=== PATIENT | female | born 1950 | race Caucasian/White ===

== ENCOUNTER → 2016-09-17 | Outpatient (CLI) | payer MEDICARE, MEDICAID | LOC: WI 10:01 | PROVIDERS: ATTEND Internal Medicine | DX: N60.82 Other benign mammary dysplasias of left breast (principal); N60.81 Other benign mammary dysplasias of right breast | CPT/HCPCS: 76642; G0204; 77066 ==

== ENCOUNTER 2017-09-08 17:20 | Emergency (ER) | payer MEDICARE, MEDICAID ==
[2017-09-08] MEDS ORDERED: PANTOPRAZOLE SODIUM 40 MG VIAL IV ONE (17:53)
--- NOTE | 2017-09-08 17:54 | ER Document Report ---
ED Medical Screen (RME) - General Chief Complaint: Vomiting Stated Complaint: VOMITING, DIZZY Time Seen by Provider: 09/08/17 17:51 Notes: RME DISCLOSURE I have seen this patient as part of a Rapid Medical Evaluation and, if applicable, placed any initially appropriate orders. The patient will be seen and fully evaluated, including a full history and physical exam, by a provider ( in Main ED or Fast Track) when a room becomes available. 66-year-old female here with complaints of fall the occurred several days ago. She fell and struck her left lower chest and has been having some rib pain since then. Since then, she has also been having episodes of vomiting and describes the vomitus as black. This has been accompanied with black stools for the same timeframe. She denies any abdominal pain but complains of pain under her left rib (left upper quadrant). She denies taking blood thinners. Has a previous history of peptic ulcers but denies any previous GI bleeds. EXAM Mild left upper quadrant tenderness No peritoneal signs TRAVEL OUTSIDE OF THE [place] IN LAST 30 DAYS: No - Related Data Allergies/Adverse Reactions: No Known Allergies Allergy (Verified 09/08/17 17:24) Past Medical History - Past Medical History Cardiac Medical History: Reports: Hx Congestive Heart Failure, Hx Coronary Artery Disease, Hx Heart Attack - x 2, Hx Hypercholesterolemia, Hx Hypertension Pulmonary Medical History: Reports: Hx Asthma Denies: Hx Tuberculosis Neurological Medical History: Reports: Hx Migraine. Denies: Hx Cerebrovascular Accident, Hx Seizures Endocrine Medical History: Reports: Hx Diabetes Mellitus Type 1, Hx Diabetes Mellitus Type 2 - insulin dependent, Hx Hypothyroidism GI Medical History: Reports: Hx Gastroesophageal Reflux Disease, Hx Ulcer. Denies: Hx Hiatal Hernia Musculoskeltal Medical History: Reports Hx Arthritis Psychiatric Medical History: Reports: Hx Bipolar Disorder, Hx Depression, Hx Post Traumatic Stress Disorder, Hx Schizophrenia Past Surgical History: Reports: Hx Appendectomy, Hx Cardiac Catheterization, Hx Cardiac Surgery - 4 stents, Hx Cholecystectomy, Hx Hysterectomy, Hx Open Heart Surgery, Hx Orthopedic Surgery - left leg hardware. Denies: Hx Pacemaker - Immunizations Hx Diphtheria, Pertussis, Tetanus Vaccination: Yes Physical Exam - Vital signs Vitals: Temp Pulse Resp BP Pulse Ox 98.2 F 74 24 H 172/110 H 94 09/08/17 17:25 09/08/17 17:25 09/08/17 17:25 09/08/17 17:25 09/08/17 17:25 Course - Vital Signs Vital signs: Temp Pulse Resp BP Pulse Ox 98.2 F 74 24 H 172/110 H 94 09/08/17 17:25 09/08/17 17:25 09/08/17 17:25 09/08/17 17:25 09/08/17 17:25
[2017-09-08 18:52] LABS: ABSOLUTE BASOPHILS # (AUTO) 0.1 10^3/uL (0.0-0.2); ABSOLUTE EOSINOPHILS # (AUTO) 0.1 10^3/uL (0.0-0.6); ABSOLUTE LYMPHOCYTES (AUTO) 1.6 10^3/uL (0.5-4.7); ABSOLUTE MONOCYTES (AUTO) 0.8 10^3/uL (0.1-1.4); ABSOLUTE NEUT (AUTO) 7.8 10^3/uL (1.7-8.2); BASOPHILS % (AUTO) 0.5 % (0-2); EOSINOPHILS % (AUTO) 0.8 % (0-6); HEMATOCRIT 46.4 % (36.0-47.0); HEMOGLOBIN 15.7 g/dL (12.0-15.5); LYMPHOCYTES % (AUTO) 15.1 % (13-45); MEAN CORPUSCULAR HEMOGLOBIN 28.8 pg (27.0-33.4); MEAN CORPUSCULAR HGB CONC 33.9 g/dL (32.0-36.0); MEAN CORPUSCULAR VOLUME 85 fl (80-97); MONOCYTES % (AUTO) 7.4 % (3-13); PLATELET COUNT 242 10^3/uL (150-450); RED BLOOD COUNT 5.45 10^6/uL (3.72-5.28); RED CELL DISTRIBUTION WIDTH 13.7 % (11.5-14.0); SEGMENTED NEUTROPHILS % (AUTO) 76.2 % (42-78); TOTAL CELLS COUNTED % (AUTO) 100 %; WHITE BLOOD COUNT 10.3 10^3/uL (4.0-10.5)
[2017-09-08 19:04] LABS: INTERNATIONAL RATION (INR) 0.92; PARTIAL THROMBOPLASTIN TIME 28.2 SEC (23.5-35.8)
[2017-09-08 19:09] LABS: ALANINE AMINOTRANSFERASE 30 U/L (9-52); ALBUMIN 4.6 g/dL (3.5-5.0); ALKALINE PHOSPHATASE 129 U/L (38-126); ANION GAP 10 (5-19); ASPARTATE AMINO TRANSFERASE 26 U/L (14-36); BILIRUBIN,DIRECT 0.6 mg/dL (0.0-0.4); BILIRUBIN,TOTAL 0.9 mg/dL (0.2-1.3); BLOOD UREA NITROGEN 17 mg/dL (7-20); CALCIUM 10.3 mg/dL (8.4-10.2); CARBON DIOXIDE 27 mmol/L (22-30); CHLORIDE 98 mmol/L (98-107); GLUCOSE 267 mg/dL (75-110); LIPASE 41.2 U/L (23-300); TOTAL PROTEIN 7.8 g/dL (6.3-8.2)
--- NOTE | 2017-09-08 20:42 | ER Document Report ---
ED GI/ - General Chief Complaint: Vomiting Stated Complaint: VOMITING, DIZZY Time Seen by Provider: 09/08/17 17:51 Notes: Patient is a 66-year-old female who comes emergency department for chief complaint of vomiting, diarrhea, and a fall. She states she fell over 2 days ago, she lost her balance and landed over the side of a chair over her left rib area, she denies falling to the ground or hitting her head. She states that yesterday she had vomiting and diarrhea, she had multiple episodes of diarrhea last night although diarrhea has stopped. She states that her diarrhea looked "black" in her vomit also looked "black". She states she vomited twice today but not since. Her only complaint now is feeling sore in her left upper abdominal and lower rib area. She denies dizziness or passing out. Past medical history of peptic ulcer disease although she denies history of GI bleed , CHF, CABG, type 2 diabetes, bipolar/anxiety. She comes from home. TRAVEL OUTSIDE OF THE [place] IN LAST 30 DAYS: No - Related Data Allergies/Adverse Reactions: No Known Allergies Allergy (Verified 09/08/17 17:24) Past Medical History - General Information source: Patient - Social History Smoking Status: Never Smoker Chew tobacco use (# tins/day): No Frequency of alcohol use: None Drug Abuse: None Lives with: Family Family History: CAD Patient has suicidal ideation: No Patient has homicidal ideation: No - Past Medical History Cardiac Medical History: Reports: Hx Congestive Heart Failure, Hx Coronary Artery Disease, Hx Heart Attack - x 2, Hx Hypercholesterolemia, Hx Hypertension Pulmonary Medical History: Reports: Hx Asthma Denies: Hx Tuberculosis Neurological Medical History: Reports: Hx Migraine. Denies: Hx Cerebrovascular Accident, Hx Seizures Endocrine Medical History: Reports: Hx Diabetes Mellitus Type 1, Hx Diabetes Mellitus Type 2 - insulin dependent, Hx Hypothyroidism Renal/ Medical History: Denies: Hx Peritoneal Dialysis GI Medical History: Reports: Hx Gastroesophageal Reflux Disease, Hx Ulcer. Denies: Hx Hiatal Hernia Musculoskeltal Medical History: Reports Hx Arthritis Psychiatric Medical History: Reports: Hx Bipolar Disorder, Hx Depression, Hx Post Traumatic Stress Disorder, Hx Schizophrenia Past Surgical History: Reports: Hx Appendectomy, Hx Cardiac Catheterization, Hx Cardiac Surgery - 4 stents, Hx Cholecystectomy, Hx Hysterectomy, Hx Open Heart Surgery, Hx Orthopedic Surgery - left leg hardware. Denies: Hx Pacemaker - Immunizations Hx Diphtheria, Pertussis, Tetanus Vaccination: Yes Hx Pneumococcal Vaccination: 03/18/11 Review of Systems - Review of Systems Constitutional: No symptoms reported EENT: No symptoms reported Cardiovascular: See HPI Respiratory: No symptoms reported Gastrointestinal: See HPI Genitourinary: No symptoms reported Female Genitourinary: No symptoms reported Musculoskeletal: No symptoms reported Skin: No symptoms reported Hematologic/Lymphatic: No symptoms reported Neurological/Psychological: No symptoms reported Physical Exam - Vital signs Vitals: Temp Pulse Resp BP Pulse Ox 98.2 F 74 24 H 172/110 H 94 09/08/17 17:25 09/08/17 17:25 09/08/17 17:25 09/08/17 17:25 09/08/17 17:25 - General General appearance: Appears well In distress: None - HEENT Head: Normocephalic, Atraumatic Eyes: Normal Conjunctiva: Normal Extraocular movements intact: Yes Eyelashes: Normal Pupils: PERRL Nasal: Normal Mouth/Lips: Normal Mucous membranes: Normal Pharynx: Normal Neck: Normal - Respiratory Respiratory status: No respiratory distress Chest status: Tender - Very mild tenderness in the left lower anterior ribs, no ecchymosis, crepitus, or other abnormality noted Breath sounds: Normal. No: Decreased air movement, Wheezing - Cardiovascular Rhythm: Regular. No: Tachycardia Heart sounds: Normal auscultation, S1 appreciated, S2 appreciated - Abdominal Inspection: Normal Distension: No distension Tenderness: Nontender. No: Tender, McBurney's point, Vega's sign, Guarding - Rectal Stool: Heme negative. 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 - Back Back: Normal, Nontender - Neurological Neuro grossly intact: Yes Cognition: Normal Orientation: AAOx4 [place] Coma Scale Eye Opening: Spontaneous [place] Coma Scale Verbal: Oriented [place] Coma Scale Motor: Obeys Commands Isaias Coma Scale Total: 15 Speech: Normal Motor strength normal: LUE, RUE, LLE, RLE Sensory: Normal - Psychological Associated symptoms: Other - Patient surprisingly cheerful, laughing, well- appearing - Skin Skin Temperature: Warm Skin Moisture: Dry Skin Color: Normal Course - Re-evaluation Re-evalutation: Patient smiling, laughing, well-appearing. Soft abdomen, clear lungs. Blood pressure is somewhat high, however she denies headache or chest pain. She has mild left sided rib tenderness, no obvious abdominal tenderness. Stool is brown and normal-appearing on exam, Hemoccult is negative. CBC and chemistry unremarkable. CAT scan reviewed from triage and does not show fracture, internal hemorrhage, or any other abnormality. Patient is tolerating p.o. without any difficulty. Patient is asking to leave. Because of peptic ulcer disease history, reported symptoms, patient was placed on Nexium , patient states she will follow-up with primary care. Adjusted blood pressure medication, she states that she will be taking her home medications and have this closely rechecked with primary care. is at bedside and states they will perform this. Discussed return precautions in detail, patient states satisfaction and agreement. - Vital Signs Vital signs: Temp Pulse Resp BP Pulse Ox 97.7 F 74 18 176/74 H 96 09/08/17 22:43 09/08/17 17:25 09/08/17 22:43 09/08/17 22:43 09/08/17 22:43 - Laboratory Result Diagrams: 09/08/17 18:20 09/08/17 18:20 Laboratory results interpreted by me: 09/08/17 09/08/17 18:20 18:20 RBC 5.45 H Hgb 15.7 H Sodium 135.0 L Glucose 267 H Calcium 10.3 H Direct Bilirubin 0.6 H Alkaline Phosphatase 129 H Discharge - Discharge Clinical Impression: Left upper quadrant pain Vomiting Qualifiers: Vomiting type: unspecified Vomiting Intractability: non-intractable Nausea presence: with nausea Qualified Code(s): R11.2 - Nausea with vomiting, unspecified Diarrhea Qualifiers: Diarrhea type: unspecified type Qualified Code(s): R19.7 - Diarrhea, unspecified Condition: Stable Disposition: HOME, SELF-CARE Additional Instructions: The imaging shows no fracture or concerning finding. No evidence of bleeding going on at this time. Rehydrate, take the Nexium medication as prescribed for your stomach, follow-up with primary care for additional evaluation and management. Return if you worsen including returned vomiting, worsening pain, fever, passing out, or any other concerning or worsening symptoms. Prescriptions: Esomeprazole Mag Trihydrate [Nexium] 40 mg PO DAILY #30 capsule.dr Forms: Elevated Blood Pressure Referrals: DAMIAN ARREOLA MD [Primary Care Provider] - Follow up in 3-5 days
--- NOTE | 2017-09-08 20:43 | RADIOLOGY REPORT (SQ) ---
EXAM DESCRIPTION: CT ABD/PELVIS WITH IV ONLY COMPLETED DATE/TIME: 09/08/2017 8:20 pm REASON FOR STUDY: fall, L lower rib pain, coffee grnd emesis; bleed? COMPARISON: None. TECHNIQUE: CT scan of the abdomen and pelvis performed using helical scanning technique with dynamic intravenous contrast injection. No oral contrast. Images reviewed with lung, soft tissue, and bone windows. Reconstructed coronal and sagittal MPR images reviewed. Delayed images for evaluation of the urinary system also acquired. All images stored on PACS. All CT scanners at this facility use dose modulation, iterative reconstruction, and/or weight based d osing when appropriate to reduce radiation dose to as low as reasonably achievable (ALARA). [facility]: Dose Right [facility]: CareDose [facility]: Dose Right [facility]: Teradose 4D [facility]: Info Assembly CONTRAST TYPE AND DOSE: contrast/concentration: Isovue 370.00 mg/ml; Total Contrast Delivered: 98.0 ml; Total Saline Delivered: 30.0 ml RENAL FUNCTION: BUN 17 creatinine 0.75. RADIATION DOSE: CT Rad equipment meets quality standard of care and radiation dose reduction techniq ues were employed. CTDIvol: 15.0 - 18.4 mGy. DLP: 1847 mGy-cm.. LIMITATIONS: None. FINDINGS: LOWER CHEST: No significant findings. No nodules or infiltrates. LIVER: Normal size. No masses. No dilated ducts. SPLEEN: Normal size. No focal lesions. PANCREAS: No masses. No significant calcifications. No adjacent inflammation or peripancreatic fluid collections. Pancreatic duct not dilated. GALLBLADDER: Surgically absent. ADRENAL GLANDS: No significant masses or asymmetry. RIGHT KIDNEY AND URETER: No solid masses. No significant calcifications. No hydronephrosis or hyd roureter. LEFT KIDNEY AND URETER: No solid masses. No significant calcifications. No hydronephrosis or hydr oureter. AORTA AND VESSELS: No aneurysm. No dissection. Renal arteries, SMA, celiac without stenosis. RETROPERITONEUM: No retroperitoneal adenopathy, hemorrhage or masses. BOWEL AND PERITONEAL CAVITY: No masses or inflammatory changes. No free fluid or peritoneal masses. APPENDIX: Surgically absent. PELVIS: No mass. No free fluid. Normal bladder. ABDOMINAL WALL: No masses. No hernias. BONES: No significant or acute findings. OTHER: No other significant finding. IMPRESSION: NO SIGNIFICANT OR ACUTE FINDING IN THE ABDOMEN OR PELVIS ON CT SCAN WITH IV CONTRAST. TECHNICAL DOCUMENTATION: JOB ID: [id number] Quality ID # [id number]: Final reports with documentation of one or more dose reduction techniques (e.g., Au tomated exposure control, adjustment of the mA and/or kV according to patient size, use of iterative reconstruction technique) 2010 [employer]- All Rights Reserved Reading location - IP/workstation name: [email or web address]
[2017-09-08 22:51] VITALS: BP 176/74
== END 2017-09-08 22:50 | disposition home or self-care (01) ==
LOC: ER 17:20
DX: R11.2 Nausea with vomiting, unspecified (principal); R19.7 Diarrhea, unspecified; R10.12 Left upper quadrant pain; R09.89 Other specified symptoms and signs involving the circulatory and respiratory systems; W18.39XA Other fall on same level, initial encounter; I10 Essential (primary) hypertension; Z79.899 Other long term (current) drug therapy; I25.10 Atherosclerotic heart disease of native coronary artery without angina pectoris; I25.2 Old myocardial infarction; E11.9 Type 2 diabetes mellitus without complications; Z95.1 Presence of aortocoronary bypass graft; Z87.11 Personal history of peptic ulcer disease
CPT/HCPCS: 99284; 96374; 86900; 86901; 36415; 86850; 83690; 85025; 85610; 85730; 82272; 80053; 74177; C9113; S0164

== ENCOUNTER 2017-10-01 20:44 | Inpatient (IN) | payer MEDICAID, MEDICARE ==
--- NOTE | 2017-10-01 21:42 | ER Document Report ---
ED Fall <CAROL ANGEL - Last Filed: 10/02/17 00:18> - General Mode of Arrival: Medic Information source: Patient TRAVEL OUTSIDE OF THE [place] IN LAST 30 DAYS: No <GINETTE HOLCOMB - Last Filed: 10/04/17 14:24> - General Stated Complaint: FALL/WEAKNESS/NAUSEA Time Seen by Provider: 10/01/17 21:25 Notes: This 67-year-old female patient without a history of falls reports this morning she fell on her face, and noticed that she lost her vision at that time. The vision did come back and she was better. Later in the day she fell again striking the back of her head and again this was associated with loss of vision. She is unclear and unsure about if the vision loss occurred before or after the falls. At this time her vision is back to normal according to the patient. (STANLEYCAROL MUNIZ) Patient is a 67-year-old female with a history of schizophrenia, PTSD, CHF, NH, cardiac stents 4, presents to the emergency department complaining of multiple falls onset today. Patient is a poor historian. Patient states that she fell this morning (unsure why) and hit the right side of her forehead then proceeded to fall again, hitting the back of her head, this afternoon due to a syncopal episode. Patient states she is unaware of how long she was unconscious but when she regained consciousness she was able to crawl to the phone and call the EMS. Patient states that before she had a syncopal episode she felt lightheaded and dizzy and that her vision went completely out. At bedside she said that her vision is normal. (GINETTE HOLCOMB) - Related data Allergies/Adverse Reactions: No Known Allergies Allergy (Verified 09/08/17 17:24) Past Medical History - General Information source: Patient, Parent - Social History Smoking Status: Unknown if Ever Smoked Family History: CAD - Past Medical History Cardiac Medical History: Reports: Hx Congestive Heart Failure, Hx Coronary Artery Disease, Hx Heart Attack - x 2, Hx Hypercholesterolemia, Hx Hypertension Pulmonary Medical History: Reports: Hx Asthma Neurological Medical History: Reports: Hx Migraine Endocrine Medical History: Reports: Hx Diabetes Mellitus Type 1, Hx Diabetes Mellitus Type 2 - insulin dependent, Hx Hypothyroidism GI Medical History: Reports: Hx Gastroesophageal Reflux Disease, Hx Ulcer Musculoskeltal Medical History: Reports Hx Arthritis Psychiatric Medical History: Reports: Hx Bipolar Disorder, Hx Depression, Hx Post Traumatic Stress Disorder, Hx Schizophrenia Past Surgical History: Reports: Hx Appendectomy, Hx Cardiac Catheterization, Hx Cardiac Surgery - 4 stents, Hx Cholecystectomy, Hx Hysterectomy, Hx Open Heart Surgery, Hx Orthopedic Surgery - left leg hardware - Immunizations Hx Diphtheria, Pertussis, Tetanus Vaccination: Yes Hx Pneumococcal Vaccination: 03/18/11 <GINETTE HOLCOMB - Last Filed: 10/04/17 14:24> Review of Systems - Review of Systems Constitutional: No symptoms reported EENT: No symptoms reported Cardiovascular: See HPI, Syncope, Dizziness, Lightheaded Respiratory: No symptoms reported Gastrointestinal: No symptoms reported Genitourinary: No symptoms reported Female Genitourinary: No symptoms reported Musculoskeletal: See HPI Skin: No symptoms reported Hematologic/Lymphatic: No symptoms reported Neurological/Psychological: See HPI, Lost consciousness -: Yes All other systems reviewed and negative <GINETTE HOLCOMB - Last Filed: 10/04/17 14:24> Physical Exam - General General appearance: Alert In distress: None - HEENT Head: Normocephalic, Other - tender to palpation to the occiput, no evidence of swelling. Eyes: Other Neck: Other - placed in a C-collar. - Respiratory Respiratory status: No respiratory distress Chest status: Nontender Breath sounds: Normal Chest palpation: Normal - Cardiovascular Rhythm: Regular Heart sounds: Normal auscultation Murmur: No Friction rub: No Gallop: None auscultated - Abdominal Inspection: Morbidly Obese Distension: No distension Bowel sounds: Normal Tenderness: Nontender Organomegaly: No organomegaly - Back Back: Normal - Extremities General upper extremity: Normal ROM. No: Edema General lower extremity: Normal ROM. No: Edema - Neurological Neuro grossly intact: Yes Cognition: Normal Orientation: AAOx4 [place] Coma Scale Eye Opening: Spontaneous [place] Coma Scale Verbal: Oriented Isaias Coma Scale Motor: Obeys Commands Isaias Coma Scale Total: 15 Speech: Normal - Psychological Associated symptoms: Normal affect, Normal mood - Skin Skin Temperature: Warm Skin Moisture: Dry Skin Color: Normal <GINETTE HOLCOMB - Last Filed: 10/04/17 14:24> - Vital signs Vitals: Resp 17 10/01/17 21:01 Course - Laboratory Result Diagrams: 10/01/17 22:30 10/01/17 22:30 - Diagnostic Test Radiology reviewed: Image reviewed, Reports reviewed - CT scans of the head and neck do not show acute injuries or acute changes. - EKG Interpretation by Me EKG shows normal: Sinus rhythm, [place], Intervals. abnormal: QRS Complexes - Borderline inferior Q waves, ST-T Waves - Diffuse nonspecific T abnormalities Rate: Normal - 64 Rhythm: NSR - Consults Dr. Duval Time consulted: 21:35 Consulted provider: will see as inpatient - Agrees that the patient should be admitted and further evaluated for these peculiar falls associated with vision loss. We will check lab work prior to requesting room. <CAROL ANGEL - Last Filed: 10/02/17 00:18> - Laboratory Result Diagrams: 10/01/17 22:30 10/01/17 22:30 <GINETTE HOLCOMB - Last Filed: 10/04/17 14:24> - Re-evaluation Re-evalutation: 10/02/17 00:12 Patient's case was discussed with Dr. Duval. Patient has not had a problem with falls in the past. She will be admitted for further evaluation of her falling spells which seem to be associated with vision loss. (CAROL ANGEL) - Vital Signs Vital signs: Temp Pulse Resp BP Pulse Ox 98.3 F 64 20 150/56 H 98 10/04/17 11:56 10/04/17 11:56 10/04/17 11:56 10/04/17 11:56 10/04/17 11:56 - Laboratory Laboratory results interpreted by me: 10/01/17 10/01/17 10/01/17 22:30 22:30 23:42 RDW 14.4 H Seg Neutrophils % 88.1 H Lymphocytes % 8.2 L Chloride 97 L Glucose 189 H Urine Protein 30 H Urine Glucose (UA) >=500 H Urine Ketones 20 H Discharge - Discharge Admitting Provider: Mukund Unit Admitted: Medical Floor <CAROL ANGEL - Last Filed: 10/02/17 00:18> <GINETTE HOLCOMB - Last Filed: 10/04/17 14:24> - Discharge Clinical Impression: Vision loss Falls Qualifiers: Encounter type: subsequent encounter Qualified Code(s): W19.XXXD - Unspecified fall, subsequent encounter Scalp contusion Qualifiers: Encounter type: initial encounter Qualified Code(s): S00.03XA - Contusion of scalp, initial encounter Condition: Stable Disposition: ADMITTED INPATIENT Scribe Attestation: 10/01/17 23:07 I personally performed the services described in the documentation, reviewed and edited the documentation which was dictated to the scribe in my presence, and it accurately records my words and actions. (CAROL ANGEL) Scribe Documentation - Scribe Written by Jose:: Jose Esposito, 10/01/2017 21:45 acting as scribe for :: Stanley <GINETTE HOLCOMB - Last Filed: 10/04/17 14:24>
--- NOTE | 2017-10-01 22:32 | RADIOLOGY REPORT (SQ) ---
EXAM DESCRIPTION: CT HEAD WITHOUT COMPLETED DATE/TIME: 10/01/2017 10:13 pm REASON FOR STUDY: fall COMPARISON: 12/28/2010 TECHNIQUE: Axial images acquired through the brain without intravenous contrast. Images reviewed wi th bone, brain and subdural windows. Additional sagittal and coronal reconstructions were generated. Images stored on PACS. All CT scanners at this facility use dose modulation, iterative reconstruction, and/or weight based d osing when appropriate to reduce radiation dose to as low as reasonably achievable (ALARA). [facility]: Dose Right [facility]: CareDose [facility]: Dose Right [facility]: Teradose 4D [facility]: Smart [employer].pw RADIATION DOSE: CT Rad equipment meets quality standard of care and radiation dose reduction techniq ues were employed. CTDIvol: 53.2 mGy. DLP: 964 mGy-cm. mGy. LIMITATIONS: None. FINDINGS: VENTRICLES: Normal size and contour. CEREBRUM: Mild cortical atrophy. No masses. No hemorrhage. No midline shift. No evidence for acut e infarction. Normal kelley/white matter differentiation. No areas of low density in the white matter. CEREBELLUM: No masses. No hemorrhage. No alteration of density. No evidence for acute infarction. EXTRAAXIAL SPACES: No fluid collections. No masses. ORBITS AND GLOBE: No intra- or extraconal masses. Normal contour of globe without masses. CALVARIUM: No fracture. PARANASAL SINUSES: No fluid or mucosal thickening. SOFT TISSUES: No mass or hematoma. OTHER: No other significant finding. IMPRESSION: Mild involutional changes of aging with no acute intracranial imaging findings. EVIDENCE OF ACUTE STROKE: NO. COMMENT: Quality ID # [id number]: Final reports with documentation of one or more dose reduction techniques (e.g., Automated exposure control, adjustment of the mA and/or kV according to patient size, use of iterative reconstruction technique) TECHNICAL DOCUMENTATION: JOB ID: [id number] [employer]- All Rights Reserved Reading location - IP/workstation name: [email or web address]
--- NOTE | 2017-10-01 22:36 | RADIOLOGY REPORT (SQ) ---
EXAM DESCRIPTION: CT CERVICAL SPINE WITHOUT COMPLETED DATE/TIME: 10/01/2017 10:13 pm REASON FOR STUDY: fall COMPARISON: None. TECHNIQUE: Axial images acquired through the cervical spine without intravenous contrast. Images re viewed with lung, soft tissue and bone windows. Reconstructed coronal and sagittal MPR images review ed. Images stored on PACS. All CT scanners at this facility use dose modulation, iterative reconstruction, and/or weight based d osing when appropriate to reduce radiation dose to as low as reasonably achievable (ALARA). [facility]: Dose Right [facility]: CareDose [facility]: Dose Right [facility]: Teradose 4D [facility]: Smart ASSIA RADIATION DOSE: CT Rad equipment meets quality standard of care and radiation dose reduction techniq ues were employed. CTDIvol: 22.4 mGy. DLP: 440 mGy-cm. mGy. LIMITATIONS: None. FINDINGS: ALIGNMENT: Anatomic. MINERALIZATION: Normal. VERTEBRAL BODIES: No fractures or dislocation. DISCS: Discs are narrowed at C2-3, C4-5, C5-6, and C6-7. Anterior and posterior osteophytes are pres ent from C4-C7. FACETS, LATERAL MASSES, POSTERIOR ELEMENTS: No fractures. No dislocation. No acute findings. HARDWARE: None in the spine. VISUALIZED RIBS: No fractures. LUNG APICES AND SOFT TISSUES: No significant or acute findings. OTHER: Foraminal stenoses are present at C4-5, C5-6, and C6-7 on the right more than the left. IMPRESSION: Degenerative disc disease and spondylosis. No acute abnormality. TECHNICAL DOCUMENTATION: JOB ID: [id number] Quality ID # [id number]: Final reports with documentation of one or more dose reduction techniques (e.g., Au tomated exposure control, adjustment of the mA and/or kV according to patient size, use of iterative reconstruction technique) 2010 [employer]- All Rights Reserved Reading location - IP/workstation name: [email or web address]
[2017-10-01 22:51] LABS: ABSOLUTE LYMPHOCYTES (AUTO) 0.7 10^3/uL (0.5-4.7); ABSOLUTE MONOCYTES (AUTO) 0.3 10^3/uL (0.1-1.4); ABSOLUTE NEUT (AUTO) 7.2 10^3/uL (1.7-8.2); BASOPHILS % (AUTO) 0.2 % (0-2); EOSINOPHILS % (AUTO) 0.1 % (0-6); HEMATOCRIT 42.6 % (36.0-47.0); HEMOGLOBIN 14.4 g/dL (12.0-15.5); LYMPHOCYTES % (AUTO) 8.2 % (13-45); MEAN CORPUSCULAR HEMOGLOBIN 29.1 pg (27.0-33.4); MEAN CORPUSCULAR HGB CONC 33.7 g/dL (32.0-36.0); MEAN CORPUSCULAR VOLUME 86 fl (80-97); MONOCYTES % (AUTO) 3.4 % (3-13); PLATELET COUNT 211 10^3/uL (150-450); RED BLOOD COUNT 4.94 10^6/uL (3.72-5.28); RED CELL DISTRIBUTION WIDTH 14.4 % (11.5-14.0); SEGMENTED NEUTROPHILS % (AUTO) 88.1 % (42-78); TOTAL CELLS COUNTED % (AUTO) 100 %; WHITE BLOOD COUNT 8.1 10^3/uL (4.0-10.5)
--- NOTE | 2017-10-01 23:03 | EKG REPORT ---
SEVERITY:- ABNORMAL ECG - SINUS RHYTHM BORDERLINE INFERIOR Q WAVES NONSPECIFIC T ABNORMALITIES, DIFFUSE LEADS : Confirmed by: Mohinder Solomon 01-Oct-2017 23:02:52
[2017-10-01 23:08] LABS: ALANINE AMINOTRANSFERASE 28 U/L (9-52); ALBUMIN 4.5 g/dL (3.5-5.0); ALKALINE PHOSPHATASE 95 U/L (38-126); ANION GAP 13 (5-19); ASPARTATE AMINO TRANSFERASE 25 U/L (14-36); BILIRUBIN,DIRECT 0.4 mg/dL (0.0-0.4); BILIRUBIN,TOTAL 0.7 mg/dL (0.2-1.3); BLOOD UREA NITROGEN 10 mg/dL (7-20); CALCIUM 10.1 mg/dL (8.4-10.2); CARBON DIOXIDE 28 mmol/L (22-30); CHLORIDE 97 mmol/L (98-107); CREATINE KINASE 52 U/L (30-135); GLUCOSE 189 mg/dL (75-110); POTASSIUM 3.9 mmol/L (3.6-5.0); SODIUM 137.5 mmol/L (137-145); TOTAL PROTEIN 7.2 g/dL (6.3-8.2)
[2017-10-01 23:18] LABS: CREATINE KINASE MB 1.12 ng/mL (<4.55); TROPONIN I < 0.012 ng/mL
[2017-10-01 23:59] LABS: APPEARANCE,URINE CLEAR; BILIRUBIN,URINE NEGATIVE (NEGATIVE); COLOR,URINE YELLOW; GLUCOSE, URINE >=500 mg/dL (NEGATIVE); KETONES,URINE 20 mg/dL (NEGATIVE); LEUKOCYTE ESTERASE,URINE NEGATIVE (NEGATIVE); NITRITE,URINE NEGATIVE (NEGATIVE); PROTEIN,URINE 30 mg/dL (NEGATIVE); URINE SPECIFIC GRAVITY 1.014; UROBILINOGEN,URINE NEGATIVE mg/dL (<2.0)
[2017-10-02 08:32] LABS: CREATINE KINASE MB 1.45 ng/mL (<4.55)
[2017-10-02 08:36] LABS: TROPONIN I < 0.012 ng/mL
[2017-10-02] MEDS ORDERED: CLONAZEPAM 1 MG TABLET PO ONE (11:00)
[2017-10-02] MEDS ORDERED: CLONAZEPAM 1 MG TABLET PO PRN (12:45)
[2017-10-02] MEDS ORDERED: INSULIN LISPRO 100 UNIT/ML 3 ML VIAL SUBCUT SCH (12:45)
[2017-10-02] MEDS ORDERED: BENZTROPINE MESYLATE 1 MG TABLET PO ONE (14:00)
[2017-10-02] MEDS ORDERED: DULOXETINE HCL 30 MG CAPSULE.DR PO ONE (14:00)
[2017-10-02] MEDS ORDERED: LAMOTRIGINE 100 MG TABLET PO ONE (14:00)
[2017-10-02] MEDS ORDERED: LEVOTHYROXINE SODIUM 0.15 MG TABLET PO ONE (14:00)
[2017-10-02] MEDS ORDERED: ASPIRIN 81 MG TABLET, ENT COATED PO ONE (14:00)
[2017-10-02] MEDS ORDERED: METOPROLOL SUCCINATE 50 MG TAB.SR.24H PO ONE (14:00)
[2017-10-02 15:10] LABS: CREATINE KINASE MB 2.69 ng/mL (<4.55)
[2017-10-02 15:14] LABS: TROPONIN I < 0.012 ng/mL
[2017-10-02] MEDS ORDERED: BUTALB/ACETAMINOPHEN/CAFFEINE 1 TAB EACH PO PRN (18:15)
[2017-10-02] MEDS ORDERED: ENALAPRILAT DIHYDRATE INJ/PF 2.5 MG/2 ML SDV IV ONE (18:45)
[2017-10-02] MEDS: ENALAPRILAT DIHYDRATE INJ/PF 2.5 MG/2 ML SDV IV SCH ×2 (18:55→18:56)
[2017-10-02 20:01] LABS: CREATINE KINASE MB 3.01 ng/mL (<4.55); TROPONIN I < 0.012 ng/mL
[2017-10-02] MEDS: BENZTROPINE MESYLATE 1 MG TABLET PO SCH (21:44)
[2017-10-02] MEDS: LAMOTRIGINE 100 MG TABLET PO SCH (21:45)
[2017-10-02] MEDS: DULOXETINE HCL 30 MG CAPSULE.DR PO SCH (21:45)
[2017-10-02] MEDS: CLONAZEPAM 1 MG TABLET PO SCH (21:45)
[2017-10-02] MEDS: OXYCODONE HCL IR 5 MG TABLET PO SCH (21:46)
[2017-10-02] MEDS ORDERED: CLONAZEPAM 1 MG PO SCH (22:00)
--- NOTE | 2017-10-02 23:32 | PDOC H&P ---
History of Present Illness Admission Date/PCP: 10/02/17 00:25 DAMIAN ARREOLA MD History of Present Illness: RADHA SCOTT is a 67 year old female, She has history of coronary artery disease status post CABG, diabetes mellitus type 2 ,depression she came to the emergency room for evaluation of unprovoked fall she said she fell 3 times unprovoked there was no antecedent chest pain, no loss of consciousness no shortness of breath. In the Emergency room she was evaluated x-rays was done there was no acute fracture CT head was negative. She was also found to have uncontrolled hypertension with the headache because the etiology of the fall is not clear the ER physician is recommending hospital admission for observation Past Medical History Cardiac Medical History: Reports: Congestive Heart Failure, Coronary Artery Disease, Myocardial Infarction - x 2, Hyperlipidema, Hypertension Pulmonary Medical History: Reports: Asthma Neurological Medical History: Reports: Migraine Endocrine Medical History: Reports: Diabetes Mellitus Type 2 GI Medical History: Reports: Gastroesophageal Reflux Disease Musculoskeltal Medical History: Reports: Arthritis Psychiatric Medical History: Reports: Bipolar Disorder, Depression, Post Traumatic Stress Disorder Hematology: Reports: Anemia Past Surgical History Past Surgical History: Reports: Appendectomy, Cardiac Catheterization, Cholecystectomy, Hysterectomy, Orthopedic Surgery - left leg hardware Denies: Pacemaker Social History Smoking Status: Unknown if Ever Smoked Frequency of Alcohol Use: None Hx Recreational Drug Use: No Drugs: None Hx Prescription Drug Abuse: No - Advance Directive Resuscitation Status: Full Code Family History Family History: CAD Parental Family History Reviewed: Yes Children Family History Reviewed: Yes Sibling(s) Family History Reviewed.: Yes Medication/Allergy Home Medications: Levothyroxine Sodium [Synthroid] 150 mcg PO Q6AM 05/26/12 Metoprolol Succinate [Toprol XL 100 mg Tablet] 200 mg PO DAILY 05/26/12 Insulin Aspart [Novolog Flexpen] 0 unit SUBCUT .SLD SCALE 10/21/13 Clonazepam [Klonopin] 0.5 mg PO DAILYP PRN 09/08/17 Aspirin [Aspirin EC] 81 mg PO DAILY 10/02/17 Benztropine Mesylate [Cogentin 1 mg Tablet] 1 mg PO Q12 10/02/17 Clonazepam [Klonopin] 1 mg PO QHS 10/02/17 Dextroamphetamine/Amphetamine [Adderall 10 mg Tablet] 10 mg PO Q8 10/02/17 Duloxetine HCl [Cymbalta] 60 mg PO Q12 10/02/17 Insulin Detemir [Levemir Flextouch] 50 unit SQ QAM 10/02/17 Lamotrigine [Lamictal] 200 mg PO Q12 10/02/17 Oxycodone HCl [Oxy-Ir 5 mg Tablet] 5 mg PO Q12 10/02/17 Prazosin HCl [Minipress] 1 mg PO QHS 10/02/17 Allergies/Adverse Reactions: No Known Allergies Allergy (Verified 09/08/17 17:24) Review of Systems Constitutional: PRESENT: headache(s). ABSENT: chills, fever(s), weight gain, weight loss Eyes: ABSENT: visual disturbances Ears: ABSENT: hearing changes Cardiovascular: ABSENT: chest pain, dyspnea on exertion, edema, orthropnea, palpitations Respiratory: ABSENT: cough, hemoptysis Gastrointestinal: ABSENT: abdominal pain, constipation, diarrhea, hematemesis, hematochezia, nausea, vomiting Genitourinary: ABSENT: dysuria, hematuria Musculoskeletal: ABSENT: joint swelling Integumentary: ABSENT: rash, wounds Neurological: ABSENT: abnormal gait, abnormal speech, confusion, dizziness, focal weakness, syncope Psychiatric: ABSENT: anxiety, depression, homidical ideation, suicidal ideation Endocrine: ABSENT: cold intolerance, heat intolerance, menstrual abnormalities, polydipsia, polyuria Hematologic/Lymphatic: ABSENT: easy bleeding, easy bruising, lymphadenopathy Physical Exam Vital Signs: Temp Pulse Resp BP Pulse Ox 98.2 F 57 L 20 181/67 H 94 10/02/17 19:19 10/02/17 19:19 10/02/17 19:19 10/02/17 19:19 10/02/17 19:19 Intake & Output 10/01/17 10/02/17 10/03/17 06:59 06:59 06:59 Intake Total 0 160 Output Total 30 800 Balance -30 -640 Weight 92 kg General appearance: PRESENT: no acute distress, well-developed, well-nourished Head exam: PRESENT: atraumatic, normocephalic Eye exam: PRESENT: conjunctiva pink, EOMI, PERRLA Ear exam: PRESENT: normal external ear exam Mouth exam: PRESENT: moist, tongue midline Neck exam: PRESENT: full ROM Respiratory exam: PRESENT: clear to auscultation ellen Cardiovascular exam: PRESENT: RRR, +S1, +S2 Pulses: PRESENT: normal dorsalis pedis pul, +2 pedal pulses bilateral Vascular exam: PRESENT: normal capillary refill GI/Abdominal exam: PRESENT: normal bowel sounds, soft Rectal exam: PRESENT: deferred Neurological exam: PRESENT: alert. ABSENT: motor sensory deficit Psychiatric exam: PRESENT: appropriate affect, normal mood Skin exam: PRESENT: dry, intact, warm Results Laboratory Results: 10/02/17 10/02/17 10/02/17 07:39 07:39 13:48 Creatine Kinase 65 97 CK-MB (CK-2) 1.45 Troponin I < 0.012 10/02/17 10/02/17 10/02/17 13:48 18:30 18:30 Creatine Kinase 114 CK-MB (CK-2) 2.69 3.01 Troponin I < 0.012 < 0.012 Impressions: Cervical Spine CT 10/01/17 00:00 IMPRESSION: Degenerative disc disease and spondylosis. No acute abnormality. Head CT 10/01/17 00:00 IMPRESSION: Mild involutional changes of aging with no acute intracranial imaging findings. EVIDENCE OF ACUTE STROKE: NO. Assessment & Plan - Diagnosis (1) Hypertensive urgency Is this a current diagnosis for this admission?: Yes Plan: Start IV Vasotec, p.o. metoprolol (2) Fall Is this a current diagnosis for this admission?: Yes Plan: The cause of the fall is not clear she is admitted for observation, check cardiac enzymes to rule out acute coronary syndrome though unlikely
[2017-10-02] MEDS ORDERED: DEXTROSE 50%-WATER SYRINGE 12.5 GM/25 ML DOSE IV PRN (23:48)
[2017-10-02] MEDS ORDERED: DEXTROSE 40% GEL 15 GM TUBE PO PRN (23:48)
[2017-10-02] MEDS ORDERED: DEXTROSE 50%-WATER SYRINGE 25 GM/50 ML DOSE IV PRN (23:48)
[2017-10-02] MEDS ORDERED: GLUCAGON,HUMAN RECOMB 1 MG INJ IM PRN (23:48)
[2017-10-02] MEDS ORDERED: INSULIN LISPRO 100 UNIT/ML 3 ML VIAL SUBCUT PRN (23:48)
[2017-10-02] MEDS ORDERED: DEXTROSE 40% GEL 15 GM TUBE X 2 PO PRN (23:48)
[2017-10-03] MEDS: ENALAPRILAT DIHYDRATE INJ/PF 2.5 MG/2 ML SDV IV SCH ×4 (00:04→17:47)
[2017-10-03] MEDS ORDERED: ONDANSETRON HCL INJ/PF 4 MG/2 ML SDV ONE (03:28)
[2017-10-03] MEDS ORDERED: ONDANSETRON HCL INJ/PF 4 MG/2 ML SDV IV PRN (03:29)
[2017-10-03] MEDS: LEVOTHYROXINE SODIUM 0.15 MG TABLET PO SCH (05:42)
[2017-10-03] MEDS ORDERED: DEXTROSE 40% GEL 15 GM TUBE X 2 PO PRN (07:12)
[2017-10-03] MEDS ORDERED: GLUCAGON,HUMAN RECOMB 1 MG INJ IM PRN (07:12)
[2017-10-03] MEDS ORDERED: DEXTROSE 50%-WATER SYRINGE 12.5 GM/25 ML DOSE IV PRN (07:12)
[2017-10-03] MEDS ORDERED: DEXTROSE 50%-WATER SYRINGE 25 GM/50 ML DOSE IV PRN (07:12)
[2017-10-03] MEDS ORDERED: DEXTROSE 40% GEL 15 GM TUBE PO PRN (07:12)
[2017-10-03] MEDS: INSULIN LISPRO 100 UNIT/ML 3 ML VIAL SUBCUT PRN ×2 (08:26→12:31)
[2017-10-03] MEDS: INSULIN DETEMIR 100 UNIT/ML 3 ML PEN SUBCUT SCH (08:26)
[2017-10-03] MEDS: ASPIRIN 81 MG TABLET, ENT COATED PO SCH (09:37)
[2017-10-03] MEDS: OXYCODONE HCL IR 5 MG TABLET PO SCH ×2 (09:37→21:11)
[2017-10-03] MEDS: LAMOTRIGINE 100 MG TABLET PO SCH ×2 (09:37→21:09)
[2017-10-03] MEDS: DULOXETINE HCL 30 MG CAPSULE.DR PO SCH ×2 (09:37→21:08)
[2017-10-03] MEDS: BENZTROPINE MESYLATE 1 MG TABLET PO SCH ×2 (09:38→21:09)
[2017-10-03] MEDS: CLONAZEPAM 1 MG TABLET PO SCH ×2 (09:38→21:09)
[2017-10-03] MEDS ORDERED: METOPROLOL SUCCINATE 50 MG TAB.SR.24H PO SCH (10:00)
[2017-10-03] MEDS ORDERED: AMLODIPINE BESYLATE 2.5 MG TABLET PO ONE (10:30)
--- NOTE | 2017-10-03 11:05 | PDOC PROGRESS REPORT ---
Subjective Progress Note for:: 10/03/17 Subjective:: Patient was admitted because of the frequent fall and uncontrolled blood pressures An initial workup including CT head and CT of the C-spine is all stable Patient's denied any chest pain denied any shortness of the breath denied any headache denied any weakness Is complaining of her right upper extremities some tremor Patient have initially visual difficulty when she came currently get better Reason For Visit: CONTUSSION OF SCALP VISION LOSS Physical Exam Vital Signs: Temp Pulse Resp BP Pulse Ox 97.8 F 51 L 18 152/70 H 99 10/03/17 07:34 10/03/17 07:34 10/03/17 07:34 10/03/17 07:34 10/03/17 07:34 Intake & Output 10/02/17 10/03/17 10/04/17 06:59 06:59 06:59 Intake Total 0 1170 Output Total 30 800 Balance -30 370 Weight 92 kg 91.3 kg General appearance: PRESENT: no acute distress, well-developed, well-nourished Head exam: PRESENT: atraumatic, normocephalic Eye exam: PRESENT: conjunctiva pink, EOMI, PERRLA. ABSENT: scleral icterus Ear exam: PRESENT: normal external ear exam Mouth exam: PRESENT: moist, tongue midline Neck exam: PRESENT: full ROM. ABSENT: carotid bruit, JVD, lymphadenopathy, thyromegaly Respiratory exam: PRESENT: clear to auscultation ellen Cardiovascular exam: PRESENT: RRR. ABSENT: diastolic murmur, rubs, systolic murmur Pulses: PRESENT: normal dorsalis pedis pul, +2 pedal pulses bilateral Vascular exam: PRESENT: normal capillary refill GI/Abdominal exam: PRESENT: normal bowel sounds, soft. ABSENT: distended, guarding, mass, organolmegaly, rebound, tenderness Rectal exam: PRESENT: deferred Extremities exam: ABSENT: pedal edema Musculoskeletal exam: PRESENT: ambulatory Neurological exam: PRESENT: alert, awake, oriented to person, oriented to place , oriented to time, oriented to situation, CN II-XII grossly intact. ABSENT: motor sensory deficit Psychiatric exam: PRESENT: appropriate affect, normal mood. ABSENT: homicidal ideation, suicidal ideation Skin exam: PRESENT: dry, intact, warm. ABSENT: cyanosis, rash Results Laboratory Results: 10/02/17 10/02/17 10/02/17 07:39 07:39 13:48 Creatine Kinase 65 97 CK-MB (CK-2) 1.45 Troponin I < 0.012 10/02/17 10/02/17 10/02/17 13:48 18:30 18:30 Creatine Kinase 114 CK-MB (CK-2) 2.69 3.01 Troponin I < 0.012 < 0.012 Impressions: Cervical Spine CT 10/01/17 00:00 IMPRESSION: Degenerative disc disease and spondylosis. No acute abnormality. Head CT 10/01/17 00:00 IMPRESSION: Mild involutional changes of aging with no acute intracranial imaging findings. EVIDENCE OF ACUTE STROKE: NO. Assessment & Plan - Diagnosis (1) Fall Qualifiers: Encounter type: subsequent encounter Qualified Code(s): W19.XXXD - Unspecified fall, subsequent encounter Is this a current diagnosis for this admission?: Yes Plan: Elevated blood pressures and frequent fall will get the MRI and MRA to rule out any neurological events (2) Hypertensive urgency Is this a current diagnosis for this admission?: Yes Plan: At the Norvasc 2.5 mg twice a day and slowly bring it down the blood pressures if MRI is negative for any acute stroke (3) Scalp contusion Qualifiers: Encounter type: initial encounter Qualified Code(s): S00.03XA - Contusion of scalp, initial encounter Is this a current diagnosis for this admission?: Yes (4) Vision loss Is this a current diagnosis for this admission?: Yes - Time Time Spent with patient: 15-24 minutes Medications reviewed and adjusted accordingly: Yes Anticipated discharge: Home Within: Other - Inpatient Certification Medical Necessity: Need Close Monitoring Due to Risk of Patient Decompensation Post Hospital Care: 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
[2017-10-03] MEDS ORDERED: ENALAPRILAT DIHYDRATE INJ/PF 2.5 MG/2 ML SDV IV SCH (18:00)
--- NOTE | 2017-10-03 18:52 | PDOC CONSULTATION ---
Consultation Consult Date: 10/03/17 Attending physician:: MARK HUSSEIN Consult reason:: Bradycardia History of Present Illness Admission Date/PCP: 10/02/17 00:25 DAMIAN ARREOLA MD Patient complains of: Recurrent falls and generalized weakness History of Present Illness: RADHA SCOTT is a 67 year old female has history of coronary artery disease status post CABG, diabetes mellitus type 2 ,depression she came to the emergency room for evaluation of unprovoked fall she said she fell 3 times unprovoked there was no antecedent chest pain, no loss of consciousness no shortness of breath. In the Emergency room she was evaluated x-rays was done there was no acute fracture CT head was negative. She was also found to have uncontrolled hypertension with the headache because the etiology of the fall is not clear the ER physician is recommending hospital admission for observation. This history obtained by the primary care physician was reviewed and confirmed. Patient does not know for sure whether she loses consciousness but claims that if she does she comes around very quickly. Her belief is that she just falls and does not have loss of consciousness. Patient has noted occasional intermittent nausea just preceding the falls. Patient claims that her muscles just give away. Patient has also been noted to have difficult to control blood pressure. Patient does have symptoms of difficulty in falling asleep and staying asleep. She is on multiple medications for the stress, pain and anxiety. Past Medical History Cardiac Medical History: Reports: Congestive Heart Failure, Coronary Artery Disease, Myocardial Infarction - x 2, Hyperlipidema, Hypertension Pulmonary Medical History: Reports: Asthma Denies: Tuberculosis Neurological Medical History: Reports: Migraine Denies: Seizures Endocrine Medical History: Reports: Diabetes Mellitus Type 1, Diabetes Mellitus Type 2, Hypothyroidism GI Medical History: Reports: Gastroesophageal Reflux Disease Denies: Hiatal Hernia Musculoskeltal Medical History: Reports: Arthritis Psychiatric Medical History: Reports: Bipolar Disorder, Depression, Post Traumatic Stress Disorder Hematology: Reports: Anemia Past Surgical History Past Surgical History: Reports: Appendectomy, Cardiac Catheterization, Cholecystectomy, Hysterectomy, Orthopedic Surgery - left leg hardware Denies: Pacemaker Social History Information Source: Patient Smoking Status: Unknown if Ever Smoked Frequency of Alcohol Use: None Hx Recreational Drug Use: No Drugs: None Hx Prescription Drug Abuse: No - Advance Directive Resuscitation Status: Full Code Family History Family History: CAD Parental Family History Reviewed: Yes Children Family History Reviewed: Yes Sibling(s) Family History Reviewed.: Yes Medication/Allergy Home Medications: Levothyroxine Sodium [Synthroid] 150 mcg PO Q6AM 05/26/12 Metoprolol Succinate [Toprol XL 100 mg Tablet] 200 mg PO DAILY 05/26/12 Insulin Aspart [Novolog Flexpen] 0 unit SUBCUT .SLD SCALE 10/21/13 Clonazepam [Klonopin] 0.5 mg PO DAILYP PRN 09/08/17 Aspirin [Aspirin EC] 81 mg PO DAILY 10/02/17 Benztropine Mesylate [Cogentin 1 mg Tablet] 1 mg PO Q12 10/02/17 Clonazepam [Klonopin] 1 mg PO QHS 10/02/17 Dextroamphetamine/Amphetamine [Adderall 10 mg Tablet] 10 mg PO Q8 10/02/17 Duloxetine HCl [Cymbalta] 60 mg PO Q12 10/02/17 Insulin Detemir [Levemir Flextouch] 50 unit SQ QAM 10/02/17 Lamotrigine [Lamictal] 200 mg PO Q12 10/02/17 Oxycodone HCl [Oxy-Ir 5 mg Tablet] 5 mg PO Q12 10/02/17 Prazosin HCl [Minipress] 1 mg PO QHS 10/02/17 Allergies/Adverse Reactions: No Known Allergies Allergy (Verified 09/08/17 17:24) Review of Systems Review of Systems: Please see history of present illness and past medical history as wall. Constitutional: No fever or chills reported. General fatigue and tiredness reported. Head : No recent chronic headaches, recent head injury. Eyes: No recent eye pain, diplopia, redness, discharge, acute visual changes. Ears: No recent chronic ear pain, acute hearing loss, ear discharge. Oral cavity: No recent ulcerations, bleeding, oral cavity discomfort. Neck: No recent acute neck pain reported. Hematologic: No recent easy bruising or bleeding. Lymphatic: No recent lymph node enlargement reported. Cardiovascular system review: See history of present illness. Respiratory system review: No hemoptysis or blood clots in the lungs reported.Shortness of breath on exertion Gastrointestinal system review: Negative for any recent acute hematemesis, melena. Genitourinary system review: No recent acute or chronic hematuria, flank pain, UTI etc. reported. Skin system review: Negative for any recent abnormal bruising, no rash, no pruritus reported. Neurologic: No prior history of strokes, mini strokes, seizure disorder. Psychologic: No history of major psychosis or major depression reported. Minor depression and anxiety reported. Musculoskeletal: Minor aches and pains reported. No acute joint swelling reported. Patient describes some left lower extremity weakness and also generalized weakness. Endocrine: No recent polyuria, polydipsia, recent heat or cold intolerance. Physical Exam Vital Signs: Temp Pulse Resp BP Pulse Ox 97.7 F 53 L 18 168/68 H 98 10/03/17 16:12 10/03/17 16:12 10/03/17 16:12 10/03/17 16:12 10/03/17 16:12 Intake & Output 10/02/17 10/03/17 10/04/17 06:59 06:59 06:59 Intake Total 0 1170 572 Output Total 30 800 Balance -30 370 572 Weight 92 kg 91.3 kg Exam: GENERAL: well-nourished and in no acute distress. Alert and oriented x3 HEAD: Atraumatic, normocephalic. EYES: Pupils equal round and reactive to light, extraocular movements intact, sclera anicteric, conjunctiva are normal. ENT: TMs normal, nares patent, oropharynx clear without exudates. Moist mucous membranes. No oral ulcerations or bleeding gums noted NECK: supple without lymphadenopathy. Trachea is central. No cervical or axillary lymphadenopathy noted. Carotids are 2+, JVD WNL LUNGS: Respiration seems nonlabored, no significant accessory muscle action noted. Breath sounds clear to auscultation bilaterally and equal noted. No wheezes rales or rhonchi noted. No significant dullness noted on percussion. CHEST: Palpation of the chest wall shows no significant chest wall tenderness. HEART: [place], No PSH, 1/6 AMPARO aortic area, 1/6 nair systolic murmur mitral area, no rubs, no gallops. ABDOMEN: Soft, no significant tenderness appreciated, normoactive bowel sounds. No guarding, no rebound. No rigidity noted . No masses appreciated. EXTREMITIES: Pedal pulses are 1-2+, no calf tenderness noted. No clubbing or cyanosis. Trace pedal edema noted NEUROLOGICAL: Focused neurological exam showed no significant neurologic deficit. Normal speech, no focal weakness appreciated. PSYCH: Normal mood, normal affect. Judgment and insight within normal limits. SKIN: No significant ecchymosis, skin is noted to be warm. MUSCULOSKELETAL EXAM: No significant acute joint swelling noted. Patient describes mild left lower extremity weakness but this is chronic. Results Laboratory Results: 10/02/17 10/02/17 10/02/17 07:39 07:39 13:48 Creatine Kinase 65 97 CK-MB (CK-2) 1.45 Troponin I < 0.012 10/02/17 10/02/17 10/02/17 13:48 18:30 18:30 Creatine Kinase 114 CK-MB (CK-2) 2.69 3.01 Troponin I < 0.012 < 0.012 EKG Comments: Shows sinus bradycardia with minor nonspecific ST segment changes Impressions: Cervical Spine CT 10/01/17 00:00 IMPRESSION: Degenerative disc disease and spondylosis. No acute abnormality. Head CT 10/01/17 00:00 IMPRESSION: Mild involutional changes of aging with no acute intracranial imaging findings. EVIDENCE OF ACUTE STROKE: NO. Assessment & Plan - Diagnosis (1) Bradycardia Is this a current diagnosis for this admission?: Yes (2) Near syncope Is this a current diagnosis for this admission?: Yes (3) Falls Qualifiers: Encounter type: initial encounter Qualified Code(s): W19.XXXA - Unspecified fall, initial encounter Is this a current diagnosis for this admission?: Yes (4) Hypertensive urgency Is this a current diagnosis for this admission?: Yes - Notes Notes: Observe patient off beta-jj. Patient currently is stable. Bradycardia: Patient noted to be bradycardic. Patient was on metoprolol succinate 100 mg p.o. daily. Currently on hold. This could be because of recurrent falls but there could be other causes. Near-syncope: The cause is undetermined at this time. There could be multiple differential diagnosis. This includes cardiac arrhythmia in this patient's age group, hypotension secondary to orthostasis, seizure disorder, hypoglycemia et cetera. Both sanya and tachyarrhythmias are possible. Patient will benefit from cardiac monitoring during this admission. May need to consider outpatient cardiac monitoring using mobile cardiac laboratory monitor if clinically indicated. Falls: Recurrent multifactorial. Recommend physical therapy assessment. May consider neurologic evaluation and neurology testing. Hypertensive urgency: Blood pressure has been severely elevated. Currently these are being adjusted. General debility: Patient complains of generalized weakness. Recommend physical therapy assessment. Have ordered a TSH level. - Time Time Spent: 50 to 70 Minutes - More than 50% of the time spent coordinating care , discussing management plans with involved caregivers. Management plans discussed with involved personnels. Medical decision making was of moderate to high complexity, patient's has multiple comorbidities. Medications reviewed and adjusted accordingly: Yes
[2017-10-03] MEDS: AMLODIPINE BESYLATE 2.5 MG TABLET PO SCH (21:10)
[2017-10-03] MEDS ORDERED: AMLODIPINE BESYLATE 2.5 MG TABLET PO SCH (22:00)
[2017-10-04] MEDS: ENALAPRILAT DIHYDRATE INJ/PF 2.5 MG/2 ML SDV IV SCH ×2 (01:13→05:15)
[2017-10-04] MEDS ORDERED: LIDOCAINE 1% INJ-PF (10 MG/ML) 30 ML SDV ONE (03:45)
[2017-10-04] MEDS ORDERED: LIDOCAINE 1% INJ (10 MG/ML) 10 ML MDV SUBCUT ONE (04:00)
--- NOTE | 2017-10-04 04:53 | RADIOLOGY REPORT (SQ) ---
EXAM DESCRIPTION: CT HEAD WITHOUT CLINICAL HISTORY: wound to head COMPARISON: None available TECHNIQUE: Axial CT of the head obtained from the skull apex to the skull base without contrast. FINDINGS: No acute intracranial hemorrhage identified. No mass, mass effect, shift of the midline, abnormal extra-axial fluid collection or CT evidence of acute ischemic change identified. The ventricular system and sulcal spaces are mildly enlarged compatible with mild cerebral atrophy. Scattered areas of hypodensity throughout the supratentorial white matter are nonspecific and may be related to chronic small vessel ischemic change. The visualized paranasal sinuses and the mastoids are clear. No skull fracture identified. Visualized orbits and globes are unremarkable. Atherosclerotic calcification of the intracranial internal carotid arteries. DLP:1043.77 mGy-cm IMPRESSION: 1. No acute intracranial abnormality by CT criteria. This exam was performed according to our departmental dose-optimization program, which includes automated exposure control, adjustment of the mA and/or kV according to patient size and/or use of iterative reconstruction technique.
[2017-10-04] MEDS: LEVOTHYROXINE SODIUM 0.15 MG TABLET PO SCH (05:14)
--- NOTE | 2017-10-04 05:20 | OPERATIVE REPORT E ---
Operative Report NAME: RADHA SCOTT : 1950 AGE: 67Y DATE OF SURGERY:10/04/1017 ROOM: 320 PREOPERATIVE DIAGNOSIS: Laceration of the left parietal scalp. POSTOPERATIVE DIAGNOSIS: Laceration of the left parietal scalp. PROCEDURE: Repair of 1.5 cm laceration of the left parietal scalp. SURGEON: WALKER ALVARADO M.D. ANESTHESIA: Local. INDICATIONS: This is a 67-year-old admitted for frequent falls and schizophrenia. She fell in her room and hit her head on the floor and noted to have a laceration on the left parietal scalp area. The patient neurologically intact, but due to have a CT scan after sutures are placed. DESCRIPTION OF PROCEDURE: The patient was placed in the supine position while in bed with the left parietal scalp prepped and draped in the usual sterile fashion. The hair around the laceration was cut. The laceration was almost full-thickness of the skin.5 ccs of 1% Lidocaine was injected around the laceration. Two sutures of 3-0 Myelin were placed about 5 mm apart and 5 mm from the tip of the laceration, which roughly measured about 1.5 cm in diameter. Following this, the lacerated site was again re-prepped with Chloraprep. Bleeding has stopped. Band-aid was placed. The patient tolerated the procedure well. DICTATING PHYSICIAN: WALKER ALVARADO M.D. [id number] PHY#: [id number] ID: [id number] JOB#: [id number] ACCT: [id number] cc:WALKER ALVARADO M.D. > MTDD
[2017-10-04] MEDS: AMLODIPINE BESYLATE 2.5 MG TABLET PO SCH (09:20)
[2017-10-04] MEDS: DULOXETINE HCL 30 MG CAPSULE.DR PO SCH ×2 (09:20→21:30)
[2017-10-04] MEDS: ASPIRIN 81 MG TABLET, ENT COATED PO SCH (09:21)
[2017-10-04] MEDS: LAMOTRIGINE 100 MG TABLET PO SCH ×2 (09:21→21:24)
[2017-10-04] MEDS: BENZTROPINE MESYLATE 1 MG TABLET PO SCH ×2 (09:21→21:30)
[2017-10-04] MEDS: CLONAZEPAM 1 MG TABLET PO SCH ×2 (09:21→21:24)
[2017-10-04] MEDS: OXYCODONE HCL IR 5 MG TABLET PO SCH ×2 (09:22→21:42)
[2017-10-04] MEDS: INSULIN DETEMIR 100 UNIT/ML 3 ML PEN SUBCUT SCH (09:26)
[2017-10-04] MEDS ORDERED: AMLODIPINE BESYLATE 2.5 MG TABLET PO SCH (09:30)
--- NOTE | 2017-10-04 09:36 | EKG REPORT ---
SEVERITY:- ABNORMAL ECG - SINUS RHYTHM CONSIDER LEFT VENTRICULAR HYPERTROPHY BORDERLINE INFERIOR Q WAVES : Confirmed by: Mohinder Solomon 04-Oct-2017 09:35:22
[2017-10-04] MEDS ORDERED: AMLODIPINE BESYLATE 5 MG TABLET PO SCH (10:00)
--- NOTE | 2017-10-04 10:22 | PDOC PROGRESS REPORT ---
Subjective Progress Note for:: 10/04/17 Subjective:: Patient fell last night and hit her head and patient have a CT of the head was done was negative for any retinal hemorrhage and surgery was consulted for the suture placement patient's currently doing well She has denied any chest pain denied any shortness of the breath Heart rate was low and beta-jj was stopped and cardiology was consulted Since the patient on Norvasc and adjust the dose She is unable to go for MRI because patient had a stent placement in [place] for years back and do not know the status of the stent try to get the information's today Reason For Visit: CONTUSSION OF SCALP VISION LOSS Physical Exam Vital Signs: Temp Pulse Resp BP Pulse Ox 98.6 F 57 L 18 184/71 H 94 10/04/17 07:25 10/04/17 07:25 10/04/17 07:25 10/04/17 07:25 10/04/17 07:25 Intake & Output 10/03/17 10/04/17 10/05/17 06:59 06:59 06:59 Intake Total 1170 2139 Output Total 800 Balance 370 2139 Weight 91.3 kg 93.8 kg General appearance: PRESENT: no acute distress, well-developed, well-nourished Head exam: PRESENT: normocephalic, other Eye exam: PRESENT: conjunctiva pink, EOMI, PERRLA. ABSENT: scleral icterus Ear exam: PRESENT: normal external ear exam Mouth exam: PRESENT: moist, tongue midline Neck exam: PRESENT: full ROM. ABSENT: carotid bruit, JVD, lymphadenopathy, thyromegaly Cardiovascular exam: PRESENT: RRR. ABSENT: diastolic murmur, rubs, systolic murmur Pulses: PRESENT: normal dorsalis pedis pul, +2 pedal pulses bilateral Vascular exam: PRESENT: normal capillary refill GI/Abdominal exam: PRESENT: normal bowel sounds, soft. ABSENT: distended, guarding, mass, organolmegaly, rebound, tenderness Rectal exam: PRESENT: deferred Musculoskeletal exam: PRESENT: ambulatory Neurological exam: PRESENT: alert, awake, oriented to person, oriented to place , oriented to time, oriented to situation, CN II-XII grossly intact. ABSENT: motor sensory deficit Psychiatric exam: PRESENT: appropriate affect, normal mood. ABSENT: homicidal ideation, suicidal ideation Skin exam: PRESENT: dry, intact, warm. ABSENT: cyanosis, rash Results Laboratory Results: 10/02/17 10/02/17 10/02/17 07:39 07:39 13:48 Creatine Kinase 65 97 CK-MB (CK-2) 1.45 Troponin I < 0.012 10/02/17 10/02/17 10/02/17 13:48 18:30 18:30 Creatine Kinase 114 CK-MB (CK-2) 2.69 3.01 Troponin I < 0.012 < 0.012 Impressions: Cervical Spine CT 10/01/17 00:00 IMPRESSION: Degenerative disc disease and spondylosis. No acute abnormality. Head CT 10/04/17 00:00 IMPRESSION: 1. No acute intracranial abnormality by CT criteria. This exam was performed according to our departmental dose-optimization program, which includes automated exposure control, adjustment of the mA and/or kV according to patient size and/or use of iterative reconstruction technique. Assessment & Plan - Diagnosis (1) Fall Qualifiers: Encounter type: subsequent encounter Qualified Code(s): W19.XXXD - Unspecified fall, subsequent encounter Is this a current diagnosis for this admission?: Yes Plan: Elevated blood pressures and frequent fall will get the MRI and MRA to rule out any neurological events (2) Hypertensive urgency Is this a current diagnosis for this admission?: Yes Plan: slowly and the other blood pressure medications (3) Scalp contusion Qualifiers: Encounter type: initial encounter Qualified Code(s): S00.03XA - Contusion of scalp, initial encounter Is this a current diagnosis for this admission?: Yes (4) Vision loss Is this a current diagnosis for this admission?: Yes - Time Time Spent with patient: 15-24 minutes Anticipated discharge: Home Within: Other - Inpatient Certification Medical Necessity: Need Close Monitoring Due to Risk of Patient Decompensation Post Hospital Care: 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
[2017-10-04] MEDS ORDERED: ENALAPRILAT DIHYDRATE INJ/PF 2.5 MG/2 ML SDV IV PRN (10:25)
[2017-10-04] MEDS ORDERED: VALSARTAN 80 MG TABLET PO ONE (11:00)
[2017-10-04] MEDS ORDERED: AMLODIPINE BESYLATE 2.5 MG TABLET PO ONE (11:00)
--- NOTE | 2017-10-04 11:39 | PDOC PROGRESS REPORT ---
Subjective Progress Note for:: 10/04/17 Subjective:: Patient had a fall yesterday. Patient claims that her legs just gave out. She denied any loss of consciousness. Subsequently was noted to have scalp hematoma and laceration. This is to be sutured. Patient seems to be doing better with gradual improvement. Pt is denying any chest arm or neck discomfort. Patient denying any PND, orthopnea. Patient denied any sustained palpitations, dizziness, syncope, near syncope. Patient denying any fever chills. Patient denying any other significant discomfort. Patient is maintaining sinus rhythm. Review of systems: Rest review of systems negative. Medications: Medications have been reviewed. Reason For Visit: CONTUSSION OF SCALP VISION LOSS Physical Exam Vital Signs: Temp Pulse Resp BP Pulse Ox 98.6 F 57 L 18 184/71 H 94 10/04/17 07:25 10/04/17 07:25 10/04/17 07:25 10/04/17 07:25 10/04/17 07:25 Intake & Output 10/03/17 10/04/17 10/05/17 06:59 06:59 06:59 Intake Total 1170 2139 Output Total 800 Balance 370 2139 Weight 91.3 kg 93.8 kg Exam: GENERAL: well-nourished and in no acute distress. Alert and oriented x3 HEAD: Atraumatic, normocephalic. EYES: Pupils equal round and reactive to light, extraocular movements intact, sclera anicteric, conjunctiva are normal. ENT: TMs normal, nares patent, oropharynx clear without exudates. Moist mucous membranes. No oral ulcerations or bleeding gums noted NECK: supple without lymphadenopathy. Trachea is central. No cervical or axillary lymphadenopathy noted. Carotids are 2+, JVD WNL LUNGS: Respiration seems nonlabored, no significant accessory muscle action noted. Breath sounds clear to auscultation bilaterally and equal noted. No wheezes rales or rhonchi noted. No significant dullness noted on percussion. CHEST: Palpation of the chest wall shows no significant chest wall tenderness. HEART: [place] [employer], No PSH, 1/6 AMPARO aortic area, 1/6 nair systolic murmur mitral area, no rubs, no gallops. ABDOMEN: Soft, no significant tenderness appreciated, normoactive bowel sounds. No guarding, no rebound. No rigidity noted . No masses appreciated. EXTREMITIES: Pedal pulses are 1-2+, no calf tenderness noted. No clubbing or cyanosis. negative pedal edema noted NEUROLOGICAL: Focused neurological exam showed no significant neurologic deficit. Normal speech, no focal weakness appreciated. PSYCH: Normal mood, normal affect. Judgment and insight within normal limits. SKIN: No significant ecchymosis, skin is noted to be warm. MUSCULOSKELETAL EXAM: No significant acute joint swelling noted. Results Laboratory Results: 10/02/17 10/02/17 10/02/17 07:39 07:39 13:48 Creatine Kinase 65 97 CK-MB (CK-2) 1.45 Troponin I < 0.012 10/02/17 10/02/17 10/02/17 13:48 18:30 18:30 Creatine Kinase 114 CK-MB (CK-2) 2.69 3.01 Troponin I < 0.012 < 0.012 EKG Comments: Telemetry strips reviewed showed bradycardia. Impressions: Cervical Spine CT 10/01/17 00:00 IMPRESSION: Degenerative disc disease and spondylosis. No acute abnormality. Head CT 10/04/17 00:00 IMPRESSION: 1. No acute intracranial abnormality by CT criteria. This exam was performed according to our departmental dose-optimization program, which includes automated exposure control, adjustment of the mA and/or kV according to patient size and/or use of iterative reconstruction technique. Assessment & Plan - Diagnosis (1) Bradycardia Is this a current diagnosis for this admission?: Yes (2) Near syncope Is this a current diagnosis for this admission?: Yes (3) Falls Qualifiers: Encounter type: initial encounter Qualified Code(s): W19.XXXA - Unspecified fall, initial encounter Is this a current diagnosis for this admission?: Yes (4) Hypertensive urgency Is this a current diagnosis for this admission?: Yes - Notes Notes: Observe patient off beta-jj. Patient currently is stable. Patient will benefit from evaluation by physical therapy and possibly a neurologist. Bradycardia: Patient noted to be bradycardic. Patient was on metoprolol succinate 100 mg p.o. daily. Currently on hold. This could be because of recurrent falls but there could be other causes. Heart rate seems to be gradually improving. Near-syncope: The cause is undetermined at this time. There could be multiple differential diagnosis. This includes cardiac arrhythmia in this patient's age group, hypotension secondary to orthostasis, seizure disorder, hypoglycemia et cetera. Possibility of narcolepsy with cataplexy is also there but uncommon at patient's age. Both sanya and tachyarrhythmias are possible. Patient will benefit from cardiac monitoring during this admission. May need to consider outpatient cardiac monitoring using mobile cardiac monitor tech if clinically indicated. Falls: Recurrent multifactorial. Recommend physical therapy assessment. May consider neurologic evaluation and neurology testing. Hypertensive urgency: Blood pressure has been severely elevated. Currently medications are being adjusted. RANDY inhibitor/angiotensin receptor blockers are preferred. If patient not orthostatics, may consider adding diuretics. General debility: Patient complains of generalized weakness. Recommend physical therapy assessment. Pending TSH level. - Time Time with patient: Greater than 35 minutes - CODE STATUS was discussed, patient remains full code. Surrogate decision-maker unchanged. Multiple medical problems were addressed. More than 50% of the time spent coordinating care, discussing management plans with involved caregivers. Management plans discussed with involved personnels. Medical decision making was of moderate to high complexity, patient's has multiple comorbidities. Medications reviewed and adjusted accordingly: Yes
[2017-10-04] MEDS: INSULIN LISPRO 100 UNIT/ML 3 ML VIAL SUBCUT PRN ×2 (12:25→18:19)
--- NOTE | 2017-10-04 17:16 | EKG REPORT ---
SEVERITY:- BORDERLINE ECG - SINUS RHYTHM BORDERLINE INFERIOR Q WAVES BORDERLINE T ABNORMALITIES, ANT-LAT LEADS : Confirmed by: Mohinder Solomon 04-Oct-2017 17:16:07
--- NOTE | 2017-10-04 21:24 | RADIOLOGY REPORT (SQ) ---
EXAM DESCRIPTION: MRI HEAD WITHOUT COMPLETED DATE/TIME: 10/04/2017 6:10 pm REASON FOR STUDY: frequent fall COMPARISON: Earlier CT scan TECHNIQUE: Multiplanar imaging includes non-contrasted T1, T2, FLAIR, and diffusion with ADC map seq uences. Images stored on PACS. LIMITATIONS: None. FINDINGS: ANATOMY: No anomalies. Normal vascular flow voids. Pituitary fossa normal. CSF SPACES: Normal in size and contour. No hemorrhage. CEREBRUM: Sulci and gyri normal in size and contour. Age-appropriate white matter signal on FLAIR im aging. No evidence of hemorrhage, mass, or extraaxial fluid collection. POSTERIOR FOSSA: No signal alteration. No hemorrhage. No edema, masses or mass effect. Internal alejandro tory canals, cerebello-pontine angles, mastoids normal. DIFFUSION IMAGING: Positive for 4 mm lacunar acute or sub-acute infarction in the right periventricul ar temporal -parietal confluence. ORBITS: No masses. Globes normal. PARANASAL SINUSES: No fluid levels. Mucosa normal. OTHER: No other significant finding. IMPRESSION: Positive for 4 mm lacunar acute or sub-acute infarction in the right periventricular tem poral -parietal confluence. EVIDENCE OF ACUTE STROKE: Yes RIGHT MCA TECHNICAL DOCUMENTATION: JOB ID: [id number] 2010 [employer]™- All Rights Reserved Reading location - IP/workstation name: [email or web address]
--- NOTE | 2017-10-04 21:26 | RADIOLOGY REPORT (SQ) ---
EXAM DESCRIPTION: MRA HEAD WITHOUT COMPLETED DATE/TIME: 10/04/2017 6:10 pm REASON FOR STUDY: frequnt fall COMPARISON: None. TECHNIQUE: Axial 3-D [id number] acquisition imaging performed through the brain in the area of t he [place]. Images reformatted using 3-D MIPS. LIMITATIONS: None. FINDINGS: SOURCE IMAGES: No unexpected findings on source images. No large masses. 3-D MIP: No aneurysm. No occlusions. No significant stenosis. OTHER: No other significant finding. IMPRESSION: No aneurysm. No occlusions. TECHNICAL DOCUMENTATION: JOB ID: [id number] 2010 [email or web address]- All Rights Reserved Reading location - IP/workstation name: [email or web address]
[2017-10-04] MEDS: VALSARTAN 80 MG TABLET PO SCH (21:29)
[2017-10-04] MEDS: AMLODIPINE BESYLATE 5 MG TABLET PO SCH (21:30)
[2017-10-05 05:48] LABS: ABSOLUTE BASOPHILS # (AUTO) 0.1 10^3/uL (0.0-0.2); ABSOLUTE EOSINOPHILS # (AUTO) 0.1 10^3/uL (0.0-0.6); ABSOLUTE LYMPHOCYTES (AUTO) 1.9 10^3/uL (0.5-4.7); ABSOLUTE MONOCYTES (AUTO) 0.6 10^3/uL (0.1-1.4); ABSOLUTE NEUT (AUTO) 4.1 10^3/uL (1.7-8.2); BASOPHILS % (AUTO) 0.8 % (0-2); EOSINOPHILS % (AUTO) 1.9 % (0-6); HEMOGLOBIN 13.5 g/dL (12.0-15.5); MEAN CORPUSCULAR HEMOGLOBIN 28.9 pg (27.0-33.4); MEAN CORPUSCULAR HGB CONC 33.7 g/dL (32.0-36.0); MEAN CORPUSCULAR VOLUME 86 fl (80-97); MONOCYTES % (AUTO) 9.1 % (3-13); PLATELET COUNT 195 10^3/uL (150-450); RED BLOOD COUNT 4.66 10^6/uL (3.72-5.28); RED CELL DISTRIBUTION WIDTH 13.9 % (11.5-14.0); SEGMENTED NEUTROPHILS % (AUTO) 60.2 % (42-78); TOTAL CELLS COUNTED % (AUTO) 100 %; WHITE BLOOD COUNT 6.9 10^3/uL (4.0-10.5)
[2017-10-05 06:11] LABS: ANION GAP 10 (5-19); BLOOD UREA NITROGEN 13 mg/dL (7-20); CALCIUM 9.6 mg/dL (8.4-10.2); CARBON DIOXIDE 29 mmol/L (22-30); CHLORIDE 103 mmol/L (98-107); GLUCOSE 79 mg/dL (75-110); POTASSIUM 3.6 mmol/L (3.6-5.0); SODIUM 142.3 mmol/L (137-145)
[2017-10-05] MEDS: LEVOTHYROXINE SODIUM 0.15 MG TABLET PO SCH (06:14)
[2017-10-05] MEDS: ASPIRIN 81 MG TABLET, ENT COATED PO SCH (09:04)
[2017-10-05] MEDS: BENZTROPINE MESYLATE 1 MG TABLET PO SCH ×2 (09:04→21:27)
[2017-10-05] MEDS: INSULIN DETEMIR 100 UNIT/ML 3 ML PEN SUBCUT SCH (09:04)
[2017-10-05] MEDS: LAMOTRIGINE 100 MG TABLET PO SCH ×2 (09:04→21:26)
[2017-10-05] MEDS: DULOXETINE HCL 30 MG CAPSULE.DR PO SCH ×2 (09:04→21:26)
[2017-10-05] MEDS: CLONAZEPAM 1 MG TABLET PO SCH ×2 (09:04→21:27)
[2017-10-05] MEDS: AMLODIPINE BESYLATE 5 MG TABLET PO SCH ×2 (09:05→21:25)
[2017-10-05] MEDS: VALSARTAN 80 MG TABLET PO SCH (09:05)
[2017-10-05] MEDS: OXYCODONE HCL IR 5 MG TABLET PO SCH ×2 (09:13→21:29)
--- NOTE | 2017-10-05 10:56 | PDOC PROGRESS REPORT ---
Subjective Progress Note for:: 10/05/17 Subjective:: Patient seems to be doing better today. Heart rate has improved but still intermittently bradycardic. Pt is denying any chest arm or neck discomfort. Patient denying any PND, orthopnea. Patient denying any fever chills. Patient denying any other significant discomfort. Patient is maintaining sinus rhythm with sinus bradycardia. Review of systems: Rest review of systems negative. Medications: Medications have been reviewed. Reason For Visit: CONTUSSION OF SCALP VISION LOSS Physical Exam Vital Signs: Temp Pulse Resp BP Pulse Ox 98.3 F 64 16 164/68 H 94 10/05/17 07:25 10/05/17 07:25 10/05/17 07:25 10/05/17 07:25 10/05/17 07:25 Intake & Output 10/04/17 10/05/17 10/06/17 06:59 06:59 06:59 Intake Total 9 1972 Output Total 0 Balance 2138 1972 Weight 93.8 kg 93.9 kg Exam: GENERAL: well-nourished and in no acute distress. Alert and oriented x3 HEAD: Atraumatic, normocephalic. EYES: Pupils equal round and reactive to light, extraocular movements intact, sclera anicteric, conjunctiva are normal. ENT: TMs normal, nares patent, oropharynx clear without exudates. Moist mucous membranes. No oral ulcerations or bleeding gums noted NECK: supple without lymphadenopathy. Trachea is central. No cervical or axillary lymphadenopathy noted. Carotids are 2+, JVD WNL LUNGS: Respiration seems nonlabored, no significant accessory muscle action noted. Breath sounds clear to auscultation bilaterally and equal noted. No wheezes rales or rhonchi noted. No significant dullness noted on percussion. CHEST: Palpation of the chest wall shows no significant chest wall tenderness. HEART: [place] [employer], No PSH, 1/6 AMPARO aortic area, 1/6 nair systolic murmur mitral area, no rubs, no gallops. ABDOMEN: Soft, no significant tenderness appreciated, normoactive bowel sounds. No guarding, no rebound. No rigidity noted . No masses appreciated. EXTREMITIES: Pedal pulses are 1-2+, no calf tenderness noted. No clubbing or cyanosis. negative pedal edema noted NEUROLOGICAL: Focused neurological exam showed no significant neurologic deficit. Normal speech, no focal weakness appreciated. PSYCH: Normal mood, normal affect. Judgment and insight within normal limits. SKIN: No significant ecchymosis, skin is noted to be warm. MUSCULOSKELETAL EXAM: No significant acute joint swelling noted. Results Laboratory Results: 10/05/17 05:25 10/05/17 05:25 10/04/17 10/05/17 10/05/17 11:23 05:25 05:25 WBC 6.9 RBC 4.66 Hgb 13.5 Hct 40.0 MCV 86 MCH 28.9 MCHC 33.7 RDW 13.9 Plt Count 195 Seg Neutrophils % 60.2 Lymphocytes % 28.0 Monocytes % 9.1 Eosinophils % 1.9 Basophils % 0.8 Absolute Neutrophils 4.1 Absolute Lymphocytes 1.9 Absolute Monocytes 0.6 Absolute Eosinophils 0.1 Absolute Basophils 0.1 Sodium 142.3 Potassium 3.6 Chloride 103 Carbon Dioxide 29 Anion Gap 10 BUN 13 Creatinine 0.78 Est GFR ( Amer) > 60 Est GFR (Non-Af Amer) > 60 Glucose 79 Calcium 9.6 TSH 4.43 10/02/17 10/02/17 10/02/17 07:39 07:39 13:48 Creatine Kinase 65 97 CK-MB (CK-2) 1.45 Troponin I < 0.012 10/02/17 10/02/17 10/02/17 13:48 18:30 18:30 Creatine Kinase 114 CK-MB (CK-2) 2.69 3.01 Troponin I < 0.012 < 0.012 EKG Comments: Telemetry strips shows sinus bradycardia but improving Impressions: Cervical Spine CT 10/01/17 00:00 IMPRESSION: Degenerative disc disease and spondylosis. No acute abnormality. Brain MRI with MRA 10/04/17 00:00 IMPRESSION: No aneurysm. No occlusions. Head CT 10/04/17 00:00 IMPRESSION: 1. No acute intracranial abnormality by CT criteria. This exam was performed according to our departmental dose-optimization program, which includes automated exposure control, adjustment of the mA and/or kV according to patient size and/or use of iterative reconstruction technique. Head MRI 10/04/17 00:00 IMPRESSION: Positive for 4 mm lacunar acute or sub-acute infarction in the right periventricular temporal -parietal confluence. EVIDENCE OF ACUTE STROKE: Yes RIGHT MCA Assessment & Plan - Diagnosis (1) Bradycardia Is this a current diagnosis for this admission?: Yes (2) Near syncope Is this a current diagnosis for this admission?: Yes (3) Falls Qualifiers: Encounter type: initial encounter Qualified Code(s): W19.XXXA - Unspecified fall, initial encounter Is this a current diagnosis for this admission?: Yes (4) Hypertensive urgency Is this a current diagnosis for this admission?: Yes (5) Cerebrovascular accident (CVA) Qualifiers: CVA mechanism: unspecified Qualified Code(s): I63.9 - Cerebral infarction, unspecified Is this a current diagnosis for this admission?: Yes - Notes Notes: Observe patient off beta-jj. Patient currently is stable. Increased valsartan to 160 mg p.o. twice daily, added Plavix 75 mg p.o. daily in view of lacunar infarct. Patient will benefit from evaluation by physical therapy and possibly a neurologist evaluation. Cerebrovascular accident: MRI brain scan reviewed. It shows lacunar infarct in the middle cerebral artery territory. Possibly related to severe hypertension, possible platelet emboli etc. recommend dual antiplatelet therapy if no contraindications. Bradycardia: Patient noted to be bradycardic. Patient was on metoprolol succinate 100 mg p.o. daily. Currently on hold. This could be because of recurrent falls but there could be other causes. Heart rate seems to be gradually improving. Near-syncope: The cause is undetermined at this time. There could be multiple differential diagnosis. This includes cardiac arrhythmia in this patient's age group, hypotension secondary to orthostasis, seizure disorder, hypoglycemia et cetera. Possibility of narcolepsy with cataplexy is also there but uncommon at patient's age. Both sanya and tachyarrhythmias are possible. Patient will benefit from cardiac monitoring during this admission. May need to consider outpatient cardiac monitoring using mobile cardiac surveillance system monitor if clinically indicated. Falls: Recurrent multifactorial. Recommend physical therapy assessment. May consider neurologic evaluation and neurology testing. Hypertensive urgency: Blood pressure has been severely elevated. Currently medications are being adjusted. RANDY inhibitor/angiotensin receptor blockers are preferred. If patient not orthostatics, may consider adding diuretics. Today increased valsartan to 160 mg p.o. twice daily. General debility: Patient complains of generalized weakness. Recommend physical therapy assessment. - Time Time with patient: 15-25 minutes - CODE STATUS was discussed, patient remains full code. More than 50% of the time spent coordinating care, discussing management plans with involved caregivers. Management plans discussed with involved personnels. Medical decision making was of moderate to high complexity , patient's has multiple comorbidities. Medications reviewed and adjusted accordingly: Yes
[2017-10-05] MEDS: INSULIN LISPRO 100 UNIT/ML 3 ML VIAL SUBCUT PRN ×2 (18:49→23:40)
[2017-10-05] MEDS: VALSARTAN 160 MG TABLET PO SCH (21:26)
--- NOTE | 2017-10-05 21:38 | PDOC PROGRESS REPORT ---
Subjective Progress Note for:: 10/05/17 Subjective:: Patient was admitted for unprovoked fall with associated hypertensive urgency, over the weekend Dr. Becerril did MRI of the brain was found to have small stroke in the right temporoparietal confluence. Patient had gait is very unsteady she would need physical therapy Reason For Visit: CONTUSSION OF SCALP VISION LOSS Physical Exam Vital Signs: Temp Pulse Resp BP Pulse Ox 98.2 F 64 16 152/67 H 100 10/05/17 20:08 10/05/17 20:08 10/05/17 20:08 10/05/17 20:08 10/05/17 20:08 Intake & Output 10/04/17 10/05/17 10/06/17 06:59 06:59 06:59 Intake Total 2138 Output Total 0 Balance 2138 Weight 93.8 kg 93.9 kg General appearance: PRESENT: no acute distress Eye exam: PRESENT: PERRLA Respiratory exam: PRESENT: clear to auscultation ellen Cardiovascular exam: PRESENT: +S1, +S2 GI/Abdominal exam: PRESENT: soft Neurological exam: PRESENT: alert Results Laboratory Results: 10/05/17 05:25 10/05/17 05:25 10/05/17 10/05/17 05:25 05:25 WBC 6.9 RBC 4.66 Hgb 13.5 Hct 40.0 MCV 86 MCH 28.9 MCHC 33.7 RDW 13.9 Plt Count 195 Seg Neutrophils % 60.2 Lymphocytes % 28.0 Monocytes % 9.1 Eosinophils % 1.9 Basophils % 0.8 Absolute Neutrophils 4.1 Absolute Lymphocytes 1.9 Absolute Monocytes 0.6 Absolute Eosinophils 0.1 Absolute Basophils 0.1 Sodium 142.3 Potassium 3.6 Chloride 103 Carbon Dioxide 29 Anion Gap 10 BUN 13 Creatinine 0.78 Est GFR ( Amer) > 60 Est GFR (Non-Af Amer) > 60 Glucose 79 Calcium 9.6 10/02/17 10/02/17 10/02/17 07:39 07:39 13:48 Creatine Kinase 65 97 CK-MB (CK-2) 1.45 Troponin I < 0.012 10/02/17 10/02/17 10/02/17 13:48 18:30 18:30 Creatine Kinase 114 CK-MB (CK-2) 2.69 3.01 Troponin I < 0.012 < 0.012 10/05/17 10/05/17 11:50 18:05 Creatine Kinase CK-MB (CK-2) Troponin I < 0.012 < 0.012 Impressions: Cervical Spine CT 10/01/17 00:00 IMPRESSION: Degenerative disc disease and spondylosis. No acute abnormality. Brain MRI with MRA 10/04/17 00:00 IMPRESSION: No aneurysm. No occlusions. Head CT 10/04/17 00:00 IMPRESSION: 1. No acute intracranial abnormality by CT criteria. This exam was performed according to our departmental dose-optimization program, which includes automated exposure control, adjustment of the mA and/or kV according to patient size and/or use of iterative reconstruction technique. Head MRI 10/04/17 00:00 IMPRESSION: Positive for 4 mm lacunar acute or sub-acute infarction in the right periventricular temporal -parietal confluence. EVIDENCE OF ACUTE STROKE: Yes RIGHT MCA Assessment & Plan - Diagnosis (1) Hypertensive urgency Is this a current diagnosis for this admission?: Yes (2) Fall Qualifiers: Encounter type: subsequent encounter Qualified Code(s): W19.XXXD - Unspecified fall, subsequent encounter Is this a current diagnosis for this admission?: Yes (3) Right temporal lobe infarction Is this a current diagnosis for this admission?: Yes Plan: She is manage according to stroke protocol (4) Gait abnormality Is this a current diagnosis for this admission?: Yes (5) Coronary artery disease Qualifiers: Coronary Disease-Associated Artery/Lesion type: [place] artery [place] vs. transplanted heart: [place] heart Associated angina: without angina Qualified Code(s): I25.10 - Atherosclerotic heart disease of [place] coronary artery without angina pectoris Is this a current diagnosis for this admission?: Yes
[2017-10-06] MEDS: LEVOTHYROXINE SODIUM 0.15 MG TABLET PO SCH (05:27)
[2017-10-06 07:24] LABS: BLOOD UREA NITROGEN 14 mg/dL (7-20); CALCIUM 9.5 mg/dL (8.4-10.2); GLUCOSE 96 mg/dL (75-110)
[2017-10-06 07:25] LABS: ANION GAP 9 (5-19); CARBON DIOXIDE 28 mmol/L (22-30); CHLORIDE 103 mmol/L (98-107); POTASSIUM 3.5 mmol/L (3.6-5.0); SODIUM 140.4 mmol/L (137-145)
[2017-10-06] MEDS: INSULIN DETEMIR 100 UNIT/ML 3 ML PEN SUBCUT SCH (09:14)
[2017-10-06] MEDS: LAMOTRIGINE 100 MG TABLET PO SCH ×2 (09:15→22:21)
[2017-10-06] MEDS: ASPIRIN 81 MG TABLET, ENT COATED PO SCH (09:15)
[2017-10-06] MEDS: CLONAZEPAM 1 MG TABLET PO SCH ×2 (09:15→22:21)
[2017-10-06] MEDS: BENZTROPINE MESYLATE 1 MG TABLET PO SCH ×2 (09:15→22:20)
[2017-10-06] MEDS: POTASSIUM CHLORIDE 20 MEQ/15 ML UDCUP PO SCH (09:15)
[2017-10-06] MEDS: AMLODIPINE BESYLATE 5 MG TABLET PO SCH ×2 (09:15→22:21)
[2017-10-06] MEDS: DULOXETINE HCL 30 MG CAPSULE.DR PO SCH ×2 (09:15→22:20)
[2017-10-06] MEDS: OXYCODONE HCL IR 5 MG TABLET PO SCH ×2 (09:17→22:19)
[2017-10-06] MEDS: VALSARTAN 160 MG TABLET PO SCH ×2 (09:26→22:19)
[2017-10-06] MEDS ORDERED: CLOPIDOGREL BISULFATE 300 MG TABLET PO SCH (10:00)
--- NOTE | 2017-10-06 11:04 | PDOC PROGRESS REPORT ---
Subjective Progress Note for:: 10/06/17 Subjective:: Patient seems to be doing better today. Heart rate has improved. Pt is denying any chest arm or neck discomfort. Patient denying any PND, orthopnea. Patient denying any fever chills. Patient denying any other significant discomfort. Patient is maintaining sinus rhythm with sinus bradycardia. However sinus bradycardia is mild and asymptomatic. Review of systems: Rest review of systems negative. Medications: Medications have been reviewed. Reason For Visit: CONTUSSION OF SCALP VISION LOSS Physical Exam Vital Signs: Temp Pulse Resp BP Pulse Ox 97.7 F 59 L 18 138/57 H 94 10/06/17 07:21 10/06/17 07:21 10/06/17 07:21 10/06/17 07:21 10/06/17 07:21 Intake & Output 10/05/17 10/06/17 10/07/17 06:59 06:59 06:59 Intake Total 1972 872 Output Total 0 Balance 1972 872 Weight 93.9 kg 93.8 kg Exam: GENERAL: well-nourished and in no acute distress. Alert and oriented x3 HEAD: Atraumatic, normocephalic. EYES: Pupils equal round and reactive to light, extraocular movements intact, sclera anicteric, conjunctiva are normal. ENT: TMs normal, nares patent, oropharynx clear without exudates. Moist mucous membranes. No oral ulcerations or bleeding gums noted NECK: supple without lymphadenopathy. Trachea is central. No cervical or axillary lymphadenopathy noted. Carotids are 2+, JVD WNL LUNGS: Respiration seems nonlabored, no significant accessory muscle action noted. Breath sounds clear to auscultation bilaterally and equal noted. No wheezes rales or rhonchi noted. No significant dullness noted on percussion. CHEST: Palpation of the chest wall shows no significant chest wall tenderness. HEART: [place] [employer], No PSH, 1/6 AMPARO aortic area, 1/6 nair systolic murmur mitral area, no rubs, no gallops. ABDOMEN: Soft, no significant tenderness appreciated, normoactive bowel sounds. No guarding, no rebound. No rigidity noted . No masses appreciated. EXTREMITIES: Pedal pulses are 1-2+, no calf tenderness noted. No clubbing or cyanosis. negative pedal edema noted NEUROLOGICAL: Focused neurological exam showed no significant neurologic deficit. Normal speech, no focal weakness appreciated. Generalized weakness noted. Gait is noted to be unsteady. PSYCH: Normal mood, normal affect. Judgment and insight within normal limits. SKIN: No significant ecchymosis, skin is noted to be warm. MUSCULOSKELETAL EXAM: No significant acute joint swelling noted. Results Laboratory Results: 10/05/17 05:25 10/06/17 06:30 10/06/17 06:30 Sodium 140.4 Potassium 3.5 L Chloride 103 Carbon Dioxide 28 Anion Gap 9 BUN 14 Creatinine 0.68 Est GFR ( Amer) > 60 Est GFR (Non-Af Amer) > 60 Glucose 96 Calcium 9.5 10/02/17 10/02/17 10/02/17 07:39 07:39 13:48 Creatine Kinase 65 97 CK-MB (CK-2) 1.45 Troponin I < 0.012 10/02/17 10/02/17 10/02/17 13:48 18:30 18:30 Creatine Kinase 114 CK-MB (CK-2) 2.69 3.01 Troponin I < 0.012 < 0.012 10/05/17 10/05/17 10/06/17 11:50 18:05 00:15 Creatine Kinase CK-MB (CK-2) Troponin I < 0.012 < 0.012 < 0.012 Impressions: Cervical Spine CT 10/01/17 00:00 IMPRESSION: Degenerative disc disease and spondylosis. No acute abnormality. Brain MRI with MRA 10/04/17 00:00 IMPRESSION: No aneurysm. No occlusions. Head CT 10/04/17 00:00 IMPRESSION: 1. No acute intracranial abnormality by CT criteria. This exam was performed according to our departmental dose-optimization program, which includes automated exposure control, adjustment of the mA and/or kV according to patient size and/or use of iterative reconstruction technique. Head MRI 10/04/17 00:00 IMPRESSION: Positive for 4 mm lacunar acute or sub-acute infarction in the right periventricular temporal -parietal confluence. EVIDENCE OF ACUTE STROKE: Yes RIGHT MCA Assessment & Plan - Diagnosis (1) Bradycardia Is this a current diagnosis for this admission?: Yes (2) Near syncope Is this a current diagnosis for this admission?: Yes (3) Falls Qualifiers: Encounter type: initial encounter Qualified Code(s): W19.XXXA - Unspecified fall, initial encounter Is this a current diagnosis for this admission?: Yes (4) Hypertensive urgency Is this a current diagnosis for this admission?: Yes (5) Cerebrovascular accident (CVA) Qualifiers: CVA mechanism: unspecified Qualified Code(s): I63.9 - Cerebral infarction, unspecified Is this a current diagnosis for this admission?: Yes - Notes Notes: Bradycardia has improved. Blood pressure now more stable on current regimen. Patient has difficulty with gait and balance. Patient will benefit from evaluation by physical therapy and possibly a neurologist evaluation. Cerebrovascular accident: MRI brain scan reviewed. It shows lacunar infarct in the middle cerebral artery territory. Possibly related to severe hypertension, possible platelet emboli etc. recommend dual antiplatelet therapy if no contraindications. Bradycardia: Patient noted to be bradycardic. Patient was on metoprolol succinate 100 mg p.o. daily. Currently on hold. This could be because of recurrent falls but there could be other causes. Heart rate seems to be gradually improving. Heart rate now almost in the normal range. Near-syncope: [place] to be most likely related to severe hypertension and bradycardia but currently improved. Other differential diagnosis discussed but felt unlikely. Falls: Recurrent multifactorial. Recommend physical therapy assessment. May consider neurologic evaluation and neurology testing. Hypertensive urgency: Blood pressure has been severely elevated. Currently medications are being adjusted. RANDY inhibitor/angiotensin receptor blockers are preferred. If patient not orthostatics, may consider adding diuretics. Today blood pressure noted to be more stable. General debility: Patient complains of generalized weakness. Recommend physical therapy assessment. - Time Time with patient: 15-25 minutes - CODE STATUS was discussed, patient remains full code. Surrogate decision-maker unchanged. Multiple medical problems were addressed. More than 50% of the time spent coordinating care, discussing management plans with involved caregivers. Management plans discussed with involved personnels. Medical decision making was of moderate to high complexity , patient's has multiple comorbidities. Medications reviewed and adjusted accordingly: Yes
[2017-10-06] MEDS: INSULIN LISPRO 100 UNIT/ML 3 ML VIAL SUBCUT PRN (14:31)
--- NOTE | 2017-10-06 14:40 | RADIOLOGY REPORT (SQ) ---
EXAM DESCRIPTION: CAROTID DOPPLER COMPLETED DATE/TIME: 10/06/2017 2:19 pm REASON FOR STUDY: cva COMPARISON: CT brain, CT cervical spine 10/01/2017 CT brain 10/04/2017 MRI high brain, MRA exam [place] 10/04/2017 TECHNIQUE: Grayscale ultrasound, Doppler velocity and spectra, and color Doppler images acquired of the extra-cranial carotid and vertebral arteries. Images stored on PACS. LIMITATIONS: None. FINDINGS: RIGHT CAROTID CCA Velocities: Within normal limits. ICA Velocities Peak systolic 0.51 m/s. End diastolic 0.11 m/s. Proximal ICA/CCA peak systolic ratio 1.0. Spectra normal. No significant plaque. LEFT CAROTID CCA Velocities: Within normal limits. ICA Velocities Peak systolic 0.69 m/s. End diastolic 0.16 m/s. Proximal ICA/CCA peak systolic ratio 1.0. Spectra normal. No significant plaque. VERTEBRAL ARTERIES: Antegrade flow. Normal waveforms. SUBCLAVIAN ARTERIES: Not evaluated OTHER: No other significant finding. IMPRESSION: NO HEMODYNAMICALLY SIGNIFICANT STENOSIS. COMMENT: Quality ID #[id number]: Velocity criteria are extrapolated from the diameter data as defined by t he Society of Radiologists in Ultrasound Consensus Conference. Radiology 2003: 229; 340-346. TECHNICAL DOCUMENTATION: JOB ID: [id number] [employer]- All Rights Reserved Reading location - IP/workstation name: [email or web address]
--- NOTE | 2017-10-06 20:44 | PDOC PROGRESS REPORT ---
Subjective Progress Note for:: 10/06/17 Subjective:: She was seen by the bedside, she had a small stroke with very unsteady gait she will need physical therapy and rehabilitation discharge planning is working on that Reason For Visit: CONTUSSION OF SCALP VISION LOSS Physical Exam Vital Signs: Temp Pulse Resp BP Pulse Ox 98.3 F 73 18 154/57 H 99 10/06/17 15:23 10/06/17 15:23 10/06/17 15:23 10/06/17 15:23 10/06/17 15:23 Intake & Output 10/05/17 10/06/17 10/07/17 06:59 06:59 06:59 Intake Total 1972 872 730 Output Total 0 Balance 1972 872 730 Weight 93.9 kg 93.8 kg General appearance: PRESENT: no acute distress Eye exam: PRESENT: PERRLA Respiratory exam: PRESENT: clear to auscultation ellen Cardiovascular exam: PRESENT: +S1, +S2 GI/Abdominal exam: PRESENT: soft Neurological exam: PRESENT: alert Results Laboratory Results: 10/05/17 05:25 10/06/17 06:30 10/06/17 06:30 Sodium 140.4 Potassium 3.5 L Chloride 103 Carbon Dioxide 28 Anion Gap 9 BUN 14 Creatinine 0.68 Est GFR ( Amer) > 60 Est GFR (Non-Af Amer) > 60 Glucose 96 Calcium 9.5 10/02/17 10/02/17 10/02/17 07:39 07:39 13:48 Creatine Kinase 65 97 CK-MB (CK-2) 1.45 Troponin I < 0.012 10/02/17 10/02/17 10/02/17 13:48 18:30 18:30 Creatine Kinase 114 CK-MB (CK-2) 2.69 3.01 Troponin I < 0.012 < 0.012 10/05/17 10/05/17 10/06/17 11:50 18:05 00:15 Creatine Kinase CK-MB (CK-2) Troponin I < 0.012 < 0.012 < 0.012 Impressions: Cervical Spine CT 10/01/17 00:00 IMPRESSION: Degenerative disc disease and spondylosis. No acute abnormality. Brain MRI with MRA 10/04/17 00:00 IMPRESSION: No aneurysm. No occlusions. Head CT 10/04/17 00:00 IMPRESSION: 1. No acute intracranial abnormality by CT criteria. This exam was performed according to our departmental dose-optimization program, which includes automated exposure control, adjustment of the mA and/or kV according to patient size and/or use of iterative reconstruction technique. Head MRI 10/04/17 00:00 IMPRESSION: Positive for 4 mm lacunar acute or sub-acute infarction in the right periventricular temporal -parietal confluence. EVIDENCE OF ACUTE STROKE: Yes RIGHT MCA Carotid Doppler Study 10/06/17 00:00 IMPRESSION: NO HEMODYNAMICALLY SIGNIFICANT STENOSIS. Assessment & Plan - Diagnosis (1) Hypertensive urgency Is this a current diagnosis for this admission?: Yes (2) Fall Qualifiers: Encounter type: subsequent encounter Qualified Code(s): W19.XXXD - Unspecified fall, subsequent encounter Is this a current diagnosis for this admission?: Yes (3) Right temporal lobe infarction Is this a current diagnosis for this admission?: Yes (4) Gait abnormality Is this a current diagnosis for this admission?: Yes (5) Coronary artery disease Qualifiers: Coronary Disease-Associated Artery/Lesion type: [place] artery [place] vs. transplanted heart: [place] heart Associated angina: without angina Qualified Code(s): I25.10 - Atherosclerotic heart disease of [place] coronary artery without angina pectoris Is this a current diagnosis for this admission?: Yes - Plan Summary Plan Summary: Continue treatment
[2017-10-07 05:26] LABS: ANION GAP 12 (5-19); BLOOD UREA NITROGEN 15 mg/dL (7-20); CARBON DIOXIDE 27 mmol/L (22-30); CHLORIDE 103 mmol/L (98-107); GLUCOSE 123 mg/dL (75-110); POTASSIUM 3.9 mmol/L (3.6-5.0); SODIUM 141.7 mmol/L (137-145)
[2017-10-07] MEDS: LEVOTHYROXINE SODIUM 0.15 MG TABLET PO SCH (05:42)
[2017-10-07] MEDS: INSULIN DETEMIR 100 UNIT/ML 3 ML PEN SUBCUT SCH (09:21)
[2017-10-07] MEDS: DULOXETINE HCL 30 MG CAPSULE.DR PO SCH ×2 (09:21→22:34)
[2017-10-07] MEDS: VALSARTAN 160 MG TABLET PO SCH ×2 (09:21→22:33)
[2017-10-07] MEDS: LAMOTRIGINE 100 MG TABLET PO SCH ×2 (09:21→22:33)
[2017-10-07] MEDS: BENZTROPINE MESYLATE 1 MG TABLET PO SCH ×2 (09:21→23:00)
[2017-10-07] MEDS: POTASSIUM CHLORIDE 20 MEQ/15 ML UDCUP PO SCH (09:21)
[2017-10-07] MEDS: AMLODIPINE BESYLATE 5 MG TABLET PO SCH ×2 (09:21→22:35)
[2017-10-07] MEDS: ASPIRIN 81 MG TABLET, ENT COATED PO SCH (09:22)
[2017-10-07] MEDS: CLONAZEPAM 1 MG TABLET PO SCH ×2 (09:28→22:35)
[2017-10-07] MEDS: OXYCODONE HCL IR 5 MG TABLET PO SCH ×2 (09:48→22:31)
--- NOTE | 2017-10-07 20:38 | PDOC PROGRESS REPORT ---
Subjective Progress Note for:: 10/07/17 Subjective:: Patient was seen by the bedside [facility] Reason For Visit: CONTUSSION OF SCALP VISION LOSS Physical Exam Vital Signs: Temp Pulse Resp BP Pulse Ox 97.9 F 76 16 177/77 H 95 10/07/17 15:39 10/07/17 15:39 10/07/17 15:39 10/07/17 15:39 10/07/17 15:39 Intake & Output 10/06/17 10/07/17 10/08/17 06:59 06:59 06:59 Intake Total 734 038 2962 Balance 567 590 2451 Weight 93.8 kg 95.4 kg General appearance: PRESENT: no acute distress Head exam: PRESENT: atraumatic, normocephalic Eye exam: PRESENT: conjunctiva pink, EOMI, PERRLA Ear exam: PRESENT: normal external ear exam Mouth exam: PRESENT: moist, tongue midline Neck exam: PRESENT: full ROM Respiratory exam: PRESENT: clear to auscultation ellen Cardiovascular exam: PRESENT: RRR, +S1, +S2 Pulses: PRESENT: normal dorsalis pedis pul, +2 pedal pulses bilateral Vascular exam: PRESENT: normal capillary refill GI/Abdominal exam: PRESENT: normal bowel sounds, soft Rectal exam: PRESENT: deferred Neurological exam: PRESENT: alert, CN II-XII grossly intact. ABSENT: motor sensory deficit Psychiatric exam: PRESENT: appropriate affect, normal mood Skin exam: PRESENT: dry, intact, warm Results Laboratory Results: 10/05/17 05:25 10/07/17 04:38 10/07/17 04:38 Sodium 141.7 Potassium 3.9 Chloride 103 Carbon Dioxide 27 Anion Gap 12 BUN 15 Creatinine 0.78 Est GFR ( Amer) > 60 Est GFR (Non-Af Amer) > 60 Glucose 123 H Calcium 9.0 10/02/17 10/02/17 10/02/17 07:39 07:39 13:48 Creatine Kinase 65 97 CK-MB (CK-2) 1.45 Troponin I < 0.012 10/02/17 10/02/17 10/02/17 13:48 18:30 18:30 Creatine Kinase 114 CK-MB (CK-2) 2.69 3.01 Troponin I < 0.012 < 0.012 04/10/05/17 10/06/17 11:50 18:05 00:15 Creatine Kinase CK-MB (CK-2) Troponin I < 0.012 < 0.012 < 0.012 Impressions: Cervical Spine CT 10/01/17 00:00 IMPRESSION: Degenerative disc disease and spondylosis. No acute abnormality. Brain MRI with MRA 10/04/17 00:00 IMPRESSION: No aneurysm. No occlusions. Head CT 10/04/17 00:00 IMPRESSION: 1. No acute intracranial abnormality by CT criteria. This exam was performed according to our departmental dose-optimization program, which includes automated exposure control, adjustment of the mA and/or kV according to patient size and/or use of iterative reconstruction technique. Head MRI 10/04/17 00:00 IMPRESSION: Positive for 4 mm lacunar acute or sub-acute infarction in the right periventricular temporal -parietal confluence. EVIDENCE OF ACUTE STROKE: Yes RIGHT MCA Carotid Doppler Study 10/06/17 00:00 IMPRESSION: NO HEMODYNAMICALLY SIGNIFICANT STENOSIS. Assessment & Plan - Diagnosis (1) Hypertensive urgency Is this a current diagnosis for this admission?: Yes (2) Fall Qualifiers: Encounter type: subsequent encounter Qualified Code(s): W19.XXXD - Unspecified fall, subsequent encounter Is this a current diagnosis for this admission?: Yes (3) Right temporal lobe infarction Is this a current diagnosis for this admission?: Yes (4) Gait abnormality Is this a current diagnosis for this admission?: Yes (5) Coronary artery disease Qualifiers: Coronary Disease-Associated Artery/Lesion type: [place] artery [place] vs. transplanted heart: [place] heart Associated angina: without angina Qualified Code(s): I25.10 - Atherosclerotic heart disease of [place] coronary artery without angina pectoris Is this a current diagnosis for this admission?: Yes
[2017-10-07] MEDS: INSULIN LISPRO 100 UNIT/ML 3 ML VIAL SUBCUT PRN ×2 (22:30→23:20)
[2017-10-08] MEDS: LEVOTHYROXINE SODIUM 0.15 MG TABLET PO SCH (05:57)
[2017-10-08] MEDS: INSULIN LISPRO 100 UNIT/ML 3 ML VIAL SUBCUT PRN ×2 (08:31→22:02)
[2017-10-08] MEDS: INSULIN DETEMIR 100 UNIT/ML 3 ML PEN SUBCUT SCH (08:31)
[2017-10-08] MEDS: VALSARTAN 160 MG TABLET PO SCH ×2 (10:34→21:53)
[2017-10-08] MEDS: ASPIRIN 81 MG TABLET, ENT COATED PO SCH (10:34)
[2017-10-08] MEDS: BENZTROPINE MESYLATE 1 MG TABLET PO SCH ×2 (10:34→21:53)
[2017-10-08] MEDS: CLONAZEPAM 1 MG TABLET PO SCH ×2 (10:34→21:53)
[2017-10-08] MEDS: LAMOTRIGINE 100 MG TABLET PO SCH ×2 (10:35→21:53)
[2017-10-08] MEDS: OXYCODONE HCL IR 5 MG TABLET PO SCH ×2 (10:35→21:53)
[2017-10-08] MEDS: DULOXETINE HCL 30 MG CAPSULE.DR PO SCH ×2 (10:35→21:53)
[2017-10-08] MEDS: AMLODIPINE BESYLATE 5 MG TABLET PO SCH ×2 (10:35→21:53)
[2017-10-08] MEDS: POTASSIUM CHLORIDE 20 MEQ/15 ML UDCUP PO SCH (10:39)
--- NOTE | 2017-10-08 22:32 | PDOC TRANSFER SUMMARY ---
General - Admit/Disc Date/PCP Admission Date/Primary Care Provider: 10/02/17 00:25 DAMIAN ARREOLA MD Discharge Date: 10/09/17 - Discharge Diagnosis (1) Hypertensive urgency Is this a current diagnosis for this admission?: Yes (2) Fall Is this a current diagnosis for this admission?: Yes (3) Right temporal lobe infarction Is this a current diagnosis for this admission?: Yes (4) Gait abnormality Is this a current diagnosis for this admission?: Yes (5) Coronary artery disease Is this a current diagnosis for this admission?: Yes - Additional Information Resuscitation Status: Full Code Prescriptions: Empagliflozin [Jardiance] 25 mg PO DAILY #30 tablet Metformin HCl 1,000 mg PO BID #60 tablet Sitagliptin Phosphate [Januvia] 100 mg PO DAILY #30 tablet Home Medications: Levothyroxine Sodium [Synthroid] 150 mcg PO Q6AM 05/26/12 Metoprolol Succinate [Toprol XL 100 mg Tablet] 200 mg PO DAILY 05/26/12 Insulin Aspart [Novolog Flexpen] 0 unit SUBCUT .SLD SCALE 10/21/13 Clonazepam [Klonopin] 0.5 mg PO DAILYP PRN 09/08/17 Aspirin [Aspirin EC] 81 mg PO DAILY 10/02/17 Benztropine Mesylate [Cogentin 1 mg Tablet] 1 mg PO Q12 10/02/17 Clonazepam [Klonopin] 1 mg PO QHS 10/02/17 Dextroamphetamine/Amphetamine [Adderall 10 mg Tablet] 10 mg PO Q8 10/02/17 Duloxetine HCl [Cymbalta] 60 mg PO Q12 10/02/17 Lamotrigine [Lamictal] 200 mg PO Q12 10/02/17 Prazosin HCl [Minipress] 1 mg PO QHS 10/02/17 Amlodipine Besylate [Norvasc 5 mg Tablet] 5 mg PO Q12 tablet 10/08/17 Empagliflozin [Jardiance] 25 mg PO DAILY #30 tablet 10/08/17 Insulin Detemir [Levemir Insulin 100 units/mL] 50 unit SUBCUT QAM insuln.pen Metformin HCl 1,000 mg PO BID #60 tablet 10/08/17 Sitagliptin Phosphate [Januvia] 100 mg PO DAILY #30 tablet 10/08/17 Valsartan [Diovan 160 mg Tablet] 160 mg PO Q12 tablet 10/08/17 History of Present Illness Admission Date/PCP: 10/02/17 00:25 DAMIAN ARREOLA MD History of Present Illness: RADHA SCOTT is a 67 year old female, She has history of coronary artery disease status post CABG, diabetes mellitus type 2 ,depression she came to the emergency room for evaluation of unprovoked fall she said she fell 3 times unprovoked there was no antecedent chest pain, no loss of consciousness no shortness of breath. In the Emergency room she was evaluated x-rays was done there was no acute fracture CT head was negative. She was also found to have uncontrolled hypertension with the headache because the etiology of the fall is not clear the ER physician is recommending hospital admission for observation Hospital Course Hospital Course: She was admitted for the management of hypertensive urgency and unprovoked fall further evaluation in the hospital included MRI of the brain showed a small lacunar infarct in the right periventricular temporal parietal conference. She had episode of bradycardia because of that consultation was requested from cardiology 2D echo was done, it showed preserved ejection fraction of left ventricle. She has abnormal gait with tendency to fall.She was managed according to stroke protocol, MRA of the brain was done which was normal she was treated with antiplatelet, aspirin the plan is to transfer the half-way for rehabilitation, the blood pressure medication was adjusted. She has a history of schizoaffective disorder Physical Exam Vital Signs: Temp Pulse Resp BP Pulse Ox 97.8 F 77 16 146/70 H 96 10/08/17 15:46 10/08/17 15:46 10/08/17 15:46 10/08/17 15:46 10/08/17 15:46 Intake & Output 10/07/17 10/08/17 10/09/17 06:59 06:59 06:59 Intake Total 985 1689 100 Balance 985 1689 100 Weight 95.4 kg 96.4 kg General appearance: PRESENT: no acute distress Eye exam: PRESENT: PERRLA Ear exam: PRESENT: normal external ear exam Mouth exam: PRESENT: moist, tongue midline Respiratory exam: PRESENT: clear to auscultation ellen Cardiovascular exam: PRESENT: RRR, +S1, +S2 GI/Abdominal exam: PRESENT: normal bowel sounds, soft Rectal exam: PRESENT: deferred Extremities exam: PRESENT: full ROM Neurological exam: PRESENT: alert, CN II-XII grossly intact Results Laboratory Results: 10/05/17 05:25 10/07/17 04:38 10/02/17 10/02/17 10/02/17 07:39 07:39 13:48 Creatine Kinase 65 97 CK-MB (CK-2) 1.45 Troponin I < 0.012 10/02/17 10/02/17 10/02/17 13:48 18:30 18:30 Creatine Kinase 114 CK-MB (CK-2) 2.69 3.01 Troponin I < 0.012 < 0.012 10/05/17 10/05/17 10/06/17 11:50 18:05 00:15 Creatine Kinase CK-MB (CK-2) Troponin I < 0.012 < 0.012 < 0.012 Impressions: Cervical Spine CT 10/01/17 00:00 IMPRESSION: Degenerative disc disease and spondylosis. No acute abnormality. Brain MRI with MRA 10/04/17 00:00 IMPRESSION: No aneurysm. No occlusions. Head CT 10/04/17 00:00 IMPRESSION: 1. No acute intracranial abnormality by CT criteria. This exam was performed according to our departmental dose-optimization program, which includes automated exposure control, adjustment of the mA and/or kV according to patient size and/or use of iterative reconstruction technique. Head MRI 10/04/17 00:00 IMPRESSION: Positive for 4 mm lacunar acute or sub-acute infarction in the right periventricular temporal -parietal confluence. EVIDENCE OF ACUTE STROKE: Yes RIGHT MCA Carotid Doppler Study 10/06/17 00:00 IMPRESSION: NO HEMODYNAMICALLY SIGNIFICANT STENOSIS. Qualifiers - * PATIENT BEING DISCHARGED WITH ANY OF THE FOLLOWING DIAGNOSIS: No, Stroke VTE patient discharged on overlapping Therapy?: Yes Stroke Pt being discharged on Anti-thrombolytic therapy?: Yes Stroke Pt being discharged on Anti-coagulation therapy?: Yes Reason(s) for not prescribing Anti-coagulation therapy:: Not indicated Stroke Pt being discharged on Statins?: Yes
[2017-10-08] MEDS ORDERED: ATORVASTATIN CALCIUM 40 MG TABLET PO ONE (22:33)
--- NOTE | 2017-10-08 22:35 | PDOC PROGRESS REPORT ---
Subjective Progress Note for:: 10/08/17 Subjective:: She was seen by the bedside, she be transferred to intermediate in a.m. for rehabilitation Reason For Visit: CONTUSSION OF SCALP VISION LOSS Physical Exam Vital Signs: Temp Pulse Resp BP Pulse Ox 97.8 F 77 16 146/70 H 96 10/08/17 15:46 10/08/17 15:46 10/08/17 15:46 10/08/17 15:46 10/08/17 15:46 Intake & Output 10/07/17 10/08/17 10/09/17 06:59 06:59 06:59 Intake Total 985 1689 100 Balance 985 1689 100 Weight 95.4 kg 96.4 kg General appearance: PRESENT: no acute distress Eye exam: PRESENT: PERRLA Respiratory exam: PRESENT: clear to auscultation ellen Cardiovascular exam: PRESENT: +S1, +S2 GI/Abdominal exam: PRESENT: soft Neurological exam: PRESENT: alert Results Laboratory Results: 10/05/17 05:25 10/07/17 04:38 10/02/17 10/02/17 10/02/17 07:39 07:39 13:48 Creatine Kinase 65 97 CK-MB (CK-2) 1.45 Troponin I < 0.012 10/02/17 10/02/17 10/02/17 13:48 18:30 18:30 Creatine Kinase 114 CK-MB (CK-2) 2.69 3.01 Troponin I < 0.012 < 0.012 10/05/17 10/05/17 10/06/17 11:50 18:05 00:15 Creatine Kinase CK-MB (CK-2) Troponin I < 0.012 < 0.012 < 0.012 Impressions: Cervical Spine CT 10/01/17 00:00 IMPRESSION: Degenerative disc disease and spondylosis. No acute abnormality. Brain MRI with MRA 10/04/17 00:00 IMPRESSION: No aneurysm. No occlusions. Head CT 10/04/17 00:00 IMPRESSION: 1. No acute intracranial abnormality by CT criteria. This exam was performed according to our departmental dose-optimization program, which includes automated exposure control, adjustment of the mA and/or kV according to patient size and/or use of iterative reconstruction technique. Head MRI 10/04/17 00:00 IMPRESSION: Positive for 4 mm lacunar acute or sub-acute infarction in the right periventricular temporal -parietal confluence. EVIDENCE OF ACUTE STROKE: Yes RIGHT MCA Carotid Doppler Study 10/06/17 00:00 IMPRESSION: NO HEMODYNAMICALLY SIGNIFICANT STENOSIS. Assessment & Plan - Diagnosis (1) Hypertensive urgency Is this a current diagnosis for this admission?: Yes (2) Fall Qualifiers: Encounter type: subsequent encounter Qualified Code(s): W19.XXXD - Unspecified fall, subsequent encounter Is this a current diagnosis for this admission?: Yes (3) Right temporal lobe infarction Is this a current diagnosis for this admission?: Yes (4) Gait abnormality Is this a current diagnosis for this admission?: Yes (5) Coronary artery disease Qualifiers: Coronary Disease-Associated Artery/Lesion type: [place] artery [place] vs. transplanted heart: [place] heart Associated angina: without angina Qualified Code(s): I25.10 - Atherosclerotic heart disease of [place] coronary artery without angina pectoris Is this a current diagnosis for this admission?: Yes
[2017-10-09] MEDS: LEVOTHYROXINE SODIUM 0.15 MG TABLET PO SCH (05:41)
[2017-10-09] MEDS: AMLODIPINE BESYLATE 5 MG TABLET PO SCH (09:22)
[2017-10-09] MEDS: DULOXETINE HCL 30 MG CAPSULE.DR PO SCH (09:22)
[2017-10-09] MEDS: CLONAZEPAM 1 MG TABLET PO SCH (09:22)
[2017-10-09] MEDS: LAMOTRIGINE 100 MG TABLET PO SCH (09:23)
[2017-10-09] MEDS: BENZTROPINE MESYLATE 1 MG TABLET PO SCH (09:23)
[2017-10-09] MEDS: OXYCODONE HCL IR 5 MG TABLET PO SCH (09:23)
[2017-10-09] MEDS: ASPIRIN 81 MG TABLET, ENT COATED PO SCH (09:23)
[2017-10-09] MEDS: VALSARTAN 160 MG TABLET PO SCH (09:23)
[2017-10-09] MEDS: POTASSIUM CHLORIDE 20 MEQ/15 ML UDCUP PO SCH (09:26)
[2017-10-09] MEDS: INSULIN DETEMIR 100 UNIT/ML 3 ML PEN SUBCUT SCH (10:20)
[2017-10-09 12:20] VITALS: BP 147/61
--- NOTE | 2017-10-09 19:58 | PDOC PROGRESS REPORT ---
Subjective Progress Note for:: 10/07/17 Subjective:: Patient seems to be doing better today. Heart rate has improved. Pt is denying any chest arm or neck discomfort. Patient denying any PND, orthopnea. Patient denying any fever chills. Patient denying any other significant discomfort. Patient is maintaining sinus rhythm. Sinus bradycardia has significantly improved. Review of systems: Rest review of systems negative. Medications: Medications have been reviewed. Reason For Visit: CONTUSSION OF SCALP VISION LOSS Physical Exam Vital Signs: Temp Pulse Resp BP Pulse Ox 97.9 F 76 16 177/77 H 95 10/07/17 15:39 10/07/17 15:39 10/07/17 15:39 10/07/17 15:39 10/07/17 15:39 Intake & Output 10/06/17 10/07/17 10/08/17 06:59 06:59 06:59 Intake Total 277 251 2640 Balance 894 447 6323 Weight 93.8 kg 95.4 kg Exam: GENERAL: well-nourished and in no acute distress. Alert and oriented x3 HEAD: Atraumatic, normocephalic. EYES: Pupils equal round and reactive to light, extraocular movements intact, sclera anicteric, conjunctiva are normal. ENT: TMs normal, nares patent, oropharynx clear without exudates. Moist mucous membranes. No oral ulcerations or bleeding gums noted NECK: supple without lymphadenopathy. Trachea is central. No cervical or axillary lymphadenopathy noted. Carotids are 2+, JVD WNL LUNGS: Respiration seems nonlabored, no significant accessory muscle action noted. Breath sounds clear to auscultation bilaterally and equal noted. No wheezes rales or rhonchi noted. No significant dullness noted on percussion. CHEST: Palpation of the chest wall shows no significant chest wall tenderness. 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 ABDOMEN: Soft, no significant tenderness appreciated, normoactive bowel sounds. No guarding, no rebound. No rigidity noted . No masses appreciated. EXTREMITIES: Pedal pulses are 1-2+, no calf tenderness noted. No clubbing or cyanosis. negative pedal edema noted NEUROLOGICAL: Focused neurological exam showed no significant neurologic deficit. Normal speech, no focal weakness appreciated. PSYCH: Normal mood, normal affect. Judgment and insight within normal limits. SKIN: No significant ecchymosis, skin is noted to be warm. MUSCULOSKELETAL EXAM: No significant acute joint swelling noted. Results Laboratory Results: 10/05/17 05:25 10/07/17 04:38 10/07/17 04:38 Sodium 141.7 Potassium 3.9 Chloride 103 Carbon Dioxide 27 Anion Gap 12 BUN 15 Creatinine 0.78 Est GFR ( Amer) > 60 Est GFR (Non-Af Amer) > 60 Glucose 123 H Calcium 9.0 10/02/17 10/02/17 10/02/17 07:39 07:39 13:48 Creatine Kinase 65 97 CK-MB (CK-2) 1.45 Troponin I < 0.012 10/02/17 10/02/17 10/02/17 13:48 18:30 18:30 Creatine Kinase 114 CK-MB (CK-2) 2.69 3.01 Troponin I < 0.012 < 0.012 10/05/17 10/05/17 10/06/17 11:50 18:05 00:15 Creatine Kinase CK-MB (CK-2) Troponin I < 0.012 < 0.012 < 0.012 EKG Comments: Shows sinus rhythm with heart rate being very stable. Impressions: Cervical Spine CT 10/01/17 00:00 IMPRESSION: Degenerative disc disease and spondylosis. No acute abnormality. Brain MRI with MRA 10/04/17 00:00 IMPRESSION: No aneurysm. No occlusions. Head CT 10/04/17 00:00 IMPRESSION: 1. No acute intracranial abnormality by CT criteria. This exam was performed according to our departmental dose-optimization program, which includes automated exposure control, adjustment of the mA and/or kV according to patient size and/or use of iterative reconstruction technique. Head MRI 10/04/17 00:00 IMPRESSION: Positive for 4 mm lacunar acute or sub-acute infarction in the right periventricular temporal -parietal confluence. EVIDENCE OF ACUTE STROKE: Yes RIGHT MCA Carotid Doppler Study 10/06/17 00:00 IMPRESSION: NO HEMODYNAMICALLY SIGNIFICANT STENOSIS. Assessment & Plan - Diagnosis (1) Bradycardia Is this a current diagnosis for this admission?: Yes (2) Near syncope Is this a current diagnosis for this admission?: Yes (3) Falls Qualifiers: Encounter type: initial encounter Qualified Code(s): W19.XXXA - Unspecified fall, initial encounter Is this a current diagnosis for this admission?: Yes (4) Hypertensive urgency Is this a current diagnosis for this admission?: Yes (5) Cerebrovascular accident (CVA) Qualifiers: CVA mechanism: unspecified Qualified Code(s): I63.9 - Cerebral infarction, unspecified Is this a current diagnosis for this admission?: Yes - Notes Notes: Bradycardia has improved. Blood pressure now more stable on current regimen. Patient has difficulty with gait and balance. Patient now to be discharged to a long-term for physical therapy. Patient will benefit from evaluation by physical therapy. Cerebrovascular accident: MRI brain scan reviewed. It shows lacunar infarct in the middle cerebral artery territory. Possibly related to severe hypertension, possible platelet emboli etc. recommend dual antiplatelet therapy if no contraindications. Bradycardia: This has improved. Hopefully patient will not need to reinstitution of beta blockers. This could be because of recurrent falls but there could be other causes. Heart rate seems to be gradually improving. Heart rate now in the normal range. Near-syncope: [place] to be most likely related to severe hypertension and bradycardia but currently improved. Other differential diagnosis discussed but felt unlikely. Falls: Recurrent multifactorial. Recommend physical therapy assessment. May consider neurologic evaluation and neurology testing. Hypertensive urgency: Blood pressure has been severely elevated. Currently medications are being adjusted. RANDY inhibitor/angiotensin receptor blockers are preferred. If patient not orthostatics, may consider adding diuretics. Today blood pressure noted to be more stable. General debility: Patient complains of generalized weakness. Recommend physical therapy assessment. - Time Time with patient: Greater than 35 minutes - CODE STATUS was discussed, patient remains full code. Surrogate decision-maker unchanged. Multiple medical problems were addressed. More than 50% of the time spent coordinating care, discussing management plans with involved caregivers. Management plans discussed with involved personnels. Medical decision making was of moderate to high complexity, patient's has multiple comorbidities. Patient has been stable for last several days. We will therefore sign off. Please reconsult if needed. Medications reviewed and adjusted accordingly: Yes
== END 2017-10-09 16:26 | DRG 304 ==
LOC: ER 20:44 → EH 10-02 00:25 → 4W 10-02 03:21 → 3W 10-02 17:46
PROVIDERS: ADMIT Internal Medicine; ATTEND Internal Medicine
PROC: 0HQ0XZZ Repair Scalp Skin, External Approach (ICD-10-PCS; principal; 2017-10-04)
DX: I16.0 Hypertensive urgency (principal); I63.411 Cerebral infarction due to embolism of right middle cerebral artery; I25.10 Atherosclerotic heart disease of native coronary artery without angina pectoris; R26.9 Unspecified abnormalities of gait and mobility; E11.9 Type 2 diabetes mellitus without complications; F32.9 Major depressive disorder, single episode, unspecified; S01.01XA Laceration without foreign body of scalp, initial encounter; W19.XXXA Unspecified fall, initial encounter; R00.1 Bradycardia, unspecified; I11.0 Hypertensive heart disease with heart failure; I50.9 Heart failure, unspecified; E78.00 Pure hypercholesterolemia, unspecified; J45.909 Unspecified asthma, uncomplicated; E03.9 Hypothyroidism, unspecified; K21.9 Gastro-esophageal reflux disease without esophagitis; M19.90 Unspecified osteoarthritis, unspecified site; F31.9 Bipolar disorder, unspecified; D64.9 Anemia, unspecified; F43.10 Post-traumatic stress disorder, unspecified; H54.7 Unspecified visual loss; W18.30XA Fall on same level, unspecified, initial encounter; M47.9 Spondylosis, unspecified; F20.9 Schizophrenia, unspecified; G43.909 Migraine, unspecified, not intractable, without status migrainosus; I25.2 Old myocardial infarction; Z79.82 Long term (current) use of aspirin; Z79.4 Long term (current) use of insulin; Z79.899 Other long term (current) drug therapy; Z95.1 Presence of aortocoronary bypass graft; Z90.49 Acquired absence of other specified parts of digestive tract; Z90.710 Acquired absence of both cervix and uterus; Z82.49 Family history of ischemic heart disease and other diseases of the circulatory system
CPT/HCPCS: 36415; 70450; 70544; 70551; 72125; 80048; 80053; 81001; 82550; 82553; 82962; 84443; 84484; 85025; 93005; 93010; 93880; 99285; G8978-GP; G8979-GP; G8987-GO; G8988-GO; J1815; J2405; J3490

== ENCOUNTER 2017-10-13 17:20 | Emergency (ER) | payer MEDICARE ==
--- NOTE | 2017-10-13 18:23 | ER Document Report ---
ED General - General Chief Complaint: Altered Mental Status Stated Complaint: ALTERED MENTAL STATUS Time Seen by Provider: 10/13/17 17:29 Mode of Arrival: Medic Information source: Patient Notes: 67-year-old female history of schizophrenia presents from care facility where is noted that she has been altered. Patient has been stating that people are trying to kill her, states they are trying to get her for her money. TRAVEL OUTSIDE OF THE [place] IN LAST 30 DAYS: No - HPI Onset: Just prior to arrival Onset/Duration: Sudden Quality of pain: No pain Severity: Mild Pain Level: Denies Associated symptoms: Other Exacerbated by: Denies Relieved by: Denies Similar symptoms previously: No Recently seen / treated by doctor: No - Related Data Allergies/Adverse Reactions: No Known Allergies Allergy (Verified 09/08/17 17:24) Past Medical History - Social History Smoking Status: Never Smoker Cigarette use (# per day): No Chew tobacco use (# tins/day): No Smoking Education Provided: No Frequency of alcohol use: None Drug Abuse: None Family History: CAD Patient has suicidal ideation: No Patient has homicidal ideation: No - Past Medical History Cardiac Medical History: Reports: Hx Congestive Heart Failure, Hx Coronary Artery Disease, Hx Heart Attack - x 2, Hx Hypercholesterolemia, Hx Hypertension Pulmonary Medical History: Reports: Hx Asthma Denies: Hx Tuberculosis Neurological Medical History: Reports: Hx Migraine. Denies: Hx Cerebrovascular Accident, Hx Seizures Endocrine Medical History: Reports: Hx Diabetes Mellitus Type 1, Hx Diabetes Mellitus Type 2 - insulin dependent, Hx Hypothyroidism Renal/ Medical History: Denies: Hx Peritoneal Dialysis GI Medical History: Reports: Hx Gastroesophageal Reflux Disease, Hx Ulcer. Denies: Hx Hiatal Hernia Musculoskeltal Medical History: Reports Hx Arthritis Psychiatric Medical History: Reports: Hx Bipolar Disorder, Hx Depression, Hx Post Traumatic Stress Disorder, Hx Schizophrenia Past Surgical History: Reports: Hx Appendectomy, Hx Cardiac Catheterization, Hx Cardiac Surgery - 4 stents, Hx Cholecystectomy, Hx Hysterectomy, Hx Open Heart Surgery, Hx Orthopedic Surgery - left leg hardware. Denies: Hx Pacemaker - Immunizations Hx Diphtheria, Pertussis, Tetanus Vaccination: Yes Hx Pneumococcal Vaccination: 03/18/11 Review of Systems - Review of Systems Notes: REVIEW OF SYSTEMS: CONSTITUTIONAL : Denies fever, chills, or sweats. Denies recent illness. EENT: Denies eye, ear, throat, or mouth pain or symptoms. Denies nasal or sinus congestion or discharge. Denies throat, tongue, or mouth swelling or difficulty swallowing. CARDIOVASCULAR: Denies chest pain. Denies palpitations or racing or irregular heart beat. Denies ankle edema. RESPIRATORY: Denies cough, cold, or chest congestion. Denies shortness of breath, difficulty breathing, or wheezing. GASTROINTESTINAL: Denies abdominal pain or distention. Denies nausea, vomiting , or diarrhea. Denies blood in vomitus, stools, or per rectum. Denies black, tarry stools. Denies constipation. GENITOURINARY: Denies difficulty urinating, painful urination, burning, frequency, blood in urine, or discharge. FEMALE GENITOURINARY: Denies vaginal bleeding, heavy or abnormal periods, irregular periods. Denies vaginal discharge or odor. MUSCULOSKELETAL: Denies back or neck pain or stiffness. Denies joint pain or swelling. SKIN: Denies rash, lesions or sores. HEMATOLOGIC : Denies easy bruising or bleeding. LYMPHATIC: Denies swollen, enlarged glands. NEUROLOGICAL: Denies confusion or altered mental status. Denies passing out or loss of consciousness. Denies dizziness or lightheadedness. Denies headache. Denies weakness or paralysis or loss of use of either side. Denies problems with gait or speech. Denies sensory loss, numbness, or tingling. Denies seizures. PSYCHIATRIC: Admits to altered mental status per care facility ALL OTHER SYSTEMS REVIEWED AND NEGATIVE. PHYSICAL EXAMINATION: GENERAL: Well-appearing, well-nourished and in no acute distress. HEAD: Atraumatic, normocephalic. EYES: Pupils equal round and reactive to light, extraocular movements intact, conjunctiva are normal. ENT: Nares patent, oropharynx clear without exudates. Moist mucous membranes. NECK: Normal range of motion, supple without lymphadenopathy LUNGS: Breath sounds clear to auscultation bilaterally and equal. No wheezes rales or rhonchi. HEART: Regular rate and rhythm without murmurs ABDOMEN: Soft, nontender, nondistended abdomen. No guarding, no rebound. No masses appreciated. Female : deferred Musculoskeletal: Normal range of motion, no pitting or edema. No cyanosis. NEUROLOGICAL: Cranial nerves grossly intact. Normal speech, normal gait. Normal sensory, motor exams PSYCH: Patient appears quite paranoid and agitated SKIN: Warm, Dry, normal turgor, no rashes or lesions noted. Dictation was performed using [employer] voice recognition software Physical Exam - Vital signs Vitals: Temp Pulse Resp BP Pulse Ox 98.0 F 55 L 18 108/65 97 10/13/17 17:47 10/13/17 17:47 10/13/17 17:47 10/13/17 17:47 10/13/17 17:47 Course - Re-evaluation Re-evalutation: 10/13/17 18:23 pt notes that people are trying ot kill her for money, this is the same statement she has given to ems and ot hte nurses. dr saha paged 10/14/17 00:34 I spoke with patient's primary care physician at the time he noted that the patient does not fact have a history of schizophrenia, I will place the patient on her own meds overnight, medically she is cleared will require mental health evaluation - Vital Signs Vital signs: Temp Pulse Resp BP Pulse Ox 98.0 F 55 L 22 H 137/68 H 95 10/13/17 17:47 10/13/17 17:47 10/13/17 20:09 10/13/17 20:09 10/13/17 20:09 - Laboratory Result Diagrams: 10/13/17 19:40 10/13/17 19:40 Laboratory results interpreted by me: 10/13/17 10/13/17 19:40 19:40 RDW 14.2 H Seg Neutrophils % 79.4 H Lymphocytes % 12.9 L BUN 23 H Est GFR (Non-Af Amer) 52 L Glucose 119 H Salicylates < 1.0 L Acetaminophen < 10 L - Diagnostic Test Radiology reviewed: Reports reviewed - EKG Interpretation by Sd EKG shows normal: Sinus rhythm, [place], Intervals, QRS Complexes Discharge - Discharge Clinical Impression: Schizophrenia Qualifiers: Schizophrenia type: unspecified Qualified Code(s): F20.9 - Schizophrenia, unspecified Condition: Stable Disposition: PSYCH HOSP/UNIT Referrals: DAMIAN ARREOLA MD [Primary Care Provider] - Follow up as needed
--- NOTE | 2017-10-13 19:36 | RADIOLOGY REPORT (SQ) ---
EXAM DESCRIPTION: CT HEAD WITHOUT COMPLETED DATE/TIME: 10/13/2017 7:21 pm REASON FOR STUDY: ams COMPARISON: MR 10/04/2017 CT 10/04/2017 TECHNIQUE: Axial images acquired through the brain without intravenous contrast. Images reviewed wi th bone, brain and subdural windows. Additional sagittal and coronal reconstructions were generated. Images stored on PACS. All CT scanners at this facility use dose modulation, iterative reconstruction, and/or weight based d osing when appropriate to reduce radiation dose to as low as reasonably achievable (ALARA). [facility]: Dose Right [facility]: CareDose [facility]: Dose Right [facility]: Teradose 4D [facility]: [employer] RADIATION DOSE: CT Rad equipment meets quality standard of care and radiation dose reduction techniq ues were employed. CTDIvol: 53.2 mGy. DLP: 1017 mGy-cm. mGy. LIMITATIONS: None. FINDINGS: VENTRICLES: Normal size and contour. CEREBRUM: Mild cortical atrophy. No masses. No hemorrhage. No midline shift. No evidence for acut e infarction. Normal kelley/white matter differentiation. No areas of low density in the white matter. CEREBELLUM: No masses. No hemorrhage. No alteration of density. No evidence for acute infarction. EXTRAAXIAL SPACES: No fluid collections. No masses. ORBITS AND GLOBE: No intra- or extraconal masses. Normal contour of globe without masses. CALVARIUM: No fracture. PARANASAL SINUSES: No fluid or mucosal thickening. SOFT TISSUES: No mass or hematoma. OTHER: No other significant finding. IMPRESSION: Mild involutional changes of aging with no acute intracranial imaging finding. EVIDENCE OF ACUTE STROKE: NO. COMMENT: Quality ID # [id number]: Final reports with documentation of one or more dose reduction techniques (e.g., Automated exposure control, adjustment of the mA and/or kV according to patient size, use of iterative reconstruction technique) TECHNICAL DOCUMENTATION: JOB ID: [id number]- All Rights Reserved Reading location - IP/workstation name: [email or web address]
[2017-10-13 19:57] LABS: ABSOLUTE BASOPHILS # (AUTO) 0.1 10^3/uL (0.0-0.2); ABSOLUTE EOSINOPHILS # (AUTO) 0.1 10^3/uL (0.0-0.6); ABSOLUTE MONOCYTES (AUTO) 0.5 10^3/uL (0.1-1.4); ABSOLUTE NEUT (AUTO) 6.4 10^3/uL (1.7-8.2); BASOPHILS % (AUTO) 0.6 % (0-2); EOSINOPHILS % (AUTO) 1.3 % (0-6); HEMATOCRIT 39.2 % (36.0-47.0); HEMOGLOBIN 13.2 g/dL (12.0-15.5); LYMPHOCYTES % (AUTO) 12.9 % (13-45); MEAN CORPUSCULAR HGB CONC 33.7 g/dL (32.0-36.0); MEAN CORPUSCULAR VOLUME 86 fl (80-97); MONOCYTES % (AUTO) 5.8 % (3-13); PLATELET COUNT 251 10^3/uL (150-450); RED BLOOD COUNT 4.56 10^6/uL (3.72-5.28); RED CELL DISTRIBUTION WIDTH 14.2 % (11.5-14.0); SEGMENTED NEUTROPHILS % (AUTO) 79.4 % (42-78); TOTAL CELLS COUNTED % (AUTO) 100 %
[2017-10-13 20:14] LABS: ACETAMINOPHEN < 10 ug/mL (10-30); ALANINE AMINOTRANSFERASE 31 U/L (9-52); ALCOHOL < 10 mg/dL (NONE DETECTED); ALKALINE PHOSPHATASE 97 U/L (38-126); ANION GAP 15 (5-19); ASPARTATE AMINO TRANSFERASE 22 U/L (14-36); BILIRUBIN,DIRECT 0.3 mg/dL (0.0-0.4); BILIRUBIN,TOTAL 0.3 mg/dL (0.2-1.3); BLOOD UREA NITROGEN 23 mg/dL (7-20); CALCIUM 9.9 mg/dL (8.4-10.2); CARBON DIOXIDE 23 mmol/L (22-30); CHLORIDE 99 mmol/L (98-107); GLUCOSE 119 mg/dL (75-110); POTASSIUM 4.7 mmol/L (3.6-5.0); SALICYLATE < 1.0 mg/dL (2.0-20.0); TOTAL PROTEIN 6.7 g/dL (6.3-8.2)
--- NOTE | 2017-10-13 22:31 | EKG REPORT ---
SEVERITY:- BORDERLINE ECG - SINUS RHYTHM BORDERLINE T WAVE ABNORMALITIES : Confirmed by: Mohinder Solomon 13-Oct-2017 22:30:39
[2017-10-13] MEDS ORDERED: LAMOTRIGINE 100 MG TABLET PO ONE (23:00)
[2017-10-13] MEDS ORDERED: (PENDING PHARMACY ID) (Clonazepam [Clonazepam] 1 TAB) PO PRN (23:09)
[2017-10-13] MEDS ORDERED: VALSARTAN 160 MG TABLET PO ONE (23:30)
[2017-10-13] MEDS ORDERED: DULOXETINE HCL 30 MG CAPSULE.DR PO ONE (23:30)
[2017-10-13] MEDS ORDERED: BENZTROPINE MESYLATE 1 MG TABLET PO ONE (23:30)
[2017-10-14] MEDS ORDERED: CLONAZEPAM 1 MG TABLET PO PRN (00:03)
[2017-10-14] MEDS ORDERED: LEVOTHYROXINE SODIUM 0.05 MG TABLET PO SCH (06:00)
--- NOTE | 2017-10-14 08:13 | PSYCHOLOGICAL NOTE ---
Psych Note - Psych Note Psych Note: Reason for consult: Altered Mental Status 67-year-old female with a history of schizoaffective disorder, presents from care facility where is noted that she has been altered. Patient has been stating that people are trying to kill her, states they are trying to get her for her money. Patient is unable to identify the current year but states that her birthday just past on [birth year]. Patient was unable to remember the year she was born. Patient is unable to identify where she currently is i.e. [facility]. Patient is very pleasant however clearly still having difficulty after her stroke. Chart Review conducted: Patient presented to [facility] on 10/01/2017 for management of hypertensive urgency and unprovoked fall; further evaluation in the hospital included MRI of the brain showed a small lacunar infarct in the right periventricular temporal parietal conference. She was transferred to a [facility] for rehabilitation on . Head CT 10/04/17 00:00 Findings: Ventricular system and sulcal spaces are mildly enlarged compatible with mild cerebral atrophy. Scattered areas of hypodensity throughout the supratentorial white matter are nonspecific and may be related to chronic small vessel ischemia change Head MRI 10/04/17 00:00 IMPRESSION: Positive for 4 mm lacunar acute or sub-acute infarction in the right periventricular temporal -parietal confluence. EVIDENCE OF ACUTE STROKE: Yes RIGHT MCA Medication recommendations per [facility]'s contracted psychiatrist Dr. Donny thomas MD are as follows: 1. Please decrease Cymbalta to 30 MG daily 2. Please decrease Lamictal to 200 mg daily 3. Please discontinue Adderall 4. Please discontinue Klonopin and clonazepam 5. Please add BuSpar 5 mg twice daily 295.70 (F25.0) schizoaffective bipolar type per history provided by patient's physician Recent (less than one month) stroke Impression\plan: Patient is considered cleared from acute psychiatric services. While patient has a history of schizoaffective disorder patient just recently suffered a stroke. Medication recommendations have been provided. Patient is recommended to return to her assisted nursing facility. Dr. Callahan was consulted and the care management this patient; attending physician is agreement with recommendations and disposition.
[2017-10-14] MEDS ORDERED: ASPIRIN 81 MG TABLET, CHEWABLE PO SCH (10:00)
[2017-10-14] MEDS ORDERED: DULOXETINE HCL 30 MG CAPSULE.DR PO SCH (10:00)
[2017-10-14] MEDS ORDERED: AMLODIPINE BESYLATE 5 MG TABLET PO SCH (10:00)
[2017-10-14] MEDS ORDERED: METOPROLOL SUCCINATE 50 MG TAB.SR.24H PO SCH (10:00)
[2017-10-14] MEDS ORDERED: BENZTROPINE MESYLATE 1 MG TABLET PO SCH (10:00)
[2017-10-14] MEDS ORDERED: INSULIN DETEMIR 100 UNIT/ML 3 ML PEN SUBCUT SCH (10:00)
[2017-10-14] MEDS ORDERED: (PENDING PHARMACY ID) (Empagliflozin [Jardiance] 25 MG) PO SCH (10:00)
[2017-10-14] MEDS ORDERED: METFORMIN HCL 500 MG TABLET PO SCH (10:00)
[2017-10-14] MEDS ORDERED: LAMOTRIGINE 100 MG TABLET PO SCH (10:00)
[2017-10-14] MEDS ORDERED: SITAGLIPTIN PHOSPHATE 50 MG TABLET PO SCH (10:00)
[2017-10-14] MEDS ORDERED: VALSARTAN 160 MG TABLET PO SCH (10:00)
[2017-10-14 10:22] LABS: APPEARANCE,URINE CLEAR; BILIRUBIN,URINE NEGATIVE (NEGATIVE); COLOR,URINE STRAW; GLUCOSE, URINE >=500 mg/dL (NEGATIVE); KETONES,URINE NEGATIVE (NEGATIVE); LEUKOCYTE ESTERASE,URINE NEGATIVE (NEGATIVE); NITRITE,URINE NEGATIVE (NEGATIVE); PROTEIN,URINE NEGATIVE (NEGATIVE); URINE SPECIFIC GRAVITY 1.007; UROBILINOGEN,URINE NEGATIVE mg/dL (<2.0)
[2017-10-14 10:42] LABS: URINE AMPHETAMINES SCREEN NEGATIVE; URINE BARBITURATES SCREEN NEGATIVE; URINE BENZODIAZEPINES SCREEN NEGATIVE; URINE COCAINE SCREEN NEGATIVE; URINE MARIJUANA (THC) SCREEN NEGATIVE; URINE METHADONE SCREEN NEGATIVE; URINE PHENCYCLIDINE SCREEN NEGATIVE
--- NOTE | 2017-10-14 10:54 | ER Document Report ---
Doctor's Note Notes: 10/14/17 10:53 Patient has been seen and evaluated resting comfortably no acute distress. Laboratory values previous provider note and vital signs have been evaluated. Patient otherwise looks to be stable for disposition/transfer.
[2017-10-14] MEDS ORDERED: DULOXETINE HCL 30 MG CAPSULE.DR PO ONE (16:11)
[2017-10-14] MEDS ORDERED: BUSPIRONE HCL 10 MG TABLET PO ONE (16:11)
[2017-10-14] MEDS ORDERED: LAMOTRIGINE 100 MG TABLET PO ONE (16:11)
[2017-10-14 16:32] VITALS: BP 132/61
[2017-10-14] MEDS ORDERED: (PENDING PHARMACY ID) (Prazosin Hcl [Minipress] 1 MG) PO SCH (22:00)
== END 2017-10-14 16:50 ==
LOC: ER 17:20
DX: F25.0 Schizoaffective disorder, bipolar type (principal); I10 Essential (primary) hypertension; I25.10 Atherosclerotic heart disease of native coronary artery without angina pectoris; I25.2 Old myocardial infarction; J45.909 Unspecified asthma, uncomplicated; E11.9 Type 2 diabetes mellitus without complications; Z95.5 Presence of coronary angioplasty implant and graft
CPT/HCPCS: 93005; 99285; 36415; 82962; 80307 ×4; 85025; 80053; 81001; 70450; 93010; A9270 ×12; J1815; J3490

== ENCOUNTER 2017-10-16 00:45 | Emergency (ER) | payer MEDICARE ==
--- NOTE | 2017-10-16 01:05 | ER Document Report ---
ED General - General Chief Complaint: Fall Stated Complaint: FALL Time Seen by Provider: 10/16/17 00:52 Notes: Patient is a 67-year-old female with a history of schizophrenia, PTSD, CHF, [place], cardiac stents 4, IDDM presents to the emergency department via ems complaining of multiple falls today. Patient is a poor historian but responding to name and following instructions. Per EMS, she fell approx. 4 times at the facility and is altered. She has a recent history of multiple falls and she was admitted. From that admission she was noted to have suffered from a small lacunar infarct in the right periventricular temporal parietal lobe on 10/04. She had episode of bradycardia because of that consultation was requested from cardiology 2D echo was done, it showed preserved ejection fraction of left ventricle. She has abnormal gait with tendency to fall. She was managed according to stroke protocol, MRA of the brain was done which was normal she was treated with antiplatelet, aspirin and sent to SNF. No evidence of fever. Patient admits to right shoulder pain TRAVEL OUTSIDE OF THE [place] IN LAST 30 DAYS: No - Related Data Allergies/Adverse Reactions: No Known Allergies Allergy (Verified 09/08/17 17:24) Past Medical History - Social History Smoking Status: Smoker,Current Status Unk Family History: CAD - Past Medical History Cardiac Medical History: Reports: Hx Congestive Heart Failure, Hx Coronary Artery Disease, Hx Heart Attack - x 2, Hx Hypercholesterolemia, Hx Hypertension Pulmonary Medical History: Reports: Hx Asthma Denies: Hx Tuberculosis Neurological Medical History: Reports: Hx Migraine. Denies: Hx Cerebrovascular Accident, Hx Seizures Endocrine Medical History: Reports: Hx Diabetes Mellitus Type 1, Hx Diabetes Mellitus Type 2 - insulin dependent, Hx Hypothyroidism Renal/ Medical History: Denies: Hx Peritoneal Dialysis GI Medical History: Reports: Hx Gastroesophageal Reflux Disease, Hx Ulcer. Denies: Hx Hiatal Hernia Musculoskeltal Medical History: Reports Hx Arthritis Psychiatric Medical History: Reports: Hx Bipolar Disorder, Hx Depression, Hx Post Traumatic Stress Disorder, Hx Schizophrenia Past Surgical History: Reports: Hx Appendectomy, Hx Cardiac Catheterization, Hx Cardiac Surgery - 4 stents, Hx Cholecystectomy, Hx Hysterectomy, Hx Open Heart Surgery, Hx Orthopedic Surgery - left leg hardware. Denies: Hx Pacemaker - Immunizations Hx Diphtheria, Pertussis, Tetanus Vaccination: Yes Hx Pneumococcal Vaccination: 03/18/11 Physical Exam - Vital signs Vitals: Pulse Ox 92 10/16/17 00:59 - Notes Notes: PHYSICAL EXAM GENERAL: Alert, interacts well. HEAD: Normocephalic, atraumatic. EYES: Pupils equal, round, and reactive to light. Extraocular movements intact. ENT: Oral mucosa moist, tongue midline. NECK: Full range of motion. Supple. Trachea midline. LUNGS: Clear to auscultation bilaterally, no wheezes, rales, or rhonchi. No respiratory distress. HEART: Regular rate and rhythm. No murmurs, gallops, or rubs. ABDOMEN: Soft, nondistended, nontender. No guarding, rebound, or rigidity.. Bowel sounds present in all 4 quadrants. EXTREMITIES: Moves all 4 extremities spontaneously. No edema, radial and dorsalis pedis pulses 2/4 bilaterally. No cyanosis. NEUROLOGICAL: Alert and oriented x4. Face symmetric. Tongue protrudes midline. Extraocular motions intact. Pupils are 2 mm and equally reactive. Normal speech, normal gait. 5 out of 5 strength in both the distal and proximal upper and lower extremities bilaterally. Sensation is grossly intact throughout. Finger to nose testing normal. Pronator drift normal. PSYCH: Normal affect, normal mood. SKIN: Warm, dry, normal turgor. No rashes or lesions noted. Course - Re-evaluation Re-evalutation: 10/16/17 02:39 Patient is a 67 old female is hemodynamically stable, no acute distress and afebrile. Patient alert and oriented 4. Patient states that she has been falling but that is not a new problem today. CT the head, neck without any evidence of acute injury, evidence of CVA. Patient's NIH 0. No focal weakness , neurological deficits. Patient blood work without any evidence of leukocytosis, anemia, acute renal failure, elevated liver enzymes, urinary tract infection. Vital signs are stable. Will ambulate patient if ambulate without difficulty return to facility. 10/16/17 04:02 Patient able to ambulate with some assistance from nursing staff the patient states that she normally walks with a walker. No limb ataxia, gait abnormalities. Patient stable to return to facility. - Vital Signs Vital signs: Temp Pulse Resp BP Pulse Ox 97.9 F 24 H 135/63 H 99 10/16/17 04:36 10/16/17 04:55 10/16/17 04:58 10/16/17 04:00 - Laboratory Result Diagrams: 10/16/17 01:23 10/16/17 01:23 Laboratory results interpreted by me: 10/16/17 10/16/17 10/16/17 01:23 01:23 01:40 RDW 14.4 H Sodium 136.2 L Carbon Dioxide 21 L BUN 25 H Est GFR (Non-Af Amer) 51 L Direct Bilirubin 0.5 H Creatine Kinase 182 H Urine Glucose (UA) >=500 H - Diagnostic Test Radiology reviewed: Image reviewed, Reports reviewed - EKG Interpretation by Me EKG shows normal: Sinus rhythm Rate: Normal Rhythm: NSR When compared to previous EKG there are: No significant change Discharge - Discharge Clinical Impression: Fall Qualifiers: Encounter type: initial encounter Qualified Code(s): W19.XXXA - Unspecified fall, initial encounter Condition: Good Disposition: HOME-SNF (ED ONLY) Additional Instructions: There is no evidence of acute injury on your workup today. Please follow-up with your primary care provider regarding today's visit. PT developed pain from her fall for either headaches or contusions he can take Tylenol as needed. Referrals: DAMIAN ARREOLA MD [ACTIVE STAFF] - Follow up in 1 week
[2017-10-16 01:33] LABS: ABSOLUTE BASOPHILS # (AUTO) 0.1 10^3/uL (0.0-0.2); ABSOLUTE EOSINOPHILS # (AUTO) 0.1 10^3/uL (0.0-0.6); ABSOLUTE LYMPHOCYTES (AUTO) 1.8 10^3/uL (0.5-4.7); ABSOLUTE MONOCYTES (AUTO) 0.8 10^3/uL (0.1-1.4); ABSOLUTE NEUT (AUTO) 6.5 10^3/uL (1.7-8.2); BASOPHILS % (AUTO) 1.1 % (0-2); EOSINOPHILS % (AUTO) 1.4 % (0-6); HEMATOCRIT 40.9 % (36.0-47.0); LYMPHOCYTES % (AUTO) 19.1 % (13-45); MEAN CORPUSCULAR HEMOGLOBIN 29.4 pg (27.0-33.4); MEAN CORPUSCULAR HGB CONC 34.2 g/dL (32.0-36.0); MEAN CORPUSCULAR VOLUME 86 fl (80-97); MONOCYTES % (AUTO) 8.7 % (3-13); PLATELET COUNT 259 10^3/uL (150-450); RED BLOOD COUNT 4.76 10^6/uL (3.72-5.28); RED CELL DISTRIBUTION WIDTH 14.4 % (11.5-14.0); SEGMENTED NEUTROPHILS % (AUTO) 69.7 % (42-78); TOTAL CELLS COUNTED % (AUTO) 100 %; WHITE BLOOD COUNT 9.3 10^3/uL (4.0-10.5)
[2017-10-16 01:43] LABS: INTERNATIONAL RATION (INR) 0.95; PROTHROMBIN TIME 13.2 SEC (11.4-15.4)
[2017-10-16 01:47] LABS: ALANINE AMINOTRANSFERASE 34 U/L (9-52); ALBUMIN 4.3 g/dL (3.5-5.0); ALKALINE PHOSPHATASE 83 U/L (38-126); ANION GAP 17 (5-19); ASPARTATE AMINO TRANSFERASE 34 U/L (14-36); BILIRUBIN,DIRECT 0.5 mg/dL (0.0-0.4); BILIRUBIN,TOTAL 0.5 mg/dL (0.2-1.3); BLOOD UREA NITROGEN 25 mg/dL (7-20); CARBON DIOXIDE 21 mmol/L (22-30); CHLORIDE 98 mmol/L (98-107); CREATINE KINASE 182 U/L (30-135); GLUCOSE 88 mg/dL (75-110); POTASSIUM 4.7 mmol/L (3.6-5.0); SODIUM 136.2 mmol/L (137-145); TOTAL PROTEIN 7.3 g/dL (6.3-8.2)
[2017-10-16 01:52] LABS: APPEARANCE,URINE CLEAR; BILIRUBIN,URINE NEGATIVE (NEGATIVE); COLOR,URINE YELLOW; GLUCOSE, URINE >=500 mg/dL (NEGATIVE); KETONES,URINE NEGATIVE (NEGATIVE); LEUKOCYTE ESTERASE,URINE NEGATIVE (NEGATIVE); NITRITE,URINE NEGATIVE (NEGATIVE); PROTEIN,URINE NEGATIVE (NEGATIVE); URINE SPECIFIC GRAVITY 1.006; UROBILINOGEN,URINE NEGATIVE mg/dL (<2.0)
[2017-10-16 01:59] LABS: TROPONIN I < 0.012 ng/mL
[2017-10-16] MEDS ORDERED: NORMAL SALINE 1000 ML 1,000 ML IV ONE (02:00)
--- NOTE | 2017-10-16 02:15 | RADIOLOGY REPORT (SQ) ---
EXAM DESCRIPTION: CT HEAD WITHOUT CLINICAL HISTORY: Fall/pain. COMPARISON: 10/04/2017 TECHNIQUE: Axial CT of the head obtained from the skull apex to the skull base without contrast. FINDINGS: No acute intracranial hemorrhage identified. No mass, mass effect, shift of the midline, abnormal extra-axial fluid collection or CT evidence of acute ischemic change identified. The ventricular system and sulcal spaces are mildly enlarged compatible with mild cerebral atrophy. Scattered areas of hypodensity throughout the supratentorial white matter are nonspecific and may be related to chronic small vessel ischemic change. The visualized paranasal sinuses and the mastoids are clear. Contusion in the right posterior scalp subcutaneous soft tissues. No skull fracture identified. Visualized orbits and globes are unremarkable. Atherosclerotic calcification of the intracranial internal carotid arteries. DLP: 1043.77 mGy-cm IMPRESSION: 1. No acute intracranial abnormality by CT criteria. This exam was performed according to our departmental dose-optimization program, which includes automated exposure control, adjustment of the mA and/or kV according to patient size and/or use of iterative reconstruction technique.
--- NOTE | 2017-10-16 02:19 | RADIOLOGY REPORT (SQ) ---
EXAM DESCRIPTION: CT CERVICAL SPINE WITHOUT CLINICAL HISTORY: Fall/pain COMPARISON: 10/01/2017 TECHNIQUE: Axial CT of the cervical spine obtained without contrast. FINDINGS: Alignment of the cervical spine is maintained without evidence of subluxation. The atlantoaxial, atlantodental, and occipitoatlantal intervals are preserved. No fracture identified. Vertebral body height preserved. Prevertebral soft tissues are unremarkable. Mild to moderate multilevel loss of intervertebral disc height with endplate spondylosis, uncovertebral spurring, and facet arthropathy with mild to moderate osseous neural foraminal narrowing. No definite central canal narrowing. No change of the atlantodental articulation. Visualized skull base is intact. No fracture of the visualized facial bones. Visualized mastoid air cells and paranasal sinuses are well aerated. Visualized thyroid is unremarkable. No cervical lymphadenopathy. No pneumothorax in the visualized lung apices. DLP: 321.16 mGy-cm IMPRESSION: 1. No acute fracture or subluxation of the cervical spine. This exam was performed according to our departmental dose-optimization program, which includes automated exposure control, adjustment of the mA and/or kV according to patient size and/or use of iterative reconstruction technique.
--- NOTE | 2017-10-16 02:21 | RADIOLOGY REPORT (SQ) ---
EXAM DESCRIPTION: CHEST SINGLE VIEW CLINICAL HISTORY: fall COMPARISON: 10/21/2013 FINDINGS: Single frontal view of the chest. Cardiomegaly. Prior median sternotomy. Leads overlie the chest. No consolidation, pneumothorax, or pleural effusion. No displaced rib fractures identified. Upper abdominal soft tissues are unremarkable. IMPRESSION: 1. No acute pulmonary process identified. Cardiomegaly.
--- NOTE | 2017-10-16 02:22 | RADIOLOGY REPORT (SQ) ---
EXAM DESCRIPTION: SHOULDER RIGHT 2 OR MORE VIEWS CLINICAL HISTORY: fall COMPARISON: None. FINDINGS: 3 views of the right shoulder. No acute fracture or dislocation. Normal osseous mineralization. During of the acromiohumeral interval. Downward projecting osteophyte of the acromioclavicular joint. No acute abnormalities of the right hemithorax. IMPRESSION: 1. No acute fracture or dislocation. 2. Degenerative change of the shoulder.
[2017-10-16 05:02] VITALS: BP 135/63
--- NOTE | 2017-10-16 21:27 | EKG REPORT ---
SEVERITY:- BORDERLINE ECG - SINUS RHYTHM PROBABLE LEFT ATRIAL ABNORMALITY : Confirmed by: Mohinder Solomon 16-Oct-2017 21:27:05
== END 2017-10-16 05:02 ==
LOC: ER 00:45
DX: M25.511 Pain in right shoulder (principal); W19.XXXA Unspecified fall, initial encounter; Y92.129 Unspecified place in nursing home as the place of occurrence of the external cause; R29.6 Repeated falls; I25.10 Atherosclerotic heart disease of native coronary artery without angina pectoris; I10 Essential (primary) hypertension; I25.2 Old myocardial infarction; J45.909 Unspecified asthma, uncomplicated; E11.9 Type 2 diabetes mellitus without complications; Z95.5 Presence of coronary angioplasty implant and graft; Z86.73 Personal history of transient ischemic attack (TIA), and cerebral infarction without residual deficits
CPT/HCPCS: 93005; 99285; 96360; 51701; 36415; 82553; 82962; 82550; 85025; 85610; 80053; 81001; 84484; 71045; 73030; 70450; 72125; 93010; J7030

== ENCOUNTER 2017-10-16 14:18 | Emergency (ER) | payer MEDICARE ==
--- NOTE | 2017-10-16 16:22 | RADIOLOGY REPORT (SQ) ---
EXAM DESCRIPTION: SHOULDER RIGHT 2 OR MORE VIEWS COMPLETED DATE/TIME: 10/16/2017 4:09 pm REASON FOR STUDY: fall COMPARISON: 10/16/2017 NUMBER OF VIEWS: Three views. TECHNIQUE: Internal rotation, external rotation, and Y view images acquired of the right shoulder. LIMITATIONS: None. FINDINGS: MINERALIZATION: Normal. BONES: No acute fracture or dislocation. No worrisome bone lesions. JOINTS: Inferior osteophytes are present at the acromioclavicular joint. The subacromial space is na rrowed. VISUALIZED LUNGS AND RIBS: No pneumothorax. No rib fracture. SOFT TISSUES: No radiopaque foreign body. OTHER: No other significant finding. IMPRESSION: 1. No acute findings. 2. Degenerative joint changes at the acromioclavicular joint with a prominent inferior osteophyte. 3. There is narrowing of the subacromial space suggesting chronic rotator cuff disease. TECHNICAL DOCUMENTATION: JOB ID: [id number] [employer]- All Rights Reserved Reading location - IP/workstation name: [email or web address]
[2017-10-16] MEDS ORDERED: HALOPERIDOL LACTATE INJ 5 MG/1 ML VIAL IM ONE ×2 (16:49→18:15)
[2017-10-16] MEDS ORDERED: HALOPERIDOL LACTATE INJ 5 MG/1 ML VIAL ONE (16:52)
--- NOTE | 2017-10-16 17:09 | ER Document Report ---
ED General - General Chief Complaint: Fall Injury Stated Complaint: FALL/RIGHT SHOULDER PAIN Time Seen by Provider: 10/16/17 14:22 Mode of Arrival: Medic Information source: Patient Notes: 67-year-old female history of schizoaffective disorder lacunar infarct in the past presents with complaints of fall. Patient was noted to have fallen multiple times over the past few days today she complains of right shoulder pain TRAVEL OUTSIDE OF THE [place] IN LAST 30 DAYS: No - HPI Onset: Just prior to arrival Onset/Duration: Sudden Quality of pain: Achy Severity: Mild Pain Level: 1 Associated symptoms: Other Exacerbated by: Movement Relieved by: Denies Similar symptoms previously: Yes Recently seen / treated by doctor: Yes - Related Data Allergies/Adverse Reactions: No Known Allergies Allergy (Verified 09/08/17 17:24) Past Medical History - Social History Smoking Status: Never Smoker Cigarette use (# per day): No Chew tobacco use (# tins/day): No Smoking Education Provided: No Frequency of alcohol use: None Drug Abuse: None Family History: CAD Patient has suicidal ideation: No Patient has homicidal ideation: No - Past Medical History Cardiac Medical History: Reports: Hx Congestive Heart Failure, Hx Coronary Artery Disease, Hx Heart Attack - x 2, Hx Hypercholesterolemia, Hx Hypertension Pulmonary Medical History: Reports: Hx Asthma Denies: Hx Tuberculosis Neurological Medical History: Reports: Hx Migraine. Denies: Hx Cerebrovascular Accident, Hx Seizures Endocrine Medical History: Reports: Hx Diabetes Mellitus Type 1, Hx Diabetes Mellitus Type 2 - insulin dependent, Hx Hypothyroidism Renal/ Medical History: Denies: Hx Peritoneal Dialysis GI Medical History: Reports: Hx Gastroesophageal Reflux Disease, Hx Ulcer. Denies: Hx Hiatal Hernia Musculoskeltal Medical History: Reports Hx Arthritis Psychiatric Medical History: Reports: Hx Bipolar Disorder, Hx Depression, Hx Post Traumatic Stress Disorder, Hx Schizophrenia Past Surgical History: Reports: Hx Appendectomy, Hx Cardiac Catheterization, Hx Cardiac Surgery - 4 stents, Hx Cholecystectomy, Hx Hysterectomy, Hx Open Heart Surgery, Hx Orthopedic Surgery - left leg hardware. Denies: Hx Pacemaker - Immunizations Hx Diphtheria, Pertussis, Tetanus Vaccination: Yes Hx Pneumococcal Vaccination: 03/18/11 Review of Systems - Review of Systems Notes: REVIEW OF SYSTEMS: CONSTITUTIONAL : Denies fever, chills, or sweats. Denies recent illness. EENT: Denies eye, ear, throat, or mouth pain or symptoms. Denies nasal or sinus congestion or discharge. Denies throat, tongue, or mouth swelling or difficulty swallowing. CARDIOVASCULAR: Denies chest pain. Denies palpitations or racing or irregular heart beat. Denies ankle edema. RESPIRATORY: Denies cough, cold, or chest congestion. Denies shortness of breath, difficulty breathing, or wheezing. GASTROINTESTINAL: Denies abdominal pain or distention. Denies nausea, vomiting , or diarrhea. Denies blood in vomitus, stools, or per rectum. Denies black, tarry stools. Denies constipation. GENITOURINARY: Denies difficulty urinating, painful urination, burning, frequency, blood in urine, or discharge. FEMALE GENITOURINARY: Denies vaginal bleeding, heavy or abnormal periods, irregular periods. Denies vaginal discharge or odor. MUSCULOSKELETAL: Admits to right shoulder pain SKIN: Denies rash, lesions or sores. HEMATOLOGIC : Denies easy bruising or bleeding. LYMPHATIC: Denies swollen, enlarged glands. NEUROLOGICAL: Denies confusion or altered mental status. Denies passing out or loss of consciousness. Denies dizziness or lightheadedness. Denies headache. Denies weakness or paralysis or loss of use of either side. Denies problems with gait or speech. Denies sensory loss, numbness, or tingling. Denies seizures. PSYCHIATRIC: Denies anxiety or stress. Denies depression, suicidal ideation, or homicidal ideation. ALL OTHER SYSTEMS REVIEWED AND NEGATIVE. PHYSICAL EXAMINATION: GENERAL: Well-appearing, well-nourished and in no acute distress. HEAD: Atraumatic, normocephalic. EYES: Pupils equal round and reactive to light, extraocular movements intact, conjunctiva are normal. ENT: Nares patent, oropharynx clear without exudates. Moist mucous membranes. NECK: Normal range of motion, supple without lymphadenopathy LUNGS: Breath sounds clear to auscultation bilaterally and equal. No wheezes rales or rhonchi. HEART: Regular rate and rhythm without murmurs ABDOMEN: Soft, nontender, nondistended abdomen. No guarding, no rebound. No masses appreciated. Female : deferred Musculoskeletal: Normal range of motion, no pitting or edema. No cyanosis. NEUROLOGICAL: Cranial nerves grossly intact. Normal speech, normal gait. Normal sensory, motor exams PSYCH: Patient is extremely agitated SKIN: Warm, Dry, normal turgor, no rashes or lesions noted. Dictation was performed using [employer] voice recognition software Physical Exam - Vital signs Vitals: Temp Pulse Resp BP Pulse Ox 98.2 F 88 18 141/57 H 100 10/16/17 14:32 10/16/17 14:32 10/16/17 14:32 10/16/17 14:32 10/16/17 14:32 Course - Re-evaluation Re-evalutation: 10/16/17 17:07 Patient required Haldol, she is getting quite agitated crawled over the railings of the bed and fell to the ground, CT has been ordered of the head neck 10/16/17 19:40 Patient required medication including Haldol Benadryl Ativan clonidine - Vital Signs Vital signs: Temp Pulse Resp BP Pulse Ox 98.2 F 88 18 141/57 H 100 10/16/17 14:32 10/16/17 14:32 10/16/17 14:32 10/16/17 14:32 10/16/17 14:32 - Laboratory Result Diagrams: 10/16/17 19:13 10/16/17 19:13 Laboratory results interpreted by me: 10/16/17 10/16/17 19:13 19:13 RDW 14.2 H Seg Neutrophils % 78.3 H Lymphocytes % 12.7 L Urine Glucose (UA) >=500 H Discharge - Discharge Clinical Impression: Schizoaffective disorder, bipolar type Falls Qualifiers: Encounter type: initial encounter Qualified Code(s): W19.XXXA - Unspecified fall, initial encounter Condition: Stable Disposition: PSYCH HOSP/UNIT Referrals: DAMIAN ARREOLA MD [Primary Care Provider] - Follow up as needed
[2017-10-16] MEDS ORDERED: CLONIDINE 0.1 MG/24 HR PATCH.TDWK TD ONE (17:32)
[2017-10-16] MEDS: CLONIDINE HCL 0.1 MG TABLET PO SCH (18:00)
[2017-10-16] MEDS ORDERED: LORAZEPAM INJ 2 MG/1 ML VIAL IM ONE (18:15)
[2017-10-16] MEDS ORDERED: DIPHENHYDRAMINE HCL 50 MG/ML VIAL IM ONE (18:15)
--- NOTE | 2017-10-16 19:13 | RADIOLOGY REPORT (SQ) ---
EXAM DESCRIPTION: CT CERVICAL SPINE WITHOUT COMPLETED DATE/TIME: 10/16/2017 7:02 pm REASON FOR STUDY: fall COMPARISON: 10/16/2017 0143 hours TECHNIQUE: Axial images acquired through the cervical spine without intravenous contrast. Images re viewed with lung, soft tissue and bone windows. Reconstructed coronal and sagittal MPR images review ed. Images stored on PACS. All CT scanners at this facility use dose modulation, iterative reconstruction, and/or weight based d osing when appropriate to reduce radiation dose to as low as reasonably achievable (ALARA). [facility]: Dose Right [facility]: CareDose [facility]: Dose Right [facility]: Teradose 4D [facility]: Smart [employer] RADIATION DOSE: CT Rad equipment meets quality standard of care and radiation dose reduction techniq ues were employed. CTDIvol: 24.7 mGy. DLP: 463 mGy-cm. mGy. LIMITATIONS: None. FINDINGS: ALIGNMENT: Anatomic. MINERALIZATION: Normal. VERTEBRAL BODIES: No fractures or dislocation. DISCS: Multilevel disc space narrowing with osteophytes. FACETS, LATERAL MASSES, POSTERIOR ELEMENTS: Facet arthropathy. No fractures. No dislocation. No ac [place] findings. HARDWARE: None in the spine. VISUALIZED RIBS: No fractures. LUNG APICES AND SOFT TISSUES: No significant or acute findings. OTHER: No other significant finding. IMPRESSION: CHRONIC DEGENERATIVE CHANGES. NO ACUTE FINDINGS. TECHNICAL DOCUMENTATION: JOB ID: [id number] Quality ID # [id number]: Final reports with documentation of one or more dose reduction techniques (e.g., Au tomated exposure control, adjustment of the mA and/or kV according to patient size, use of iterative reconstruction technique) 2010 [employer]- All Rights Reserved Reading location - IP/workstation name: [email or web address]
--- NOTE | 2017-10-16 19:15 | RADIOLOGY REPORT (SQ) ---
EXAM DESCRIPTION: CT HEAD WITHOUT COMPLETED DATE/TIME: 10/16/2017 7:02 pm REASON FOR STUDY: fall COMPARISON: 10/16/2017 at 0100 hours TECHNIQUE: Axial images acquired through the brain without intravenous contrast. Images reviewed wi th bone, brain and subdural windows. Additional sagittal and coronal reconstructions were generated. Images stored on PACS. All CT scanners at this facility use dose modulation, iterative reconstruction, and/or weight based d osing when appropriate to reduce radiation dose to as low as reasonably achievable (ALARA). [facility]: Dose Right [facility]: CareDose [facility]: Dose Right [facility]: Teradose 4D [facility]: Smart [employer] RADIATION DOSE: CT Rad equipment meets quality standard of care and radiation dose reduction techniq ues were employed. CTDIvol: 53.2 - 55.2 mGy. DLP: 2019 mGy-cm. mGy. LIMITATIONS: None. FINDINGS: VENTRICLES: Normal size and contour. CEREBRUM: No masses. No hemorrhage. No midline shift. No evidence for acute infarction. Normal gra y/white matter differentiation. No areas of low density in the white matter. CEREBELLUM: No masses. No hemorrhage. No alteration of density. No evidence for acute infarction. EXTRAAXIAL SPACES: No fluid collections. No masses. ORBITS AND GLOBE: No intra- or extraconal masses. Normal contour of globe without masses. CALVARIUM: No fracture. PARANASAL SINUSES: No fluid or mucosal thickening. SOFT TISSUES: No mass or hematoma. OTHER: No other significant finding. IMPRESSION: NORMAL BRAIN CT WITHOUT CONTRAST. EVIDENCE OF ACUTE STROKE: NO. COMMENT: Quality ID # [id number]: Final reports with documentation of one or more dose reduction techniques (e.g., Automated exposure control, adjustment of the mA and/or kV according to patient size, use of iterative reconstruction technique) TECHNICAL DOCUMENTATION: JOB ID: [id number] [employer]- All Rights Reserved Reading location - IP/workstation name: [email or web address]
[2017-10-16 19:32] LABS: APPEARANCE,URINE CLEAR; BILIRUBIN,URINE NEGATIVE (NEGATIVE); COLOR,URINE YELLOW; GLUCOSE, URINE >=500 mg/dL (NEGATIVE); KETONES,URINE NEGATIVE (NEGATIVE); LEUKOCYTE ESTERASE,URINE NEGATIVE (NEGATIVE); NITRITE,URINE NEGATIVE (NEGATIVE); PROTEIN,URINE NEGATIVE (NEGATIVE); UROBILINOGEN,URINE NEGATIVE mg/dL (<2.0)
[2017-10-16 19:33] LABS: ABSOLUTE EOSINOPHILS # (AUTO) 0.1 10^3/uL (0.0-0.6); ABSOLUTE LYMPHOCYTES (AUTO) 1.3 10^3/uL (0.5-4.7); ABSOLUTE MONOCYTES (AUTO) 0.8 10^3/uL (0.1-1.4); ABSOLUTE NEUT (AUTO) 7.8 10^3/uL (1.7-8.2); BASOPHILS % (AUTO) 0.4 % (0-2); EOSINOPHILS % (AUTO) 0.9 % (0-6); HEMATOCRIT 38.8 % (36.0-47.0); HEMOGLOBIN 13.1 g/dL (12.0-15.5); LYMPHOCYTES % (AUTO) 12.7 % (13-45); MEAN CORPUSCULAR HGB CONC 33.8 g/dL (32.0-36.0); MEAN CORPUSCULAR VOLUME 86 fl (80-97); MONOCYTES % (AUTO) 7.7 % (3-13); PLATELET COUNT 271 10^3/uL (150-450); RED BLOOD COUNT 4.51 10^6/uL (3.72-5.28); RED CELL DISTRIBUTION WIDTH 14.2 % (11.5-14.0); SEGMENTED NEUTROPHILS % (AUTO) 78.3 % (42-78); TOTAL CELLS COUNTED % (AUTO) 100 %
[2017-10-16 19:50] LABS: URINE AMPHETAMINES SCREEN UNCONFIRMED POSITIVE; URINE BARBITURATES SCREEN NEGATIVE; URINE BENZODIAZEPINES SCREEN NEGATIVE; URINE COCAINE SCREEN NEGATIVE; URINE MARIJUANA (THC) SCREEN NEGATIVE; URINE METHADONE SCREEN NEGATIVE; URINE PHENCYCLIDINE SCREEN NEGATIVE
[2017-10-16 20:00] LABS: ALANINE AMINOTRANSFERASE 35 U/L (9-52); ALBUMIN 4.1 g/dL (3.5-5.0); ALKALINE PHOSPHATASE 93 U/L (38-126); ANION GAP 12 (5-19); ASPARTATE AMINO TRANSFERASE 40 U/L (14-36); BILIRUBIN,DIRECT 0.3 mg/dL (0.0-0.4); BILIRUBIN,TOTAL 0.3 mg/dL (0.2-1.3); BLOOD UREA NITROGEN 19 mg/dL (7-20); CALCIUM 9.8 mg/dL (8.4-10.2); CARBON DIOXIDE 22 mmol/L (22-30); CHLORIDE 102 mmol/L (98-107); POTASSIUM 4.4 mmol/L (3.6-5.0); SODIUM 136.1 mmol/L (137-145); TOTAL PROTEIN 6.9 g/dL (6.3-8.2)
[2017-10-16 20:01] LABS: ACETAMINOPHEN < 10 ug/mL (10-30); ALCOHOL < 10 mg/dL (NONE DETECTED); SALICYLATE < 1.0 mg/dL (2.0-20.0)
[2017-10-16 20:08] LABS: GLUCOSE 39 mg/dL (75-110)
[2017-10-16] MEDS ORDERED: DEXTROSE 50%-WATER 25 GM/50 ML DISP.SYRIN IV ONE ×2 (20:38→20:42)
--- NOTE | 2017-10-16 20:39 | PSYCHOLOGICAL NOTE ---
Psych Note - Psych Note Psych Note: 67-year-old female history of schizoaffective disorder lacunar infarct in the past presents with complaints of fall. Patient was noted to have fallen multiple times over the past few days today she complains of right shoulder pain. Patient was just seen by the Behavioral health team on 10/14/2017. Our recommendations have not changed. Patient is demonstrating improved cognitive functioning to include memory (knowing her date, doctor ect). Patient is still having difficulties in other area of cognitive functioning; however, she is still in the healing process of her stroke. Medication recommendations per [facility]'s contracted psychiatrist Dr. Donny thomas MD are as follows: 1. Please decrease Cymbalta to 30 MG daily 2. Please decrease Lamictal to 200 mg daily 3. Please discontinue Adderall 4. Please discontinue Klonopin and clonazepam 5. Please add BuSpar 5 mg twice daily 6. Please add Clonidine 0.1mg twice daily as needed for agitation Diagnosis 295.70 (F25.0) schizoaffective bipolar type per history provided by patient's physician Recent (less than one month) stroke Impression\plan: Patient is considered cleared from acute psychiatric services. While patient has a history of schizoaffective disorder patient just recently suffered a stroke. Medication recommendations have been provided. Patient is recommended to return to her assisted nursing facility. Dr. Callahan was consulted and the care management this patient; attending physician is agreement with recommendations and disposition.
--- NOTE | 2017-10-16 21:27 | EKG REPORT ---
SEVERITY:- ABNORMAL ECG - SINUS RHYTHM LEFT ATRIAL ABNORMALITY BORDERLINE T WAVE ABNORMALITIES : Confirmed by: Mohinder Solomon 16-Oct-2017 21:26:39
[2017-10-17] MEDS ORDERED: DULOXETINE HCL 20 MG CAPSULE.DR PO ONE (00:28)
[2017-10-17] MEDS ORDERED: BENZTROPINE MESYLATE INJ 2 MG/2 ML AMPULE IM ONE (00:28)
[2017-10-17] MEDS ORDERED: CLONAZEPAM 1 MG TABLET PO ONE (00:28)
[2017-10-17] MEDS ORDERED: DEXTROSE 50%-WATER 25 GM/50 ML DISP.SYRIN IV ONE ×3 (03:29→10:14)
[2017-10-17] MEDS ORDERED: GLUCAGON,HUMAN RECOMB 1 MG INJ SUBCUT ONE (04:53)
[2017-10-17] MEDS ORDERED: DEXTROSE 5%-NORMAL SALINE 1,000 ML IV ONE (10:35)
--- NOTE | 2017-10-17 10:49 | ER Document Report ---
Doctor's Note Notes: 10/17/17 10:36 Rounds: Chart reviewed and patient interviewed. Patient is sometimes confused, but knows her doctor is Dr. Duval and that she is at the hospital in [place]. Came in yesterday for having fallen and injured her right shoulder. X-rays negative. While here, patient has fallen and hit her head so a CT scan of her head was done in its normal. Patient has a history of schizophrenia and a recent lacunar infarct about a month or so prior to this visit. Her labs have been unremarkable except for her blood sugars have been down as low as 39 and just recently I was asked to evaluate the patient because her blood sugar was 40. Patient is sleeping but awakens easily. Answers questions, as mentioned, appropriately for the most part. She is a resident at [facility] undergoing rehab. Vital signs here are normal. Patient appears to be dehydrated with dry lips. We are going to give her a bag of D5 and normal saline. I will then discuss her disposition with Dr. Caballero, who is listed as seed cone picker for Dr. Duval. Claus Hughes MD
[2017-10-17] MEDS: CLONIDINE HCL 0.1 MG TABLET PO SCH (10:57)
[2017-10-17] MEDS ORDERED: HALOPERIDOL LACTATE INJ 5 MG/1 ML VIAL IM ONE (16:46)
[2017-10-17 17:15] VITALS: BP 139/69
== END 2017-10-17 17:16 ==
LOC: ER 14:18
DX: T14.8XXA Other injury of unspecified body region, initial encounter (principal); W06.XXXA Fall from bed, initial encounter; Y93.89 Activity, other specified; Y92.238 Other place in hospital as the place of occurrence of the external cause; M25.511 Pain in right shoulder; W01.0XXA Fall on same level from slipping, tripping and stumbling without subsequent striking against object, initial encounter; Y92.129 Unspecified place in nursing home as the place of occurrence of the external cause; F25.0 Schizoaffective disorder, bipolar type; Z86.73 Personal history of transient ischemic attack (TIA), and cerebral infarction without residual deficits; R29.6 Repeated falls; I25.10 Atherosclerotic heart disease of native coronary artery without angina pectoris; I25.2 Old myocardial infarction; I10 Essential (primary) hypertension; J45.909 Unspecified asthma, uncomplicated; E11.9 Type 2 diabetes mellitus without complications; R45.1 Restlessness and agitation; Z95.5 Presence of coronary angioplasty implant and graft
CPT/HCPCS: 93005; 96376; 99285; 96372; 96361; 96374; 36415; 82962; 80307 ×4; 85025; 80053; 81001; 73030; 70450; 72125; 93010; J0515; A9270 ×2; J3490 ×3; J1200; J1610; J1630 ×2; J2060

== ENCOUNTER 2017-10-19 07:48 | Emergency (ER) | payer MEDICAID, MEDICARE ==
--- NOTE | 2017-10-19 08:22 | ER Document Report ---
ED General - General Chief Complaint: Fall Stated Complaint: FALL Time Seen by Provider: 10/19/17 08:07 TRAVEL OUTSIDE OF THE [place] IN LAST 30 DAYS: No - HPI Notes: Note history is limited given patient's chronic underlying mental status changes and previous strokes. Patient resides in assisted living/nursing facility. She has had several falls over the last couple of days, most recently on the fourth had a fall underwent CT imaging was negative. She apparently was found today on the ground, it was uncertain if she had injured herself. When I question her length, she does not appear to describe any acute injury. She has some persistent localized head pain in her occipital vertex region from where she had injured it previously. No vomiting, no numbness or tingling. Remainder history is somewhat limited given chronic underlying confusion. - Related Data Allergies/Adverse Reactions: No Known Allergies Allergy (Verified 09/08/17 17:24) Past Medical History - Social History Smoking Status: Never Smoker Family History: CAD - Past Medical History Cardiac Medical History: Reports: Hx Congestive Heart Failure, Hx Coronary Artery Disease, Hx Heart Attack - x 2, Hx Hypercholesterolemia, Hx Hypertension Pulmonary Medical History: Reports: Hx Asthma Denies: Hx Tuberculosis Neurological Medical History: Reports: Hx Migraine. Denies: Hx Cerebrovascular Accident, Hx Seizures Endocrine Medical History: Reports: Hx Diabetes Mellitus Type 1, Hx Diabetes Mellitus Type 2 - insulin dependent, Hx Hypothyroidism Renal/ Medical History: Denies: Hx Peritoneal Dialysis GI Medical History: Reports: Hx Gastroesophageal Reflux Disease, Hx Ulcer. Denies: Hx Hiatal Hernia Musculoskeltal Medical History: Reports Hx Arthritis Psychiatric Medical History: Reports: Hx Bipolar Disorder, Hx Depression, Hx Post Traumatic Stress Disorder, Hx Schizophrenia Past Surgical History: Reports: Hx Appendectomy, Hx Cardiac Catheterization, Hx Cardiac Surgery - 4 stents, Hx Cholecystectomy, Hx Hysterectomy, Hx Open Heart Surgery, Hx Orthopedic Surgery - left leg hardware. Denies: Hx Pacemaker - Immunizations Hx Diphtheria, Pertussis, Tetanus Vaccination: Yes Hx Pneumococcal Vaccination: 03/18/11 Review of Systems - Review of Systems -: Yes ROS unobtainable due to patient's medical condition - Chronic confusion Physical Exam - Vital signs Vitals: Temp Pulse Resp BP Pulse Ox 98.4 F 62 18 149/60 H 97 10/19/17 07:53 10/19/17 07:53 10/19/17 07:53 10/19/17 07:53 10/19/17 07:53 - Notes Notes: General: Well-developed, well-nourished HEENT: Normocephalic. Pre-existing occipital hematoma and abrasions are noted. No new injury.. No barrett sign, no hemotympanum. Mucosa is moist. No intraoral trauma. Neck: Midline trachea, no JVD. No midline cervical spine tenderness. No step- off or deformity. Chest: Normal excursion, no accessory muscle use. No gross trauma. Abdomen: Soft, nondistended. Nontender. No bruising. Pelvis: Stable. Vascular: Strong and symmetric upper and lower extremity pulses. Well-perfused extremities. Motor: Normal tone and power. Neurologic: Alert, nonfocal. Sensation symmetric and intact. Skin: No significant lacerations or purpura. Extremities: No cyanosis. No significant injury noted. Course - Re-evaluation Re-evalutation: 10/19/17 08:19 Elderly female presents with possible fall. On objective examination I am unable to find any 3. Patient is at her baseline mental status, has no vomiting. I reviewed her previous visits and records, she had no previous evidence of intracranial injury. This point, she can be monitored closely, should she develop any change she will be reevaluated. She is not on any formal anticoagulation. - Vital Signs Vital signs: Temp Pulse Resp BP Pulse Ox 98.4 F 62 18 149/60 H 97 10/19/17 07:53 10/19/17 07:53 10/19/17 07:53 10/19/17 07:53 10/19/17 07:53 Discharge - Discharge Clinical Impression: Fall Qualifiers: Encounter type: initial encounter Qualified Code(s): W19.XXXA - Unspecified fall, initial encounter Condition: Good Disposition: HOME-ASSISTED LIVING Instructions: Head Injury Precautions ([facility]) Additional Instructions: Patient must have fall precautions instituted. Referrals: DAMIAN ARREOLA MD [Primary Care Provider] - Follow up as needed
[2017-10-19 09:34] VITALS: BP 126/49
== END 2017-10-19 09:34 | disposition home health service (06) ==
LOC: ER 07:48
DX: S00.03XA Contusion of scalp, initial encounter (principal); R51 Headache; W19.XXXA Unspecified fall, initial encounter; I25.10 Atherosclerotic heart disease of native coronary artery without angina pectoris; I10 Essential (primary) hypertension; I25.2 Old myocardial infarction; J45.909 Unspecified asthma, uncomplicated; R41.0 Disorientation, unspecified; E11.9 Type 2 diabetes mellitus without complications
CPT/HCPCS: 82962; 99285

== ENCOUNTER 2017-11-02 01:13 | Emergency (ER) | payer MEDICARE ==
[2017-11-02 01:35] LABS: ABSOLUTE EOSINOPHILS # (AUTO) 0.1 10^3/uL (0.0-0.6); ABSOLUTE LYMPHOCYTES (AUTO) 1.4 10^3/uL (0.5-4.7); ABSOLUTE MONOCYTES (AUTO) 0.6 10^3/uL (0.1-1.4); ABSOLUTE NEUT (AUTO) 4.6 10^3/uL (1.7-8.2); BASOPHILS % (AUTO) 0.7 % (0-2); EOSINOPHILS % (AUTO) 1.1 % (0-6); HEMATOCRIT 38.5 % (36.0-47.0); HEMOGLOBIN 12.9 g/dL (12.0-15.5); LYMPHOCYTES % (AUTO) 20.6 % (13-45); MEAN CORPUSCULAR HEMOGLOBIN 29.4 pg (27.0-33.4); MEAN CORPUSCULAR HGB CONC 33.5 g/dL (32.0-36.0); MEAN CORPUSCULAR VOLUME 88 fl (80-97); MONOCYTES % (AUTO) 8.5 % (3-13); PLATELET COUNT 205 10^3/uL (150-450); RED BLOOD COUNT 4.39 10^6/uL (3.72-5.28); RED CELL DISTRIBUTION WIDTH 14.8 % (11.5-14.0); SEGMENTED NEUTROPHILS % (AUTO) 69.1 % (42-78); TOTAL CELLS COUNTED % (AUTO) 100 %; WHITE BLOOD COUNT 6.6 10^3/uL (4.0-10.5)
--- NOTE | 2017-11-02 01:42 | ER Document Report ---
ED General - General Chief Complaint: Fall Injury Stated Complaint: FALL/LOW HEART RATE Time Seen by Provider: 11/02/17 01:35 Notes: Patient is a 67-year-old female with a past medical history of bipolar disorder , hypertension, hyperlipidemia, stroke, coronary artery disease status post CABG who presents by EMS after having a syncopal episode in which she fell and struck her head. Patient reportedly got up out of bed was walking with her walker and pass out. She fell striking the back of her head on the ground. When EMS arrived the patient was bradycardic in the 30s but not hypotensive. She was given atropine and 1 L fluids and subsequently transported to the hospital. EMS reports that in route to the hospital the patient clinically improved in terms of her mental status as well as her bradycardia. At time of arrival patient is complaining of a dull, constant throbbing pain to her head. Nothing improves or worsens that pain. She denies any complaints or pain to any other area of her body. She denies any focal weakness or numbness. She reports the only anticoagulant she takes is aspirin. She has a history of recurrent syncope with associated falls similar to today. TRAVEL OUTSIDE OF THE [place] IN LAST 30 DAYS: No - Related Data Allergies/Adverse Reactions: No Known Allergies Allergy (Verified 09/08/17 17:24) Past Medical History - General Information source: Patient, Emergency Med Personnel, [facility] Records Cannot obtain history due to: Altered mental status - Social History Smoking Status: Never Smoker Frequency of alcohol use: None Drug Abuse: None Lives with: Spouse/Significant other Family History: CAD - Past Medical History Cardiac Medical History: Reports: Hx Congestive Heart Failure, Hx Coronary Artery Disease, Hx Heart Attack - x 2, Hx Hypercholesterolemia, Hx Hypertension Pulmonary Medical History: Reports: Hx Asthma Denies: Hx Tuberculosis Neurological Medical History: Reports: Hx Migraine. Denies: Hx Cerebrovascular Accident, Hx Seizures Endocrine Medical History: Reports: Hx Diabetes Mellitus Type 1, Hx Diabetes Mellitus Type 2 - insulin dependent, Hx Hypothyroidism Renal/ Medical History: Denies: Hx Peritoneal Dialysis GI Medical History: Reports: Hx Gastroesophageal Reflux Disease, Hx Ulcer. Denies: Hx Hiatal Hernia Musculoskeltal Medical History: Reports Hx Arthritis Psychiatric Medical History: Reports: Hx Bipolar Disorder, Hx Depression, Hx Post Traumatic Stress Disorder, Hx Schizophrenia Past Surgical History: Reports: Hx Appendectomy, Hx Cardiac Catheterization, Hx Cardiac Surgery - 4 stents, Hx Cholecystectomy, Hx Hysterectomy, Hx Open Heart Surgery, Hx Orthopedic Surgery - left leg hardware. Denies: Hx Pacemaker - Immunizations Hx Diphtheria, Pertussis, Tetanus Vaccination: Yes Hx Pneumococcal Vaccination: 03/18/11 Review of Systems - Review of Systems Notes: Constitutional: Negative for fever. Eyes: Negative for visual changes. ENT: Negative for facial injury Cardiovascular: Negative for chest injury. Positive for syncope Respiratory: Negative for shortness of breath. Gastrointestinal: Negative for abdominal injury. Genitourinary: Negative for genital injury Musculoskeletal: Negative for back injury. Skin: Positive for scalp hematoma Neurological: Positive for head injury. Physical Exam - Vital signs Vitals: Resp Pulse Ox 16 99 11/02/17 01:16 11/02/17 01:16 Interpretation: Normal Notes: PHYSICAL EXAMINATION: GENERAL: Well-appearing, no acute distress. HEAD: There is a right posterior scalp hematoma that is tender to palpation. Otherwise no visible skull trauma. EYES: Pupils equal round and reactive to light, extraocular movements intact, sclera anicteric, conjunctiva are normal. ENT: nares patent, no oral pharyngeal trauma. No hemotympanum, no Xiao's sign , possible left-sided raccoon eye, right side is normal NECK: No midline cervical spine tenderness. Patient able to move their head to 45 bilaterally without any discomfort. LUNGS: Breath sounds clear to auscultation bilaterally and equal. No wheezes rales or rhonchi. HEART: Regular bradycardia without murmurs. CHEST WALL: No ecchymosis over the chest wall. ABDOMEN: Soft, nontender, normoactive bowel sounds. No guarding, no rebound. No abdominal bruising EXTREMITIES: Normal range of motion, no pitting or edema. No long bone deformities. BACK: No midline spinal tenderness, step-offs, or deformities. NEUROLOGICAL: Face symmetric. Tongue protrudes midline. Extraocular motions intact. Pupils are 2 mm and equally reactive. Normal speech, gait deferred. 5 out of 5 strength in both the distal and proximal upper and lower extremities bilaterally. Sensation is grossly intact throughout. Finger to nose testing normal. Pronator drift normal. PSYCH: Alert, oriented to person, place, year but not month or current president SKIN: Warm, Dry, normal turgor, no rashes or lesions noted. Course - Re-evaluation Re-evalutation: 11/02/17 01:30 Patient presents after she had a bradycardic episode with associated syncope causing right posterior head trauma. Patient arrives alert, oriented to person and place, year, but not month. She has no focal neurologic deficits on examination. Trauma exam is notable for a large hematoma to the right posterior scalp as well as bruising to the left eye. Remainder the trauma exam nation is otherwise unremarkable. Patient will be sent for a stat CT of her head, cervical spine and will obtain standard laboratories. She has received 1 mg of atropine and 1000 mL normal saline. 11/02/17 01:47 CT of the head does show a large right subdural hematoma with leftward shift. Repeat neurologic assessment does not show focal neural deficit although patient remains somewhat confused. She has not had a recurrence of bradycardia. Formal reads are pending on CT of the head and cervical spine. Labs are pending. I contacted [facility] for transfer. 11/02/17 02:34 Repeat neurologic assessment remains without any focal neurologic deficits. 5 out of 5 strength both distally and proximally bilateral upper and lower extremities. No cranial nerve deficits. Patient continues awake easily to voice, pleasant on contact. Continues to be somewhat disoriented. 11/02/17 02:58 I have again reassess the patient and she remains neuro intact without any focal neurologic deficits. Her is at the bedside states that she is acting at her baseline. I have updated them on the findings on the CT scan and the need for transfer to [facility]. I discussed with the physician retail administrative assistant , makenzie, working for who is accepted the patient to [facility] to the ICU. Ground transport should apparently be available in approximately 5 AM. Will continue to reassess the patient at regular intervals. 11/02/17 03:49 Repeat neurologic exam remains without any changes. She continues to be 5 out of 5 both distally and proximally in the bilateral upper and lower extremities. She wakes easily to voice, continues to be very pleasant on contact and her states that her mental status is at her baseline. We are awaiting transport. She continues to be very appropriate for ground transport. - Vital Signs Vital signs: Temp Pulse Resp BP Pulse Ox 97.6 F 15 113/64 97 11/02/17 03:04 11/02/17 03:01 11/02/17 03:01 11/02/17 03:01 - Laboratory Result Diagrams: 11/02/17 01:28 11/02/17 01:28 Laboratory results interpreted by me: 11/02/17 11/02/17 01:28 01:28 RDW 14.8 H Carbon Dioxide 21 L Glucose 142 H - Diagnostic Test Radiology reviewed: Image reviewed, Reports reviewed Radiology results interpreted by me: 11/02/17 03:00 CT head: Right subdural hematoma with leftward shift - EKG Interpretation by Me Additional EKG results interpreted by me: 11/02/17 03:02 Sinus rhythm. Rate 64. No ST elevations or depressions. QTC is 443. Critical Care Note - Critical Care Note Total time excluding time spent on procedures (mins): 37 Comments: Critical care time spent obtaining history from patient or surrogate, discussions with consultants, development of treatment plan with patient or surrogate, evaluation of patient's response to treatment, examination of patient , ordering and performing treatments and interventions, ordering and review of laboratory studies, re-evaluation of patient's condition, ordering and review of radiographic studies and review of old charts Discharge - Discharge Clinical Impression: Subdural hematoma, acute, Bradycardia Syncope Qualifiers: Syncope type: unspecified Qualified Code(s): R55 - Syncope and collapse Scalp hematoma Qualifiers: Encounter type: initial encounter Qualified Code(s): S00.03XA - Contusion of scalp, initial encounter Head trauma Qualifiers: Encounter type: initial encounter Qualified Code(s): S09.90XA - Unspecified injury of head, initial encounter Condition: Critical Disposition: [facility] Referrals: DAMIAN ARREOLA MD [Primary Care Provider] - Follow up as needed
[2017-11-02 01:48] LABS: ALANINE AMINOTRANSFERASE 25 U/L (9-52); ALBUMIN 3.6 g/dL (3.5-5.0); ALKALINE PHOSPHATASE 66 U/L (38-126); ANION GAP 13 (5-19); ASPARTATE AMINO TRANSFERASE 24 U/L (14-36); BILIRUBIN,DIRECT 0.4 mg/dL (0.0-0.4); BILIRUBIN,TOTAL 0.4 mg/dL (0.2-1.3); BLOOD UREA NITROGEN 20 mg/dL (7-20); CALCIUM 8.7 mg/dL (8.4-10.2); CARBON DIOXIDE 21 mmol/L (22-30); CHLORIDE 106 mmol/L (98-107); CREATINE KINASE 52 U/L (30-135); GLUCOSE 142 mg/dL (75-110); POTASSIUM 4.6 mmol/L (3.6-5.0); SODIUM 139.9 mmol/L (137-145); TOTAL PROTEIN 6.3 g/dL (6.3-8.2)
[2017-11-02 02:01] LABS: TROPONIN I < 0.012 ng/mL
--- NOTE | 2017-11-02 02:17 | RADIOLOGY REPORT (SQ) ---
EXAM DESCRIPTION: CT of the cervical spine without contrast. CLINICAL HISTORY: fall COMPARISON: None available TECHNIQUE: Axial CT of the cervical spine obtained without contrast. FINDINGS: Alignment of the cervical spine is maintained without evidence of subluxation. The atlantoaxial, atlantodental, and occipitoatlantal intervals are preserved. No fracture identified. Vertebral body height preserved. Prevertebral soft tissues are unremarkable. Moderate multilevel loss of intervertebral disc height with endplate spondylosis, uncovertebral spurring, and facet arthropathy with mild multilevel osseous neural foraminal narrowing. No definite central canal narrowing. Visualized skull base is intact. No fracture of the visualized facial bones. Visualized mastoid air cells and paranasal sinuses are well aerated. Visualized thyroid is unremarkable. No cervical lymphadenopathy. No pneumothorax in the visualized lung apices. DLP: 506.70 mGy-cm IMPRESSION: 1. No acute fracture or subluxation of the cervical spine. This exam was performed according to our departmental dose-optimization program, which includes automated exposure control, adjustment of the mA and/or kV according to patient size and/or use of iterative reconstruction technique.
--- NOTE | 2017-11-02 02:18 | RADIOLOGY REPORT (SQ) ---
EXAM DESCRIPTION: CT of the head without contrast CLINICAL HISTORY: fall COMPARISON: 10/16/2017 TECHNIQUE: Axial CT of the head obtained from the skull apex to the skull base without contrast. FINDINGS: Acute extra-axial hemorrhage layering along the right lateral convexity measuring up to 1.5 cm in greatest width producing effacement of the adjacent sulcal spaces and 0.7 cm right to left midline shift. Minimal effacement of the right suprasellar cistern suggesting early uncal herniation. The quadrigeminal plate cistern is patent. No definite CT evidence of acute ischemic change. The ventricular system and sulcal spaces are mildly enlarged compatible with mild cerebral atrophy. Scattered areas of hypodensity throughout the supratentorial white matter are nonspecific and may be related to chronic small vessel ischemic change. The visualized paranasal sinuses and the mastoids are clear. No skull fracture identified. Visualized orbits and globes are unremarkable. Atherosclerotic calcification of the intracranial internal carotid arteries. DLP: 990.56 mGy-cm IMPRESSION: 1. Acute subdural hematoma along the right lateral convexity measuring 1.5 cm in greatest width producing 0.7 cm right to left midline shift with effacement of the adjacent sulcal spaces and mild effacement of the right suprasellar cistern suggesting early uncal herniation. Urgent finding reported to Dr. Sears at 11/02/2017 1:13 AM CDT This exam was performed according to our departmental dose-optimization program, which includes automated exposure control, adjustment of the mA and/or kV according to patient size and/or use of iterative reconstruction technique.
[2017-11-02 02:19] LABS: INTERNATIONAL RATION (INR) 0.99; PROTHROMBIN TIME 13.6 SEC (11.4-15.4)
--- NOTE | 2017-11-02 02:19 | RADIOLOGY REPORT (SQ) ---
EXAM DESCRIPTION: Single view of the chest CLINICAL HISTORY: fall COMPARISON: None. FINDINGS: Single frontal view of the chest. Prior median sternotomy. Heart is not enlarged. Leads overlie the chest. No consolidation, pneumothorax, or pleural effusion. No displaced rib fractures identified. Postoperative change in the right upper abdomen. IMPRESSION: 1. No acute pulmonary process identified.
[2017-11-02] MEDS ORDERED: ACETAMINOPHEN 325 MG TABLET PO ONE (03:50)
[2017-11-02] MEDS ORDERED: LIDOCAINE 5% (700 MG) TRANSDERMAL ADH..PATCH TP ONE (03:50)
[2017-11-02 04:31] VITALS: BP 116/61
--- NOTE | 2017-11-02 06:52 | EKG REPORT ---
SEVERITY:- BORDERLINE ECG - SINUS RHYTHM PROBABLE LEFT ATRIAL ABNORMALITY NONSPECIFIC ST-T CHANGES ANTERIOR LEADS, NEW FROM 10/16/17 : Confirmed by: Geovani Rebolledo MD 02-Nov-2017 06:51:23
== END 2017-11-02 04:48 | disposition short-term general hospital (02) ==
LOC: ER 01:13
DX: S06.5X9A Traumatic subdural hemorrhage with loss of consciousness of unspecified duration, initial encounter (principal); S00.12XA Contusion of left eyelid and periocular area, initial encounter; W18.39XA Other fall on same level, initial encounter; Y92.003 Bedroom of unspecified non-institutional (private) residence as the place of occurrence of the external cause; R00.1 Bradycardia, unspecified; R55 Syncope and collapse; R41.0 Disorientation, unspecified; J45.909 Unspecified asthma, uncomplicated; E11.9 Type 2 diabetes mellitus without complications; I10 Essential (primary) hypertension; I25.10 Atherosclerotic heart disease of native coronary artery without angina pectoris; Z95.1 Presence of aortocoronary bypass graft; Z79.82 Long term (current) use of aspirin; Z91.81 History of falling; Z95.5 Presence of coronary angioplasty implant and graft
CPT/HCPCS: 93005; 99291; 36415; 82553; 82550; 85025; 85610; 80053; 84484; 71045; 70450; 72125; 93010; A9270

== ENCOUNTER 2017-12-18 07:45 | Emergency (ER) | payer MEDICARE, OTHER ==
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
[2017-12-18 10:12] LABS: ABSOLUTE LYMPHOCYTES (AUTO) 1.2 10^3/uL (0.5-4.7); ABSOLUTE MONOCYTES (AUTO) 0.5 10^3/uL (0.1-1.4); ABSOLUTE NEUT (AUTO) 4.8 10^3/uL (1.7-8.2); BASOPHILS % (AUTO) 0.7 % (0-2); EOSINOPHILS % (AUTO) 0.8 % (0-6); HEMATOCRIT 39.3 % (36.0-47.0); HEMOGLOBIN 13.4 g/dL (12.0-15.5); LYMPHOCYTES % (AUTO) 17.8 % (13-45); MEAN CORPUSCULAR HEMOGLOBIN 29.6 pg (27.0-33.4); MEAN CORPUSCULAR HGB CONC 34.2 g/dL (32.0-36.0); MEAN CORPUSCULAR VOLUME 87 fl (80-97); MONOCYTES % (AUTO) 7.4 % (3-13); PLATELET COUNT 210 10^3/uL (150-450); RED BLOOD COUNT 4.53 10^6/uL (3.72-5.28); SEGMENTED NEUTROPHILS % (AUTO) 73.3 % (42-78); TOTAL CELLS COUNTED % (AUTO) 100 %; WHITE BLOOD COUNT 6.5 10^3/uL (4.0-10.5)
[2017-12-18 10:36] LABS: ACETAMINOPHEN < 10 ug/mL (10-30); ALANINE AMINOTRANSFERASE 36 U/L (9-52); ALCOHOL < 10 mg/dL (NONE DETECTED); ALKALINE PHOSPHATASE 93 U/L (38-126); ANION GAP 12 (5-19); ASPARTATE AMINO TRANSFERASE 28 U/L (14-36); BILIRUBIN,DIRECT 0.5 mg/dL (0.0-0.4); BILIRUBIN,TOTAL 0.6 mg/dL (0.2-1.3); BLOOD UREA NITROGEN 18 mg/dL (7-20); CALCIUM 9.8 mg/dL (8.4-10.2); CARBON DIOXIDE 25 mmol/L (22-30); CHLORIDE 104 mmol/L (98-107); GLUCOSE 217 mg/dL (75-110); POTASSIUM 4.6 mmol/L (3.6-5.0); SALICYLATE < 1.0 mg/dL (2.0-20.0); TOTAL PROTEIN 6.7 g/dL (6.3-8.2)
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
[2017-12-18 17:29] VITALS: BP 120/76
== END 2017-12-18 17:29 ==
LOC: ER 07:45
DX: F25.0 Schizoaffective disorder, bipolar type (principal); R45.1 Restlessness and agitation; R45.6 Violent behavior; I25.10 Atherosclerotic heart disease of native coronary artery without angina pectoris; I10 Essential (primary) hypertension; E11.9 Type 2 diabetes mellitus without complications; J45.909 Unspecified asthma, uncomplicated
CPT/HCPCS: 36415; 80053; 80307; 85025; 99285

== ENCOUNTER 2017-12-19 02:53 | Emergency (ER) | payer MEDICARE, OTHER ==
--- NOTE | 2017-12-19 03:06 | ER Document Report ---
ED General - General Stated Complaint: FALL Time Seen by Provider: 12/19/17 02:58 Notes: Patient is a 67-year-old female presents with complaint of a fall. She states the assisted. She slipped in urine and fell onto her back. She did have surgery on her head approximately a month ago. She is nontoxic with surgery was. She denies any headache however she is not the best historian. She complains of neck and back pain as well as left shoulder pain. She denies any hip or knee pain. No chest or abdominal pain. No difficulty breathing. She denies recent infections. No other complaints at this time. She does have a cervical collar on at this time. TRAVEL OUTSIDE OF THE [place] IN LAST 30 DAYS: No - Related Data Allergies/Adverse Reactions: No Known Allergies Allergy (Verified 09/08/17 17:24) Past Medical History - Social History Smoking Status: Unknown if Ever Smoked Frequency of alcohol use: None Drug Abuse: None Family History: CAD - Past Medical History Cardiac Medical History: Reports: Hx Congestive Heart Failure, Hx Coronary Artery Disease, Hx Heart Attack - x 2, Hx Hypercholesterolemia, Hx Hypertension Pulmonary Medical History: Reports: Hx Asthma Denies: Hx Tuberculosis Neurological Medical History: Reports: Hx Migraine. Denies: Hx Cerebrovascular Accident, Hx Seizures Endocrine Medical History: Reports: Hx Diabetes Mellitus Type 1, Hx Diabetes Mellitus Type 2 - insulin dependent, Hx Hypothyroidism Renal/ Medical History: Denies: Hx Peritoneal Dialysis GI Medical History: Reports: Hx Gastroesophageal Reflux Disease, Hx Ulcer. Denies: Hx Hiatal Hernia Musculoskeltal Medical History: Reports Hx Arthritis Psychiatric Medical History: Reports: Hx Bipolar Disorder, Hx Depression, Hx Post Traumatic Stress Disorder, Hx Schizophrenia Past Surgical History: Reports: Hx Appendectomy, Hx Cardiac Catheterization, Hx Cardiac Surgery - 4 stents, Hx Cholecystectomy, Hx Hysterectomy, Hx Open Heart Surgery, Hx Orthopedic Surgery - left leg hardware. Denies: Hx Pacemaker - Immunizations Hx Diphtheria, Pertussis, Tetanus Vaccination: Yes Hx Pneumococcal Vaccination: 03/18/11 Review of Systems - Review of Systems Notes: My Normal Review Basic REVIEW OF SYSTEMS: CONSTITUTIONAL : Denies fever, chills, or sweats. Denies recent illness. EENT: Eyes any facial pain. CARDIOVASCULAR: Denies chest pain. RESPIRATORY: Denies cough, cold, or chest congestion. Denies shortness of breath, difficulty breathing, or wheezing. GASTROINTESTINAL: Denies abdominal pain. Denies nausea, vomiting, or diarrhea. GENITOURINARY: Denies difficulty urinating, painful urination, burning, frequency, or blood in urine. MUSCULOSKELETAL: Has back neck and left shoulder pain. SKIN: Denies rash or skin lesions. NEUROLOGICAL: Denies altered mental status or loss of consciousness. Denies headache. Denies weakness or paralysis or loss of use of either side. Denies sensory or motor loss. ALL OTHER SYSTEMS REVIEWED AND NEGATIVE. Physical Exam - Notes Notes: General Appearance: Well nourished, alert, cooperative, no acute distress, mild obvious discomfort. Vitals: reviewed, See vital signs table. Head: no swelling or tenderness to the head Eyes: PERRL, EOMI, Conjuctiva clear Mouth: No decreasd moisture Neck: Supple, midline cervical tenderness without step-offs or deformities. Back: Tenderness palpation over entire thoracic and lumbar spine without step- offs or deformities. Lungs: No wheezing, No rales, No rhonci, No accessory muscle use, good air exchange bilaterally. Heart: Normal rate, Regular rythm, No murmur, no rub Abdomen: Normal BS, soft, No rigidity, No abdominal tenderness, No guarding, no rebound, no abdominal masses, no organomegaly Extremities: strength 5/5 in all extremities, good pulses in all extremities, right arm, left leg, right leg are all nontender. Patient is full range of motion of hips and knees without pain. Pelvis is stable. Patient does have pain to palpation over anterior left shoulder and pain with any attempt of moving left shoulder. Left elbow left hand and left wrist are nontender. Skin: warm, dry, appropriate color, no rash Neuro: speech clear, oriented x 2, normal affect, responds appropriately to most questions. Cranial nerves II through XII are intact. Patient is able move all 4 extremities except for she will not move her left shoulder because of the pain. Distal sensation intact. Course - Re-evaluation Re-evalutation: 12/19/17 03:06 Patient's assisted records suggest that the recent surgery was probably related to nontraumatic subdural hemorrhage. 12/19/17 05:17 I did review the CT scan images of the patient's brain and also reviewed the radiologist's read. He did mention there is still some small areas of high attenuation. I did call him just to confirm that he does not feel that this was an acute bleeding and that this was related to the previous bleeding. He says he does not think it is acute at this time. Patient herself on complains of some nausea. I will repeat the head CT scan 6 hours after the initial just to make sure that the small area of high attenuation is not increasing in size; therefore, ruling out any acute bleeding. Discharge - Discharge Clinical Impression: Fall Qualifiers: Encounter type: initial encounter Qualified Code(s): W19.XXXA - Unspecified fall, initial encounter Shoulder pain Qualifiers: Chronicity: acute Laterality: left Qualified Code(s): M25.512 - Pain in left shoulder Back pain Qualifiers: Back pain location: back pain in unspecified location Chronicity: acute Back pain laterality: midline Qualified Code(s): M54.9 - Dorsalgia, unspecified Additional Instructions: Please return to the ER immediately if you develop headaches, vomiting, increasing confusion, or feel unwell. Please do nto attempt to walk without assistance. Referrals: DAMIAN ARREOLA MD [Primary Care Provider] - 12/21/17
--- NOTE | 2017-12-19 05:05 | RADIOLOGY REPORT (SQ) ---
EXAM DESCRIPTION: XR SHOULDER 2 OR MORE VIEWS COMPLETED DATE/TME: 12/19/2017 03:02 CLINICAL HISTORY: 67 years Female, trauma COMPARISON: None. Findings: Mild acromioclavicular osteoarthritis. Sternotomy with broken upper sternal wire.. Bones, joints, and soft tissues of the XR LEFT SHOULDER 2 OR MORE VIEWS appear otherwise intact. IMPRESSION: No acute findings.
--- NOTE | 2017-12-19 05:10 | RADIOLOGY REPORT (SQ) ---
EXAM DESCRIPTION: CT HEAD WITHOUT IV CONTRAST COMPLETED DATE/TME: 12/19/2017 03:01 CLINICAL HISTORY: 67 years Female, trauma COMPARISON: 5.21.18 TECHNIQUE: No contrast. Axial only. This exam was performed according to our departmental dose-optimization program, which includes automated exposure control, adjustment of the mA and/or kV according to patient size and/or use of iterative reconstruction technique. FINDINGS: Small-moderate right subdural hematoma measures 0.8 cm in thickness and contains minimal high attenuation components evolved compared with prior exam, November 02, 2017. There is mild mass effect on the right cerebral hemisphere. No significant midline shift. Right craniotomy. No infarct. Ventricles and remaining extra-axial structures appear unremarkable. IMPRESSION: No significant change. Small right subdural hematoma, mixed age with mild mass effect on the right cerebral hemisphere..
--- NOTE | 2017-12-19 05:14 | RADIOLOGY REPORT (SQ) ---
EXAM DESCRIPTION: CT LUMBAR SPINE WITHOUT IV CONTRAST COMPLETED DATE/TME: 12/19/2017 03:02 CLINICAL HISTORY: 67 years Female, trauma Comparison: None. Technique: No contrast. Coronal and sagittal reformat. 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 Normal curvature. No fracture. L4-L5: Mild thecal sac compression due to a small disc bulge and moderate spondylosis. Remaining visualized soft tissues appear unremarkable. IMPRESSION: No acute findings.
--- NOTE | 2017-12-19 05:19 | RADIOLOGY REPORT (SQ) ---
EXAM DESCRIPTION: CT THORACIC SPINE WITHOUT IV CONTRAST COMPLETED DATE/TME: 12/19/2017 03:02 CLINICAL HISTORY: 67 years Female, trauma Comparison: None. Technique: No contrast. Coronal and sagittal reformat. This exam was performed according to our departmental dose-optimization program, which includes automated exposure control, adjustment of the mA and/or kV according to patient size and/or use of iterative reconstruction technique.[facility]: Dose Right [facility]: CareDose [facility]: Dose Right [facility]: Teradose 4D [facility]: [employer] LIMITATIONS: None Findings: Mild exaggerated kyphotic curvature, 0.2 cm degenerative T2 anterolisthesis, no significant spinal or foraminal canal compromise at any level. Normal alignment. Normal curvature. No fracture. Normal vertebral heights. Partially imaged nuchal soft tissues, inferior cranium, and upper thorax appear otherwise grossly intact. IMPRESSION: No acute findings.
--- NOTE | 2017-12-19 05:22 | RADIOLOGY REPORT (SQ) ---
EXAM DESCRIPTION: CT CERVICAL SPINE WITHOUT IV CONTRAST COMPLETED DATE/TME: 12/19/2017 03:02 CLINICAL HISTORY: 67 years Female, trauma Comparison: None. Technique: No contrast. Coronal and sagittal reformat. This exam was performed according to our departmental dose-optimization program, which includes automated exposure control, adjustment of the mA and/or kV according to patient size and/or use of iterative reconstruction technique.[facility]: Dose Right [facility]: CareDose [facility]: Dose Right [facility]: Teradose 4D [facility]: [employer] LIMITATIONS: None Findings: Moderate disc desiccation between the C4 and C7, mild/moderate spondylosis, right more than left, moderate right C5, moderate-severe right C6, and mild-moderate bilateral C7 foraminal stenoses. Mild levo convexity. Normal alignment. No fracture. Normal vertebral heights. CT of the head and thoracic spine reported separately. Soft tissues of the neck appear grossly unremarkable. IMPRESSION: No acute findings. Moderate disc desiccation and spondylosis of the mid-lower cervical spine.
[2017-12-19] MEDS ORDERED: ONDANSETRON 4 MG TAB.RAPDIS PO ONE (05:25)
--- NOTE | 2017-12-19 07:00 | ER Document Report ---
ED General - General Chief Complaint: Fall Stated Complaint: FALL Time Seen by Provider: 12/19/17 02:58 TRAVEL OUTSIDE OF THE [place] IN LAST 30 DAYS: No - Related Data Allergies/Adverse Reactions: No Known Allergies Allergy (Verified 09/08/17 17:24) Past Medical History - Social History Smoking Status: Unknown if Ever Smoked Chew tobacco use (# tins/day): No Frequency of alcohol use: None Drug Abuse: None Family History: CAD Patient has suicidal ideation: No Patient has homicidal ideation: No - Past Medical History Cardiac Medical History: Reports: Hx Congestive Heart Failure, Hx Coronary Artery Disease, Hx Heart Attack - x 2, Hx Hypercholesterolemia, Hx Hypertension Pulmonary Medical History: Reports: Hx Asthma Denies: Hx Tuberculosis Neurological Medical History: Reports: Hx Migraine. Denies: Hx Cerebrovascular Accident, Hx Seizures Endocrine Medical History: Reports: Hx Diabetes Mellitus Type 1, Hx Diabetes Mellitus Type 2 - insulin dependent, Hx Hypothyroidism Renal/ Medical History: Denies: Hx Peritoneal Dialysis GI Medical History: Reports: Hx Gastroesophageal Reflux Disease, Hx Ulcer. Denies: Hx Hiatal Hernia Musculoskeltal Medical History: Reports Hx Arthritis Psychiatric Medical History: Reports: Hx Bipolar Disorder, Hx Depression, Hx Post Traumatic Stress Disorder, Hx Schizophrenia Past Surgical History: Reports: Hx Appendectomy, Hx Cardiac Catheterization, Hx Cardiac Surgery - 4 stents, Hx Cholecystectomy, Hx Hysterectomy, Hx Open Heart Surgery, Hx Orthopedic Surgery - left leg hardware. Denies: Hx Pacemaker - Immunizations Hx Diphtheria, Pertussis, Tetanus Vaccination: Yes Hx Pneumococcal Vaccination: 03/18/11 Physical Exam - Vital signs Vitals: Temp Pulse Resp BP Pulse Ox 97.9 F 66 18 179/68 H 96 12/19/17 10:48 12/19/17 10:48 12/19/17 10:48 12/19/17 10:48 12/19/17 10:48 Course - Re-evaluation Re-evalutation: 12/19/17 06:57 Patient signed out to me by Dr. Maddox. Repeat CT head pending. Patient has hx of head bleed recently. CT head done. Read is unclear. Dr. Maddox spoke with the radiologist about the read. CT head does not show an acute bleed per radiologist. Dr. Maddox ordered repeat head CT in 6 hours to evaluate for interval change. If this does not show worsening he recommends discharge home. 12/19/17 11:[address] done. No acute re-hemorrhage. Patient is stable. Neuro intact. I will discharge the patient home. Patient told to take medication as directed, to follow up with PCP this week, and to return for worsening symptoms. - Vital Signs Vital signs: Temp Pulse Resp BP Pulse Ox 97.9 F 66 18 179/68 H 96 12/19/17 10:48 12/19/17 10:48 12/19/17 10:48 12/19/17 10:48 12/19/17 10:48 Discharge - Discharge Clinical Impression: Fall Qualifiers: Encounter type: initial encounter Qualified Code(s): W19.XXXA - Unspecified fall, initial encounter Shoulder pain Qualifiers: Chronicity: acute Laterality: left Qualified Code(s): M25.512 - Pain in left shoulder Back pain Qualifiers: Back pain location: back pain in unspecified location Chronicity: acute Back pain laterality: midline Qualified Code(s): M54.9 - Dorsalgia, unspecified Condition: Stable Additional Instructions: Please return to the ER immediately if you develop headaches, vomiting, increasing confusion, or feel unwell. Please do nto attempt to walk without assistance. Referrals: DAMIAN ARREOLA MD [Primary Care Provider] - 12/21/17
--- NOTE | 2017-12-19 11:06 | RADIOLOGY REPORT (SQ) ---
EXAM DESCRIPTION: CT HEAD WITHOUT COMPLETED DATE/TIME: 12/19/2017 10:46 am REASON FOR STUDY: head trauma COMPARISON: [address] brain exams, most recently 12/19/2017 MRI brain 10/04/2017 TECHNIQUE: Axial images acquired through the brain without intravenous contrast. Images reviewed wi th bone, brain and subdural windows. Additional sagittal and coronal reconstructions were generated. Images stored on PACS. All CT scanners at this facility use dose modulation, iterative reconstruction, and/or weight based d osing when appropriate to reduce radiation dose to as low as reasonably achievable (ALARA). [facility]: Dose Right [facility]: CareDose [facility]: Dose Right [facility]: Teradose 4D [facility]: [employer] RADIATION DOSE: CT Rad equipment meets quality standard of care and radiation dose reduction techniq ues were employed. CTDIvol: 64.6 mGy. DLP: 1163 mGy-cm. mGy. LIMITATIONS: None. FINDINGS: VENTRICLES: Normal size and contour. CEREBRUM: No masses. No hemorrhage. No midline shift. No evidence for acute infarction. Normal gra y/white matter differentiation. No areas of low density in the white matter. CEREBELLUM: No masses. No hemorrhage. No alteration of density. No evidence for acute infarction. EXTRAAXIAL SPACES: Patient had an acute hemispheric subdural hemorrhage 11/02/2017 with right to left subfalcine shift. Since then, patient has undergone right-sided frontotemporal craniotomy and evacua tion of the hematoma. There is still a thin rim of extra-axial soft tissue over the right frontal co nvexity, about 5 to 6 mm in thickness, similar compared to postoperative CT brain 12/19/2017. No signi ficant right to left shift. No CT evidence of acute re- hemorrhage. ORBITS AND GLOBE: No intra- or extraconal masses. Normal contour of globe without masses. CALVARIUM: Right frontotemporal craniotomy. PARANASAL SINUSES: No fluid or mucosal thickening. SOFT TISSUES: No mass or hematoma. OTHER: No other significant finding. IMPRESSION: Stable postoperative changes over the right hemisphere. No acute re- hemorrhage. No si gnificant right to left subfalcine shift. EVIDENCE OF ACUTE STROKE: NO. COMMENT: Quality ID # [id number]: Final reports with documentation of one or more dose reduction techniques (e.g., Automated exposure control, adjustment of the mA and/or kV according to patient size, use of iterative reconstruction technique) TECHNICAL DOCUMENTATION: JOB ID: [id number] [employer]- All Rights Reserved Reading location - IP/workstation name: [email or web address]
[2017-12-19 12:51] VITALS: BP 176/65
== END 2017-12-19 12:51 ==
LOC: ER 02:53
DX: M25.512 Pain in left shoulder (principal); W19.XXXA Unspecified fall, initial encounter
CPT/HCPCS: 99284; 73030; 70450; 72125; 72128; 72131; A9270; S0119

== ENCOUNTER 2017-12-31 15:41 | Emergency (ER) | payer MEDICARE ==
[2017-12-31] MEDS ORDERED: LIDOCAINE 1% INJ-PF (10 MG/ML) 30 ML SDV INJ ONE (16:46)
--- NOTE | 2017-12-31 17:36 | ER Document Report ---
ED Skin Rash/Insect Bite/Abscs - General Chief Complaint: Skin Problem Stated Complaint: BUMP ON HEAD Time Seen by Provider: 12/31/17 15:58 Mode of Arrival: Medic Information source: Patient Notes: Patient is a 67-year-old female with a history of hemorrhagic stroke who presents to the ER today for 2 bumps on the back of her head that she [facility] 2 days ago in the [facility]. Patient states that they are painful. She denies any fall or injury. [facility] apparently thought they were hematoma so they sent her here today. is very concerned that this may have something to do with bleeding on her brain that "is still there." Patient denies any fevers or chills, drainage from the bumps, history of MRSA. Patient has had her head recently shaved due to her surgery for her brain hemorrhage. TRAVEL OUTSIDE OF THE [place] IN LAST 30 DAYS: No - Related Data Allergies/Adverse Reactions: No Known Allergies Allergy (Verified 09/08/17 17:24) Past Medical History - General Information source: Patient - Social History Smoking Status: Unknown if Ever Smoked Family History: CAD Patient has suicidal ideation: No Patient has homicidal ideation: No - Past Medical History Cardiac Medical History: Reports: Hx Congestive Heart Failure, Hx Coronary Artery Disease, Hx Heart Attack - x 2, Hx Hypercholesterolemia, Hx Hypertension Pulmonary Medical History: Reports: Hx Asthma Denies: Hx Tuberculosis Neurological Medical History: Reports: Hx Migraine. Denies: Hx Cerebrovascular Accident, Hx Seizures Endocrine Medical History: Reports: Hx Diabetes Mellitus Type 1, Hx Diabetes Mellitus Type 2 - insulin dependent, Hx Hypothyroidism Renal/ Medical History: Denies: Hx Peritoneal Dialysis GI Medical History: Reports: Hx Gastroesophageal Reflux Disease, Hx Ulcer. Denies: Hx Hiatal Hernia Musculoskeletal Medical History: Reports Hx Arthritis Psychiatric Medical History: Reports: Hx Bipolar Disorder, Hx Depression, Hx Post Traumatic Stress Disorder, Hx Schizophrenia Past Surgical History: Reports: Hx Appendectomy, Hx Cardiac Catheterization, Hx Cardiac Surgery - 4 stents, Hx Cholecystectomy, Hx Hysterectomy, Hx Open Heart Surgery, Hx Orthopedic Surgery - left leg hardware. Denies: Hx Pacemaker - Immunizations Hx Diphtheria, Pertussis, Tetanus Vaccination: Yes Hx Pneumococcal Vaccination: 03/18/11 Review of Systems - Review of Systems Constitutional: No symptoms reported EENT: No symptoms reported Cardiovascular: No symptoms reported Respiratory: No symptoms reported Gastrointestinal: No symptoms reported Genitourinary: No symptoms reported Female Genitourinary: No symptoms reported Musculoskeletal: No symptoms reported Skin: See HPI Hematologic/Lymphatic: No symptoms reported Neurological/Psychological: See HPI Physical Exam - Vital signs Vitals: Temp Pulse Resp BP Pulse Ox 97.6 F 59 L 18 187/64 H 100 12/31/17 15:51 12/31/17 15:51 12/31/17 15:51 12/31/17 15:51 12/31/17 15:51 - Notes Notes: PHYSICAL EXAMINATION: GENERAL: Well-appearing and in no acute distress. HEAD: Atraumatic, normocephalic. EYES: Pupils equal round and reactive to light, extraocular movements intact, sclera anicteric, conjunctiva are normal. NECK: Normal range of motion, supple without lymphadenopathy LUNGS: CTAB and equal. No wheezes rales or rhonchi. HEART: Regular rate and rhythm without murmurs EXTREMITIES: Normal range of motion, no pitting edema. No cyanosis. NEUROLOGICAL: Cranial nerves grossly intact. Normal sensory exam, left-sided weakness from stroke PSYCH: Normal mood, normal affect. SKIN: Warm, Dry, normal turgor, 2 abscesses to the occipital scalp, one approximately 2 cm in diameter with a castillo in the center, 1 approximately 1 /2 cm in diameter with a castillo in the center, erythematous, tender to palpation Course - Re-evaluation Re-evalutation: 01/01/18 08:38 CT negative for any acute pathology, patient is well-appearing and has 2 small superficial abscesses to the occipital scalp. They were drained successfully today. Patient be placed on Bactrim. - Vital Signs Vital signs: Temp Pulse Resp BP Pulse Ox 97.6 F 60 18 155/71 H 100 12/31/17 15:51 12/31/17 19:51 12/31/17 19:51 12/31/17 19:51 12/31/17 19:51 Procedures - Incision and Drainage Lower Head Time completed: 18:00 Type: Simple Anesthetic type: 1% Lidocaine mL's of anesthetic: 5 Blade size: 11 I&D procedure: Betadine prep applied Incision Method: Incision made by scalpel Amount/type of drainage: pus and blood Discharge - Discharge Clinical Impression: Abscess Condition: Stable Disposition: HOME-SNF (ED ONLY) Instructions: Post Incision and Drainage, Trimethoprim-Sulfa ([facility]) Additional Instructions: Return immediately for any new or worsening symptoms. Follow up with primary care provider, call tomorrow to make followup appointment. Prescriptions: Sulfamethoxazole/Trimethoprim [Bactrim Ds Tablet] 1 each PO BID #20 tablet Referrals: DAMIAN ARREOLA MD [Primary Care Provider] - Follow up as needed
--- NOTE | 2017-12-31 17:52 | RADIOLOGY REPORT (SQ) ---
EXAM DESCRIPTION: CT HEAD WITHOUT COMPLETED DATE/TIME: 12/31/2017 5:26 pm REASON FOR STUDY: consistent falls, unsteadiness, bumps on back of h COMPARISON: 12/19/2017 TECHNIQUE: Axial images acquired through the brain without intravenous contrast. Images reviewed wi th bone, brain and subdural windows. Additional sagittal and coronal reconstructions were generated. Images stored on PACS. All CT scanners at this facility use dose modulation, iterative reconstruction, and/or weight based d osing when appropriate to reduce radiation dose to as low as reasonably achievable (ALARA). [facility]: Dose Right [facility]: CareDose [facility]: Dose Right [facility]: Teradose 4D [facility]: [employer] RADIATION DOSE: CT Rad equipment meets quality standard of care and radiation dose reduction techniq ues were employed. CTDIvol: 53.2 mGy. DLP: 991 mGy-cm. mGy. LIMITATIONS: None. FINDINGS: VENTRICLES: Normal size and contour. CEREBRUM: No masses. No hemorrhage. No midline shift. No evidence for acute infarction. Normal gra y/white matter differentiation. No areas of low density in the white matter. CEREBELLUM: No masses. No hemorrhage. No alteration of density. No evidence for acute infarction. EXTRAAXIAL SPACES: The previously described thin rim of extra-axial soft tissue over the right fronta l convexity is again identified and appears less distinct as compared to the previous study. No sign ificant mass effect is seen. ORBITS AND GLOBE: No intra- or extraconal masses. Normal contour of globe without masses. CALVARIUM: Right frontotemporal craniotomy is again identified. PARANASAL SINUSES: No fluid or mucosal thickening. SOFT TISSUES: No mass or hematoma. OTHER: No other significant finding. IMPRESSION: Stable postsurgical changes as noted above. No acute changes are identified. Other fin dings as noted above. EVIDENCE OF ACUTE STROKE: NO. COMMENT: Quality ID # [id number]: Final reports with documentation of one or more dose reduction techniques (e.g., Automated exposure control, adjustment of the mA and/or kV according to patient size, use of iterative reconstruction technique) TECHNICAL DOCUMENTATION: JOB ID: [id number] [employer]- All Rights Reserved Reading location - IP/workstation name: [email or web address]
[2017-12-31 19:53] VITALS: BP 155/71
== END 2017-12-31 19:52 ==
LOC: ER 15:41
DX: L02.811 Cutaneous abscess of head [any part, except face] (principal); Z86.73 Personal history of transient ischemic attack (TIA), and cerebral infarction without residual deficits; Z98.890 Other specified postprocedural states; I25.10 Atherosclerotic heart disease of native coronary artery without angina pectoris; I10 Essential (primary) hypertension; J45.909 Unspecified asthma, uncomplicated; E11.9 Type 2 diabetes mellitus without complications; Z95.5 Presence of coronary angioplasty implant and graft
CPT/HCPCS: 70450; 99285

== ENCOUNTER 2018-09-03 11:34 | Emergency (ER) | payer MEDICARE, OTHER ==
[2018-09-03 11:40] VITALS: BP 156/67
--- NOTE | 2018-09-03 12:07 | ER Document Report ---
ED Skin Rash/Insect Bite/Abscs - General Chief Complaint: Abscess Stated Complaint: SWELLING TO BACK OF HEAD Time Seen by Provider: 09/03/18 12:02 Primary Care Provider: DAMIAN ARREOLA MD [Primary Care Provider] - Follow up as needed Mode of Arrival: Ambulatory Information source: Patient Notes: 67-year-old female presented to ED for complaint of painful swollen sore spot on the back of her scalp. She states she has had previous ones in the past and they had I&D them and put on Bactrim and Keflex. She states is been there for several days. She is alert oriented respirations regular and unlabored speaking in full sentences walks with a even steady gait. TRAVEL OUTSIDE OF THE [place] IN LAST 30 DAYS: No - HPI Patient complains to provider of: Tender/swollen area Onset: Other Onset/Duration: Gradual - 4 days Quality of pain: Sharp Severity: Severe Pain Level: 5 Skin Character: Abscess Quality of rash: Painful Identify cause: Yes Exacerbated by: Denies Relieved by: Denies Similar symptoms previously: Yes Recently seen / treated by doctor: No - Related Data Allergies/Adverse Reactions: No Known Allergies Allergy (Verified 09/03/18 11:37) Past Medical History - General Information source: Patient - Social History Smoking Status: Never Smoker Frequency of alcohol use: None Drug Abuse: None Lives with: Family Family History: CAD Patient has suicidal ideation: No Patient has homicidal ideation: No - Past Medical History Cardiac Medical History: Reports: Hx Congestive Heart Failure, Hx Coronary Artery Disease, Hx Heart Attack - x 2, Hx Hypercholesterolemia, Hx Hypertension Pulmonary Medical History: Reports: Hx Asthma EENT Medical History: Reports: None Neurological Medical History: Reports: Hx Migraine Endocrine Medical History: Reports: Hx Diabetes Mellitus Type 2 - insulin dependent, Hx Hypothyroidism Renal/ Medical History: Reports: None Malignancy Medical History: Reports: None GI Medical History: Reports: Hx Gastroesophageal Reflux Disease, Hx Ulcer Musculoskeletal Medical History: Reports Hx Arthritis Skin Medical History: Reports Hx Cellulitis Psychiatric Medical History: Reports: Hx Bipolar Disorder, Hx Depression, Hx Post Traumatic Stress Disorder, Hx Schizophrenia Traumatic Medical History: Reports: None Infectious Medical History: Reports: None Past Surgical History: Reports: Hx Appendectomy, Hx Cardiac Catheterization, Hx Cardiac Surgery - 4 stents, Hx Cholecystectomy, Hx Hysterectomy, Hx Open Heart Surgery, Hx Orthopedic Surgery - left leg hardware - Immunizations Hx Diphtheria, Pertussis, Tetanus Vaccination: Yes Hx Pneumococcal Vaccination: 03/18/11 Review of Systems - Review of Systems Constitutional: No symptoms reported EENT: No symptoms reported Cardiovascular: No symptoms reported Respiratory: No symptoms reported Gastrointestinal: No symptoms reported Genitourinary: No symptoms reported Female Genitourinary: No symptoms reported Musculoskeletal: No symptoms reported Skin: Lesions - Back of the scalp Hematologic/Lymphatic: No symptoms reported Neurological/Psychological: No symptoms reported Physical Exam - Vital signs Vitals: Temp Pulse Resp BP Pulse Ox 97.9 F 52 L 18 156/67 H 100 09/03/18 11:39 09/03/18 11:39 09/03/18 11:39 09/03/18 11:39 09/03/18 11:39 Interpretation: Normal - General General appearance: Appears well, Alert - HEENT Head: Normocephalic, Atraumatic Eyes: Normal Pupils: PERRL - Respiratory Respiratory status: No respiratory distress Chest status: Nontender Breath sounds: Normal Chest palpation: Normal - Cardiovascular Rhythm: Regular Heart sounds: Normal auscultation Murmur: No - Abdominal Inspection: Normal Distension: No distension Bowel sounds: Normal Tenderness: Nontender Organomegaly: No organomegaly - Back Back: Normal, Nontender - Extremities General upper extremity: Normal inspection, Nontender, Normal color, Normal ROM, Normal temperature General lower extremity: Normal inspection, Nontender, Normal color, Normal ROM, Normal temperature, Normal weight bearing. No: Yadira's sign - Neurological Neuro grossly intact: Yes Cognition: Normal Orientation: AAOx4 Isaias Coma Scale Eye Opening: Spontaneous Isaias Coma Scale Verbal: Oriented [place] Coma Scale Motor: Obeys Commands [place] Coma Scale Total: 15 Speech: Normal Motor strength normal: LUE, RUE, LLE, RLE Sensory: Normal - Psychological Associated symptoms: Normal affect, Normal mood - Skin Skin Temperature: Warm Skin Moisture: Dry Skin Color: Normal Skin irregularity: Abscess Location of irregularity: Scalp - Scalp Irregularity with: Swelling, Tenderness, Warmth Course - Re-evaluation Re-evalutation: 09/03/18 12:09 This was not since that could be I&D. She was treated with Bactrim and Keflex and instructed to follow-up with her primary doctor in the next 3-5 days. Patient was instructed to use soap and water to this area several times a day. - Vital Signs Vital signs: Temp Pulse Resp BP Pulse Ox 97.9 F 52 L 18 156/67 H 100 09/03/18 11:39 09/03/18 11:39 09/03/18 11:39 09/03/18 11:39 09/03/18 11:39 Discharge - Discharge Clinical Impression: Abscess Condition: Stable Disposition: HOME, SELF-CARE Additional Instructions: ABSCESS: You have an abscess (boil). This a pus-forming infection, usually due to staph. Some boils may be left to drain on their own, but most require lancing. From the time the tender lump first appears, it may be three or four days before the abscess is ready to pedro. Local heat and rest help at this stage of treatment. An antibiotic may prevent spread of the infection. Once the abscess is opened, packing may be placed into it. This is done so pus is not sealed inside by premature closure of the cavity. The packing will be removed at your follow-up visit or you may be advised to remove it yourself at home. Sometimes this packing must be replaced a few times during healing. The wound will heal with surprisingly little scar. Depending on the size and location of an abscess, healing can take one to four weeks. You may shower and wash the area around the incision site two or three times a day. Antibiotics may be prescribed, but are usually not necessary after an abscess has been drained. If you develop fever, chills, worsening pain, or increasing swelling in the area, call the doctor or return immediately. CEPHALEXIN: The antibiotic you've been prescribed is a member of the cephalosporin class. This type of antibiotic covers a wide variety of infections, including those of the skin, lungs, and urinary tract. It's useful for staph infections. This antibiotic is slightly similar to the penicillin family. In rare cases, a person who is allergic to penicillin will also be allergic to this medication. If you have had a severe allergic reaction to penicillin, and have not taken this antibiotic since that time, notify your doctor. Antibiotics which cover many germs ("broad spectrum" antibiotics) are more likely to cause diarrhea or "yeast" infections. Women prone to vaginal yeast problems may suffer an attack after taking this antibiotic. In infants, oral thrush (white spots "stuck" on the cheek) or yeast diaper rash may result. See your doctor if these problems occur. Call at once if you develop itching, hives, shortness of breath, or lightheadedness. TRIMETHOPRIM-SULFA: You have been given a prescription for trimethoprim-sulfa (TMS, Septra, Bactrim). This is a combination antibiotic of the sulfa class, often used for urinary tract infections, middle ear infections, bronchitis, shigella intestinal infection, and Pneumocystis pneumonia. TMS is usually well-tolerated. Occasional side effects include nausea and decreased appetite. Septra is not recommended for infants less than two months of age. Do not take this medication if you have experienced severe side effects or allergy to sulfa medicine. You should stop this medicine at once and contact your physician if you develop any rash, joint pain, shortness of breath, bruising, or jaundice (yellow color in the skin), or if you develop any other new or unusual symptoms. FOLLOW-UP CARE: Most simple abscesses will not require a follow up visit. If you had packing placed in the abscess, remove it as instructed by the physician. If you have been referred to a physician for follow-up care, call the physicians office for an appointment as you were instructed or within the next two days. If you experience worsening or a significant change in your symptoms, return to the Emergency Department at any time for re-evaluation. Prescriptions: Cephalexin Monohydrate [Keflex 500 mg Capsule] 500 mg PO QID #20 capsule Sulfamethoxazole/Trimethoprim [Septra-Ds 800-160 mg Tablet] 1 tab PO BID #20 tablet Forms: Elevated Blood Pressure Referrals: DAMIAN ARREOLA MD [Primary Care Provider] - Follow up as needed
== END 2018-09-03 12:08 | disposition home or self-care (01) ==
LOC: ER 11:34
DX: L02.811 Cutaneous abscess of head [any part, except face] (principal); J45.909 Unspecified asthma, uncomplicated; I25.10 Atherosclerotic heart disease of native coronary artery without angina pectoris; I10 Essential (primary) hypertension; E11.9 Type 2 diabetes mellitus without complications; Z95.5 Presence of coronary angioplasty implant and graft
CPT/HCPCS: 99282

== ENCOUNTER 2018-10-30 16:29 | Inpatient (IN) | payer MEDICARE ==
[2018-10-30 17:15] LABS: ABSOLUTE EOSINOPHILS # (AUTO) 0.1 10^3/uL (0.0-0.6); ABSOLUTE LYMPHOCYTES (AUTO) 1.6 10^3/uL (0.5-4.7); ABSOLUTE MONOCYTES (AUTO) 0.4 10^3/uL (0.1-1.4); ABSOLUTE NEUT (AUTO) 4.4 10^3/uL (1.7-8.2); BASOPHILS % (AUTO) 0.6 % (0-2); HEMATOCRIT 44.1 % (36.0-47.0); LYMPHOCYTES % (AUTO) 24.8 % (13-45); MEAN CORPUSCULAR HEMOGLOBIN 29.3 pg (27.0-33.4); MEAN CORPUSCULAR HGB CONC 34.1 g/dL (32.0-36.0); MEAN CORPUSCULAR VOLUME 86 fl (80-97); MONOCYTES % (AUTO) 6.2 % (3-13); PLATELET COUNT 211 10^3/uL (150-450); RED BLOOD COUNT 5.12 10^6/uL (3.72-5.28); RED CELL DISTRIBUTION WIDTH 14.1 % (11.5-14.0); SEGMENTED NEUTROPHILS % (AUTO) 67.4 % (42-78); TOTAL CELLS COUNTED % (AUTO) 100 %; WHITE BLOOD COUNT 6.6 10^3/uL (4.0-10.5)
[2018-10-30 17:28] LABS: ALANINE AMINOTRANSFERASE 34 U/L (9-52); ALBUMIN 4.1 g/dL (3.5-5.0); ALKALINE PHOSPHATASE 99 U/L (38-126); ANION GAP 13 (5-19); ASPARTATE AMINO TRANSFERASE 26 U/L (14-36); BILIRUBIN,DIRECT 0.3 mg/dL (0.0-0.4); BILIRUBIN,TOTAL 0.6 mg/dL (0.2-1.3); BLOOD UREA NITROGEN 15 mg/dL (7-20); CALCIUM 9.8 mg/dL (8.4-10.2); CARBON DIOXIDE 21 mmol/L (22-30); CHLORIDE 102 mmol/L (98-107); CREATINE KINASE 38 U/L (30-135); GLUCOSE 192 mg/dL (75-110); POTASSIUM 4.2 mmol/L (3.6-5.0); SODIUM 135.6 mmol/L (137-145); TOTAL PROTEIN 6.6 g/dL (6.3-8.2)
[2018-10-30 17:38] LABS: APPEARANCE,URINE CLEAR; BILIRUBIN,URINE NEGATIVE (NEGATIVE); COLOR,URINE STRAW; GLUCOSE, URINE >=500 mg/dL (NEGATIVE); KETONES,URINE NEGATIVE (NEGATIVE); LEUKOCYTE ESTERASE,URINE NEGATIVE (NEGATIVE); NITRITE,URINE NEGATIVE (NEGATIVE); PROTEIN,URINE NEGATIVE (NEGATIVE); URINE SPECIFIC GRAVITY 1.005; UROBILINOGEN,URINE NEGATIVE mg/dL (<2.0)
[2018-10-30 17:40] LABS: CREATINE KINASE MB 0.76 ng/mL (<4.55)
[2018-10-30 17:41] LABS: TROPONIN I < 0.012 ng/mL
--- NOTE | 2018-10-30 18:13 | RADIOLOGY REPORT (SQ) ---
EXAM DESCRIPTION: CHEST SINGLE VIEW COMPLETED DATE/TIME: 10/30/2018 5:38 pm REASON FOR STUDY: HTN COMPARISON: 10/21/2013 TECHNIQUE: Single frontal radiographic view of the chest acquired. NUMBER OF VIEWS: One view. LIMITATIONS: None. FINDINGS: LUNGS AND PLEURA: No pneumothorax. No consolidation or pleural effusion. MEDIASTINUM AND HILAR STRUCTURES: Stable. HEART AND VASCULAR STRUCTURES: Stable. BONES: No acute findings. HARDWARE: CABG. OTHER: No other significant finding. IMPRESSION: NO ACUTE FINDINGS. TECHNICAL DOCUMENTATION: JOB ID: [id number] [place]-72 2010 [employer]- All Rights Reserved Reading location - IP/workstation name: [email or web address]
--- NOTE | 2018-10-30 19:43 | ER Document Report ---
ED General - General Chief Complaint: High Blood Pressure Stated Complaint: FOOT ISSUE/BLOOD PRESSURE ISSUE Time Seen by Provider: 10/30/18 18:13 Notes: Patient is a 68-year-old female with a past medical history of prior CVA, presents with concerns of left lower extremity weakness as well as nausea. Patient states that her symptoms started approximately at noon. She states that she feels like "my left leg will not listen to me". States that her symptoms started abruptly, have been constant since that time. Regards them as being moderate to severe. Nothing seems to improve or worsen this left lower extremity weakness. Denies any baseline weakness in the left lower extremity and her family member at the bedside does corroborate this claim. Patient does arrive by EMS. Denies any chest pain or shortness of breath. No head or neck trauma. No fall today. Has not seen her contact her primary care physician regarding today's concerns. TRAVEL OUTSIDE OF THE [place] IN LAST 30 DAYS: No - Related Data Allergies/Adverse Reactions: No Known Allergies Allergy (Verified 09/03/18 11:37) Past Medical History - General Information source: Patient - Social History Smoking Status: Former Smoker Frequency of alcohol use: None Drug Abuse: None Lives with: Family Family History: CAD Patient has suicidal ideation: No Patient has homicidal ideation: No - Past Medical History Cardiac Medical History: Reports: Hx Congestive Heart Failure, Hx Coronary Artery Disease, Hx Heart Attack - x 2, Hx Hypercholesterolemia, Hx Hypertension Pulmonary Medical History: Reports: Hx Asthma Denies: Hx Tuberculosis Neurological Medical History: Reports: Hx Migraine. Denies: Hx Cerebrovascular Accident, Hx Seizures Endocrine Medical History: Reports: Hx Diabetes Mellitus Type 1, Hx Diabetes Mellitus Type 2 - insulin dependent, Hx Hypothyroidism Renal/ Medical History: Denies: Hx Peritoneal Dialysis GI Medical History: Reports: Hx Gastroesophageal Reflux Disease, Hx Ulcer. Denies: Hx Hiatal Hernia Musculoskeletal Medical History: Reports Hx Arthritis Skin Medical History: Reports Hx Cellulitis Psychiatric Medical History: Reports: Hx Bipolar Disorder, Hx Depression, Hx Pos t Traumatic Stress Disorder, Hx Schizophrenia Past Surgical History: Reports: Hx Appendectomy, Hx Cardiac Catheterization, Hx Cardiac Surgery - 4 stents, Hx Cholecystectomy, Hx Hysterectomy, Hx Open Heart Surgery, Hx Orthopedic Surgery - left leg hardware. Denies: Hx Pacemaker - Immunizations Hx Diphtheria, Pertussis, Tetanus Vaccination: Yes Hx Pneumococcal Vaccination: 03/18/11 Review of Systems - Review of Systems Notes: Constitutional: Negative for fever. HENT: Negative for sore throat. Eyes: Negative for visual changes. Cardiovascular: Negative for chest pain. Respiratory: Negative for shortness of breath. Gastrointestinal: Negative for abdominal pain, vomiting or diarrhea. Genitourinary: Negative for dysuria. Musculoskeletal: Negative for back pain. Skin: Negative for rash. Neurological: Negative for headaches, positive for left lower extremity weakness 10 point ROS negative except as marked above and in HPI. Physical Exam - Vital signs Vitals: Resp Pulse Ox 16 95 10/30/18 16:38 10/30/18 16:38 Interpretation: Normal Notes: PHYSICAL EXAMINATION: GENERAL: Well-appearing, well-nourished and in no acute distress. HEAD: Atraumatic, normocephalic. EYES: Pupils equal round and reactive to light, extraocular movements intact, sclera anicteric, conjunctiva are normal. ENT: nares patent, oropharynx clear without exudates. Moist mucous membranes. NECK: Normal range of motion, supple without lymphadenopathy LUNGS: Breath sounds clear to auscultation bilaterally and equal. No wheezes rales or rhonchi. HEART: Regular rate and rhythm without murmurs ABDOMEN: Soft, nontender, normoactive bowel sounds. No guarding, no rebound. No masses appreciated. EXTREMITIES: Normal range of motion, no pitting or edema. No cyanosis. NEUROLOGICAL: face symmetric. Tongue protrudes midline. Extraocular motions intact. Pupils are 2 mm and equally reactive. Normal speech, gait deferred. 5 out of 5 strength in both the distal and proximal upper extremities. 5 out of 5 distal and proximal in the right lower extremity, 4/5 distal and proximal in the left lower extremity, sensation is grossly intact throughout. Finger to nose testing normal. Pronator drift normal. PSYCH: Normal mood, normal affect. SKIN: Warm, Dry, normal turgor, no rashes or lesions noted. Course - Re-evaluation Re-evalutation: 10/30/18 19:42 Patient presents with left lower extremity weakness 4 out of 5 distal and proximal left lower extremity, no other focal neurologic deficit on exam. Patient and her family at the bedside are adamant that this is not normal for her and has been present for roughly the past 7 to 8 hours. The patient is well outside of the TPA window given that her symptoms started before noon today and she is still not totally certain as the exact onset of the symptoms. She is alert, oriented, denies any chest pain or shortness of breath although notably her EKG shows new T wave depression in the lateral leads that was not present in October 2017. Labs otherwise unremarkable. CT scan of head is pending. Patient is unable to get an MRI secondary to having metal hardware in her left lower extremity. She will require hospitalization and I will discuss with Dr. Duval 10/30/18 20:51 CT the head unremarkable. I discussed this case with Dr. Duval who has accepted the patient for admission - Vital Signs Vital signs: Temp Pulse Resp BP Pulse Ox 98.1 F 52 L 16 164/64 H 98 10/31/18 02:17 10/31/18 02:34 10/31/18 02:22 10/31/18 02:34 10/31/18 02:22 - Laboratory Result Diagrams: 10/31/18 03:00 10/31/18 03:00 Laboratory results interpreted by me: 10/30/18 10/30/18 10/30/18 16:46 16:46 17:08 RDW 14.1 H Sodium 135.6 L Carbon Dioxide 21 L Glucose 192 H Urine Glucose (UA) >=500 H - Diagnostic Test Radiology reviewed: Image reviewed, Reports reviewed Radiology results interpreted by me: 10/30/18 20:52 CT of the head: No acute intracranial bleed or mass Chest x-ray: No acute infiltrate Discharge - Discharge Clinical Impression: Left leg weakness, Hypertensive urgency Condition: Fair Disposition: ADMITTED INPATIENT Admitting Provider: Mukund Unit Admitted: [facility]
--- NOTE | 2018-10-30 20:28 | RADIOLOGY REPORT (SQ) ---
EXAM DESCRIPTION: CT HEAD WITHOUT IV CONTRAST COMPLETED DATE/TME: 10/30/2018 19:41 CLINICAL HISTORY: 68 years Female lle weakness COMPARISON: 12/31/2017 TECHNIQUE: Contiguous axial CT images obtained through the brain without IV contrast. This exam was performed according to our department optimization program which includes automated exposure control, adjustment of the mA and/or kv according to patient size and/or use of iterative reconstruction technique. FINDINGS: The ventricles and sulci are within normal limits for the patient's age. No midline shift or mass effect. No masses identified. No acute intracranial hemorrhage. Previous right convexity craniotomy with some underlying dural thickening. Dental disease. Paranasal sinuses appear clear. No acute calvarial fracture. IMPRESSION: No acute intracranial abnormality is identified.
[2018-10-30] MEDS ORDERED: ACETAMINOPHEN 650 MG SUPP.RECT PR PRN (22:03)
[2018-10-30] MEDS ORDERED: ACETAMINOPHEN 325 MG TABLET PO PRN (22:07)
--- NOTE | 2018-10-30 22:07 | EKG REPORT ---
SEVERITY:- ABNORMAL ECG - SINUS RHYTHM SHORT LA INTERVAL, ACCELERATED AV CONDUCTION REPOL ABNRM SUGGESTS ISCHEMIA, ANT-LAT LEADS : Confirmed by: Geovani Rebolledo MD 30-Oct-2018 22:06:21
[2018-10-30 23:46] LABS: LIPASE 32.9 U/L (23-300); PHOSPHORUS 3.8 mg/dL (2.5-4.5)
[2018-10-31 00:03] LABS: FREE T4 (FREE THYROXINE) 1.13 ng/dL (0.78-2.19)
[2018-10-31 00:17] LABS: THYROID STIMULATING HORMONE 2.25 uIU/mL (0.47-4.68)
[2018-10-31 03:18] LABS: ABSOLUTE BASOPHILS # (AUTO) 0.1 10^3/uL (0.0-0.2); ABSOLUTE EOSINOPHILS # (AUTO) 0.1 10^3/uL (0.0-0.6); ABSOLUTE LYMPHOCYTES (AUTO) 2.1 10^3/uL (0.5-4.7); ABSOLUTE MONOCYTES (AUTO) 0.5 10^3/uL (0.1-1.4); ABSOLUTE NEUT (AUTO) 3.8 10^3/uL (1.7-8.2); BASOPHILS % (AUTO) 0.9 % (0-2); EOSINOPHILS % (AUTO) 1.6 % (0-6); HEMATOCRIT 45.7 % (36.0-47.0); HEMOGLOBIN 15.4 g/dL (12.0-15.5); LYMPHOCYTES % (AUTO) 31.6 % (13-45); MEAN CORPUSCULAR HGB CONC 33.6 g/dL (32.0-36.0); MEAN CORPUSCULAR VOLUME 86 fl (80-97); MONOCYTES % (AUTO) 7.6 % (3-13); PLATELET COUNT 187 10^3/uL (150-450); RED BLOOD COUNT 5.29 10^6/uL (3.72-5.28); RED CELL DISTRIBUTION WIDTH 14.1 % (11.5-14.0); SEGMENTED NEUTROPHILS % (AUTO) 58.3 % (42-78); TOTAL CELLS COUNTED % (AUTO) 100 %; WHITE BLOOD COUNT 6.5 10^3/uL (4.0-10.5)
[2018-10-31 03:33] LABS: INTERNATIONAL RATION (INR) 0.82; PARTIAL THROMBOPLASTIN TIME 25.6 SEC (23.5-35.8); PROTHROMBIN TIME 11.8 SEC (11.4-15.4)
[2018-10-31 03:47] LABS: ALANINE AMINOTRANSFERASE 34 U/L (9-52); ALBUMIN 4.2 g/dL (3.5-5.0); ALKALINE PHOSPHATASE 105 U/L (38-126); ANION GAP 12 (5-19); ASPARTATE AMINO TRANSFERASE 28 U/L (14-36); BILIRUBIN,DIRECT 0.3 mg/dL (0.0-0.4); BILIRUBIN,TOTAL 0.7 mg/dL (0.2-1.3); BLOOD UREA NITROGEN 16 mg/dL (7-20); CALCIUM 9.8 mg/dL (8.4-10.2); CARBON DIOXIDE 23 mmol/L (22-30); CHLORIDE 103 mmol/L (98-107); CHOLESTEROL 320.96 mg/dL (0-200); CREATINE KINASE 48 U/L (30-135); GLUCOSE 242 mg/dL (75-110); POTASSIUM 3.9 mmol/L (3.6-5.0); SODIUM 137.7 mmol/L (137-145); TOTAL PROTEIN 7.1 g/dL (6.3-8.2); TRIGLYCERIDES 270 mg/dL (<150)
[2018-10-31 03:58] LABS: DIRECT LDL 218 mg/dL (<100)
[2018-10-31 03:59] LABS: CREATINE KINASE MB 1.13 ng/mL (<4.55)
[2018-10-31 04:02] LABS: TROPONIN I < 0.012 ng/mL
[2018-10-31] MEDS ORDERED: DEXTROSE 50%-WATER 25 GM/50 ML DISP.SYRIN IV PRN ×2 (04:41)
[2018-10-31] MEDS ORDERED: GLUCAGON,HUMAN RECOMB 1 MG INJ SUBCUT PRN (04:41)
[2018-10-31] MEDS ORDERED: DEXTROSE 40% GEL 15 GM TUBE PO PRN ×2 (04:41)
[2018-10-31 09:38] LABS: CREATINE KINASE MB 0.72 ng/mL (<4.55)
[2018-10-31 09:39] LABS: TROPONIN I < 0.012 ng/mL
[2018-10-31] MEDS: ENOXAPARIN SODIUM INJ 40 MG/0.4 ML DISP.SYRIN SUBCUT SCH (10:11)
[2018-10-31] MEDS ORDERED: LORAZEPAM 1 MG TABLET ONE (12:02)
[2018-10-31] MEDS ORDERED: LORAZEPAM 0.5 MG TABLET PO ONE (12:15)
--- NOTE | 2018-10-31 13:04 | RADIOLOGY REPORT (SQ) ---
EXAM DESCRIPTION: MRI LUMBAR SPINE WITHOUT COMPLETED DATE/TIME: 10/31/2018 12:51 pm REASON FOR STUDY: lumbar radiculopathy COMPARISON: 2018 CT L-spine. TECHNIQUE: Sagittal and Axial imaging includes T1, T2, STIR and gradient echo sequences. Coronal T2/ HASTE imaging. LIMITATIONS: None. FINDINGS: VISUALIZED UPPER ABDOMEN: Limited evaluation. No acute or suspicious findings suggested. SEGMENTATION: No transitional anatomy. The lowest well-developed disc space is labeled L5-S1. ALIGNMENT: Mild grade 1 listhesis at L4-5. VERTEBRAE: Intact. BONE MARROW: Normal. No marrow replacement or reactive changes. DISC SIGNAL: Multilevel mild diminished disc signal and height. POSTERIOR ELEMENTS: No pars defect. Multilevel facet arthropathy with associated overgrowth. HARDWARE: None in the spine. CORD AND CONUS: Normal in size and signal intensity. Conus at the appropriate level. SOFT TISSUES: No aortic aneurysm seen. No bulky retroperitoneal adenopathy or mass. No paraspinal mas s or fluid. L1-L2: No significant spinal stenosis or exit foraminal stenosis. L2-L3: No significant spinal stenosis or exit foraminal stenosis. L3-L4: Posterior ligament thickening with mild facet overgrowth but no significant central canal comp romise. Mild left and moderate right foraminal narrowing. L4-L5: Mild degenerative listhesis. Mild central stenosis with slight right lateral recess narrowing . Up to moderate right and mild -moderate left foraminal stenosis. L5-S1: Mild facet arthropathy without stenosis. LOWER THORACIC: Incompletely imaged. No stenosis seen. SACRUM: Visualized upper sacrum intact. OTHER: No other significant findings. IMPRESSION: 1. Spondylosis. Includes facet arthropathy and mild disc disease as above. Mild degenerative listhe sis at L4-5. 2. No significant spinal stenosis, however. Noncritical multilevel foraminal encroachment as above. 3. No fracture or worrisome bone lesion. TECHNICAL DOCUMENTATION: JOB ID: [id number] [employer]- All Rights Reserved Reading location - IP/workstation name: [email or web address]
[2018-10-31 14:49] LABS: APPEARANCE,URINE SLIGHTLY-CLOUDY; BILIRUBIN,URINE NEGATIVE (NEGATIVE); COLOR,URINE YELLOW; GLUCOSE, URINE >=500 mg/dL (NEGATIVE); KETONES,URINE TRACE mg/dL (NEGATIVE); LEUKOCYTE ESTERASE,URINE LARGE (NEGATIVE); NITRITE,URINE NEGATIVE (NEGATIVE); PROTEIN,URINE NEGATIVE (NEGATIVE); URINE SPECIFIC GRAVITY 1.013; UROBILINOGEN,URINE NEGATIVE mg/dL (<2.0)
[2018-10-31 15:07] LABS: URINE AMPHETAMINES SCREEN NEGATIVE; URINE BARBITURATES SCREEN NEGATIVE; URINE BENZODIAZEPINES SCREEN NEGATIVE; URINE MARIJUANA (THC) SCREEN NEGATIVE; URINE METHADONE SCREEN NEGATIVE; URINE PHENCYCLIDINE SCREEN NEGATIVE
[2018-10-31 15:13] LABS: URINE COCAINE SCREEN NEGATIVE
[2018-10-31] MEDS ORDERED: INSULIN DETEMIR 30 UNIT SQ SCH (15:30)
[2018-10-31] MEDS ORDERED: (PENDING PHARMACY ID) (Metoprolol Succinate [Toprol Xl] 200 MG) PO SCH (15:30)
[2018-10-31] MEDS ORDERED: INSULIN GLARGINE,HUM.REC.ANLOG 1,000 UNIT/10 ML VIAL (PYX) SUBCUT ONE (16:49)
[2018-10-31] MEDS ORDERED: ZIPRASIDONE HCL 40 MG CAPSULE PO ONE (16:53)
[2018-10-31] MEDS: ZIPRASIDONE HCL 40 MG CAPSULE PO SCH (17:05)
[2018-10-31] MEDS: METOPROLOL SUCCINATE 50 MG TAB.SR.24H PO SCH (17:05)
[2018-10-31] MEDS: INSULIN GLARGINE,HUM.REC.ANLOG 1,000 UNIT/10 ML VIAL SUBCUT SCH (17:06)
[2018-10-31] MEDS: ASPIRIN 325 MG TABLET PO SCH (17:06)
[2018-10-31] MEDS: LEVOTHYROXINE SODIUM 0.15 MG TABLET PO SCH (17:08)
[2018-10-31] MEDS: BENZTROPINE MESYLATE 1 MG TABLET PO SCH (17:17)
--- NOTE | 2018-10-31 17:18 | RADIOLOGY REPORT (SQ) ---
EXAM DESCRIPTION: MRI HEAD WITHOUT COMPLETED DATE/TIME: 10/31/2018 4:11 pm REASON FOR STUDY: WEAKNESS OF LEFT LEG ? CVA COMPARISON: 10/04/2017 TECHNIQUE: Multiplanar imaging includes non-contrasted T1, T2, FLAIR, and Diffusion with ADC map seq uences. Images stored on PACS. LIMITATIONS: None. FINDINGS: ANATOMY: No anomalies. Normal vascular flow voids. Pituitary fossa normal. CSF SPACES: Normal in size and contour. No hemorrhage. CEREBRUM: Scattered high-signal intensity lesions scattered throughout the white matter on FLAIR nkechi ging with distribution suggesting chronic micro-vascular ischemic change. Sulci and gyri normal in s ize and contour. No evidence of hemorrhage, mass or extraaxial fluid collection. POSTERIOR FOSSA: No signal alteration. No hemorrhage. No edema, masses or mass effect. Internal alejandro tory canals, cerebello-pontine angles, mastoids normal. DIFFUSION: Positive for acute or sub-acute lacunar infarction in the left frontal periventricular whi te matter and an additional small focus in the right subcortical frontal lobe near the midline. ORBITS: No masses. Globes normal. PARANASAL SINUSES: No fluid levels. Mucosa normal. OTHER: No other significant finding. IMPRESSION: Positive for acute or sub-acute lacunar infarction in the left frontal periventricular w dale matter and an additional small focus in the right subcortical frontal lobe near the midline. EVIDENCE OF ACUTE STROKE: YES. LEFT XUAN. TECHNICAL DOCUMENTATION: JOB ID: [id number] [place]-72 2010 [employer]- All Rights Reserved Reading location - IP/workstation name: [email or web address]
--- NOTE | 2018-10-31 18:19 | PDOC H&P ---
History of Present Illness Admission Date/PCP: 10/30/18 23:20 DAMIAN ARREOLA MD History of Present Illness: RADHA SCOTT is a 68 year old female, She has multiple comorbid conditions in cluding type 2 diabetes mellitus with complication, she is extremely noncompliant with her diabetic care, she came to emergency room yesterday for evaluation of weakness of the left leg with associated tremulousness of the left leg, the symptom is very nonspecific, is suggests more of lumbar radiculopathy, when I saw on the floor the muscle power of the extremities was maintained including the upper extremities and lower extremities, the power on the left leg was 3 out of 5 as suspected lumbar disc disease because of her presentation. MRI of the lumbar spine was ordered, it did not demonstrate any significant spinal stenosis or compressive neuropathy that would explain the diminished power in the left leg I then requested for MRI of the brain, she had a CAT scan of the brain yesterday emergency room which was negative, MRI of the brain demonstrated Acute lacunar infarct in the left frontal lobe. Past Medical History Cardiac Medical History: Reports: Coronary Artery Disease, Myocardial Infarction - x 2, Hyperlipidema, Hypertension Pulmonary Medical History: Reports: Asthma Neurological Medical History: Reports: Migraine Denies: Seizures Endocrine Medical History: Reports: Diabetes Mellitus Type 2 - insulin dependent, Hypothyroidism GI Medical History: Reports: Gastroesophageal Reflux Disease Musculoskeltal Medical History: Reports: Arthritis Psychiatric Medical History: Reports: Bipolar Disorder, Depression, Post Traumatic Stress Disorder Hematology: Reports: Anemia Past Surgical History Past Surgical History: Reports: Appendectomy, Cardiac Catheterization, Cholecystectomy, Hysterectomy, Orthopedic Surgery - left leg hardware Social History Lives with: Family Smoking Status: Former Smoker Frequency of Alcohol Use: None Hx Recreational Drug Use: No Drugs: None Hx Prescription Drug Abuse: No Family History Family History: CAD Parental Family History Reviewed: Yes Children Family History Reviewed: Yes Sibling(s) Family History Reviewed.: Yes Medication/Allergy Home Medications: Benztropine Mesylate [Cogentin 1 mg Tablet] 1 mg PO BID 10/31/18 Duloxetine HCl [Cymbalta] 30 mg PO BID 10/31/18 Insulin Aspart [Novolog Insulin 100 Unit/1 ml 10 ml] 0 unit SUBCUT .SLD SCALE 10/31/18 Insulin Detemir [Levemir] 30 unit SQ DAILY 10/31/18 Levothyroxine Sodium 150 mcg PO Q6AM 10/31/18 Metoprolol Succinate [Toprol Xl] 200 mg PO DAILY 10/31/18 Ziprasidone HCl [Geodon 40 Mg Capsule] 40 mg PO DAILY 10/31/18 Allergies/Adverse Reactions: codeine Allergy (Verified 10/31/18 13:49) Review of Systems Constitutional: ABSENT: chills, fever(s), headache(s), weight gain, weight loss Eyes: ABSENT: visual disturbances Ears: ABSENT: hearing changes Cardiovascular: ABSENT: chest pain, dyspnea on exertion, edema, orthropnea, palpitations Respiratory: ABSENT: cough, hemoptysis Gastrointestinal: ABSENT: abdominal pain, constipation, diarrhea, hematemesis, hematochezia, nausea, vomiting Genitourinary: ABSENT: dysuria, hematuria Musculoskeletal: ABSENT: joint swelling Integumentary: ABSENT: rash, wounds Neurological: PRESENT: weakness. ABSENT: abnormal gait, abnormal speech, confusion, dizziness, focal weakness, syncope Psychiatric: ABSENT: anxiety, depression, homidical ideation, suicidal ideation Endocrine: ABSENT: cold intolerance, heat intolerance, menstrual abnormalities, polydipsia, polyuria Hematologic/Lymphatic: ABSENT: easy bleeding, easy bruising, lymphadenopathy Physical Exam Vital Signs: Temp Pulse Resp BP Pulse Ox 98.1 F 79 19 178/94 H 98 10/31/18 17:10 10/31/18 17:31 10/31/18 17:31 10/31/18 17:31 10/31/18 17:31 Intake & Output 10/30/18 10/31/18 11/01/18 06:59 06:59 06:59 Intake Total 0 720 Output Total 0 600 Balance 0 120 Weight 93.6 kg General appearance: PRESENT: no acute distress Head exam: PRESENT: atraumatic, normocephalic Eye exam: PRESENT: conjunctiva pink, EOMI, PERRLA Ear exam: PRESENT: normal external ear exam Mouth exam: PRESENT: moist, tongue midline Neck exam: PRESENT: full ROM Respiratory exam: PRESENT: clear to auscultation ellen Cardiovascular exam: PRESENT: RRR, +S1, +S2 Pulses: PRESENT: normal dorsalis pedis pul, +2 pedal pulses bilateral Vascular exam: PRESENT: normal capillary refill GI/Abdominal exam: PRESENT: normal bowel sounds, soft Rectal exam: PRESENT: deferred Neurological exam: PRESENT: alert, CN II-XII grossly intact, motor sensory deficit - power of the left leg 3/5 Psychiatric exam: PRESENT: appropriate affect, normal mood Skin exam: PRESENT: dry, intact, warm. ABSENT: cyanosis, rash Results Laboratory Results: 10/31/18 03:00 10/31/18 03:00 10/30/18 10/30/18 10/30/18 12:25 16:46 16:46 WBC RBC Hgb Hct MCV MCH MCHC RDW Plt Count Seg Neutrophils % Lymphocytes % Monocytes % Eosinophils % Basophils % Absolute Neutrophils Absolute Lymphocytes Absolute Monocytes Absolute Eosinophils Absolute Basophils Sodium Potassium Chloride Carbon Dioxide Anion Gap BUN Creatinine Est GFR ( Amer) Est GFR (Non-Af Amer) Glucose Calcium Phosphorus 3.8 Magnesium 1.7 Total Bilirubin AST ALT Alkaline Phosphatase Total Protein Albumin Triglycerides Cholesterol LDL Cholesterol Direct VLDL Cholesterol HDL Cholesterol Amylase 46 Lipase 32.9 TSH 2.25 Free T4 1.13 Urine Color YELLOW Urine Appearance SLIGHTLY-CLOUDY Urine pH 5.0 Ur Specific [place] 1.013 Urine Protein NEGATIVE Urine Glucose (UA) >=500 H Urine Ketones TRACE H Urine Blood NEGATIVE Urine Nitrite NEGATIVE Ur Leukocyte Esterase LARGE H Urine WBC (Auto) 30 Urine RBC (Auto) 1 10/31/18 10/31/18 03:00 03:00 WBC 6.5 RBC 5.29 H Hgb 15.4 Hct 45.7 MCV 86 MCH 29.0 MCHC 33.6 RDW 14.1 H Plt Count 187 Seg Neutrophils % 58.3 Lymphocytes % 31.6 Monocytes % 7.6 Eosinophils % 1.6 Basophils % 0.9 Absolute Neutrophils 3.8 Absolute Lymphocytes 2.1 Absolute Monocytes 0.5 Absolute Eosinophils 0.1 Absolute Basophils 0.1 Sodium 137.7 Potassium 3.9 Chloride 103 Carbon Dioxide 23 Anion Gap 12 BUN 16 Creatinine 0.75 Est GFR ( Amer) > 60 Est GFR (Non-Af Amer) > 60 Glucose 242 H Calcium 9.8 Phosphorus Magnesium Total Bilirubin 0.7 AST 28 ALT 34 Alkaline Phosphatase 105 Total Protein 7.1 Albumin 4.2 Triglycerides 270 H Cholesterol 320.96 H LDL Cholesterol Direct 218 H VLDL Cholesterol 54.0 H HDL Cholesterol 60 Amylase Lipase TSH Free T4 Urine Color Urine Appearance Urine pH Ur Specific [place] Urine Protein Urine Glucose (UA) Urine Ketones Urine Blood Urine Nitrite Ur Leukocyte Esterase Urine WBC (Auto) Urine RBC (Auto) 10/30/18 10/30/1810/30/19 16:46 16:46 21:07 Creatine Kinase 38 CK-MB (CK-2) 0.76 Troponin I < 0.012 < 0.012 10/30/18 10/30/18 10/31/18 21:07 21:07 03:00 Creatine Kinase 39 48 CK-MB (CK-2) 0.66 Troponin I Cancelled 10/31/18 10/31/18 10/31/18 03:00 08:46 08:46 Creatine Kinase 44 CK-MB (CK-2) 1.13 0.72 Troponin I < 0.012 < 0.012 Impressions: Chest X-Ray 10/30/18 16:57 IMPRESSION: NO ACUTE FINDINGS. Head CT 10/30/18 19:41 IMPRESSION: No acute intracranial abnormality is identified. Head MRI 10/31/18 00:00 IMPRESSION: Positive for acute or sub-acute lacunar infarction in the left frontal periventricular white matter and an additional small focus in the right subcortical frontal lobe near the midline. EVIDENCE OF ACUTE STROKE: YES. LEFT XUAN. Lumbar Spine MRI 10/31/18 00:00 IMPRESSION: 1. Spondylosis. Includes facet arthropathy and mild disc disease as above. Mild degenerative listhesis at L4-5. 2. No significant spinal stenosis, however. Noncritical multilevel foraminal en croachment as above. 3. No fracture or worrisome bone lesion. Assessment & Plan - Diagnosis (1) Cerebral infarction Qualifiers: Cerebral infarction mechanism: unspecified mechanism Qualified Code(s): I63.9 - Cerebral infarction, unspecified Is this a current diagnosis for this admission?: Yes Plan: She has a small lacunar infarct involving the left frontal lobe the weakness of the left leg does not seem to represent the area of the infarct, she will be managed according to stroke protocol
[2018-10-31] MEDS: INSULIN LISPRO 100 UNIT/ML 3 ML VIAL SUBCUT SCH (21:53)
[2018-10-31] MEDS: DULOXETINE HCL 30 MG CAPSULE.DR PO SCH (21:54)
[2018-11-01] MEDS: LEVOTHYROXINE SODIUM 0.15 MG TABLET PO SCH (05:07)
[2018-11-01 05:23] LABS: ABSOLUTE EOSINOPHILS # (AUTO) 0.1 10^3/uL (0.0-0.6); ABSOLUTE LYMPHOCYTES (AUTO) 1.9 10^3/uL (0.5-4.7); ABSOLUTE MONOCYTES (AUTO) 0.5 10^3/uL (0.1-1.4); ABSOLUTE NEUT (AUTO) 3.5 10^3/uL (1.7-8.2); BASOPHILS % (AUTO) 0.6 % (0-2); EOSINOPHILS % (AUTO) 1.9 % (0-6); HEMATOCRIT 43.4 % (36.0-47.0); HEMOGLOBIN 14.8 g/dL (12.0-15.5); LYMPHOCYTES % (AUTO) 31.3 % (13-45); MEAN CORPUSCULAR HEMOGLOBIN 29.6 pg (27.0-33.4); MEAN CORPUSCULAR HGB CONC 34.1 g/dL (32.0-36.0); MEAN CORPUSCULAR VOLUME 87 fl (80-97); MONOCYTES % (AUTO) 8.9 % (3-13); PLATELET COUNT 180 10^3/uL (150-450); RED CELL DISTRIBUTION WIDTH 14.1 % (11.5-14.0); SEGMENTED NEUTROPHILS % (AUTO) 57.3 % (42-78); TOTAL CELLS COUNTED % (AUTO) 100 %; WHITE BLOOD COUNT 6.1 10^3/uL (4.0-10.5)
[2018-11-01 05:50] LABS: ALANINE AMINOTRANSFERASE 34 U/L (9-52); ALBUMIN 3.7 g/dL (3.5-5.0); ALKALINE PHOSPHATASE 100 U/L (38-126); ANION GAP 10 (5-19); ASPARTATE AMINO TRANSFERASE 21 U/L (14-36); BILIRUBIN,DIRECT 0.2 mg/dL (0.0-0.4); BILIRUBIN,TOTAL 0.5 mg/dL (0.2-1.3); BLOOD UREA NITROGEN 18 mg/dL (7-20); CALCIUM 9.7 mg/dL (8.4-10.2); CARBON DIOXIDE 22 mmol/L (22-30); CHLORIDE 106 mmol/L (98-107); GLUCOSE 202 mg/dL (75-110); SODIUM 138.3 mmol/L (137-145); TOTAL PROTEIN 6.3 g/dL (6.3-8.2)
[2018-11-01] MEDS: INSULIN LISPRO 100 UNIT/ML 3 ML VIAL SUBCUT SCH ×4 (08:27→21:20)
[2018-11-01] MEDS: METOPROLOL SUCCINATE 50 MG TAB.SR.24H PO SCH (10:08)
[2018-11-01] MEDS: ASPIRIN 325 MG TABLET PO SCH (10:09)
[2018-11-01] MEDS: DULOXETINE HCL 30 MG CAPSULE.DR PO SCH ×2 (10:09→21:15)
[2018-11-01] MEDS: ZIPRASIDONE HCL 40 MG CAPSULE PO SCH (10:09)
[2018-11-01] MEDS: BENZTROPINE MESYLATE 1 MG TABLET PO SCH ×2 (10:09→17:39)
[2018-11-01] MEDS: ENOXAPARIN SODIUM INJ 40 MG/0.4 ML DISP.SYRIN SUBCUT SCH (10:09)
[2018-11-01] MEDS: INSULIN GLARGINE,HUM.REC.ANLOG 1,000 UNIT/10 ML VIAL SUBCUT SCH (10:09)
--- NOTE | 2018-11-01 16:02 | RADIOLOGY REPORT (SQ) ---
EXAM DESCRIPTION: CAROTID DOPPLER COMPLETED DATE/TIME: 11/01/2018 2:24 pm REASON FOR STUDY: CVA COMPARISON: 10/06/2017 TECHNIQUE: Grayscale ultrasound, Doppler velocity and spectra, and color Doppler images acquired of the extra-cranial carotid and vertebral arteries. Images stored on PACS. LIMITATIONS: None. FINDINGS: RIGHT CAROTID CCA Velocities: Within normal limits. ICA Velocities Peak systolic 55 cm/s. End diastolic 14 cm/s. Proximal ICA/CCA peak systolic ratio 1.24. Flow velocity in the external carotid is elevated. LEFT CAROTID CCA Velocities: Within normal limits. ICA Velocities Peak systolic 57 cm/s. End diastolic 16 cm/s. Proximal ICA/CCA peak systolic ratio 0.99. Spectra normal. No significant plaque. VERTEBRAL ARTERIES: Antegrade flow. Normal waveforms. SUBCLAVIAN ARTERIES: No finding. OTHER: No other significant finding. IMPRESSION: No hemodynamically significant stenosis of either internal carotid. There is relatively high-grade narrowing of the right external carotid. COMMENT: Quality ID #[id number]: Velocity criteria are extrapolated from the diameter data as defined by t he Society of Radiologists in Ultrasound Consensus Conference. Radiology 2003: 229; 340-346. TECHNICAL DOCUMENTATION: JOB ID: [id number] [employer]- All Rights Reserved Reading location - IP/workstation name: [email or web address]
[2018-11-01] MEDS: ACETAMINOPHEN 325 MG TABLET PO PRN ×2 (17:39→23:54)
[2018-11-01] MEDS ORDERED: HYDRALAZINE HCL INJ/PF 20 MG/1 ML SDV IV PRN (18:18)
--- NOTE | 2018-11-01 20:19 | PDOC PROGRESS REPORT ---
Subjective Progress Note for:: 11/01/18 Subjective:: Patient seen by the bedside she was admitted for CVA Reason For Visit: CVA Physical Exam Vital Signs: Temp Pulse Resp BP Pulse Ox 97.5 F 78 18 138/77 H 100 11/01/18 19:16 11/01/18 19:16 11/01/18 19:16 11/01/18 19:16 11/01/18 19:16 Intake & Output 10/31/18 11/01/18 11/02/18 06:59 06:59 06:59 Intake Total 0 720 1080 Output Total 0 600 Balance 0 120 1080 Weight 93.6 kg 92.2 kg General appearance: PRESENT: no acute distress Eye exam: PRESENT: PERRLA Respiratory exam: PRESENT: clear to auscultation ellen Cardiovascular exam: PRESENT: +S1, +S2 GI/Abdominal exam: PRESENT: soft Neurological exam: PRESENT: alert Results Laboratory Results: 11/01/18 04:49 11/01/18 04:49 11/01/18 11/01/18 04:49 04:49 WBC 6.1 RBC 5.00 Hgb 14.8 Hct 43.4 MCV 87 MCH 29.6 MCHC 34.1 RDW 14.1 H Plt Count 180 Seg Neutrophils % 57.3 Lymphocytes % 31.3 Monocytes % 8.9 Eosinophils % 1.9 Basophils % 0.6 Absolute Neutrophils 3.5 Absolute Lymphocytes 1.9 Absolute Monocytes 0.5 Absolute Eosinophils 0.1 Absolute Basophils 0.0 Sodium 138.3 Potassium 4.0 Chloride 106 Carbon Dioxide 22 Anion Gap 10 BUN 18 Creatinine 0.78 Est GFR ( Amer) > 60 Est GFR (Non-Af Amer) > 60 Glucose 202 H Calcium 9.7 Total Bilirubin 0.5 AST 21 ALT 34 Alkaline Phosphatase 100 Total Protein 6.3 Albumin 3.7 10/30/18 12:25 Clean Catch Midstream Urine Culture - Final Mixed Urogenital Cindi 10/30/18 10/30/18 10/30/18 16:46 16:46 21:07 Creatine Kinase 38 CK-MB (CK-2) 0.76 Troponin I < 0.012 < 0.012 10/30/18 10/30/18 10/31/18 21:07 21:07 03:00 Creatine Kinase 39 48 CK-MB (CK-2) 0.66 Troponin I Cancelled 10/31/18 10/31/18 10/31/18 03:00 08:46 08:46 Creatine Kinase 44 CK-MB (CK-2) 1.13 0.72 Troponin I < 0.012 < 0.012 Impressions: Chest X-Ray 10/30/18 16:57 IMPRESSION: NO ACUTE FINDINGS. Head CT 10/30/18 19:41 IMPRESSION: No acute intracranial abnormality is identified. Head MRI 10/31/18 00:00 IMPRESSION: Positive for acute or sub-acute lacunar infarction in the left frontal periventricular white matter and an additional small focus in the right subcortical frontal lobe near the midline. EVIDENCE OF ACUTE STROKE: YES. LEFT XUAN. Lumbar Spine MRI 10/31/18 00:00 IMPRESSION: 1. Spondylosis. Includes facet arthropathy and mild disc disease as above. Mild degenerative listhesis at L4-5. 2. No significant spinal stenosis, however. Noncritical multilevel foraminal encroachment as above. 3. No fracture or worrisome bone lesion. Carotid Doppler Study 11/01/18 00:00 IMPRESSION: No hemodynamically significant stenosis of either internal carotid. There is relatively high-grade narrowing of the right external carotid. Assessment & Plan - Diagnosis (1) Cerebral infarction Qualifiers: Cerebral infarction mechanism: unspecified mechanism Qualified Code(s): I63.9 - Cerebral infarction, unspecified Is this a current diagnosis for this admission?: Yes Plan: continue treatment , Patient with acute cerebral infarction permissive hypertension is the recommended strategy to prevent expansion of infarction will treat blood pressure only if systolic is more than 220 (2) Coronary artery disease Qualifiers: Coronary Disease-Associated Artery/Lesion type: [place] artery [place] vs. transplanted heart: [place] heart Associated angina: without angina Qualified Code(s): I25.10 - Atherosclerotic heart disease of [place] coronary artery without angina pectoris Is this a current diagnosis for this admission?: Yes (3) T2DM (type 2 diabetes mellitus) Qualifiers: Diabetes mellitus retirement insulin use: without termite helper use Diabetes mellitus complication status: with neurologic complications Diabetes mellitus complication detail: with polyneuropathy Qualified Code(s): E11.42 - Type 2 diabetes mellitus with diabetic polyneuropathy Is this a current diagnosis for this admission?: Yes
[2018-11-01] MEDS: ATORVASTATIN CALCIUM 40 MG TABLET PO SCH (21:15)
[2018-11-02] MEDS: LEVOTHYROXINE SODIUM 0.15 MG TABLET PO SCH (05:07)
[2018-11-02 06:02] LABS: ABSOLUTE EOSINOPHILS # (AUTO) 0.1 10^3/uL (0.0-0.6); ABSOLUTE MONOCYTES (AUTO) 0.5 10^3/uL (0.1-1.4); ABSOLUTE NEUT (AUTO) 4.8 10^3/uL (1.7-8.2); BASOPHILS % (AUTO) 0.6 % (0-2); EOSINOPHILS % (AUTO) 1.1 % (0-6); HEMATOCRIT 42.6 % (36.0-47.0); HEMOGLOBIN 14.6 g/dL (12.0-15.5); LYMPHOCYTES % (AUTO) 15.2 % (13-45); MEAN CORPUSCULAR HEMOGLOBIN 29.3 pg (27.0-33.4); MEAN CORPUSCULAR HGB CONC 34.2 g/dL (32.0-36.0); MEAN CORPUSCULAR VOLUME 86 fl (80-97); MONOCYTES % (AUTO) 7.3 % (3-13); PLATELET COUNT 169 10^3/uL (150-450); RED BLOOD COUNT 4.98 10^6/uL (3.72-5.28); RED CELL DISTRIBUTION WIDTH 14.6 % (11.5-14.0); SEGMENTED NEUTROPHILS % (AUTO) 75.8 % (42-78); TOTAL CELLS COUNTED % (AUTO) 100 %; WHITE BLOOD COUNT 6.3 10^3/uL (4.0-10.5)
[2018-11-02 06:35] LABS: ALANINE AMINOTRANSFERASE 33 U/L (9-52); ALKALINE PHOSPHATASE 108 U/L (38-126); ANION GAP 12 (5-19); ASPARTATE AMINO TRANSFERASE 24 U/L (14-36); BILIRUBIN,DIRECT 0.4 mg/dL (0.0-0.4); BILIRUBIN,TOTAL 0.8 mg/dL (0.2-1.3); BLOOD UREA NITROGEN 14 mg/dL (7-20); CALCIUM 9.6 mg/dL (8.4-10.2); CARBON DIOXIDE 23 mmol/L (22-30); CHLORIDE 103 mmol/L (98-107); GLUCOSE 203 mg/dL (75-110); POTASSIUM 4.6 mmol/L (3.6-5.0); SODIUM 137.7 mmol/L (137-145); TOTAL PROTEIN 6.6 g/dL (6.3-8.2)
[2018-11-02] MEDS: INSULIN LISPRO 100 UNIT/ML 3 ML VIAL SUBCUT SCH ×4 (08:13→21:21)
[2018-11-02] MEDS: ONDANSETRON HCL INJ/PF 4 MG/2 ML SDV IV PRN ×2 (10:14→17:40)
[2018-11-02] MEDS: ASPIRIN 325 MG TABLET PO SCH (10:40)
[2018-11-02] MEDS: ZIPRASIDONE HCL 40 MG CAPSULE PO SCH (10:41)
[2018-11-02] MEDS: DULOXETINE HCL 30 MG CAPSULE.DR PO SCH ×2 (10:41→21:21)
[2018-11-02] MEDS: ENOXAPARIN SODIUM INJ 40 MG/0.4 ML DISP.SYRIN SUBCUT SCH (10:41)
[2018-11-02] MEDS: BENZTROPINE MESYLATE 1 MG TABLET PO SCH ×2 (10:41→17:41)
[2018-11-02] MEDS: METOPROLOL SUCCINATE 50 MG TAB.SR.24H PO SCH (10:41)
[2018-11-02] MEDS: INSULIN GLARGINE,HUM.REC.ANLOG 1,000 UNIT/10 ML VIAL SUBCUT SCH (10:41)
[2018-11-02] MEDS: ACETAMINOPHEN 325 MG TABLET PO PRN ×2 (11:56→21:21)
--- NOTE | 2018-11-02 20:33 | PDOC PROGRESS REPORT ---
Subjective Progress Note for:: 11/02/18 Subjective:: Patient was seen by the bedside she had episode of vomiting earlier today Reason For Visit: CVA Physical Exam Vital Signs: Temp Pulse Resp BP Pulse Ox 98.7 F 86 16 153/76 H 97 11/02/18 16:00 11/02/18 19:00 11/02/18 16:59 11/02/18 16:59 11/02/18 16:59 Intake & Output 11/01/18 11/02/18 11/03/18 06:59 06:59 06:59 Intake Total 720 1080 772 Output Total 600 100 Balance 120 1080 672 Weight 92.2 kg 99.2 kg General appearance: PRESENT: no acute distress Eye exam: PRESENT: PERRLA Respiratory exam: PRESENT: clear to auscultation ellen Cardiovascular exam: PRESENT: +S1, +S2 Neurological exam: PRESENT: alert Results Laboratory Results: 11/02/18 05:37 11/02/18 05:37 11/02/18 11/02/18 05:37 05:37 WBC 6.3 RBC 4.98 Hgb 14.6 Hct 42.6 MCV 86 MCH 29.3 MCHC 34.2 RDW 14.6 H Plt Count 169 Seg Neutrophils % 75.8 Lymphocytes % 15.2 Monocytes % 7.3 Eosinophils % 1.1 Basophils % 0.6 Absolute Neutrophils 4.8 Absolute Lymphocytes 1.0 Absolute Monocytes 0.5 Absolute Eosinophils 0.1 Absolute Basophils 0.0 Sodium 137.7 Potassium 4.6 Chloride 103 Carbon Dioxide 23 Anion Gap 12 BUN 14 Creatinine 0.72 Est GFR ( Amer) > 60 Est GFR (Non-Af Amer) > 60 Glucose 203 H Calcium 9.6 Total Bilirubin 0.8 AST 24 ALT 33 Alkaline Phosphatase 108 Total Protein 6.6 Albumin 4.0 10/30/18 10/30/18 10/30/18 16:46 16:46 21:07 Creatine Kinase 38 CK-MB (CK-2) 0.76 Troponin I < 0.012 < 0.012 10/30/18 10/30/18 10/31/18 21:07 21:07 03:00 Creatine Kinase 39 48 CK-MB (CK-2) 0.66 Troponin I Cancelled 10/31/18 10/31/18 10/31/18 03:00 08:46 08:46 Creatine Kinase 44 CK-MB (CK-2) 1.13 0.72 Troponin I < 0.012 < 0.012 Impressions: Chest X-Ray 10/30/18 16:57 IMPRESSION: NO ACUTE FINDINGS. Head CT 10/30/18 19:41 IMPRESSION: No acute intracranial abnormality is identified. Head MRI 10/31/18 00:00 IMPRESSION: Positive for acute or sub-acute lacunar infarction in the left frontal periventricular white matter and an additional small focus in the right subcortical frontal lobe near the midline. EVIDENCE OF ACUTE STROKE: YES. LEFT XUAN. Lumbar Spine MRI 10/31/18 00:00 IMPRESSION: 1. Spondylosis. Includes facet arthropathy and mild disc disease as above. Mild degenerative listhesis at L4-5. 2. No significant spinal stenosis, however. Noncritical multilevel foraminal encroachment as above. 3. No fracture or worrisome bone lesion. Carotid Doppler Study 11/01/18 00:00 IMPRESSION: No hemodynamically significant stenosis of either internal carotid. There is relatively high-grade narrowing of the right external carotid. Assessment & Plan - Diagnosis (1) Cerebral infarction Qualifiers: Cerebral infarction mechanism: unspecified mechanism Qualified Code(s): I63.9 - Cerebral infarction, unspecified Is this a current diagnosis for this admission?: Yes (2) Coronary artery disease Qualifiers: Coronary Disease-Associated Artery/Lesion type: [place] artery [place] vs. transplanted heart: [place] heart Associated angina: without angina Qualified Code(s): I25.10 - Atherosclerotic heart disease of [place] coronary artery withou t angina pectoris Is this a current diagnosis for this admission?: Yes (3) T2DM (type 2 diabetes mellitus) Qualifiers: Diabetes mellitus long term care pharmacist insulin use: without long term care pharmacist use Diabetes mellitus complication status: with neurologic complications Diabetes mellitus complication detail: with polyneuropathy Qualified Code(s): E11.42 - Type 2 diabetes mellitus with diabetic polyneuropathy Is this a current diagnosis for this admission?: Yes
[2018-11-02] MEDS: ATORVASTATIN CALCIUM 40 MG TABLET PO SCH (21:21)
[2018-11-03] MEDS: ACETAMINOPHEN 325 MG TABLET PO PRN (01:15)
[2018-11-03] MEDS: LEVOTHYROXINE SODIUM 0.15 MG TABLET PO SCH (05:12)
[2018-11-03] MEDS: INSULIN LISPRO 100 UNIT/ML 3 ML VIAL SUBCUT SCH ×2 (08:20→12:49)
[2018-11-03] MEDS: ASPIRIN 325 MG TABLET PO SCH (09:47)
[2018-11-03] MEDS: METOPROLOL SUCCINATE 50 MG TAB.SR.24H PO SCH (09:47)
[2018-11-03] MEDS: DULOXETINE HCL 30 MG CAPSULE.DR PO SCH (09:47)
[2018-11-03] MEDS: BENZTROPINE MESYLATE 1 MG TABLET PO SCH (09:47)
[2018-11-03] MEDS: ENOXAPARIN SODIUM INJ 40 MG/0.4 ML DISP.SYRIN SUBCUT SCH (09:48)
[2018-11-03] MEDS: ZIPRASIDONE HCL 40 MG CAPSULE PO SCH (09:49)
[2018-11-03] MEDS: INSULIN GLARGINE,HUM.REC.ANLOG 1,000 UNIT/10 ML VIAL SUBCUT SCH (09:54)
--- NOTE | 2018-11-03 14:10 | PDOC DISCHARGE SUMMARY ---
General - Admit/Disc Date/PCP Admission Date/Primary Care Provider: 11/01/18 13:58 DAMIAN ARREOLA MD Discharge Date: 11/03/18 - Discharge Diagnosis (1) Cerebral infarction Is this a current diagnosis for this admission?: Yes (2) Coronary artery disease Is this a current diagnosis for this admission?: Yes (3) T2DM (type 2 diabetes mellitus) Is this a current diagnosis for this admission?: Yes (4) Poor compliance with medication Is this a current diagnosis for this admission?: Yes - Additional Information Prescriptions: Atorvastatin Calcium [Lipitor 40 mg Tablet] 40 mg PO QHS #90 tablet Aspirin [Aspirin 325 mg Tablet] 325 mg PO DAILY #90 tablet Empagliflozin [Jardiance] 25 mg PO DAILY #90 tablet Silver Sulfadiazine [Silvadene 1% Cream 25 gm] 1 applic TP DAILY #1 tube Valsartan [Diovan 160 mg Tablet] 160 mg PO DAILY #90 tablet Home Medications: Benztropine Mesylate [Cogentin 1 mg Tablet] 1 mg PO BID 10/31/18 Duloxetine HCl [Cymbalta] 30 mg PO BID 10/31/18 Insulin Aspart [Novolog Insulin (Aspart) 100 unit/mL] 0 unit SUBCUT .SLD SCALE 10/31/18 Insulin Detemir [Levemir] 30 unit SQ DAILY 10/31/18 Levothyroxine Sodium 150 mcg PO Q6AM 10/31/18 Metoprolol Succinate [Toprol Xl] 200 mg PO DAILY 10/31/18 Ziprasidone HCl [Geodon 40 mg Capsule] 40 mg PO DAILY 10/31/18 Aspirin [Aspirin 325 mg Tablet] 325 mg PO DAILY #90 tablet 11/03/18 Atorvastatin Calcium [Lipitor 40 mg Tablet] 40 mg PO QHS #90 tablet 11/03/18 Empagliflozin [Jardiance] 25 mg PO DAILY #90 tablet 11/03/18 Silver Sulfadiazine [Silvadene 1% Cream 25 gm] 1 applic TP DAILY #1 tube 11/03/18 Valsartan [Diovan 160 mg Tablet] 160 mg PO DAILY #90 tablet 11/03/18 History of Present Illness History of Present Illness: RADHA SCOTT is a 68 year old female, She has multiple comorbid conditions including type 2 diabetes mellitus with complication, she is extremely noncompliant with her diabetic care, she came to emergency room yesterday for evaluation of weakness of the left leg with associated tremulousness of the left leg, the symptom is very nonspecific, is suggests more of lumbar radiculopathy, when I saw on the floor the muscle power of the extremities was maintained including the upper extremities and lower extremities, the power on the left leg was 3 out of 5 as suspected lumbar disc disease because of her presentation. MRI of the lumbar spine was ordered, it did not demonstrate any significant spinal stenosis or compressive neuropathy that would explain the diminished power in the left leg I then requested for MRI of the brain, she had a CAT scan of the brain yesterday emergency room which was negative, MRI of the brain demonstrated Acute lacunar infarct in the left frontal lobe. Hospital Course Hospital Course: Patient was admitted for the management of acute CVA, MRI head without contrast was obtained, it demonstrated acute lacunar infarct in the left frontal periventricular white matter and small focus in the right subcortical frontal lobe. She was treated according to stroke protocol. She is not compliant with the medication, she is supposed to be on statin therapy because she has coronary artery disease, history of prior CVA but she does not take any medication as recommended. She was seen by physical therapy, speech therapy, she also had carotid Doppler done, there was no significant coronary artery disease identified. Physical Exam Vital Signs: Temp Pulse Resp BP Pulse Ox 99.1 F 78 16 151/89 H 100 11/03/18 11:04 11/03/18 11:04 11/03/18 11:04 11/03/18 11:04 11/03/18 11:04 Intake & Output 11/02/18 11/03/18 11/04/18 06:59 06:59 06:59 Intake Total 1080 772 342 Output Total 100 Balance 1080 672 342 Weight 99.2 kg 90 kg General appearance: PRESENT: no acute distress, well-developed, well-nourished Head exam: PRESENT: atraumatic, normocephalic Eye exam: PRESENT: conjunctiva pink, EOMI, PERRLA Ear exam: PRESENT: normal external ear exam Mouth exam: PRESENT: moist, tongue midline Neck exam: PRESENT: full ROM Respiratory exam: PRESENT: clear to auscultation ellen Cardiovascular exam: PRESENT: RRR, +S1, +S2 Pulses: PRESENT: normal dorsalis pedis pul, +2 pedal pulses bilateral Vascular exam: PRESENT: normal capillary refill GI/Abdominal exam: PRESENT: normal bowel sounds, soft Rectal exam: PRESENT: deferred Neurological exam: PRESENT: alert, awake, oriented to person, oriented to place, oriented to time, oriented to situation, CN II-XII grossly intact Psychiatric exam: PRESENT: appropriate affect, normal mood Skin exam: PRESENT: dry, intact, warm Results Laboratory Results: 11/02/18 05:37 11/02/18 05:37 10/30/18 10/30/18 10/30/18 16:46 16:46 21:07 Creatine Kinase 38 CK-MB (CK-2) 0.76 Troponin I < 0.012 < 0.012 10/30/18 10/30/18 10/31/18 21:07 21:07 03:00 Creatine Kinase 39 48 CK-MB (CK-2) 0.66 Troponin I Cancelled 10/31/18 10/31/18 10/31/18 03:00 08:46 08:46 Creatine Kinase 44 CK-MB (CK-2) 1.13 0.72 Troponin I < 0.012 < 0.012 Impressions: Chest X-Ray 10/30/18 16:57 IMPRESSION: NO ACUTE FINDINGS. Head CT 10/30/18 19:41 IMPRESSION: No acute intracranial abnormality is identified. Head MRI 10/31/18 00:00 IMPRESSION: Positive for acute or sub-acute lacunar infarction in the left frontal periventricular white matter and an additional small focus in the right subcortical frontal lobe near the midline. EVIDENCE OF ACUTE STROKE: YES. LEFT XUAN. Lumbar Spine MRI 10/31/18 00:00 IMPRESSION: 1. Spondylosis. Includes facet arthropathy and mild disc disease as above. Mild degenerative listhesis at L4-5. 2. No significant spinal stenosis, however. Noncritical multilevel foraminal encroachment as above. 3. No fracture or worrisome bone lesion. Carotid Doppler Study 11/01/18 00:00 IMPRESSION: No hemodynamically significant stenosis of either internal carotid. There is relatively high-grade narrowing of the right external carotid. Qualifiers - * PATIENT BEING DISCHARGED WITH ANY OF THE FOLLOWING DIAGNOSIS: Stroke Stroke Pt being discharged on Anti-thrombolytic therapy?: Yes Stroke Pt being discharged on Anti-coagulation therapy?: Yes Stroke Pt being discharged on Statins?: Yes [place] Pt being discharged on Aspirin therapy?: Yes Acute Heart Failure Is this a Heart Failure Patient?: No
[2018-11-03 14:22] VITALS: BP 151/58
[2018-11-03] MEDS ORDERED: SILVER SULFADIAZINE 1% CREAM 50 GM TP SCH (15:00)
== END 2018-11-03 15:40 | disposition home or self-care (01) | DRG 66 ==
LOC: ER 16:29 → EH 23:20 → INTOOBSV 23:20 → 3S 10-31 02:14 → OBSVTOIN 11-01 13:58
PROVIDERS: ADMIT Internal Medicine; ATTEND Internal Medicine
DX: I63.81 Other cerebral infarction due to occlusion or stenosis of small artery (principal); I25.10 Atherosclerotic heart disease of native coronary artery without angina pectoris; E11.65 Type 2 diabetes mellitus with hyperglycemia; E03.9 Hypothyroidism, unspecified; E78.5 Hyperlipidemia, unspecified; I10 Essential (primary) hypertension; K21.9 Gastro-esophageal reflux disease without esophagitis; F32.9 Major depressive disorder, single episode, unspecified; F43.10 Post-traumatic stress disorder, unspecified; D64.9 Anemia, unspecified; E11.42 Type 2 diabetes mellitus with diabetic polyneuropathy; E78.00 Pure hypercholesterolemia, unspecified; I25.2 Old myocardial infarction; Z79.899 Other long term (current) drug therapy; Z91.14 Patient's other noncompliance with medication regimen; Z91.19 Patient's noncompliance with other medical treatment and regimen; Z79.4 Long term (current) use of insulin; Z90.49 Acquired absence of other specified parts of digestive tract; Z90.710 Acquired absence of both cervix and uterus; Z87.891 Personal history of nicotine dependence; Z88.6 Allergy status to analgesic agent; Z82.49 Family history of ischemic heart disease and other diseases of the circulatory system
CPT/HCPCS: 36415; 70450; 70551; 71045; 72148; 80048; 80053; 80061; 80076; 80307; 81001; 82150; 82550; 82553; 82962; 83036; 83690; 83735; 84100; 84439; 84443; 84484; 85025; 85610; 85730; 87086; 93005; 93010; 93880; 99285; G0378; J1650; J1815; J2405; J3490

== ENCOUNTER 2018-11-05 16:21 | Inpatient (IN) | payer MEDICARE ==
[2018-11-05] MEDS ORDERED: VANCOMYCIN HCL INJ 1000 MG VIAL IV ONE ×2 (17:39→21:09)
[2018-11-05] MEDS ORDERED: CEFTRIAXONE 1 GM/D5W RTU 1 GM/50 ML RTUPB IV ONE (17:39)
[2018-11-05] MEDS ORDERED: KETOROLAC TROMETHAMINE INJ/PF 30 MG/1 ML SDV IV ONE (17:40)
[2018-11-05] MEDS ORDERED: NORMAL SALINE 1000 ML 1,000 ML IV ONE ×2 (17:40→21:09)
--- NOTE | 2018-11-05 17:43 | ER Document Report ---
ED Medical Screen (RME) - General Chief Complaint: Hand Swelling Stated Complaint: LEFT HAND PAIN Time Seen by Provider: 11/05/18 17:33 Primary Care Provider: DAMIAN ARREOLA MD [Primary Care Provider] - Follow up as needed TRAVEL OUTSIDE OF THE [place] IN LAST 30 DAYS: No - HPI Notes: 11/05/18 17:40 Patient is a 68-year-old female with a history of hypertension, coronary artery disease, diabetes, and CVA (just discharged a couple days ago) who presents complaining of left hand pain, swelling, redness that occurred when she is being discharged from the IV site. Patient states that she has been feeling feverish and has had decreased p.o. intake with nausea associated. She still able to urinate and is having bowel movements. Denies JONES, neck pain, URI, CP, SOB, Abd pain. I have treated and performed a rapid initial assessment of this patient. A comprehensive ED assessment and evaluation of the patient, analysis of test results and completion of medical decision making process will be conducted by additional ED providers. PHYSICAL EXAMINATION: GENERAL: no acute resp distress. A&Ox4. Answers questions appropriately. LUNGS: Breath sounds clear to auscultation bilaterally and equal. No wheezes rales or rhonchi. HEART: Regular rate and rhythm without murmurs, rubs, gallops. ABDOMEN: Soft, nondistended abdomen. No guarding, no rebound. Normal bowel s ounds present. No CVA tenderness bilaterally. grossly non-tender (cannot elicit thorough abd exam w/o table, however). Skin/left dorsal hand: + erythema, warmth, pitting edema, and small purulent area from where the IV site was located (expressed purulence and obtained culture). - Related Data Allergies/Adverse Reactions: codeine Allergy (Verified 10/31/18 13:49) Past Medical History - Past Medical History Cardiac Medical History: Reports: Hx Congestive Heart Failure, Hx Coronary Artery Disease, Hx Heart Attack - x 2, Hx Hypercholesterolemia, Hx Hypertension Pulmonary Medical History: Reports: Hx Asthma Denies: Hx Tuberculosis Neurological Medical History: Reports: Hx Migraine. Denies: Hx Cerebrovascular Accident, Hx Seizures Endocrine Medical History: Reports: Hx Diabetes Mellitus Type 1, Hx Diabetes Mellitus Type 2 - insulin dependent, Hx Hypothyroidism Renal/ Medical History: Denies: Hx Peritoneal Dialysis GI Medical History: Reports: Hx Gastroesophageal Reflux Disease, Hx Ulcer. Denies: Hx Hiatal Hernia Musculoskeltal Medical History: Reports Hx Arthritis Skin Medical History: Reports Hx Cellulitis Psychiatric Medical History: Reports: Hx Bipolar Disorder, Hx Depression, Hx Post Traumatic Stress Disorder, Hx Schizophrenia Past Surgical History: Reports: Hx Appendectomy, Hx Cardiac Catheterization, Hx Cardiac Surgery - 4 stents, Hx Cholecystectomy, Hx Hysterectomy, Hx Open Heart Surgery, Hx Orthopedic Surgery - left leg hardware. Denies: Hx Pacemaker - Immunizations Hx Diphtheria, Pertussis, Tetanus Vaccination: Yes History of Influenza Vaccine for 03/2017 - 08/2017 Season: Unknown Physical Exam - Vital signs Vitals: Temp Pulse Resp BP Pulse Ox 100.5 F H 121 H 18 157/79 H 95 11/05/18 16:42 11/05/18 16:42 11/05/18 16:42 11/05/18 16:42 11/05/18 16:42 Course - Vital Signs Vital signs: Temp Pulse Resp BP Pulse Ox 100.5 F H 121 H 18 157/79 H 95 11/05/18 16:42 11/05/18 16:42 11/05/18 16:42 11/05/18 16:42 11/05/18 16:42 Doctor's Discharge - Discharge Referrals: DAMIAN ARREOLA MD [Primary Care Provider] - Follow up as needed
[2018-11-05] MEDS ORDERED: ONDANSETRON HCL INJ/PF 4 MG/2 ML SDV IV ONE ×2 (17:45→21:15)
[2018-11-05 18:27] LABS: VENOUS BLOOD BASE EXCESS -7.5 mmol/L; VENOUS BLOOD HCO3 16.2 mmol/L (20-32); VENOUS BLOOD PCO2 28.8 mmHg (35-63); VENOUS BLOOD PH 7.37 (7.30-7.42)
[2018-11-05 18:32] LABS: ABSOLUTE LYMPHOCYTES (AUTO) 0.5 10^3/uL (0.5-4.7); ABSOLUTE MONOCYTES (AUTO) 1.3 10^3/uL (0.1-1.4); ABSOLUTE NEUT (AUTO) 11.5 10^3/uL (1.7-8.2); BASOPHILS % (AUTO) 0.2 % (0-2); HEMATOCRIT 43.8 % (36.0-47.0); HEMOGLOBIN 14.8 g/dL (12.0-15.5); LYMPHOCYTES % (AUTO) 3.5 % (13-45); MEAN CORPUSCULAR HEMOGLOBIN 29.2 pg (27.0-33.4); MEAN CORPUSCULAR HGB CONC 33.7 g/dL (32.0-36.0); MEAN CORPUSCULAR VOLUME 87 fl (80-97); MONOCYTES % (AUTO) 9.6 % (3-13); PLATELET COUNT 152 10^3/uL (150-450); RED BLOOD COUNT 5.07 10^6/uL (3.72-5.28); RED CELL DISTRIBUTION WIDTH 14.2 % (11.5-14.0); SEGMENTED NEUTROPHILS % (AUTO) 86.7 % (42-78); TOTAL CELLS COUNTED % (AUTO) 100 %; WHITE BLOOD COUNT 13.3 10^3/uL (4.0-10.5)
[2018-11-05 18:46] LABS: ALANINE AMINOTRANSFERASE 41 U/L (9-52); ALBUMIN 3.8 g/dL (3.5-5.0); ALKALINE PHOSPHATASE 113 U/L (38-126); ASPARTATE AMINO TRANSFERASE 45 U/L (14-36); BILIRUBIN,DIRECT 0.8 mg/dL (0.0-0.4); BILIRUBIN,TOTAL 1.3 mg/dL (0.2-1.3); BLOOD UREA NITROGEN 17 mg/dL (7-20); CALCIUM 9.3 mg/dL (8.4-10.2); GLUCOSE 350 mg/dL (75-110); POTASSIUM 4.4 mmol/L (3.6-5.0); TOTAL PROTEIN 6.5 g/dL (6.3-8.2)
[2018-11-05 18:51] LABS: CARBON DIOXIDE 13 mmol/L (22-30); CHLORIDE 88 mmol/L (98-107); SODIUM 125.1 mmol/L (137-145)
[2018-11-05 18:53] LABS: ANION GAP 24 (5-19)
[2018-11-05] MEDS ORDERED: PIPERACILLIN/TAZOBACTAM 3.375 GM VIAL IV ONE (21:09)
--- NOTE | 2018-11-05 21:54 | RADIOLOGY REPORT (SQ) ---
EXAM DESCRIPTION: XR HAND 3 OR MORE VIEWS COMPLETED DATE/TME: 11/05/2018 21:08 CLINICAL HISTORY: 68 years, Female, left hand swelling and redness COMPARISON: None. NUMBER OF VIEWS: Three TECHNIQUE: Frontal, oblique, and lateral radiographs of the left hand were obtained LIMITATIONS: None. FINDINGS: Visualized is old healed fracture deformity involving the fourth metacarpal shaft. Remaining visualized osseous structures appear normal without acute fracture or dislocation. However, there is diffuse soft tissue swelling throughout the hand. IMPRESSION: Diffuse soft tissue swelling without underlying acute osseous anomaly. copyright 2010 [employer]- All Rights Reserved
--- NOTE | 2018-11-05 21:55 | RADIOLOGY REPORT (SQ) ---
EXAM DESCRIPTION: XR CHEST 2 VIEWS COMPLETED DATE/TME: 11/05/2018 21:08 CLINICAL HISTORY: 68 years, Female, shortness of breath COMPARISON: Prior study from 10/30/2018 NUMBER OF VIEWS: Two TECHNIQUE: Frontal and lateral radiographs of the chest were obtained LIMITATIONS: None. FINDINGS: Status post median sternotomy. Cardiac and mediastinal contours are stable. Lungs are clear. No pleural effusion or pneumothorax. IMPRESSION: No acute disease. copyright 2010 [email or web address]- All Rights Reserved
--- NOTE | 2018-11-05 22:05 | ER Document Report ---
Addendum entered and electronically signed by TANI LIRA FNP 11/06/18 05:15: Course - Vital Signs Vital signs: Temp Pulse Resp BP Pulse Ox 98 F 121 H 19 169/75 H 100 11/06/18 01:02 11/05/18 16:42 11/06/18 02:02 11/06/18 02:02 11/06/18 02:02 - Laboratory Result Diagrams: 11/05/18 18:00 11/05/18 18:00 Laboratory results interpreted by me: 11/05/18 11/05/18 11/05/18 18:00 18:00 18:00 WBC 13.3 H RDW 14.2 H Seg Neutrophils % 86.7 H Lymphocytes % 3.5 L Absolute Neutrophils 11.5 H VBG pCO2 VBG HCO3 Sodium 125.1 L Chloride 88 L Carbon Dioxide 13 L Anion Gap 24 H Glucose 350 H Lactic Acid 2.2 H Direct Bilirubin 0.8 H AST 45 H Lipase 11/05/18 11/05/18 18:00 18:00 WBC RDW Seg Neutrophils % Lymphocytes % Absolute Neutrophils VBG pCO2 28.8 L VBG HCO3 16.2 L Sodium Chloride Carbon Dioxide Anion Gap Glucose Lactic Acid Direct Bilirubin AST Lipase 18.4 L - Diagnostic Test Radiology reviewed: Image reviewed, Reports reviewed Radiology results interpreted by me: 11/06/18 Chest x-ray was negative for pneumonia or any acute processes. Left hand x-ray negative for gas or infection in the bones. Original Note: ED General - General Chief Complaint: Hand Swelling Stated Complaint: LEFT HAND PAIN Time Seen by Provider: 11/05/18 17:33 Primary Care Provider: DAMIAN ARREOLA MD [Primary Care Provider] - Follow up as needed TRAVEL OUTSIDE OF THE [place] IN LAST 30 DAYS: No - HPI Notes: Patient is a 68-year-old female with a history of coronary artery disease, hypertension, diabetes, CVA who presents to the emergency department with a chi ef complaint of left hand swelling and vomiting. Patient states she she was discharged from this facility this past Thursday after having a stroke. Patient states that since then she has been unable to tolerate p.o. Patient states she has vomited greater than 10 times per day for the past 2 days. Patient states she has also had diarrhea 2-3 times per day. Patient denies vomiting of blood or dark stools. Patient also reports having shortness of breath with ambulation but not at rest. Patient states this is new as of Thursday after being discharged from the facility. Patient has been unable to take any of her medications since being discharged due to the vomiting. Patient also complaint of left hand swelling and redness. at the bedside states that last Thursday EMS had placed an IV in the left hand which started to swell. reports that the swelling and redness was present while in the hospital but since being discharged has gotten worse. Patient does complain of a you were seen today for lightheadedness/dizziness. The exact cause of your symptoms is unclear but your workup here is reassuring without any concerning findings. Please follow closely with your primary care physician in the next 1-3 days. Return if you pass out, have additional episodes of lightheadedness, develop weakness/numbness, have persistent vomiting, chest pain, shortness of breath or any other symptoms that are concerning to you coming from the left hand. Patient complains of numbness to her fingers due to swelling. - Related Data Allergies/Adverse Reactions: codeine Allergy (Verified 10/31/18 13:49) Past Medical History - General Information source: Patient - Social History Smoking Status: Unknown if Ever Smoked Cigarette use (# per day): No Chew tobacco use (# tins/day): No Smoking Education Provided: No Frequency of alcohol use: None Drug Abuse: None Lives with: Spouse/Significant other Family History: CAD Patient has suicidal ideation: No Patient has homicidal ideation: No - Past Medical History Cardiac Medical History: Reports: Hx Congestive Heart Failure, Hx Coronary Artery Disease, Hx Heart Attack - x 2, Hx Hypercholesterolemia, Hx Hypertension Pulmonary Medical History: Reports: Hx Asthma Denies: Hx Tuberculosis EENT Medical History: Reports: None Neurological Medical History: Reports: Hx Migraine. Denies: Hx Cerebrovascular Accident, Hx Seizures Endocrine Medical History: Reports: Hx Diabetes Mellitus Type 1, Hx Diabetes Mellitus Type 2 - insulin dependent, Hx Hypothyroidism Renal/ Medical History: Reports: None. Denies: Hx Peritoneal Dialysis Malignancy Medical History: Reports: None GI Medical History: Reports: Hx Gastroesophageal Reflux Disease, Hx Ulcer. Denies: Hx Hiatal Hernia Musculoskeletal Medical History: Reports Hx Arthritis Skin Medical History: Reports Hx Cellulitis Psychiatric Medical History: Reports: Hx Bipolar Disorder, Hx Depression, Hx Post Traumatic Stress Disorder, Hx Schizophrenia Traumatic Medical History: Reports: None Infectious Medical History: Reports: None Past Surgical History: Reports: Hx Appendectomy, Hx Cardiac Catheterization, Hx Cardiac Surgery - 4 stents, Hx Cholecystectomy, Hx Hysterectomy, Hx Open Heart Surgery, Hx Orthopedic Surgery - left leg hardware. Denies: Hx Pacemaker - Immunizations Hx Diphtheria, Pertussis, Tetanus Vaccination: Yes Hx Pneumococcal Vaccination: 03/18/11 Review of Systems - Review of Systems Constitutional: See HPI EENT: No symptoms reported Cardiovascular: No symptoms reported Respiratory: See HPI Gastrointestinal: See HPI Genitourinary: No symptoms reported Female Genitourinary: No symptoms reported Musculoskeletal: See HPI Skin: No symptoms reported Hematologic/Lymphatic: No symptoms reported Neurological/Psychological: No symptoms reported Physical Exam - Vital signs Vitals: Temp Pulse Resp BP Pulse Ox 100.5 F H 121 H 18 157/79 H 95 11/05/18 16:42 11/05/18 16:42 11/05/18 16:42 11/05/18 16:42 11/05/18 16:42 Interpretation: Hypertensive, Tachycardic, Febrile - Notes Notes: GENERAL: Well-appearing, in no acute distress. HEAD: Atraumatic, normocephalic. EYES: Pupils equal round and reactive to light, extraocular movements intact, sclera anicteric, conjunctiva are normal. ENT: Nares patent, oropharynx clear without exudates. Dry mucous membranes. NECK: Normal range of motion, supple without lymphadenopathy or JVD. LUNGS: Breath sounds clear to auscultation bilaterally and equal. No wheezes rales or rhonchi. HEART: Regular rate and rhythm without murmurs, rubs or gallops. ABDOMEN: Soft, mildy tender in left upper quadrant, hyperactive bowel sounds. No guarding, no rebound. No masses appreciated. EXTREMITIES: + 3 pitting edema to left hand, erythematous, small open lesion to the top of the left hand that is draining a mild amount of purulent discharge. NEUROLOGICAL: Cranial nerves II through XII grossly intact. Normal speech. PSYCH: Normal mood, normal affect. SKIN: Warm, Dry, normal turgor, no rashes or lesions noted. Course - Re-evaluation Re-evalutation: 11/05/18 22:45 Patient is resting comfortably on stretcher and states feeling better after receiving IV fluids, decrease in oral temperature, and receiving IV antibiotics. Educated patient on elevating left hand to help with swelling. Spoke with Dr. Arreola and admission accepted for left hand cellulitis with hyperglycemia, vomiting, leukocytosis and a slightly elevated lactate of 2.2 which did normalize to 1.5 after fluid bolus. - Vital Signs Vital signs: Temp Pulse Resp BP Pulse Ox 98.1 F 121 H 18 126/65 H 96 11/05/18 21:04 11/05/18 16:42 11/05/18 16:42 11/05/18 21:04 11/05/18 21:04 - Laboratory Result Diagrams: 11/05/18 18:00 11/05/18 18:00 Laboratory results interpreted by me: 11/05/18 11/05/18 11/05/18 18:00 18:00 18:00 WBC 13.3 H RDW 14.2 H Seg Neutrophils % 86.7 H Lymphocytes % 3.5 L Absolute Neutrophils 11.5 H VBG pCO2 VBG HCO3 Sodium 125.1 L Chloride 88 L Carbon Dioxide 13 L Anion Gap 24 H Glucose 350 H Lactic Acid 2.2 H Direct Bilirubin 0.8 H AST 45 H Lipase 11/05/18 11/05/18 18:00 18:00 WBC RDW Seg Neutrophils % Lymphocytes % Absolute Neutrophils VBG pCO2 28.8 L VBG HCO3 16.2 L Sodium Chloride Carbon Dioxide Anion Gap Glucose Lactic Acid Direct Bilirubin AST Lipase 18.4 L 11/05/18 22:53 Patient does have a slightly elevated lactate at 2.2, the repeat lactate was 1.5 after receiving IV fluids. Patient does have leukocytosis with a white count of 13.3. Patient's sodium correction with hyperglycemia is 131.1 and minimally hyponatremic. Patient's VBG resulted in a CO2 of 28.8 and bicarb of 16.2, patient's pH was normal and at this time it is not an metabolic acidosis. - Diagnostic Test Radiology reviewed: Image reviewed, Reports reviewed Discharge - Discharge Clinical Impression: Hyperglycemia Cellulitis Qualifiers: Site of cellulitis: other site Qualified Code(s): L03.818 - Cellulitis of other sites Fever Qualifiers: Fever type: unspecified Qualified Code(s): R50.9 - Fever, unspecified Leukocytosis Qualifiers: Leukocytosis type: unspecified Qualified Code(s): D72.829 - Elevated white blood cell count, unspecified Nausea & vomiting Qualifiers: Vomiting type: unspecified Vomiting Intractability: unspecified Qualified Code(s): R11.2 - Nausea with vomiting, unspecified Condition: Stable Disposition: ADMITTED INPATIENT Admitting Provider: Mukund Unit Admitted: Medical Floor Referrals: DAMIAN ARREOLA MD [Primary Care Provider] - Follow up as needed
[2018-11-05] MEDS ORDERED: DEXTROSE 40% GEL 15 GM TUBE PO PRN ×2 (23:12)
[2018-11-05] MEDS ORDERED: GLUCAGON,HUMAN RECOMB 1 MG INJ IM PRN (23:12)
[2018-11-05] MEDS ORDERED: DEXTROSE 50%-WATER 25 GM/50 ML DISP.SYRIN IV PRN ×2 (23:12)
[2018-11-05] MEDS ORDERED: CLINDAMYCIN 600 MG/D5W RTU 600 MG/50 ML RTUPB IV ONE (23:30)
[2018-11-06 00:10] LABS: THYROID STIMULATING HORMONE 1.09 uIU/mL (0.47-4.68)
[2018-11-06 00:13] LABS: FREE T4 (FREE THYROXINE) 1.86 ng/dL (0.78-2.19)
[2018-11-06] MEDS: INSULIN REG, HUMAN 100 UNIT/ML 3 ML VIAL (PYX) SUBCUT SCH ×5 (00:58→23:38)
[2018-11-06] MEDS: NORMAL SALINE 1000 ML 1,000 ML IV PRN (01:03)
[2018-11-06 05:37] LABS: HEMATOCRIT 39.4 % (36.0-47.0); HEMOGLOBIN 13.5 g/dL (12.0-15.5); MEAN CORPUSCULAR HEMOGLOBIN 29.5 pg (27.0-33.4); MEAN CORPUSCULAR HGB CONC 34.2 g/dL (32.0-36.0); MEAN CORPUSCULAR VOLUME 86 fl (80-97); PLATELET COUNT 113 10^3/uL (150-450); RED BLOOD COUNT 4.56 10^6/uL (3.72-5.28); RED CELL DISTRIBUTION WIDTH 14.1 % (11.5-14.0); WHITE BLOOD COUNT 8.8 10^3/uL (4.0-10.5)
[2018-11-06] MEDS: CLINDAMYCIN 600 MG/D5W RTU 600 MG/50 ML RTUPB IV SCH ×2 (05:51→14:17)
[2018-11-06 05:56] LABS: ALANINE AMINOTRANSFERASE 36 U/L (9-52); ALBUMIN 3.5 g/dL (3.5-5.0); ALKALINE PHOSPHATASE 116 U/L (38-126); ANION GAP 14 (5-19); ASPARTATE AMINO TRANSFERASE 40 U/L (14-36); BILIRUBIN,DIRECT 0.7 mg/dL (0.0-0.4); BILIRUBIN,TOTAL 1.1 mg/dL (0.2-1.3); BLOOD UREA NITROGEN 20 mg/dL (7-20); CALCIUM 8.6 mg/dL (8.4-10.2); CARBON DIOXIDE 19 mmol/L (22-30); CHLORIDE 95 mmol/L (98-107); GLUCOSE 338 mg/dL (75-110); POTASSIUM 3.6 mmol/L (3.6-5.0); SODIUM 128.4 mmol/L (137-145); TOTAL PROTEIN 6.6 g/dL (6.3-8.2)
[2018-11-06 06:00] LABS: ABSOLUTE LYMPHOCYTES# (MANUAL) 0.5 10^3/uL (0.5-4.7); ABSOLUTE MONOCYTES # (MANUAL) 1.1 10^3/uL (0.1-1.4); ABSOLUTE NEUTROPHILS# (MANUAL) 7.1 10^3/uL (1.7-8.2); BAND NEUTROPHILS % (MANUAL) 1 % (3-5); BASOPHILS % (MANUAL) 0 % (0-2); EOSINOPHILS % (MANUAL) 0 % (0-6); LYMPHOCYTES % (MANUAL) 6 % (13-45); MONOCYTES % (MANUAL) 13 % (3-13); SEGMENTED NEUTROPHILS % (MAN) 80 % (42-78); TOTAL CELLS COUNTED 100
[2018-11-06 06:01] LABS: PLATELET COMMENT DECREASED; RBC MORPHOLOGY COMMENT NORMO-CYTIC/CHROMIC; TOXIC GRANULATION SLIGHT; TOXIC VACUOLATION PRESENT
[2018-11-06] MEDS: ENOXAPARIN SODIUM INJ 40 MG/0.4 ML DISP.SYRIN SUBCUT SCH (09:22)
[2018-11-06] MEDS: ONDANSETRON HCL INJ/PF 4 MG/2 ML SDV IV PRN (09:48)
[2018-11-06] MEDS: ACETAMINOPHEN 325 MG TABLET PO PRN (09:56)
[2018-11-06] MEDS: TRAMADOL HCL 50 MG TABLET PO PRN ×2 (09:57→23:37)
[2018-11-06] MEDS: NYSTATIN TOPICAL POWDER 15 GM TP SCH ×2 (11:51→18:11)
--- NOTE | 2018-11-06 13:56 | PDOC H&P ---
History of Present Illness Admission Date/PCP: 11/05/18 23:12 DAMIAN ARREOLA MD History of Present Illness: RADHA SCOTT is a 68 year old female, she came to the emergency room for eval uation of swelling of the left hand and vomiting. She was recently discharged from this hospital when she sustained acute cerebral infarction, she was discharged on 11/03/2018, the last time she was admitted she had a mild superficial phlebitis on the dorsum of the left and at the site of IV access insertion, she was prescribed topical silver sulfadiazine cream to apply to the site of the inflammation. Patient stated that in the last 2 days she has been vomiting, she is not able to keep any food down not given her medications, she was found to have leukocytosis, there was associated hyponatremia with hyperglycemia the serum glucose was 350, patient is poorly compliant with the diabetes care., The blood culture is growing gram-positive cocci in clusters, suggesting Staphylococcus aureus. Past Medical History Cardiac Medical History: Reports: Congestive Heart Failure, Coronary Artery Disease, Myocardial Infarction - x 2, Hyperlipidema, Hypertension Pulmonary Medical History: Reports: Asthma EENT Medical History: Reports: None Neurological Medical History: Reports: Migraine Endocrine Medical History: Reports: Diabetes Mellitus Type 2 - insulin dependent, Hypothyroidism Renal/ Medical History: Reports: None Malignancy Medical History: Reports: None GI Medical History: Reports: Gastroesophageal Reflux Disease Musculoskeltal Medical History: Reports: Arthritis Psychiatric Medical History: Reports: Bipolar Disorder, Depression, Post Traumatic Stress Disorder Traumatic Medical History: Reports: None Hematology: Reports: Anemia Infectious Medical History: Reports: None Past Surgical History Past Surgical History: Reports: Appendectomy, Cardiac Catheterization, Cholecystectomy, Hysterectomy, Orthopedic Surgery - left leg hardware Social History Lives with: Spouse/Significant other Smoking Status: Unknown if Ever Smoked Frequency of Alcohol Use: None Hx Recreational Drug Use: No Drugs: None Hx Prescription Drug Abuse: No Family History Family History: CAD Parental Family History Reviewed: Yes Children Family History Reviewed: Yes Sibling(s) Family History Reviewed.: Yes Medication/Allergy Home Medications: Benztropine Mesylate [Cogentin 1 mg Tablet] 1 mg PO BID 10/31/18 Duloxetine HCl [Cymbalta] 30 mg PO BID 10/31/18 Levothyroxine Sodium 150 mcg PO Q6AM 10/31/18 Metoprolol Succinate [Toprol Xl] 200 mg PO DAILY 10/31/18 Aspirin [Aspirin 325 mg Tablet] 325 mg PO DAILY #90 tablet 11/03/18 Atorvastatin Calcium [Lipitor 40 mg Tablet] 40 mg PO QHS #90 tablet 11/03/18 Empagliflozin [Jardiance] 25 mg PO DAILY #90 tablet 11/03/18 Valsartan [Diovan 160 mg Tablet] 160 mg PO DAILY #90 tablet 11/03/18 Doxepin HCl 50 mg PO BID 11/06/18 Sertraline HCl [Zoloft 50 mg Tablet] 50 mg PO DAILY 11/06/18 Allergies/Adverse Reactions: codeine Allergy (Verified 11/06/18 02:25) Review of Systems Constitutional: PRESENT: chills Eyes: ABSENT: visual disturbances Ears: ABSENT: hearing changes Cardiovascular: ABSENT: chest pain, dyspnea on exertion, edema, orthropnea, palpitations Respiratory: ABSENT: cough, hemoptysis Gastrointestinal: PRESENT: vomiting. ABSENT: abdominal pain, constipation, diarrhea, hematemesis, hematochezia, nausea Genitourinary: ABSENT: dysuria, hematuria Musculoskeletal: ABSENT: joint swelling Integumentary: ABSENT: rash, wounds Neurological: ABSENT: abnormal gait, abnormal speech, confusion, dizziness, focal weakness, syncope Psychiatric: ABSENT: anxiety, depression, homidical ideation, suicidal ideation Endocrine: ABSENT: cold intolerance, heat intolerance, menstrual abnormalities, polydipsia, polyuria Hematologic/Lymphatic: ABSENT: easy bleeding, easy bruising, lymphadenopathy Physical Exam Vital Signs: Temp Pulse Resp BP Pulse Ox 99.7 F 99 16 157/68 H 93 11/06/18 11:59 11/06/18 11:59 11/06/18 11:59 11/06/18 11:59 11/06/18 11:59 Intake & Output 11/05/18 11/06/18 11/07/18 06:59 06:59 06:59 Intake Total 2960 150 Output Total 200 Balance 2960 -50 Weight 78.7 kg General appearance: PRESENT: no acute distress, well-developed, well-nourished Head exam: PRESENT: atraumatic, normocephalic Eye exam: PRESENT: conjunctiva pink, EOMI, PERRLA Ear exam: PRESENT: normal external ear exam Mouth exam: PRESENT: moist, tongue midline Neck exam: PRESENT: full ROM Respiratory exam: PRESENT: clear to auscultation ellen Cardiovascular exam: PRESENT: RRR, +S1, +S2 Pulses: PRESENT: normal dorsalis pedis pul, +2 pedal pulses bilateral Vascular exam: PRESENT: normal capillary refill GI/Abdominal exam: PRESENT: normal bowel sounds, soft Rectal exam: PRESENT: deferred Neurological exam: PRESENT: alert, awake, oriented to person, oriented to place, oriented to time, oriented to situation, CN II-XII grossly intact Psychiatric exam: PRESENT: appropriate affect, normal mood Skin exam: PRESENT: other - There is swelling, warmth and tenderness on the dorsum of the left and consistent with cellulitis Results Laboratory Results: 11/06/18 04:55 11/06/18 04:55 11/05/18 11/05/18 11/05/18 18:00 18:00 18:00 WBC 13.3 H RBC 5.07 Hgb 14.8 Hct 43.8 MCV 87 MCH 29.2 MCHC 33.7 RDW 14.2 H Plt Count 152 Seg Neutrophils % 86.7 H Lymphocytes % 3.5 L Monocytes % 9.6 Eosinophils % 0.0 Basophils % 0.2 Absolute Neutrophils 11.5 H Absolute Lymphocytes 0.5 Absolute Monocytes 1.3 Absolute Eosinophils 0.0 Absolute Basophils 0.0 VBG pH VBG pCO2 VBG HCO3 VBG Base Excess Sodium 125.1 L Potassium 4.4 Chloride 88 L Carbon Dioxide 13 L Anion Gap 24 H BUN 17 Creatinine 0.86 Est GFR ( Amer) > 60 Est GFR (Non-Af Amer) > 60 Glucose 350 H Lactic Acid 2.2 H Calcium 9.3 Total Bilirubin 1.3 AST 45 H ALT 41 Alkaline Phosphatase 113 Total Protein 6.5 Albumin 3.8 Lipase TSH Free T4 11/05/18 11/05/18 11/05/18 18:00 18:00 18:00 WBC RBC Hgb Hct MCV MCH MCHC RDW Plt Count Seg Neutrophils % Lymphocytes % Monocytes % Eosinophils % Basophils % Absolute Neutrophils Absolute Lymphocytes Absolute Monocytes Absolute Eosinophils Absolute Basophils VBG pH 7.37 VBG pCO2 28.8 L VBG HCO3 16.2 L VBG Base Excess -7.5 Sodium Potassium Chloride Carbon Dioxide Anion Gap BUN Creatinine Est GFR ( Amer) Est GFR (Non-Af Amer) Glucose Lactic Acid Calcium Total Bilirubin AST ALT Alkaline Phosphatase Total Protein Albumin Lipase 18.4 L TSH 1.09 Free T4 1.86 11/05/18 11/06/18 11/06/18 22:30 04:55 04:55 WBC 8.8 RBC 4.56 Hgb 13.5 Hct 39.4 MCV 86 MCH 29.5 MCHC 34.2 RDW 14.1 H Plt Count 113 L Seg Neutrophils % Not Reportable Lymphocytes % Not Reportable Monocytes % Not Reportable Eosinophils % Not Reportable Basophils % Not Reportable Absolute Neutrophils Not Reportable Absolute Lymphocytes Not Reportable Absolute Monocytes Not Reportable Absolute Eosinophils Not Reportable Absolute Basophils Not Reportable VBG pH VBG pCO2 VBG HCO3 VBG Base Excess Sodium 128.4 L Potassium 3.6 Chloride 95 L Carbon Dioxide 19 L Anion Gap 14 BUN 20 Creatinine 0.86 Est GFR ( Amer) > 60 Est GFR (Non-Af Amer) > 60 Glucose 338 H Lactic Acid 1.5 Calcium 8.6 Total Bilirubin 1.1 AST 40 H ALT 36 Alkaline Phosphatase 116 Total Protein 6.6 Albumin 3.5 Lipase TSH Free T4 Impressions: Chest X-Ray 11/05/18 21:08 IMPRESSION: No acute disease. copyright 2010 [employer]- All Rights Reserved Hand X-Ray 11/05/18 21:08 IMPRESSION: Diffuse soft tissue swelling without underlying acute osseous anomaly. 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 transplanted heart: [place] heart Associated angina: without angina Qualified Code(s): I25.10 - Atherosclerotic heart disease of [place] coronary artery without angina pectoris Is this a current diagnosis for this admission?: Yes
[2018-11-06] MEDS ORDERED: VANCOMYCIN HCL 0 MG in DEXTROSE 5%-WATER 250 ML IV NR (14:00)
[2018-11-06] MEDS ORDERED: METOPROLOL SUCCINATE 50 MG TAB.SR.24H PO ONE (15:15)
[2018-11-06] MEDS ORDERED: LEVOTHYROXINE SODIUM 0.15 MG TABLET PO ONE (15:15)
[2018-11-06] MEDS ORDERED: VALSARTAN 160 MG TABLET PO ONE (15:15)
[2018-11-06] MEDS ORDERED: SERTRALINE HCL 50 MG TABLET PO ONE (15:15)
[2018-11-06 16:21] LABS: AMORPHOUS SEDIMENT,URINE TRACE /HPF; APPEARANCE,URINE CLEAR; BILIRUBIN,URINE NEGATIVE (NEGATIVE); COLOR,URINE YELLOW; GLUCOSE, URINE 150 mg/dL (NEGATIVE); KETONES,URINE NEGATIVE (NEGATIVE); LEUKOCYTE ESTERASE,URINE NEGATIVE (NEGATIVE); NITRITE,URINE NEGATIVE (NEGATIVE); PROTEIN,URINE NEGATIVE (NEGATIVE); URINE SPECIFIC GRAVITY 1.005; UROBILINOGEN,URINE NEGATIVE mg/dL (<2.0)
[2018-11-06] MEDS: BENZTROPINE MESYLATE 1 MG TABLET PO SCH (18:10)
[2018-11-06] MEDS: DULOXETINE HCL 30 MG CAPSULE.DR PO SCH (18:11)
[2018-11-06] MEDS: DOXEPIN HCL 25 MG CAPSULE PO SCH (18:11)
[2018-11-06] MEDS: ATORVASTATIN CALCIUM 40 MG TABLET PO SCH (23:37)
[2018-11-07] MEDS: CLINDAMYCIN 600 MG/D5W RTU 600 MG/50 ML RTUPB IV SCH ×2 (00:41→05:42)
[2018-11-07] MEDS: VANCOMYCIN HCL 750 MG in DEXTROSE 5%-WATER 250 ML IV SCH ×3 (02:33→22:17)
[2018-11-07 05:25] LABS: ABSOLUTE LYMPHOCYTES (AUTO) 0.8 10^3/uL (0.5-4.7); ABSOLUTE MONOCYTES (AUTO) 1.1 10^3/uL (0.1-1.4); ABSOLUTE NEUT (AUTO) 8.2 10^3/uL (1.7-8.2); BASOPHILS % (AUTO) 0.2 % (0-2); EOSINOPHILS % (AUTO) 0.1 % (0-6); HEMATOCRIT 36.5 % (36.0-47.0); HEMOGLOBIN 12.5 g/dL (12.0-15.5); MEAN CORPUSCULAR HGB CONC 34.3 g/dL (32.0-36.0); MEAN CORPUSCULAR VOLUME 85 fl (80-97); MONOCYTES % (AUTO) 10.7 % (3-13); PLATELET COUNT 122 10^3/uL (150-450); RED BLOOD COUNT 4.31 10^6/uL (3.72-5.28); RED CELL DISTRIBUTION WIDTH 14.1 % (11.5-14.0); TOTAL CELLS COUNTED % (AUTO) 100 %; WHITE BLOOD COUNT 10.2 10^3/uL (4.0-10.5)
[2018-11-07] MEDS: TRAMADOL HCL 50 MG TABLET PO PRN (05:42)
[2018-11-07] MEDS: LEVOTHYROXINE SODIUM 0.15 MG TABLET PO SCH (05:42)
[2018-11-07 05:43] LABS: ALANINE AMINOTRANSFERASE 41 U/L (9-52); ALBUMIN 2.8 g/dL (3.5-5.0); ALKALINE PHOSPHATASE 104 U/L (38-126); ANION GAP 8 (5-19); ASPARTATE AMINO TRANSFERASE 62 U/L (14-36); BILIRUBIN,DIRECT 0.4 mg/dL (0.0-0.4); BILIRUBIN,TOTAL 0.8 mg/dL (0.2-1.3); BLOOD UREA NITROGEN 18 mg/dL (7-20); CALCIUM 8.2 mg/dL (8.4-10.2); CARBON DIOXIDE 22 mmol/L (22-30); CHLORIDE 96 mmol/L (98-107); GLUCOSE 174 mg/dL (75-110); POTASSIUM 3.3 mmol/L (3.6-5.0); SODIUM 126.2 mmol/L (137-145); TOTAL PROTEIN 5.6 g/dL (6.3-8.2)
[2018-11-07] MEDS: INSULIN REG, HUMAN 100 UNIT/ML 3 ML VIAL (PYX) SUBCUT SCH ×4 (08:52→22:17)
[2018-11-07] MEDS: METOPROLOL SUCCINATE 50 MG TAB.SR.24H PO SCH (09:21)
[2018-11-07] MEDS: ASPIRIN 325 MG TABLET PO SCH (09:21)
[2018-11-07] MEDS: DOXEPIN HCL 25 MG CAPSULE PO SCH ×2 (09:21→18:36)
[2018-11-07] MEDS: SERTRALINE HCL 50 MG TABLET PO SCH (09:22)
[2018-11-07] MEDS: BENZTROPINE MESYLATE 1 MG TABLET PO SCH ×2 (09:22→18:37)
[2018-11-07] MEDS: VALSARTAN 160 MG TABLET PO SCH (09:22)
[2018-11-07] MEDS: ENOXAPARIN SODIUM INJ 40 MG/0.4 ML DISP.SYRIN SUBCUT SCH (09:22)
[2018-11-07] MEDS: DULOXETINE HCL 30 MG CAPSULE.DR PO SCH ×2 (09:22→18:33)
[2018-11-07] MEDS: NYSTATIN TOPICAL POWDER 15 GM TP SCH ×2 (09:23→18:38)
[2018-11-07] MEDS ORDERED: (PENDING PHARMACY ID) (Empagliflozin [Jardiance] 25 MG) PO SCH (10:00)
--- NOTE | 2018-11-07 11:57 | PDOC PROGRESS REPORT ---
Subjective Progress Note for:: 11/07/18 Subjective:: Patient seen by the bedside she was admitted for the management of staph aureus septicemia, she developed flaccid paralysis of the left side of the body consistent with acute CVA Reason For Visit: CELLULITIS OF THE LEFT HAND Physical Exam Vital Signs: Temp Pulse Resp BP Pulse Ox 98.2 F 72 19 124/53 L 94 11/07/18 07:22 11/07/18 07:22 11/07/18 07:22 11/07/18 07:22 11/07/18 07:22 Intake & Output 11/06/18 11/07/18 11/08/18 06:59 06:59 06:59 Intake Total 2960 970 Output Total 800 Balance 2960 170 Weight 78.7 kg 79 kg General appearance: PRESENT: no acute distress Eye exam: PRESENT: PERRLA Respiratory exam: PRESENT: clear to auscultation ellen Cardiovascular exam: PRESENT: +S1, +S2 GI/Abdominal exam: PRESENT: soft Neurological exam: PRESENT: alert Results Laboratory Results: 11/07/18 04:39 11/07/18 04:39 11/06/18 11/07/18 11/07/18 15:35 04:39 04:39 WBC 10.2 RBC 4.31 Hgb 12.5 Hct 36.5 MCV 85 MCH 29.0 MCHC 34.3 RDW 14.1 H Plt Count 122 L Seg Neutrophils % 81.0 H Lymphocytes % 8.0 L Monocytes % 10.7 Eosinophils % 0.1 Basophils % 0.2 Absolute Neutrophils 8.2 Absolute Lymphocytes 0.8 Absolute Monocytes 1.1 Absolute Eosinophils 0.0 Absolute Basophils 0.0 Sodium 126.2 L Potassium 3.3 L Chloride 96 L Carbon Dioxide 22 Anion Gap 8 BUN 18 Creatinine 0.78 Est GFR ( Amer) > 60 Est GFR (Non-Af Amer) > 60 Glucose 174 H Calcium 8.2 L Total Bilirubin 0.8 AST 62 H ALT 41 Alkaline Phosphatase 104 Total Protein 5.6 L Albumin 2.8 L Urine Color YELLOW Urine Appearance CLEAR Urine pH 6.0 Ur Specific Tad 1.005 Urine Protein NEGATIVE Urine Glucose (UA) 150 H Urine Ketones NEGATIVE Urine Blood MODERATE H Urine Nitrite NEGATIVE Ur Leukocyte Esterase NEGATIVE Urine WBC (Auto) 1 Urine RBC (Auto) 0 Impressions: Chest X-Ray 11/05/18 21:08 IMPRESSION: No acute disease. copyright 2010 [employer]- All Rights Reserved Hand X-Ray 11/05/18 21:08 IMPRESSION: Diffuse soft tissue swelling without underlying acute osseous anomaly. copyright 2010 [employer]- All Rights Reserved Assessment & Plan - Diagnosis (1) Cellulitis of left hand Is this a current diagnosis for this admission?: Yes (2) Septicemia Is this a current diagnosis for this admission?: Yes (3) Hyponatremia Is this a current diagnosis for this admission?: Yes (4) T2DM (type 2 diabetes mellitus) Qualifiers: Diabetes mellitus director long term care insulin use: without nursing home use Diabetes mellitus complication status: with neurologic complications Diabetes mellitus complication detail: with polyneuropathy Qualified Code(s): E11.42 - Type 2 diabetes mellitus with diabetic polyneuropathy Is this a current diagnosis for this admission?: Yes (5) Coronary artery disease Qualifiers: Coronary Disease-Associated Artery/Lesion type: [place] artery [place] vs. transplanted heart: [place] heart Associated angina: without angina Qualified Code(s): I25.10 - Atherosclerotic heart disease of [place] coronary artery without angina pectoris Is this a current diagnosis for this admission?: Yes (6) Cerebral infarction Qualifiers: Cerebral infarction mechanism: unspecified mechanism Qualified Code(s): I63.9 - Cerebral infarction, unspecified Is this a current diagnosis for this admission?: Yes Plan: Patient with no CVA transferred to [facility] to be managed per stroke protocol
--- NOTE | 2018-11-07 18:30 | RADIOLOGY REPORT (SQ) ---
EXAM DESCRIPTION: CT HEAD WITHOUT COMPLETED DATE/TIME: 11/07/2018 5:41 pm REASON FOR STUDY: balance change, weakness left side COMPARISON: 10/30/2018. TECHNIQUE: Axial images acquired through the brain without intravenous contrast. Images reviewed wi th bone, brain and subdural windows. Images stored on PACS. All CT scanners at this facility use dose modulation, iterative reconstruction, and/or weight based d osing when appropriate to reduce radiation dose to as low as reasonably achievable (ALARA). [facility]: Dose Right [facility]: CareDose [facility]: Dose Right [facility]: Teradose 4D [facility]: TruQC RADIATION DOSE: CT Rad equipment meets quality standard of care and radiation dose reduction techniq ues were employed. CTDIvol: 53.2 mGy. DLP: 1044 mGy-cm. mGy. LIMITATIONS: None. FINDINGS: VENTRICLES: Normal size and contour. CEREBRUM: No masses. No hemorrhage. No midline shift. No evidence for acute infarction. Normal gra y/white matter differentiation. No areas of low density in the white matter. CEREBELLUM: No masses. No hemorrhage. No alteration of density. No evidence for acute infarction. EXTRAAXIAL SPACES: No fluid collections. No masses. ORBITS AND GLOBE: No intra- or extraconal masses. Normal contour of globe without masses. CALVARIUM: Status post right frontotemporal craniotomy. PARANASAL SINUSES: No fluid or mucosal thickening. SOFT TISSUES: No mass or hematoma. OTHER: Cavum vergae and cavum septum pellucidum. IMPRESSION: NO SIGNIFICANT INTERVAL CHANGE. EVIDENCE OF ACUTE STROKE: NO. COMMENT: Quality ID # [id number]: Final reports with documentation of one or more dose reduction techniques (e.g., Automated exposure control, adjustment of the mA and/or kV according to patient size, use of iterative reconstruction technique) TECHNICAL DOCUMENTATION: JOB ID: [id number] SC-69 2010 [employer]- All Rights Reserved Reading location - IP/workstation name: [email or web address]
[2018-11-07] MEDS: POTASSIUM CHLORIDE 10 MEQ CAPSULE.ER PO SCH (18:37)
[2018-11-07] MEDS: ATORVASTATIN CALCIUM 40 MG TABLET PO SCH (22:17)
[2018-11-08 04:50] LABS: HEMATOCRIT 36.7 % (36.0-47.0); HEMOGLOBIN 12.7 g/dL (12.0-15.5); MEAN CORPUSCULAR HEMOGLOBIN 29.3 pg (27.0-33.4); MEAN CORPUSCULAR HGB CONC 34.6 g/dL (32.0-36.0); MEAN CORPUSCULAR VOLUME 85 fl (80-97); PLATELET COUNT 148 10^3/uL (150-450); RED BLOOD COUNT 4.34 10^6/uL (3.72-5.28); RED CELL DISTRIBUTION WIDTH 14.2 % (11.5-14.0); WHITE BLOOD COUNT 12.7 10^3/uL (4.0-10.5)
[2018-11-08 05:06] LABS: ABSOLUTE LYMPHOCYTES# (MANUAL) 1.1 10^3/uL (0.5-4.7); ABSOLUTE NEUTROPHILS# (MANUAL) 10.5 10^3/uL (1.7-8.2); BAND NEUTROPHILS % (MANUAL) 8 % (3-5); BASOPHILS % (MANUAL) 0 % (0-2); EOSINOPHILS % (MANUAL) 0 % (0-6); LYMPHOCYTES % (MANUAL) 9 % (13-45); MONOCYTES % (MANUAL) 8 % (3-13); PLATELET COMMENT DECREASED; SEGMENTED NEUTROPHILS % (MAN) 75 % (42-78); TOTAL CELLS COUNTED 100
[2018-11-08 05:08] LABS: ALANINE AMINOTRANSFERASE 51 U/L (9-52); ALBUMIN 2.6 g/dL (3.5-5.0); ALKALINE PHOSPHATASE 120 U/L (38-126); ANION GAP 13 (5-19); ANISOCYTOSIS SLIGHT; ASPARTATE AMINO TRANSFERASE 86 U/L (14-36); BILIRUBIN,DIRECT 0.5 mg/dL (0.0-0.4); BILIRUBIN,TOTAL 0.9 mg/dL (0.2-1.3); BLOOD UREA NITROGEN 25 mg/dL (7-20); CARBON DIOXIDE 17 mmol/L (22-30); CHLORIDE 95 mmol/L (98-107); GLUCOSE 194 mg/dL (75-110); POIKILOCYTOSIS 1+; TOTAL PROTEIN 5.2 g/dL (6.3-8.2)
[2018-11-08 05:09] LABS: PLATELET GIANT PRESENT; TOXIC VACUOLATION PRESENT
[2018-11-08] MEDS: LEVOTHYROXINE SODIUM 0.15 MG TABLET PO SCH (07:09)
[2018-11-08] MEDS: INSULIN REG, HUMAN 100 UNIT/ML 3 ML VIAL (PYX) SUBCUT SCH ×4 (08:25→21:46)
[2018-11-08] MEDS: ONDANSETRON HCL INJ/PF 4 MG/2 ML SDV IV PRN (08:29)
[2018-11-08] MEDS: NORMAL SALINE 1000 ML 1,000 ML IV PRN (08:29)
[2018-11-08] MEDS: ENOXAPARIN SODIUM INJ 40 MG/0.4 ML DISP.SYRIN SUBCUT SCH (09:44)
[2018-11-08] MEDS: VALSARTAN 160 MG TABLET PO SCH (09:45)
[2018-11-08] MEDS: POTASSIUM CHLORIDE 10 MEQ CAPSULE.ER PO SCH (09:45)
[2018-11-08] MEDS: SERTRALINE HCL 50 MG TABLET PO SCH (09:46)
[2018-11-08] MEDS: METOPROLOL SUCCINATE 50 MG TAB.SR.24H PO SCH (09:46)
[2018-11-08] MEDS: DULOXETINE HCL 30 MG CAPSULE.DR PO SCH ×2 (09:46→17:54)
[2018-11-08] MEDS: BENZTROPINE MESYLATE 1 MG TABLET PO SCH ×2 (09:46→17:54)
[2018-11-08] MEDS: NYSTATIN TOPICAL POWDER 15 GM TP SCH ×2 (09:47→17:58)
[2018-11-08] MEDS: VANCOMYCIN HCL 750 MG in DEXTROSE 5%-WATER 250 ML IV SCH (09:51)
[2018-11-08 10:10] LABS: VANCOMYCIN,TROUGH 11.6 ug/mL (5.0-20.0)
[2018-11-08] MEDS ORDERED: LORAZEPAM INJ 2 MG/1 ML VIAL ONE (10:46)
[2018-11-08] MEDS ORDERED: LORAZEPAM 1 MG TABLET ONE (11:07)
--- NOTE | 2018-11-08 12:30 | RADIOLOGY REPORT (SQ) ---
EXAM DESCRIPTION: MRI HEAD WITHOUT COMPLETED DATE/TIME: 11/08/2018 12:14 pm REASON FOR STUDY: CVA COMPARISON: MR 10/31/2018 CT 11/07/2018 TECHNIQUE: Multiplanar imaging includes non-contrasted T1, T2, FLAIR, and diffusion with ADC map seq uences. Images stored on PACS. LIMITATIONS: None. FINDINGS: ANATOMY: No anomalies. Normal vascular flow voids. Pituitary fossa normal. CSF SPACES: Normal in size and contour. No hemorrhage. CEREBRUM: Sulci and gyri normal in size and contour. Scattered areas of increased white matter signa l on FLAIR imaging. Subacute lacunar infarction in the left frontal periventricular region. Acute p eriventricular infarction just above the right lateral ventricle. Acute lacunar infarction in the ri ght frontal periventricular region. No evidence of hemorrhage, mass, or extraaxial fluid collection. POSTERIOR FOSSA: No signal alteration. No hemorrhage. No edema, masses or mass effect. Internal alejandro tory canals, cerebello-pontine angles, mastoids normal. DIFFUSION IMAGING: There are new areas of abnormal diffusion on the right in the frontal lobe adjacen t to the frontal horn of the right lateral ventricle and immediately along the superior margin of the right lateral ventricle. ORBITS: No masses. Globes normal. PARANASAL SINUSES: No fluid levels. Mucosa normal. OTHER: No other significant finding. IMPRESSION: Subacute lacunar infarct in the left periventricular region on the frontal lobe. Acute infarctions in the right frontal lobe. EVIDENCE OF ACUTE STROKE: Yes RIGHT XUAN TECHNICAL DOCUMENTATION: JOB ID: [id number] [employer]- All Rights Reserved Reading location - IP/workstation name: [email or web address]
[2018-11-08] MEDS: ASPIRIN 325 MG TABLET PO SCH (12:51)
[2018-11-08] MEDS: DOXEPIN HCL 25 MG CAPSULE PO SCH ×2 (12:52→17:59)
--- NOTE | 2018-11-08 14:14 | PDOC PROGRESS REPORT ---
Subjective Progress Note for:: 11/08/18 Subjective:: Patient was seen by the bedside MRI brain was done today, it demonstrated acute infarct in the right frontal lobe. There are new areas of abnormal diffusion on the right frontal lobe adjacent to the frontal on of the right lateral ventricle and immediately along the superior margin of the right lateral ventricle Reason For Visit: CELLULITIS OF THE LEFT HAND Physical Exam Vital Signs: Temp Pulse Resp BP Pulse Ox 98.2 F 63 16 147/64 H 96 11/08/18 07:24 11/08/18 07:24 11/08/18 07:24 11/08/18 07:24 11/08/18 09:41 Intake & Output 11/07/18 11/08/18 11/09/18 06:59 06:59 06:59 Intake Total 1970 500 Output Total 800 Balance 1170 500 Weight 79 kg 80.2 kg General appearance: PRESENT: no acute distress Eye exam: PRESENT: PERRLA Respiratory exam: PRESENT: clear to auscultation ellen Cardiovascular exam: PRESENT: +S1, +S2 GI/Abdominal exam: PRESENT: soft Neurological exam: PRESENT: alert, other - Left-sided hemiparesis Results Laboratory Results: 11/08/18 03:55 11/08/18 03:55 11/08/18 11/08/18 03:55 03:55 WBC 12.7 H RBC 4.34 Hgb 12.7 Hct 36.7 MCV 85 MCH 29.3 MCHC 34.6 RDW 14.2 H Plt Count 148 L Seg Neutrophils % Not Reportable Lymphocytes % Not Reportable Monocytes % Not Reportable Eosinophils % Not Reportable Basophils % Not Reportable Absolute Neutrophils Not Reportable Absolute Lymphocytes Not Reportable Absolute Monocytes Not Reportable Absolute Eosinophils Not Reportable Absolute Basophils Not Reportable Sodium 125.0 L Potassium 4.0 Chloride 95 L Carbon Dioxide 17 L Anion Gap 13 BUN 25 H Creatinine 0.76 Est GFR ( Amer) > 60 Est GFR (Non-Af Amer) > 60 Glucose 194 H Calcium 8.0 L Total Bilirubin 0.9 AST 86 H ALT 51 Alkaline Phosphatase 120 Total Protein 5.2 L Albumin 2.6 L 11/05/18 18:00 Blood Blood Culture - Final Staphylococcus Aureus 11/05/18 21:01 Blood Blood Culture - Final Staphylococcus Aureus Impressions: Chest X-Ray 11/05/18 21:08 IMPRESSION: No acute disease. copyright 2011 [employer]- All Rights Reserved Hand X-Ray 11/05/18 21:08 IMPRESSION: Diffuse soft tissue swelling without underlying acute osseous anomaly. copyright 2010 [email or web address]- All Rights Reserved Head CT 11/07/18 00:00 IMPRESSION: NO SIGNIFICANT INTERVAL CHANGE. EVIDENCE OF ACUTE STROKE: NO. Head MRI 11/08/18 00:00 IMPRESSION: Subacute lacunar infarct in the left periventricular region on the frontal lobe. Acute infarctions in the right frontal lobe. EVIDENCE OF ACUTE STROKE: Yes RIGHT XUAN Assessment & Plan - Diagnosis (1) Staphylococcus aureus septicemia Is this a current diagnosis for this admission?: Yes Plan: She has staph aureus septicemia the bacteria is sensitive to all antibiotic, DC vancomycin, start back patient on clindamycin (2) Cellulitis of left hand Is this a current diagnosis for this admission?: Yes (3) Hyponatremia Is this a current diagnosis for this admission?: Yes (4) T2DM (type 2 diabetes mellitus) Qualifiers: Diabetes mellitus [facility] insulin use: without long term care administrator use Diabetes mellitus complication status: with neurologic complications Diabetes mellitus complication detail: with polyneuropathy Qualified Code(s): E11.42 - Type 2 diabetes mellitus with diabetic polyneuropathy Is this a current diagnosis for this admission?: Yes (5) Coronary artery disease Qualifiers: Coronary Disease-Associated Artery/Lesion type: [place] artery [place] vs. transplanted heart: [place] heart Associated angina: without angina Qualified Code(s): I25.10 - Atherosclerotic heart disease of [place] coronary artery witho ut angina pectoris Is this a current diagnosis for this admission?: Yes (6) Cerebral infarction Qualifiers: Cerebral infarction mechanism: unspecified mechanism Qualified Code(s): I63.9 - Cerebral infarction, unspecified Is this a current diagnosis for this admission?: Yes Plan: She has a new stroke
[2018-11-08] MEDS ORDERED: ATORVASTATIN CALCIUM 40 MG TABLET PO SCH (14:15)
--- NOTE | 2018-11-08 14:44 | RADIOLOGY REPORT (SQ) ---
EXAM DESCRIPTION: CHEST SINGLE VIEW COMPLETED DATE/TIME: 11/08/2018 2:35 pm REASON FOR STUDY: placement of IJ COMPARISON: 11/05/2018 EXAM PARAMETERS: NUMBER OF VIEWS: One view. TECHNIQUE: Single frontal radiographic view of the chest acquired. RADIATION DOSE: NA LIMITATIONS: None. FINDINGS: Interval placement of a left neck vascular catheter, tip in low position near the inferior cavoatrial junction. Cardiomegaly with minimal diffuse interstitial pulmonary opacity and possible small layering pleural effusions in low volume AP projection. There is no focal airspace opacity. IMPRESSION: 1. Interval placement of a left neck vascular catheter, tip in low position near the inf erior cavoatrial junction. Consider retraction for position near the superior cavoatrial junction. 2. Cardiomegaly with minimal diffuse interstitial pulmonary opacity and possible small layering pleur al effusions in low volume AP projection. There is no focal airspace opacity. TECHNICAL DOCUMENTATION: JOB ID: [id number] [employer]- All Rights Reserved Reading location - IP/workstation name: [email or web address]
[2018-11-08] MEDS ORDERED: NORMAL SALINE INJ/PF 0.9% 10 ML SDV IV PRN (16:27)
[2018-11-08] MEDS: CLINDAMYCIN 600 MG/D5W RTU 600 MG/50 ML RTUPB IV SCH ×2 (17:53→21:47)
[2018-11-08] MEDS: METFORMIN HCL 500 MG TABLET PO SCH (17:53)
[2018-11-08] MEDS: SITAGLIPTIN PHOSPHATE 50 MG TABLET PO SCH (17:54)
[2018-11-08 19:36] LABS: OSMOLALITY,URINE 447 mOsm/kg (300-900)
[2018-11-08 19:47] LABS: URINE SODIUM < 5 mmol/L (30-90)
[2018-11-08] MEDS: ATORVASTATIN CALCIUM 80 MG TABLET PO SCH (21:48)
[2018-11-09] MEDS: NORMAL SALINE 1000 ML 1,000 ML IV PRN ×3 (04:06→22:24)
[2018-11-09] MEDS: LEVOTHYROXINE SODIUM 0.15 MG TABLET PO SCH (05:44)
[2018-11-09] MEDS: CLINDAMYCIN 600 MG/D5W RTU 600 MG/50 ML RTUPB IV SCH ×3 (05:46→22:10)
[2018-11-09] MEDS: INSULIN REG, HUMAN 100 UNIT/ML 3 ML VIAL (PYX) SUBCUT SCH ×5 (09:08→22:11)
[2018-11-09] MEDS: SITAGLIPTIN PHOSPHATE 50 MG TABLET PO SCH ×3 (09:08→17:30)
[2018-11-09] MEDS: METFORMIN HCL 500 MG TABLET PO SCH ×3 (09:08→17:30)
[2018-11-09] MEDS: SERTRALINE HCL 50 MG TABLET PO SCH (10:44)
[2018-11-09] MEDS: VALSARTAN 160 MG TABLET PO SCH (10:44)
[2018-11-09] MEDS: METOPROLOL SUCCINATE 50 MG TAB.SR.24H PO SCH (10:44)
[2018-11-09] MEDS: BENZTROPINE MESYLATE 1 MG TABLET PO SCH ×2 (10:44→17:30)
[2018-11-09] MEDS: DULOXETINE HCL 30 MG CAPSULE.DR PO SCH ×2 (10:45→17:30)
[2018-11-09] MEDS: ENOXAPARIN SODIUM INJ 40 MG/0.4 ML DISP.SYRIN SUBCUT SCH (10:46)
[2018-11-09] MEDS: POTASSIUM CHLORIDE 10 MEQ CAPSULE.ER PO SCH (10:46)
[2018-11-09] MEDS: DOXEPIN HCL 25 MG CAPSULE PO SCH ×2 (10:48→17:30)
[2018-11-09] MEDS: NYSTATIN TOPICAL POWDER 15 GM TP SCH ×2 (10:48→17:30)
[2018-11-09] MEDS: ASPIRIN 325 MG TABLET PO SCH (10:48)
--- NOTE | 2018-11-09 21:15 | PDOC PROGRESS REPORT ---
Subjective Progress Note for:: 11/09/18 Subjective:: Patient seen by the bedside, she is very stuporous but the mends assessment has not change Reason For Visit: CELLULITIS OF THE LEFT HAND Physical Exam Vital Signs: Temp Pulse Resp BP Pulse Ox 98.1 F 66 22 H 144/71 H 96 11/09/18 15:12 11/09/18 16:00 11/09/18 16:00 11/09/18 16:00 11/09/18 16:00 Intake & Output 11/08/18 11/09/18 11/10/18 06:59 06:59 06:59 Intake Total 500 1450 1100 Balance 500 1450 1100 Weight 80.2 kg 81.8 kg General appearance: PRESENT: no acute distress Eye exam: PRESENT: PERRLA Respiratory exam: PRESENT: clear to auscultation ellen Cardiovascular exam: PRESENT: +S1, +S2 Neurological exam: PRESENT: alert, motor sensory deficit - left sided paralysis Results Laboratory Results: 11/08/18 03:55 11/08/18 03:55 11/05/18 18:00 Hand - Abscess Gram Stain - Final 11/05/18 18:00 Hand - Abscess Wound Culture - Final Staphylococcus Aureus No Anaerobic Organisms Impressions: Hand X-Ray 11/05/18 21:08 IMPRESSION: Diffuse soft tissue swelling without underlying acute osseous anomaly. copyright 2011 [employer]- All Rights Reserved Head CT 11/07/18 00:00 IMPRESSION: NO SIGNIFICANT INTERVAL CHANGE. EVIDENCE OF ACUTE STROKE: NO. Chest X-Ray 11/08/18 00:00 IMPRESSION: 1. Interval placement of a left neck vascular catheter, tip in low position near the inferior cavoatrial junction. Consider retraction for position near the superior cavoatrial junction. 2. Cardiomegaly with minimal diffuse interstitial pulmonary opacity and possible small layering pleural effusions in low volume AP projection. There is no focal airspace opacity. Head MRI 11/08/18 00:00 IMPRESSION: Subacute lacunar infarct in the left periventricular region on the frontal lobe. Acute infarctions in the right frontal lobe. EVIDENCE OF ACUTE STROKE: Yes RIGHT XUAN Assessment & Plan - Diagnosis (1) Staphylococcus aureus septicemia Is this a current diagnosis for this admission?: Yes Plan: continue IV clindamycin (2) Cellulitis of left hand Is this a current diagnosis for this admission?: Yes (3) Hyponatremia Is this a current diagnosis for this admission?: Yes (4) T2DM (type 2 diabetes mellitus) Qualifiers: Diabetes mellitus long term care pharmacist insulin use: without long term care pharmacist use Diabetes mellitus complication status: with neurologic complications Diabetes mellitus complication detail: with polyneuropathy Qualified Code(s): E11.42 - Type 2 diabetes mellitus with diabetic polyneuropathy Is this a current diagnosis for this admission?: Yes (5) Coronary artery disease Qualifiers: Coronary Disease-Associated Artery/Lesion type: [place] artery [place] vs. 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
[2018-11-09] MEDS: ATORVASTATIN CALCIUM 80 MG TABLET PO SCH (22:10)
[2018-11-10] MEDS: LEVOTHYROXINE SODIUM 0.15 MG TABLET PO SCH (05:05)
[2018-11-10] MEDS: CLINDAMYCIN 600 MG/D5W RTU 600 MG/50 ML RTUPB IV SCH ×3 (05:05→22:54)
[2018-11-10] MEDS: INSULIN REG, HUMAN 100 UNIT/ML 3 ML VIAL (PYX) SUBCUT SCH ×4 (08:33→22:55)
[2018-11-10] MEDS: SITAGLIPTIN PHOSPHATE 50 MG TABLET PO SCH ×2 (08:34→17:38)
[2018-11-10] MEDS: METFORMIN HCL 500 MG TABLET PO SCH ×2 (08:34→17:39)
[2018-11-10] MEDS: ASPIRIN 325 MG TABLET PO SCH (11:55)
[2018-11-10] MEDS: VALSARTAN 160 MG TABLET PO SCH (11:55)
[2018-11-10] MEDS: POTASSIUM CHLORIDE 10 MEQ CAPSULE.ER PO SCH (11:55)
[2018-11-10] MEDS: METOPROLOL SUCCINATE 50 MG TAB.SR.24H PO SCH (11:55)
[2018-11-10] MEDS: DOXEPIN HCL 25 MG CAPSULE PO SCH ×2 (11:56→17:38)
[2018-11-10] MEDS: ENOXAPARIN SODIUM INJ 40 MG/0.4 ML DISP.SYRIN SUBCUT SCH (11:56)
[2018-11-10] MEDS: SERTRALINE HCL 50 MG TABLET PO SCH (11:56)
[2018-11-10] MEDS: BENZTROPINE MESYLATE 1 MG TABLET PO SCH ×2 (11:56→17:39)
[2018-11-10] MEDS: DULOXETINE HCL 30 MG CAPSULE.DR PO SCH ×2 (11:56→17:39)
[2018-11-10] MEDS: NYSTATIN TOPICAL POWDER 15 GM TP SCH ×2 (12:06→17:39)
[2018-11-10] MEDS: ONDANSETRON HCL INJ/PF 4 MG/2 ML SDV IV PRN (14:46)
--- NOTE | 2018-11-10 18:50 | PDOC PROGRESS REPORT ---
Subjective Progress Note for:: 11/10/18 Subjective:: Patient seen by the bedside, she is very stuporous, I discussed her condition with her spouse ,MRI brain is ordered to rule out any extension of the stroke Reason For Visit: CELLULITIS OF THE LEFT HAND Physical Exam Vital Signs: Temp Pulse Resp BP Pulse Ox 97.3 F 64 18 152/69 H 100 11/10/18 15:46 11/10/18 16:00 11/10/18 16:00 11/10/18 16:00 11/10/18 16:00 Intake & Output 11/09/18 11/10/18 11/11/18 06:59 06:59 06:59 Intake Total 1450 1635 50 Balance 1450 1635 50 Weight 81.8 kg 100 kg General appearance: PRESENT: no acute distress Eye exam: PRESENT: PERRLA Respiratory exam: PRESENT: clear to auscultation ellen Cardiovascular exam: PRESENT: +S1, +S2 GI/Abdominal exam: PRESENT: soft Neurological exam: PRESENT: alert, motor sensory deficit Results Laboratory Results: 11/08/18 03:55 11/08/18 03:55 Impressions: Hand X-Ray 11/05/18 21:08 IMPRESSION: Diffuse soft tissue swelling without underlying acute osseous anomaly. copyright 2010 [employer]- All Rights Reserved Head CT 11/07/18 00:00 IMPRESSION: NO SIGNIFICANT INTERVAL CHANGE. EVIDENCE OF ACUTE STROKE: NO. Chest X-Ray 11/08/18 00:00 IMPRESSION: 1. Interval placement of a left neck vascular catheter, tip in low position near the inferior cavoatrial junction. Consider retraction for position near the superior cavoatrial junction. 2. Cardiomegaly with minimal diffuse interstitial pulmonary opacity and possible small layering pleural effusions in low volume AP projection. There is no focal airspace opacity. Head MRI 11/08/18 00:00 IMPRESSION: Subacute lacunar infarct in the left periventricular region on the frontal lobe. Acute infarctions in the right frontal lobe. EVIDENCE OF ACUTE STROKE: Yes RIGHT XUAN Assessment & Plan - Diagnosis (1) Staphylococcus aureus septicemia Is this a current diagnosis for this admission?: Yes Plan: continue IV clindamycin (2) Cellulitis of left hand Is this a current diagnosis for this admission?: Yes (3) Hyponatremia Is this a current diagnosis for this admission?: Yes (4) T2DM (type 2 diabetes mellitus) Qualifiers: Diabetes mellitus senior care insulin use: without manager long term care use Diabetes mellitus complication status: with neurologic complications Diabetes mellitus complication detail: with polyneuropathy Qualified Code(s): E11.42 - Type 2 diabetes mellitus with diabetic polyneuropathy Is this a current diagnosis for this admission?: Yes (5) Coronary artery disease Qualifiers: Coronary Disease-Associated Artery/Lesion type: [place] artery [place] vs. 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
--- NOTE | 2018-11-10 20:24 | RADIOLOGY REPORT (SQ) ---
EXAM DESCRIPTION: MRI HEAD WITHOUT COMPLETED DATE/TIME: 11/10/2018 7:50 pm REASON FOR STUDY: ? extension of CVA COMPARISON: MR 11/08/2018. TECHNIQUE: Multiplanar imaging includes non-contrasted T1, T2, FLAIR, and diffusion with ADC map seq uences. Images stored on PACS. LIMITATIONS: None. FINDINGS: ANATOMY: No anomalies. Normal vascular flow voids. Pituitary fossa normal. CSF SPACES: Normal in size and contour. No hemorrhage. CEREBRUM: Cortical atrophy. There are areas of increased white matter signal on FLAIR imaging. Ther e is no hemorrhage. There is no midline shift. POSTERIOR FOSSA: No signal alteration. No hemorrhage. No edema, masses or mass effect. Internal alejandro tory canals, cerebello-pontine angles, mastoids normal. DIFFUSION IMAGING: There are persistent areas of restricted diffusion in each frontal lobe. There is no change in the pattern or extent. ORBITS: No masses. Globes normal. PARANASAL SINUSES: No fluid levels. Mucosa normal. OTHER: No other significant finding. IMPRESSION: Stable subacute infarctions as described. No interval change since 11/08/2018. EVIDENCE OF ACUTE STROKE: NO. TECHNICAL DOCUMENTATION: JOB ID: [id number] [employer]- All Rights Reserved Reading location - IP/workstation name: [email or web address]
[2018-11-10] MEDS: TRAMADOL HCL 50 MG TABLET PO PRN (22:56)
[2018-11-10] MEDS: ATORVASTATIN CALCIUM 80 MG TABLET PO SCH (22:56)
[2018-11-11 02:18] LABS: ALANINE AMINOTRANSFERASE 44 U/L (9-52); ALBUMIN 2.4 g/dL (3.5-5.0); ALKALINE PHOSPHATASE 107 U/L (38-126); ANION GAP 10 (5-19); ASPARTATE AMINO TRANSFERASE 40 U/L (14-36); BILIRUBIN,DIRECT 0.5 mg/dL (0.0-0.4); BILIRUBIN,TOTAL 0.6 mg/dL (0.2-1.3); BLOOD UREA NITROGEN 17 mg/dL (7-20); CALCIUM 8.2 mg/dL (8.4-10.2); CARBON DIOXIDE 20 mmol/L (22-30); CHLORIDE 101 mmol/L (98-107); GLUCOSE 164 mg/dL (75-110); POTASSIUM 4.8 mmol/L (3.6-5.0); SODIUM 130.5 mmol/L (137-145)
[2018-11-11] MEDS: CLINDAMYCIN 600 MG/D5W RTU 600 MG/50 ML RTUPB IV SCH ×3 (06:02→21:57)
[2018-11-11] MEDS: LEVOTHYROXINE SODIUM 0.15 MG TABLET PO SCH (06:02)
[2018-11-11] MEDS: VALSARTAN 160 MG TABLET PO SCH (09:48)
[2018-11-11] MEDS: METFORMIN HCL 500 MG TABLET PO SCH ×2 (09:48→15:59)
[2018-11-11] MEDS: METOPROLOL SUCCINATE 50 MG TAB.SR.24H PO SCH (09:48)
[2018-11-11] MEDS: BENZTROPINE MESYLATE 1 MG TABLET PO SCH ×2 (09:48→17:59)
[2018-11-11] MEDS: SERTRALINE HCL 50 MG TABLET PO SCH (09:49)
[2018-11-11] MEDS: DULOXETINE HCL 30 MG CAPSULE.DR PO SCH ×2 (09:49→17:59)
[2018-11-11] MEDS: POTASSIUM CHLORIDE 10 MEQ CAPSULE.ER PO SCH (09:49)
[2018-11-11] MEDS: SITAGLIPTIN PHOSPHATE 50 MG TABLET PO SCH ×2 (09:49→15:59)
[2018-11-11] MEDS: ASPIRIN 325 MG TABLET PO SCH (09:50)
[2018-11-11] MEDS: DOXEPIN HCL 25 MG CAPSULE PO SCH ×2 (09:50→17:59)
[2018-11-11] MEDS: ENOXAPARIN SODIUM INJ 40 MG/0.4 ML DISP.SYRIN SUBCUT SCH (09:50)
[2018-11-11] MEDS: NYSTATIN TOPICAL POWDER 15 GM TP SCH ×2 (09:51→17:59)
[2018-11-11] MEDS: INSULIN REG, HUMAN 100 UNIT/ML 3 ML VIAL (PYX) SUBCUT SCH ×4 (09:52→21:58)
--- NOTE | 2018-11-11 21:09 | PDOC PROGRESS REPORT ---
Subjective Progress Note for:: 11/11/18 Subjective:: Patient was seen by the bedside, she is more responsive today than the last 2 days, MRI showed no extension of the stroke, she will need rehabilitation, will get discharge planning to start arranging for placement for rehabilitation, she has left-sided hemiparesis Reason For Visit: CELLULITIS OF THE LEFT HAND Physical Exam Vital Signs: Temp Pulse Resp BP Pulse Ox 97.4 F 58 L 19 105/51 L 98 11/11/18 19:10 11/11/18 19:10 11/11/18 19:10 11/11/18 19:10 11/11/18 19:10 Intake & Output 11/10/18 11/11/18 11/12/18 06:59 06:59 06:59 Intake Total 1635 1240 627 Output Total 1557 Balance 1635 -317 627 Weight 100 kg 99.3 kg General appearance: PRESENT: no acute distress Eye exam: PRESENT: PERRLA Respiratory exam: PRESENT: clear to auscultation ellen Cardiovascular exam: PRESENT: +S1, +S2 GI/Abdominal exam: PRESENT: soft Neurological exam: PRESENT: alert, motor sensory deficit Results Laboratory Results: 11/08/18 03:55 11/11/18 01:35 11/11/18 01:35 Sodium 130.5 L Potassium 4.8 Chloride 101 Carbon Dioxide 20 L Anion Gap 10 BUN 17 Creatinine 0.52 Est GFR ( Amer) > 60 Est GFR (Non-Af Amer) > 60 Glucose 164 H Calcium 8.2 L Total Bilirubin 0.6 AST 40 H ALT 44 Alkaline Phosphatase 107 Total Protein 5.0 L Albumin 2.4 L Impressions: Hand X-Ray 11/05/18 21:08 IMPRESSION: Diffuse soft tissue swelling without underlying acute osseous anomaly. copyright 2010 [employer]- All Rights Reserved Head CT 11/07/18 00:00 IMPRESSION: NO SIGNIFICANT INTERVAL CHANGE. EVIDENCE OF ACUTE STROKE: NO. Chest X-Ray 11/08/18 00:00 IMPRESSION: 1. Interval placement of a left neck vascular catheter, tip in low position near the inferior cavoatrial junction. Consider retraction for position near the superior cavoatrial junction. 2. Cardiomegaly with minimal diffuse interstitial pulmonary opacity and possible small layering pleural effusions in low volume AP projection. There is no focal airspace opacity. Head MRI 11/10/18 00:00 IMPRESSION: Stable subacute infarctions as described. No interval change since 11/08/2018. EVIDENCE OF ACUTE STROKE: NO. Assessment & Plan - Diagnosis (1) Staphylococcus aureus septicemia Is this a current diagnosis for this admission?: Yes (2) Cellulitis of left hand Is this a current diagnosis for this admission?: Yes (3) Hyponatremia Is this a current diagnosis for this admission?: Yes (4) T2DM (type 2 diabetes mellitus) Qualifiers: Diabetes mellitus cordwood cutter helper insulin use: without cordwood cutter helper use Diabetes mellitus complication status: with neurologic complications Diabetes mellitus complication detail: with polyneuropathy Qualified Code(s): E11.42 - Type 2 diabetes mellitus with diabetic polyneuropathy Is this a current diagnosis for this admission?: Yes (5) Coronary artery disease Qualifiers: Coronary Disease-Associated Artery/Lesion type: [place] artery [place] vs. 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
[2018-11-11 21:40] LABS: HEMATOCRIT 34.7 % (36.0-47.0); HEMOGLOBIN 11.7 g/dL (12.0-15.5); MEAN CORPUSCULAR HEMOGLOBIN 29.2 pg (27.0-33.4); MEAN CORPUSCULAR HGB CONC 33.8 g/dL (32.0-36.0); MEAN CORPUSCULAR VOLUME 86 fl (80-97); PLATELET COUNT 322 10^3/uL (150-450); RED BLOOD COUNT 4.01 10^6/uL (3.72-5.28); RED CELL DISTRIBUTION WIDTH 14.6 % (11.5-14.0)
[2018-11-11 21:48] LABS: ANION GAP 9 (5-19); BLOOD UREA NITROGEN 20 mg/dL (7-20); CALCIUM 8.3 mg/dL (8.4-10.2); CARBON DIOXIDE 20 mmol/L (22-30); CHLORIDE 102 mmol/L (98-107); GLUCOSE 151 mg/dL (75-110); POTASSIUM 5.7 mmol/L (3.6-5.0); SODIUM 130.7 mmol/L (137-145)
[2018-11-11] MEDS: ATORVASTATIN CALCIUM 80 MG TABLET PO SCH ×2 (21:58→22:51)
[2018-11-11 21:59] LABS: ABSOLUTE LYMPHOCYTES# (MANUAL) 1.4 10^3/uL (0.5-4.7); ABSOLUTE MONOCYTES # (MANUAL) 0.7 10^3/uL (0.1-1.4); ABSOLUTE NEUTROPHILS# (MANUAL) 9.8 10^3/uL (1.7-8.2); BAND NEUTROPHILS % (MANUAL) 5 % (3-5); BASOPHILS % (MANUAL) 0 % (0-2); EOSINOPHILS % (MANUAL) 0 % (0-6); LYMPHOCYTES % (MANUAL) 12 % (13-45); MONOCYTES % (MANUAL) 6 % (3-13); SEGMENTED NEUTROPHILS % (MAN) 77 % (42-78); TOTAL CELLS COUNTED 100
[2018-11-11 22:01] LABS: ANISOCYTOSIS SLIGHT; PLATELET CLUMPS PRESENT; PLATELET COMMENT ADEQUATE; POLYCHROMASIA SLIGHT; TOXIC GRANULATION 1+
[2018-11-12] MEDS: CLINDAMYCIN 600 MG/D5W RTU 600 MG/50 ML RTUPB IV SCH ×3 (05:19→21:28)
[2018-11-12] MEDS: LEVOTHYROXINE SODIUM 0.15 MG TABLET PO SCH (05:19)
[2018-11-12] MEDS: INSULIN REG, HUMAN 100 UNIT/ML 3 ML VIAL (PYX) SUBCUT SCH ×4 (09:48→21:24)
[2018-11-12] MEDS: METOPROLOL SUCCINATE 50 MG TAB.SR.24H PO SCH (09:52)
[2018-11-12] MEDS: VALSARTAN 160 MG TABLET PO SCH (09:52)
[2018-11-12] MEDS: ENOXAPARIN SODIUM INJ 40 MG/0.4 ML DISP.SYRIN SUBCUT SCH (09:52)
[2018-11-12] MEDS: BENZTROPINE MESYLATE 1 MG TABLET PO SCH ×2 (09:52→17:48)
[2018-11-12] MEDS: DULOXETINE HCL 30 MG CAPSULE.DR PO SCH ×2 (09:52→17:48)
[2018-11-12] MEDS: SITAGLIPTIN PHOSPHATE 50 MG TABLET PO SCH ×2 (09:52→17:47)
[2018-11-12] MEDS: METFORMIN HCL 500 MG TABLET PO SCH ×2 (09:52→17:47)
[2018-11-12] MEDS: ASPIRIN 325 MG TABLET PO SCH (09:54)
[2018-11-12] MEDS: DOXEPIN HCL 25 MG CAPSULE PO SCH ×2 (09:54→17:47)
[2018-11-12] MEDS: SERTRALINE HCL 50 MG TABLET PO SCH (09:57)
[2018-11-12] MEDS: NYSTATIN TOPICAL POWDER 15 GM TP SCH ×2 (09:59→17:50)
[2018-11-12 11:34] LABS: HEMATOCRIT 36.5 % (36.0-47.0); HEMOGLOBIN 12.1 g/dL (12.0-15.5); MEAN CORPUSCULAR HEMOGLOBIN 28.8 pg (27.0-33.4); MEAN CORPUSCULAR HGB CONC 33.1 g/dL (32.0-36.0); MEAN CORPUSCULAR VOLUME 87 fl (80-97); RED CELL DISTRIBUTION WIDTH 14.8 % (11.5-14.0); WHITE BLOOD COUNT 13.7 10^3/uL (4.0-10.5)
[2018-11-12 11:52] LABS: ALANINE AMINOTRANSFERASE 35 U/L (9-52); ALBUMIN 2.5 g/dL (3.5-5.0); ALKALINE PHOSPHATASE 97 U/L (38-126); ANION GAP 9 (5-19); ASPARTATE AMINO TRANSFERASE 30 U/L (14-36); BILIRUBIN,DIRECT 0.4 mg/dL (0.0-0.4); BILIRUBIN,TOTAL 0.6 mg/dL (0.2-1.3); BLOOD UREA NITROGEN 21 mg/dL (7-20); CALCIUM 8.9 mg/dL (8.4-10.2); CARBON DIOXIDE 20 mmol/L (22-30); CHLORIDE 102 mmol/L (98-107); GLUCOSE 153 mg/dL (75-110); POTASSIUM 5.2 mmol/L (3.6-5.0); SODIUM 131.4 mmol/L (137-145); TOTAL PROTEIN 5.4 g/dL (6.3-8.2)
[2018-11-12 12:15] LABS: ABSOLUTE LYMPHOCYTES# (MANUAL) 2.1 10^3/uL (0.5-4.7); ABSOLUTE NEUTROPHILS# (MANUAL) 10.5 10^3/uL (1.7-8.2); BAND NEUTROPHILS % (MANUAL) 7 % (3-5); BASOPHILS % (MANUAL) 0 % (0-2); EOSINOPHILS % (MANUAL) 1 % (0-6); LYMPHOCYTES % (MANUAL) 14 % (13-45); METAMYELOCYTES % (MANUAL) 2 % (0); MONOCYTES % (MANUAL) 7 % (3-13); SEGMENTED NEUTROPHILS % (MAN) 68 % (42-78); TOTAL CELLS COUNTED 100
[2018-11-12 12:16] LABS: PLATELET COMMENT ADEQUATE; PLATELET COUNT 347 10^3/uL (150-450)
--- NOTE | 2018-11-12 20:12 | PDOC PROGRESS REPORT ---
Subjective Progress Note for:: 11/12/18 Subjective:: Patient was seen by the bedside, she has CVA with left-sided paralysis, staph aureus septicemia due to cellulitis of the left hand Reason For Visit: CELLULITIS OF THE LEFT HAND Physical Exam Vital Signs: Temp Pulse Resp BP Pulse Ox 97.5 F 62 18 127/59 H 97 11/12/18 19:15 11/12/18 19:15 11/12/18 19:15 11/12/18 19:15 11/12/18 19:15 Intake & Output 11/11/18 11/12/18 11/13/18 06:59 06:59 06:59 Intake Total 1240 727 170 Output Total 1557 0 Balance -317 727 170 Weight 99.3 kg 100.2 kg 100.2 kg General appearance: PRESENT: no acute distress Eye exam: PRESENT: PERRLA Respiratory exam: PRESENT: clear to auscultation ellen Cardiovascular exam: PRESENT: +S1, +S2 GI/Abdominal exam: PRESENT: soft Neurological exam: PRESENT: alert, motor sensory deficit Results Laboratory Results: 11/12/18 11:00 11/12/18 11:00 11/11/18 11/11/18 11/12/18 20:50 20:50 11:00 WBC 12.0 H RBC 4.01 Hgb 11.7 L Hct 34.7 L MCV 86 MCH 29.2 MCHC 33.8 RDW 14.6 H Plt Count 322 Seg Neutrophils % Not Reportable Lymphocytes % Not Reportable Monocytes % Not Reportable Eosinophils % Not Reportable Basophils % Not Reportable Absolute Neutrophils Not Reportable Absolute Lymphocytes Not Reportable Absolute Monocytes Not Reportable Absolute Eosinophils Not Reportable Absolute Basophils Not Reportable Sodium 130.7 L 131.4 L Potassium 5.7 H 5.2 H Chloride 102 102 Carbon Dioxide 20 L 20 L Anion Gap 9 9 BUN 20 21 H Creatinine 0.72 0.75 Est GFR ( Amer) > 60 > 60 Est GFR (Non-Af Amer) > 60 > 60 Glucose 151 H 153 H Calcium 8.3 L 8.9 Total Bilirubin 0.6 AST 30 ALT 35 Alkaline Phosphatase 97 Total Protein 5.4 L Albumin 2.5 L 11/12/18 11:00 WBC 13.7 H RBC 4.20 Hgb 12.1 Hct 36.5 MCV 87 MCH 28.8 MCHC 33.1 RDW 14.8 H Plt Count 347 Seg Neutrophils % Not Reportable Lymphocytes % Not Reportable Monocytes % Not Reportable Eosinophils % Not Reportable Basophils % Not Reportable Absolute Neutrophils Not Reportable Absolute Lymphocytes Not Reportable Absolute Monocytes Not Reportable Absolute Eosinophils Not Reportable Absolute Basophils Not Reportable Sodium Potassium Chloride Carbon Dioxide Anion Gap BUN Creatinine Est GFR ( Amer) Est GFR (Non-Af Amer) Glucose Calcium Total Bilirubin AST ALT Alkaline Phosphatase Total Protein Albumin Impressions: Hand X-Ray 11/05/18 21:08 IMPRESSION: Diffuse soft tissue swelling without underlying acute osseous anomaly. copyright 2010 [employer]- All Rights Reserved Head CT 11/07/18 00:00 IMPRESSION: NO SIGNIFICANT INTERVAL CHANGE. EVIDENCE OF ACUTE STROKE: NO. Chest X-Ray 11/08/18 00:00 IMPRESSION: 1. Interval placement of a left neck vascular catheter, tip in low position near the inferior cavoatrial junction. Consider retraction for position near the superior cavoatrial junction. 2. Cardiomegaly with minimal diffuse interstitial pulmonary opacity and possible small layering pleural effusions in low volume AP projection. There is no focal airspace opacity. Head MRI 11/10/18 00:00 IMPRESSION: Stable subacute infarctions as described. No interval change since 11/08/2018. EVIDENCE OF ACUTE STROKE: NO. Assessment & Plan - Diagnosis (1) Staphylococcus aureus septicemia Is this a current diagnosis for this admission?: Yes Plan: Continue IV clindamycin (2) Cellulitis of left hand Is this a current diagnosis for this admission?: Yes (3) Hyponatremia Is this a current diagnosis for this admission?: Yes (4) T2DM (type 2 diabetes mellitus) Qualifiers: Diabetes mellitus snf insulin use: without middle or intermediate school principal use Diabetes mellitus complication status: with neurologic complications Diabetes mellitus complication detail: with polyneuropathy Qualified Code(s): E11.42 - Type 2 diabetes mellitus with diabetic polyneuropathy Is this a current diagnosis for this admission?: Yes (5) Coronary artery disease Qualifiers: Coronary Disease-Associated Artery/Lesion type: [place] artery [place] vs. transplanted heart: [place] heart Associated angina: without angina Qualified Code(s): I25.10 - Atherosclerotic heart disease of [place] coronary artery without angina pectoris Is this a current diagnosis for this admission?: Yes (6) Cerebral infarction Qualifiers: Cerebral infarction mechanism: unspecified mechanism Qualified Code(s): I63.9 - Cerebral infarction, unspecified Is this a current diagnosis for this admission?: Yes Plan: Continue physical therapy patient to be transferred to [facility] as soon as bed is available (7) Syndrome of inappropriate ADH (SIADH) secretion Is this a current diagnosis for this admission?: Yes
[2018-11-12] MEDS: ATORVASTATIN CALCIUM 80 MG TABLET PO SCH (21:26)
[2018-11-12] MEDS: NORMAL SALINE 1000 ML 1,000 ML IV PRN (22:11)
[2018-11-13] MEDS: LEVOTHYROXINE SODIUM 0.15 MG TABLET PO SCH (05:29)
[2018-11-13] MEDS: CLINDAMYCIN 600 MG/D5W RTU 600 MG/50 ML RTUPB IV SCH ×3 (05:29→21:24)
[2018-11-13] MEDS: INSULIN REG, HUMAN 100 UNIT/ML 3 ML VIAL (PYX) SUBCUT SCH ×4 (08:19→21:24)
[2018-11-13] MEDS: SITAGLIPTIN PHOSPHATE 50 MG TABLET PO SCH ×2 (08:19→17:27)
[2018-11-13] MEDS: METFORMIN HCL 500 MG TABLET PO SCH ×2 (08:19→17:27)
[2018-11-13] MEDS: ENOXAPARIN SODIUM INJ 40 MG/0.4 ML DISP.SYRIN SUBCUT SCH (09:29)
[2018-11-13] MEDS: SERTRALINE HCL 50 MG TABLET PO SCH (09:30)
[2018-11-13] MEDS: BENZTROPINE MESYLATE 1 MG TABLET PO SCH ×2 (09:30→17:28)
[2018-11-13] MEDS: VALSARTAN 160 MG TABLET PO SCH (09:30)
[2018-11-13] MEDS: ASPIRIN 325 MG TABLET PO SCH (09:30)
[2018-11-13] MEDS: DULOXETINE HCL 30 MG CAPSULE.DR PO SCH ×2 (09:30→17:27)
[2018-11-13] MEDS: METOPROLOL SUCCINATE 50 MG TAB.SR.24H PO SCH (09:30)
[2018-11-13] MEDS: DOXEPIN HCL 25 MG CAPSULE PO SCH ×2 (09:30→17:28)
--- NOTE | 2018-11-13 10:33 | PDOC PROGRESS REPORT ---
Subjective Progress Note for:: 11/13/18 Subjective:: Patient is currently doing fair Patient admitted for the cellulitis on the left upper extremities currently getting better No fever no chills No chest pain no short of breath Reason For Visit: CELLULITIS OF THE LEFT HAND Physical Exam Vital Signs: Temp Pulse Resp BP Pulse Ox 98.0 F 72 18 132/62 H 97 11/13/18 07:31 11/13/18 07:31 11/13/18 07:31 11/13/18 07:31 11/13/18 07:31 Intake & Output 11/12/18 11/13/18 11/14/18 06:59 06:59 06:59 Intake Total 1727 220 50 Output Total 0 Balance 1727 220 50 Weight 100.2 kg 100.8 kg General appearance: PRESENT: no acute distress, well-developed, well-nourished Head exam: PRESENT: atraumatic, normocephalic Eye exam: PRESENT: conjunctiva pink, EOMI, PERRLA. ABSENT: scleral icterus Ear exam: PRESENT: normal external ear exam Mouth exam: PRESENT: moist, tongue midline Neck exam: PRESENT: full ROM. ABSENT: carotid bruit, JVD, lymphadenopathy, thyromegaly Respiratory exam: PRESENT: clear to auscultation ellen Cardiovascular exam: PRESENT: RRR. ABSENT: diastolic murmur, rubs, systolic murmur Pulses: PRESENT: normal [place] pedis pul, +2 pedal pulses bilateral Vascular exam: PRESENT: normal capillary refill GI/Abdominal exam: PRESENT: normal bowel sounds, soft. ABSENT: distended, guarding, mass, organolmegaly, rebound, tenderness Rectal exam: PRESENT: deferred Extremities exam: ABSENT: pedal edema Neurological exam: PRESENT: alert, awake, oriented to person, oriented to place, oriented to time, oriented to situation, CN II-XII grossly intact. ABSENT: motor sensory deficit Psychiatric exam: PRESENT: appropriate affect, normal mood. ABSENT: homicidal ideation, suicidal ideation Skin exam: PRESENT: dry, intact, warm. ABSENT: cyanosis, rash Additional comments: Left upper extremity redness is much improved Results Laboratory Results: 11/12/18 11:00 11/12/18 11:00 11/12/18 11/12/18 11/12/18 11:00 11:00 20:30 WBC 13.7 H RBC 4.20 Hgb 12.1 Hct 36.5 MCV 87 MCH 28.8 MCHC 33.1 RDW 14.8 H Plt Count 347 Seg Neutrophils % Not Reportable Lymphocytes % Not Reportable Monocytes % Not Reportable Eosinophils % Not Reportable Basophils % Not Reportable Absolute Neutrophils Not Reportable Absolute Lymphocytes Not Reportable Absolute Monocytes Not Reportable Absolute Eosinophils Not Reportable Absolute Basophils Not Reportable Sodium 131.4 L Potassium 5.2 H Chloride 102 Carbon Dioxide 20 L Anion Gap 9 BUN 21 H Creatinine 0.75 Est GFR ( Amer) > 60 Est GFR (Non-Af Amer) > 60 Glucose 153 H Lactic Acid 0.7 Calcium 8.9 Total Bilirubin 0.6 AST 30 ALT 35 Alkaline Phosphatase 97 Total Protein 5.4 L Albumin 2.5 L Impressions: Hand X-Ray 11/05/18 21:08 IMPRESSION: Diffuse soft tissue swelling without underlying acute osseous anomaly. copyright 2010 [employer]- All Rights Reserved Head CT 11/07/18 00:00 IMPRESSION: NO SIGNIFICANT INTERVAL CHANGE. EVIDENCE OF ACUTE STROKE: NO. Chest X-Ray 11/08/18 00:00 IMPRESSION: 1. Interval placement of a left neck vascular catheter, tip in low position near the inferior cavoatrial junction. Consider retraction for position near the superior cavoatrial junction. 2. Cardiomegaly with minimal diffuse interstitial pulmonary opacity and possible small layering pleural effusions in low volume AP projection. There is no focal airspace opacity. Head MRI 11/10/18 00:00 IMPRESSION: Stable subacute infarctions as described. No interval change since 11/08/2018. EVIDENCE OF ACUTE STROKE: NO. Assessment & Plan - Diagnosis (1) Cellulitis of left hand Is this a current diagnosis for this admission?: Yes (2) Cerebral infarction Qualifiers: Cerebral infarction mechanism: unspecified mechanism Qualified Code(s): I63.9 - Cerebral infarction, unspecified Is this a current diagnosis for this admission?: Yes (3) Syndrome of inappropriate ADH (SIADH) secretion Is this a current diagnosis for this admission?: Yes (4) Coronary artery disease Qualifiers: Coronary Disease-Associated Artery/Lesion type: [place] artery [place] vs. transplanted heart: [place] heart Associated angina: without angina Qualified Code(s): I25.10 - Atherosclerotic heart disease of [place] coronary artery without angina pectoris Is this a current diagnosis for this admission?: Yes (5) T2DM (type 2 diabetes mellitus) Qualifiers: Diabetes mellitus [facility] insulin use: without [facility] use Diabetes mellitus complication status: with neurologic complications Diabetes mellitus complication detail: with polyneuropathy Qualified Code(s): E11.42 - Type 2 diabetes mellitus with diabetic polyneuropathy Is this a current diagnosis for this admission?: Yes - Time Time Spent with patient: 15-24 minutes Medications reviewed and adjusted accordingly: Yes Anticipated discharge: Other Within: Other - Plan Summary Plan Summary: We will check the blood work in the morning Continues to physical therapy Continues to antibiotics
[2018-11-13] MEDS: ACETAMINOPHEN 325 MG TABLET PO PRN (14:42)
[2018-11-13] MEDS: ATORVASTATIN CALCIUM 80 MG TABLET PO SCH (21:24)
[2018-11-14] MEDS: CLINDAMYCIN 600 MG/D5W RTU 600 MG/50 ML RTUPB IV SCH ×3 (05:02→22:29)
[2018-11-14] MEDS: LEVOTHYROXINE SODIUM 0.15 MG TABLET PO SCH (05:02)
[2018-11-14 05:38] LABS: HEMATOCRIT 35.6 % (36.0-47.0); MEAN CORPUSCULAR HGB CONC 33.6 g/dL (32.0-36.0); MEAN CORPUSCULAR VOLUME 86 fl (80-97); PLATELET COUNT 341 10^3/uL (150-450); RED BLOOD COUNT 4.13 10^6/uL (3.72-5.28); RED CELL DISTRIBUTION WIDTH 14.5 % (11.5-14.0); WHITE BLOOD COUNT 12.3 10^3/uL (4.0-10.5)
[2018-11-14 05:47] LABS: ANION GAP 10 (5-19); BLOOD UREA NITROGEN 19 mg/dL (7-20); CALCIUM 8.6 mg/dL (8.4-10.2); CARBON DIOXIDE 19 mmol/L (22-30); CHLORIDE 104 mmol/L (98-107); GLUCOSE 149 mg/dL (75-110); POTASSIUM 4.5 mmol/L (3.6-5.0); SODIUM 132.9 mmol/L (137-145)
[2018-11-14 06:07] LABS: ABSOLUTE LYMPHOCYTES# (MANUAL) 2.2 10^3/uL (0.5-4.7); ABSOLUTE MONOCYTES # (MANUAL) 0.7 10^3/uL (0.1-1.4); ABSOLUTE NEUTROPHILS# (MANUAL) 9.3 10^3/uL (1.7-8.2); BAND NEUTROPHILS % (MANUAL) 2 % (3-5); BASOPHILS % (MANUAL) 0 % (0-2); EOSINOPHILS % (MANUAL) 0 % (0-6); LYMPHOCYTES % (MANUAL) 18 % (13-45); MONOCYTES % (MANUAL) 6 % (3-13); SEGMENTED NEUTROPHILS % (MAN) 69 % (42-78); TOTAL CELLS COUNTED 100
[2018-11-14 06:10] LABS: ANISOCYTOSIS SLIGHT; PLATELET CLUMPS PRESENT; POLYCHROMASIA SLIGHT
[2018-11-14 06:11] LABS: METAMYELOCYTES % (MANUAL) 3 % (0); MYELOCYTES % (MANUAL) 2 % (0)
[2018-11-14] MEDS: INSULIN REG, HUMAN 100 UNIT/ML 3 ML VIAL (PYX) SUBCUT SCH ×4 (07:57→22:29)
[2018-11-14] MEDS: SITAGLIPTIN PHOSPHATE 50 MG TABLET PO SCH ×2 (08:04→16:59)
[2018-11-14] MEDS: METFORMIN HCL 500 MG TABLET PO SCH ×2 (08:04→16:59)
--- NOTE | 2018-11-14 09:32 | PDOC PROGRESS REPORT ---
Subjective Progress Note for:: 11/14/18 Subjective:: Patient is currently doing fair Patient admitted for the cellulitis on the left upper extremities currently getting better No fever no chills No chest pain no short of breath Reason For Visit: CELLULITIS OF THE LEFT HAND Physical Exam Vital Signs: Temp Pulse Resp BP Pulse Ox 98.2 F 57 L 20 136/68 H 99 11/13/18 20:13 11/14/18 07:00 11/13/18 20:13 11/13/18 20:13 11/13/18 20:13 Intake & Output 11/13/18 11/14/18 11/15/18 06:59 06:59 06:59 Intake Total 220 670 Output Total 200 Balance 220 470 Weight 100.8 kg 100.7 kg General appearance: PRESENT: no acute distress, well-developed, well-nourished Head exam: PRESENT: atraumatic, normocephalic Eye exam: PRESENT: conjunctiva pink, EOMI, PERRLA. ABSENT: scleral icterus Ear exam: PRESENT: normal external ear exam Mouth exam: PRESENT: moist, tongue midline Neck exam: PRESENT: full ROM. ABSENT: carotid bruit, JVD, lymphadenopathy, thyromegaly Respiratory exam: PRESENT: clear to auscultation ellen Cardiovascular exam: PRESENT: RRR. ABSENT: diastolic murmur, rubs, systolic [place] Pulses: PRESENT: normal dorsalis pedis pul, +2 pedal pulses bilateral Vascular exam: PRESENT: normal capillary refill GI/Abdominal exam: PRESENT: normal bowel sounds, soft. ABSENT: distended, guarding, mass, organolmegaly, rebound, tenderness Rectal exam: PRESENT: deferred Neurological exam: PRESENT: alert, awake, oriented to person, oriented to place. ABSENT: motor sensory deficit Psychiatric exam: PRESENT: appropriate affect, normal mood. ABSENT: homicidal ideation, suicidal ideation Skin exam: PRESENT: dry, intact, warm. ABSENT: cyanosis, rash Results Laboratory Results: 11/14/18 05:14 11/14/18 05:14 11/14/18 11/14/18 05:14 05:14 WBC 12.3 H RBC 4.13 Hgb 12.0 Hct 35.6 L MCV 86 MCH 29.0 MCHC 33.6 RDW 14.5 H Plt Count 341 Seg Neutrophils % Not Reportable Lymphocytes % Not Reportable Monocytes % Not Reportable Eosinophils % Not Reportable Basophils % Not Reportable Absolute Neutrophils Not Reportable Absolute Lymphocytes Not Reportable Absolute Monocytes Not Reportable Absolute Eosinophils Not Reportable Absolute Basophils Not Reportable Sodium 132.9 L Potassium 4.5 Chloride 104 Carbon Dioxide 19 L Anion Gap 10 BUN 19 Creatinine 0.72 Est GFR ( Amer) > 60 Est GFR (Non-Af Amer) > 60 Glucose 149 H Calcium 8.6 Impressions: Hand X-Ray 11/05/18 21:08 IMPRESSION: Diffuse soft tissue swelling without underlying acute osseous anomaly. copyright 2010 [employer]- All Rights Reserved Head CT 11/07/18 00:00 IMPRESSION: NO SIGNIFICANT INTERVAL CHANGE. EVIDENCE OF ACUTE STROKE: NO. Chest X-Ray 11/08/18 00:00 IMPRESSION: 1. Interval placement of a left neck vascular catheter, tip in low position near the inferior cavoatrial junction. Consider retraction for position near the superior cavoatrial junction. 2. Cardiomegaly with minimal diffuse interstitial pulmonary opacity and possible small layering pleural effusions in low volume AP projection. There is no focal airspace opacity. Head MRI 11/10/18 00:00 IMPRESSION: Stable subacute infarctions as described. No interval change since 11/08/2018. EVIDENCE OF ACUTE STROKE: NO. Assessment & Plan - Diagnosis (1) Cellulitis of left hand Is this a current diagnosis for this admission?: Yes (2) Cerebral infarction Qualifiers: Cerebral infarction mechanism: unspecified mechanism Qualified Code(s): I63.9 - Cerebral infarction, unspecified Is this a current diagnosis for this admission?: Yes (3) Syndrome of inappropriate ADH (SIADH) secretion Is this a current diagnosis for this admission?: Yes (4) Coronary artery disease Qualifiers: Coronary Disease-Associated Artery/Lesion type: [place] artery [place] vs. transplanted heart: [place] heart Associated angina: without angina Qualified Code(s): I25.10 - Atherosclerotic heart disease of [place] coronary artery without angina pectoris Is this a current diagnosis for this admission?: Yes (5) T2DM (type 2 diabetes mellitus) Qualifiers: Diabetes mellitus [employer] marine [employer] insulin use: without [employer] use Diabetes mellitus complication status: with neurologic complications Diabetes mellitus complication detail: with polyneuropathy Qualified Code(s): E11.42 - Type 2 diabetes mellitus with diabetic polyneuropathy Is this a current diagnosis for this admission?: Yes - Time Time Spent with patient: 15-24 minutes Medications reviewed and adjusted accordingly: Yes Anticipated discharge: Other Within: Other - Plan Summary Plan Summary: Continues to current medications
[2018-11-14] MEDS: ENOXAPARIN SODIUM INJ 40 MG/0.4 ML DISP.SYRIN SUBCUT SCH (09:39)
[2018-11-14] MEDS: DULOXETINE HCL 30 MG CAPSULE.DR PO SCH ×2 (09:39→17:07)
[2018-11-14] MEDS: VALSARTAN 160 MG TABLET PO SCH (09:39)
[2018-11-14] MEDS: BENZTROPINE MESYLATE 1 MG TABLET PO SCH ×2 (09:40→17:07)
[2018-11-14] MEDS: DOXEPIN HCL 25 MG CAPSULE PO SCH ×2 (09:40→17:08)
[2018-11-14] MEDS: METOPROLOL SUCCINATE 50 MG TAB.SR.24H PO SCH (09:40)
[2018-11-14] MEDS: SERTRALINE HCL 50 MG TABLET PO SCH (09:40)
[2018-11-14] MEDS: ASPIRIN 325 MG TABLET PO SCH (09:40)
[2018-11-14] MEDS: ONDANSETRON HCL INJ/PF 4 MG/2 ML SDV IV PRN (11:42)
[2018-11-14] MEDS: NORMAL SALINE 1000 ML 1,000 ML IV PRN (11:43)
[2018-11-14] MEDS: ATORVASTATIN CALCIUM 80 MG TABLET PO SCH (22:29)
[2018-11-15] MEDS: LEVOTHYROXINE SODIUM 0.15 MG TABLET PO SCH (05:28)
[2018-11-15] MEDS: CLINDAMYCIN 600 MG/D5W RTU 600 MG/50 ML RTUPB IV SCH ×3 (05:28→21:19)
[2018-11-15 06:15] LABS: ANION GAP 8 (5-19); BLOOD UREA NITROGEN 17 mg/dL (7-20); CALCIUM 8.5 mg/dL (8.4-10.2); CARBON DIOXIDE 23 mmol/L (22-30); CHLORIDE 103 mmol/L (98-107); GLUCOSE 141 mg/dL (75-110); POTASSIUM 4.5 mmol/L (3.6-5.0); SODIUM 133.9 mmol/L (137-145)
[2018-11-15] MEDS: INSULIN REG, HUMAN 100 UNIT/ML 3 ML VIAL (PYX) SUBCUT SCH ×4 (07:49→21:19)
[2018-11-15] MEDS: METFORMIN HCL 500 MG TABLET PO SCH ×2 (07:49→17:09)
[2018-11-15] MEDS: SITAGLIPTIN PHOSPHATE 50 MG TABLET PO SCH ×2 (08:01→17:09)
[2018-11-15] MEDS: METOPROLOL SUCCINATE 50 MG TAB.SR.24H PO SCH (09:43)
[2018-11-15] MEDS: SERTRALINE HCL 50 MG TABLET PO SCH (09:43)
[2018-11-15] MEDS: DULOXETINE HCL 30 MG CAPSULE.DR PO SCH ×2 (09:43→17:10)
[2018-11-15] MEDS: BENZTROPINE MESYLATE 1 MG TABLET PO SCH ×2 (09:43→17:09)
[2018-11-15] MEDS: VALSARTAN 160 MG TABLET PO SCH (09:43)
[2018-11-15] MEDS: DOXEPIN HCL 25 MG CAPSULE PO SCH ×2 (09:44→17:10)
[2018-11-15] MEDS: ENOXAPARIN SODIUM INJ 40 MG/0.4 ML DISP.SYRIN SUBCUT SCH (09:44)
[2018-11-15] MEDS: ASPIRIN 325 MG TABLET PO SCH (09:44)
[2018-11-15 13:47] LABS: PATH REVIEW PATHOLOGIST REVIEWED
--- NOTE | 2018-11-15 21:11 | PDOC PROGRESS REPORT ---
Subjective Progress Note for:: 11/15/18 Subjective:: Patient seen by the bedside she refused rehab/physical therapy in a detention home, that is what she needs , she has CVA with left-sided paralysis she needs to go to rehab hopefully we get this arranged for transfer soon Reason For Visit: CELLULITIS OF THE LEFT HAND Physical Exam Vital Signs: Temp Pulse Resp BP Pulse Ox 97.4 F 70 20 149/73 H 99 11/15/18 19:11 11/15/18 19:11 11/15/18 19:11 11/15/18 19:11 11/15/18 19:11 Intake & Output 11/14/18 11/15/18 11/16/18 06:59 06:59 06:59 Intake Total 670 1490 614 Output Total 200 150 Balance 470 1490 464 Weight 100.7 kg 100.4 kg General appearance: PRESENT: no acute distress Eye exam: PRESENT: PERRLA Respiratory exam: PRESENT: clear to auscultation ellen Cardiovascular exam: PRESENT: +S1, +S2 GI/Abdominal exam: PRESENT: soft Neurological exam: PRESENT: alert, motor sensory deficit Results Laboratory Results: 11/14/18 05:14 11/15/18 05:30 11/15/18 05:30 Sodium 133.9 L Potassium 4.5 Chloride 103 Carbon Dioxide 23 Anion Gap 8 BUN 17 Creatinine 0.72 Est GFR ( Amer) > 60 Est GFR (Non-Af Amer) > 60 Glucose 141 H Calcium 8.5 Impressions: Hand X-Ray 11/05/18 21:08 IMPRESSION: Diffuse soft tissue swelling without underlying acute osseous anomaly. copyright 2010 [employer]- All Rights Reserved Head CT 11/07/18 00:00 IMPRESSION: NO SIGNIFICANT INTERVAL CHANGE. EVIDENCE OF ACUTE STROKE: NO. Chest X-Ray 11/08/18 00:00 IMPRESSION: 1. Interval placement of a left neck vascular catheter, tip in low position near the inferior cavoatrial junction. Consider retraction for position near the superior cavoatrial junction. 2. Cardiomegaly with minimal diffuse interstitial pulmonary opacity and possible small layering pleural effusions in low volume AP projection. There is no focal airspace opacity. Head MRI 11/10/18 00:00 IMPRESSION: Stable subacute infarctions as described. No interval change since 11/08/2018. EVIDENCE OF ACUTE STROKE: NO. Assessment & Plan - Diagnosis (1) Staphylococcus aureus septicemia Is this a current diagnosis for this admission?: Yes (2) Cellulitis of left hand Is this a current diagnosis for this admission?: Yes (3) Hyponatremia Is this a current diagnosis for this admission?: Yes (4) T2DM (type 2 diabetes mellitus) Qualifiers: Diabetes mellitus seed trucker insulin use: without seed trucker use Diabetes mellitus complication status: with neurologic complications Diabetes mellitus complication detail: with polyneuropathy Qualified Code(s): E11.42 - Type 2 diabetes mellitus with diabetic polyneuropathy Is this a current diagnosis for this admission?: Yes (5) Coronary artery disease Qualifiers: Coronary Disease-Associated Artery/Lesion type: [place] artery [place] vs. transplanted heart: [place] heart Associated angina: without angina Qualified Code(s): I25.10 - Atherosclerotic heart disease of [place] coronary artery without angina pectoris Is this a current diagnosis for this admission?: Yes (6) Cerebral infarction Qualifiers: Cerebral infarction mechanism: unspecified mechanism Qualified Code(s): I63.9 - Cerebral infarction, unspecified Is this a current diagnosis for this admission?: Yes (7) Syndrome of inappropriate ADH (SIADH) secretion Is this a current diagnosis for this admission?: Yes
[2018-11-15] MEDS: ATORVASTATIN CALCIUM 80 MG TABLET PO SCH (21:18)
[2018-11-15] MEDS: NORMAL SALINE 1000 ML 1,000 ML IV PRN (22:56)
[2018-11-16] MEDS: ACETAMINOPHEN 325 MG TABLET PO PRN (05:23)
[2018-11-16] MEDS: CLINDAMYCIN 600 MG/D5W RTU 600 MG/50 ML RTUPB IV SCH ×3 (05:24→22:00)
[2018-11-16] MEDS: LEVOTHYROXINE SODIUM 0.15 MG TABLET PO SCH (05:24)
[2018-11-16 06:11] LABS: ANION GAP 9 (5-19); BLOOD UREA NITROGEN 13 mg/dL (7-20); CALCIUM 8.9 mg/dL (8.4-10.2); CARBON DIOXIDE 23 mmol/L (22-30); CHLORIDE 102 mmol/L (98-107); GLUCOSE 119 mg/dL (75-110); POTASSIUM 4.4 mmol/L (3.6-5.0)
[2018-11-16] MEDS: INSULIN REG, HUMAN 100 UNIT/ML 3 ML VIAL (PYX) SUBCUT SCH ×4 (09:36→22:00)
[2018-11-16] MEDS: METOPROLOL SUCCINATE 50 MG TAB.SR.24H PO SCH (10:33)
[2018-11-16] MEDS: SITAGLIPTIN PHOSPHATE 50 MG TABLET PO SCH ×2 (10:33→19:16)
[2018-11-16] MEDS: METFORMIN HCL 500 MG TABLET PO SCH ×2 (10:33→19:16)
[2018-11-16] MEDS: VALSARTAN 160 MG TABLET PO SCH (10:34)
[2018-11-16] MEDS: DULOXETINE HCL 30 MG CAPSULE.DR PO SCH ×2 (10:34→19:16)
[2018-11-16] MEDS: BENZTROPINE MESYLATE 1 MG TABLET PO SCH ×2 (10:34→19:16)
[2018-11-16] MEDS: SERTRALINE HCL 50 MG TABLET PO SCH (10:34)
[2018-11-16] MEDS: ASPIRIN 325 MG TABLET PO SCH (10:36)
[2018-11-16] MEDS: ENOXAPARIN SODIUM INJ 40 MG/0.4 ML DISP.SYRIN SUBCUT SCH (10:36)
[2018-11-16] MEDS: DOXEPIN HCL 25 MG CAPSULE PO SCH ×2 (10:36→19:16)
[2018-11-16] MEDS: ONDANSETRON HCL INJ/PF 4 MG/2 ML SDV IV PRN (10:37)
[2018-11-16] MEDS ORDERED: PROMETHAZINE HCL INJ 25 MG/1 ML VIAL ONE (14:06)
--- NOTE | 2018-11-16 19:12 | PDOC PROGRESS REPORT ---
Subjective Progress Note for:: 11/16/18 Subjective:: Patient seen by the bedside awaiting placement in rehab Reason For Visit: CELLULITIS OF THE LEFT HAND Physical Exam Vital Signs: Temp Pulse Resp BP Pulse Ox 98.0 F 65 18 136/63 H 100 11/16/18 16:10 11/16/18 16:10 11/16/18 16:10 11/16/18 16:10 11/16/18 16:10 Intake & Output 11/15/18 11/16/18 11/17/18 06:59 06:59 06:59 Intake Total 1490 1974 392 Output Total 605 Balance 1490 1369 392 Weight 100.4 kg 101.4 kg General appearance: PRESENT: no acute distress Eye exam: PRESENT: PERRLA Respiratory exam: PRESENT: clear to auscultation ellen Cardiovascular exam: PRESENT: +S1, +S2 GI/Abdominal exam: PRESENT: soft Neurological exam: PRESENT: alert, motor sensory deficit - LEFT SIDED HEMIPLEGIA Results Laboratory Results: 11/14/18 05:14 11/16/18 05:30 11/16/18 05:30 Sodium 134.0 L Potassium 4.4 Chloride 102 Carbon Dioxide 23 Anion Gap 9 BUN 13 Creatinine 0.68 Est GFR ( Amer) > 60 Est GFR (Non-Af Amer) > 60 Glucose 119 H Calcium 8.9 Impressions: Hand X-Ray 11/05/18 21:08 IMPRESSION: Diffuse soft tissue swelling without underlying acute osseous anomaly. copyright 2010 [employer]- All Rights Reserved Head CT 11/07/18 00:00 IMPRESSION: NO SIGNIFICANT INTERVAL CHANGE. EVIDENCE OF ACUTE STROKE: NO. Chest X-Ray 11/08/18 00:00 IMPRESSION: 1. Interval placement of a left neck vascular catheter, tip in low position near the inferior cavoatrial junction. Consider retraction for position near the superior cavoatrial junction. 2. Cardiomegaly with minimal diffuse interstitial pulmonary opacity and possible small layering pleural effusions in low volume AP projection. There is no focal airspace opacity. Head MRI 11/10/18 00:00 IMPRESSION: Stable subacute infarctions as described. No interval change since 11/08/2018. EVIDENCE OF ACUTE STROKE: NO. Assessment & Plan - Diagnosis (1) Staphylococcus aureus septicemia Is this a current diagnosis for this admission?: Yes Plan: Continue IV clindamycin (2) Cellulitis of left hand Is this a current diagnosis for this admission?: Yes (3) Hyponatremia Is this a current diagnosis for this admission?: Yes (4) T2DM (type 2 diabetes mellitus) Qualifiers: Diabetes mellitus alf insulin use: without exterminator use Diabetes mellitus complication status: with neurologic complications Diabetes mellitus complication detail: with polyneuropathy Qualified Code(s): E11.42 - Type 2 diabetes mellitus with diabetic polyneuropathy Is this a current diagnosis for this admission?: Yes (5) Coronary artery disease Qualifiers: Coronary Disease-Associated Artery/Lesion type: [place] artery [place] vs. transplanted heart: [place] heart Associated angina: without angina Qualified Code(s): I25.10 - Atherosclerotic heart disease of [place] coronary artery without angina pectoris Is this a current diagnosis for this admission?: Yes (6) Cerebral infarction Qualifiers: Cerebral infarction mechanism: unspecified mechanism Qualified Code(s): I63.9 - Cerebral infarction, unspecified Is this a current diagnosis for this admission?: Yes Plan: Continue physical therapy patient to be transferred to [facility] as soon as bed is available (7) Syndrome of inappropriate ADH (SIADH) secretion Is this a current diagnosis for this admission?: Yes
[2018-11-16] MEDS: ATORVASTATIN CALCIUM 80 MG TABLET PO SCH (22:00)
[2018-11-17] MEDS: CLINDAMYCIN 600 MG/D5W RTU 600 MG/50 ML RTUPB IV SCH ×2 (05:39→13:28)
[2018-11-17] MEDS: LEVOTHYROXINE SODIUM 0.15 MG TABLET PO SCH (05:39)
[2018-11-17] MEDS: INSULIN REG, HUMAN 100 UNIT/ML 3 ML VIAL (PYX) SUBCUT SCH ×3 (07:58→16:14)
[2018-11-17] MEDS: SITAGLIPTIN PHOSPHATE 50 MG TABLET PO SCH ×2 (08:13→16:19)
[2018-11-17] MEDS: METFORMIN HCL 500 MG TABLET PO SCH ×2 (08:13→16:19)
[2018-11-17] MEDS: DOXEPIN HCL 25 MG CAPSULE PO SCH ×2 (09:04→17:14)
[2018-11-17] MEDS: DULOXETINE HCL 30 MG CAPSULE.DR PO SCH ×2 (09:04→17:14)
[2018-11-17] MEDS: BENZTROPINE MESYLATE 1 MG TABLET PO SCH ×2 (09:04→17:14)
[2018-11-17] MEDS: METOPROLOL SUCCINATE 50 MG TAB.SR.24H PO SCH (09:04)
[2018-11-17] MEDS: ASPIRIN 325 MG TABLET PO SCH (09:04)
[2018-11-17] MEDS: VALSARTAN 160 MG TABLET PO SCH (09:04)
[2018-11-17] MEDS: ENOXAPARIN SODIUM INJ 40 MG/0.4 ML DISP.SYRIN SUBCUT SCH (09:05)
[2018-11-17] MEDS: SERTRALINE HCL 50 MG TABLET PO SCH (09:05)
--- NOTE | 2018-11-17 13:00 | PDOC TRANSFER SUMMARY ---
General - Admit/Disc Date/PCP Admission Date/Primary Care Provider: 11/05/18 23:12 DAMIAN ARREOLA MD Discharge Date: 11/17/18 - Discharge Diagnosis (1) Staphylococcus aureus septicemia Is this a current diagnosis for this admission?: Yes (2) Cellulitis of left hand Is this a current diagnosis for this admission?: Yes (3) Hyponatremia Is this a current diagnosis for this admission?: Yes (4) T2DM (type 2 diabetes mellitus) Is this a current diagnosis for this admission?: Yes (5) Coronary artery disease Is this a current diagnosis for this admission?: Yes (6) Cerebral infarction Is this a current diagnosis for this admission?: Yes (7) Syndrome of inappropriate ADH (SIADH) secretion Is this a current diagnosis for this admission?: Yes (8) Schizoaffective disorder Is this a current diagnosis for this admission?: Yes - Additional Information Prescriptions: Liraglutide [Victoza 2-Joe] 0.6 mg SQ DAILY #1000 pen.injctr Home Medications: Benztropine Mesylate [Cogentin 1 mg Tablet] 1 mg PO BID 10/31/18 Duloxetine HCl [Cymbalta] 30 mg PO BID 10/31/18 Levothyroxine Sodium 150 mcg PO Q6AM 10/31/18 Metoprolol Succinate [Toprol Xl] 200 mg PO DAILY 10/31/18 Aspirin [Aspirin 325 mg Tablet] 325 mg PO DAILY #90 tablet 11/03/18 Empagliflozin [Jardiance] 25 mg PO DAILY #90 tablet 11/03/18 Valsartan [Diovan 160 mg Tablet] 160 mg PO DAILY #90 tablet 11/03/18 Doxepin HCl 50 mg PO BID 11/06/18 Sertraline HCl [Zoloft 50 mg Tablet] 50 mg PO DAILY 11/06/18 Acetaminophen [Tylenol 325 mg Tablet] 650 mg PO Q4HP PRN tablet 11/17/18 Atorvastatin Calcium [Lipitor 80 mg Tablet] 80 mg PO QHS tablet 11/17/18 Liraglutide [Victoza 2-Joe] 0.6 mg SQ DAILY #1000 pen.injctr 11/17/18 Metformin HCl [Glucophage 500 mg Tablet] 1,000 mg PO BIDACBS tablet 11/17/18 Sitagliptin Phosphate [Januvia 50 mg Tablet] 100 mg PO DAILY tablet 11/17/18 History of Present Illness Admission Date/PCP: 11/05/18 23:12 DAMIAN ARREOLA MD History of Present Illness: RADHA SCOTT is a 68 year old female, she came to the emergency room for evaluation of swelling of the left hand and vomiting. She was recently discharged from this hospital when she sustained acute cerebral infarction, she was discharged on 11/03/2018, the last time she was admitted she had a mild superficial phlebitis on the dorsum of the left and at the site of IV access insertion, she was prescribed topical silver sulfadiazine cream to apply to the site of the inflammation. Patient stated that in the last 2 days she has been vomiting, she is not able to keep any food down not given her medications, she was found to have leukocytosis, there was associated hyponatremia with hyp erglycemia the serum glucose was 350, patient is poorly compliant with the diabetes care., The blood culture is growing gram-positive cocci in clusters, suggesting Staphylococcus aureus. Hospital Course Hospital Course: Patient was admitted to for the management of staph aureus septicemia, due to cellulitis of the dorsum of the left hand. Hospital course was complicated with cerebral infarction with involvement of the frontal lobe. Patient was initially on medical floor, he was transferred to [facility] for the management of acute stroke based on the stroke protocol. She has residual weakness of the left side of the body, she has been transferred to detention for rehabilitation and physical therapy. She also had hyponatremia due to SIADH, this was managed with fluid restriction. She has underlining ischemic heart disease, diabetes mellitus type 2 noncompliant with recommended medications Physical Exam Vital Signs: Temp Pulse Resp BP Pulse Ox 97.7 F 65 15 136/63 H 100 11/17/18 11:47 11/17/18 11:47 11/17/18 11:47 11/17/18 11:47 11/17/18 11:47 Intake & Output 11/16/18 11/17/18 11/18/18 06:59 06:59 06:59 Intake Total 1974 442 50 Output Total 605 750 Balance 1369 -308 50 Weight 101.4 kg 101.5 kg General appearance: PRESENT: no acute distress Head exam: PRESENT: atraumatic, normocephalic Eye exam: PRESENT: PERRLA Ear exam: PRESENT: normal external ear exam Mouth exam: PRESENT: moist, tongue midline Respiratory exam: PRESENT: clear to auscultation ellen Cardiovascular exam: PRESENT: RRR, +S1, +S2 Pulses: PRESENT: normal dorsalis pedis pul Vascular exam: PRESENT: normal capillary refill GI/Abdominal exam: PRESENT: normal bowel sounds, soft Rectal exam: PRESENT: deferred Extremities exam: PRESENT: full ROM Neurological exam: PRESENT: alert, other - Left-sided hemiparesis Psychiatric exam: PRESENT: appropriate affect, normal mood Skin exam: PRESENT: dry, intact, warm Results Laboratory Results: 11/14/18 05:14 11/16/18 05:30 Impressions: Hand X-Ray 11/05/18 21:08 IMPRESSION: Diffuse soft tissue swelling without underlying acute osseous anomaly. copyright 2010 [employer]- All Rights Reserved Head CT 11/07/18 00:00 IMPRESSION: NO SIGNIFICANT INTERVAL CHANGE. EVIDENCE OF ACUTE STROKE: NO. Chest X-Ray 11/08/18 00:00 IMPRESSION: 1. Interval placement of a left neck vascular catheter, tip in low position near the inferior cavoatrial junction. Consider retraction for position near the superior cavoatrial junction. 2. Cardiomegaly with minimal diffuse interstitial pulmonary opacity and possible small layering pleural effusions in low volume AP projection. There is no focal airspace opacity. Head MRI 11/10/18 00:00 IMPRESSION: Stable subacute infarctions as described. No interval change since 11/08/2018. EVIDENCE OF ACUTE STROKE: NO. Qualifiers - * PATIENT BEING DISCHARGED WITH ANY OF THE FOLLOWING DIAGNOSIS: No, Stroke Stroke Pt being discharged on Anti-thrombolytic therapy?: Yes Stroke Pt being discharged on Anti-coagulation therapy?: Yes Stroke Pt being discharged on Statins?: Yes NE Pt being discharged on Aspirin therapy?: Yes NE Pt being discharged on Statins?: Yes NE Pt discharged ACEI/ARBS?: Yes Acute Heart Failure Is this a Heart Failure Patient?: No
[2018-11-17 20:23] VITALS: BP 114/44
== END 2018-11-17 20:15 | DRG 871 ==
LOC: ER 16:21 → EH 23:12 → 4N 11-06 03:00 → 3S 11-07 20:59
PROVIDERS: ADMIT Internal Medicine; ATTEND Internal Medicine
DX: A41.01 Sepsis due to Methicillin susceptible Staphylococcus aureus (principal); I63.9 Cerebral infarction, unspecified; L03.114 Cellulitis of left upper limb; E22.2 Syndrome of inappropriate secretion of antidiuretic hormone; I25.10 Atherosclerotic heart disease of native coronary artery without angina pectoris; F25.9 Schizoaffective disorder, unspecified; E78.5 Hyperlipidemia, unspecified; I10 Essential (primary) hypertension; K21.9 Gastro-esophageal reflux disease without esophagitis; F43.10 Post-traumatic stress disorder, unspecified; F31.9 Bipolar disorder, unspecified; D64.9 Anemia, unspecified; E11.42 Type 2 diabetes mellitus with diabetic polyneuropathy; I25.2 Old myocardial infarction; Z79.899 Other long term (current) drug therapy; Z86.73 Personal history of transient ischemic attack (TIA), and cerebral infarction without residual deficits; Z91.14 Patient's other noncompliance with medication regimen; Z79.4 Long term (current) use of insulin; Z79.82 Long term (current) use of aspirin; Z88.6 Allergy status to analgesic agent; Z90.49 Acquired absence of other specified parts of digestive tract; Z90.710 Acquired absence of both cervix and uterus; Z82.49 Family history of ischemic heart disease and other diseases of the circulatory system
CPT/HCPCS: 36415; 70450; 70551; 71045; 71046; 80048; 80053; 80076; 80202; 81001; 82803; 82962; 83036; 83605; 83690; 83930; 83935; 84300; 84439; 84443; 85025; 87040; 87070; 87075; 87077; 87186; 87205; 96361; 96365; 96367; 96375; 99285; C1751; J1642; J1650; J1815; J1885; J2405; J2543; J3370; J3490; J7030; J7060

== ENCOUNTER 2019-03-02 17:32 | Emergency (ER) | payer MEDICARE, OTHER ==
--- NOTE | 2019-03-02 20:15 | ER Document Report ---
ED GI/ - General Chief Complaint: Nausea/Vomiting Stated Complaint: VOMITING Time Seen by Provider: 03/02/19 19:50 Primary Care Provider: DAMIAN ARREOLA MD [Primary Care Provider] - Follow up in 3-5 days Mode of Arrival: Wheelchair Information source: Patient Notes: 68-year-old female presents to ED for complaint of abdominal pain. She states she has had nausea and vomiting and constipation for a week. She states she saw her primary doctor yesterday he gave her some medicine but it did not do anything but make her throw up. She states she had a stroke a couple months ago and has had worse constipation since then. She states she is not able to take her medications due to nausea and vomiting from the constipation. TRAVEL OUTSIDE OF THE [place] IN LAST 30 DAYS: No - HPI Patient complains to provider of: Abdominal pain, Vomiting, Other - Patient and state constipation Onset: Last week Timing/Duration: Persistent Quality of pain: Cramping Severity at maximum: Severe Severity in ED: Severe Pain Level: 5 Location: LUQ, LLQ, RUQ, RLQ Associated symptoms: Constipation, Loss of appetite, Nausea, Vomiting Exacerbated by: Movement, Food Relieved by: Denies Similar symptoms previously: Yes Recently seen / treated by doctor: Yes - Related Data Allergies/Adverse Reactions: codeine Allergy (Verified 11/06/18 02:25) Past Medical History - General Information source: Patient - Social History Smoking Status: Never Smoker Chew tobacco use (# tins/day): No Frequency of alcohol use: None Drug Abuse: None Lives with: Family Family History: CAD Patient has suicidal ideation: No Patient has homicidal ideation: No - Past Medical History Cardiac Medical History: Reports: Hx Congestive Heart Failure, Hx Coronary Artery Disease, Hx Heart Attack - x 2, Hx Hypercholesterolemia, Hx Hypertension Pulmonary Medical History: Reports: Hx Asthma Denies: Hx Tuberculosis EENT Medical History: Reports: None Neurological Medical History: Reports: Hx Cerebrovascular Accident, Hx Migraine Endocrine Medical History: Reports: Hx Diabetes Mellitus Type 2 - insulin dependent, Hx Hypothyroidism Renal/ Medical History: Reports: None Malignancy Medical History: Reports: None GI Medical History: Reports: Hx Gastroesophageal Reflux Disease, Hx Ulcer Musculoskeletal Medical History: Reports Hx Arthritis Skin Medical History: Reports Hx Cellulitis Psychiatric Medical History: Reports: Hx Bipolar Disorder, Hx Depression, Hx Post Traumatic Stress Disorder, Hx Schizophrenia Traumatic Medical History: Reports: None Infectious Medical History: Reports: None Past Surgical History: Reports: Hx Appendectomy, Hx Cardiac Catheterization, Hx Cardiac Surgery - 4 stents, Hx Cholecystectomy, Hx Hysterectomy, Hx Open Heart Surgery, Hx Orthopedic Surgery - left leg hardware - Immunizations Hx Diphtheria, Pertussis, Tetanus Vaccination: Yes Hx Pneumococcal Vaccination: 03/18/11 Review of Systems - Review of Systems Constitutional: No symptoms reported EENT: No symptoms reported Cardiovascular: No symptoms reported Respiratory: No symptoms reported Gastrointestinal: Abdominal pain, Constipation Genitourinary: No symptoms reported Female Genitourinary: No symptoms reported Musculoskeletal: No symptoms reported Skin: No symptoms reported Hematologic/Lymphatic: No symptoms reported Neurological/Psychological: No symptoms reported -: Yes All other systems reviewed and negative Physical Exam - Vital signs Vitals: Temp Pulse Resp BP Pulse Ox 98.0 F 80 20 169/86 H 100 03/02/19 17:42 03/02/19 17:42 03/02/19 17:42 03/02/19 17:42 03/02/19 17:42 Interpretation: Normal - General General appearance: Appears well, Alert - HEENT Head: Normocephalic, Atraumatic Eyes: Normal Pupils: PERRL - Respiratory Respiratory status: No respiratory distress Chest status: Nontender Breath sounds: Normal Chest palpation: Normal - Cardiovascular Rhythm: Regular Heart sounds: Normal auscultation Murmur: No - Abdominal Inspection: Normal Distension: No distension Bowel sounds: Hyperactive Tenderness: Tender Organomegaly: No organomegaly - Rectal Tenderness: No - Large amount of stool noted on rectal exam last Laura mcmillan lik Notes: Laura Mcmillan rn present for exam - Back Back: Normal, Nontender - Extremities General upper extremity: Normal inspection, Nontender, Normal color, Normal ROM, Normal temperature General lower extremity: Normal inspection, Nontender, Normal color, Normal ROM, Normal temperature, Normal weight bearing. No: Yadira's sign - Neurological Neuro grossly intact: Yes Cognition: Normal Orientation: AAOx4 Isaias Coma Scale Eye Opening: Spontaneous Isaias Coma Scale Verbal: Oriented [place] Coma Scale Motor: Obeys Commands Isaias Coma Scale Total: 15 Speech: Normal Motor strength normal: LUE, RUE, LLE, RLE Sensory: Normal - Psychological Associated symptoms: Normal affect, Normal mood - Skin Skin Temperature: Warm Skin Moisture: Dry Skin Color: Normal Course - Re-evaluation Re-evalutation: 03/03/19 02:14 X-ray demonstrated large amount of stool. Patient was given a soapsuds and mineral oil enema with a return of a large amount of formed and soft stool. was given instructions on MiraLAX increase in fluids and follow-up with the primary doctor. Patient was discharged home. - Vital Signs Vital signs: Temp Pulse Resp BP Pulse Ox 98.0 F 85 20 184/77 H 96 03/02/19 21:48 03/02/19 21:48 03/02/19 17:42 03/02/19 21:48 03/02/19 21:48 - Diagnostic Test Radiology reviewed: Image reviewed, Reports reviewed Discharge - Discharge Clinical Impression: Constipation Qualifiers: Constipation type: unspecified constipation type Qualified Code(s): K59.00 - Constipation, unspecified Condition: Stable Disposition: HOME, SELF-CARE Additional Instructions: ABDOMINAL PAIN: There are many causes of abdominal pain. Pain can mean a serious problem requiring surgery (such as appendicitis). It can also be an innocent problem that goes away on its own (such as a viral infection). Often, time must pass to determine the cause of pain. The physician does not feel that hospitalization is necessary, at present. Things may change within the next 24 hours. Call the doctor or come back for re- examination if any problems occur, such as: (1) Pain that becomes more severe, steady, or becomes concentrated in one specific area. Also, pain that is more severe with movement or coughing. (2) Vomiting that persists or becomes more frequent. (3) Blood in the vomitus, urine, or bowel movements. Blood in the stool may have a tarry or black appearance. (4) Shaking chills or fever greater than 100 degrees F. (5) The abdomen becomes more distended or swollen. (6) Bowel movements cease. (7) Failure to improve as expected. NORMAL EXAM AND WORKUP: At this time, your examination and workup show no significant abnormality. No significant abnormal physical findings are noted. All laboratory, EKG, and imaging (x-ray, CT scans, ultrasound) studies that were ordered show no significant abnormality. Although your examination and all studies that were ordered showed no significant abnormal finding, there are no examinations and no studies that are 100% accurate. There is always the possibility that some abnormality could exist and not be detected with physical examination or within the limits and capabilities of laboratory and other studies. You should return or follow up as you were instructed on your visit today for further evaluation if your symptoms do not resolve. CONSTIPATION: Constipation is a common problem. It is especially likely as you get older. Constipation is a common cause of abdominal pain, but sometimes causes no symptoms at all. Causes of constipation include certain medications, dehydration, diets, inactivity, and low-fiber intake. Rarely, it can be a symptom of underlying disease. The physician has evaluated you for this. Avoid constipation by eating a diet high in fiber, fruits, and vegetables. Drink plenty of liquids. Get regular exercise. If possible, avoid constipating medicines like narcotic pain medication. Some vitamin tablets can cause constipation. Stool softeners may be needed for difficult cases. An excellent stool softener is Konsyl which is available at [x+1], [employer]. Just add a teaspoon to a glass of pineapple or orange juice daily or twice a day if needed. Laxatives are useful for occasional constipation. You should use them only when necessary. Too-frequent use can make your bowels dependent on them. Some over the counter laxatives available without prescription are: Miralax 1 capful in 8 ounces of liquid two times a day. Drink 6-8 8 ounces of fluid a day. FOLLOW-UP CARE: If you have been referred to a physician for follow-up care, call the [facility]ia ns office for an appointment as you were instructed or within the next two days. If you experience worsening or a significant change in your symptoms, notify the physician immediately or return to the Emergency Department at any time for re-evaluation. Forms: Elevated Blood Pressure Referrals: DAMIAN ARREOLA MD [Primary Care Provider] - Follow up in 3-5 days
[2019-03-02] MEDS ORDERED: MINERAL OIL 30 ML UDCUP PR ONE (20:25)
--- NOTE | 2019-03-02 20:57 | RADIOLOGY REPORT (SQ) ---
EXAM DESCRIPTION: XR ABDOMEN 1 VIEW (KUB) COMPLETED DATE/TME: 03/02/2019 20:07 CLINICAL HISTORY: 68 years, Female, abdominal pain Findings: No free intraperitoneal air. Postoperative changes right upper quadrant cholecystectomy clips. Moderate amount stool in the colon. No significant dilated loops of bowel. No air-fluid levels. IMPRESSION: No evidence for bowel obstruction.
[2019-03-02] MEDS ORDERED: NYSTATIN/TRIAMCIN OINTMENT 15 GM TP ONE (21:11)
[2019-03-02 21:49] VITALS: BP 184/77
== END 2019-03-02 21:55 | disposition home or self-care (01) ==
LOC: ER 17:32
DX: R11.2 Nausea with vomiting, unspecified (principal); R10.9 Unspecified abdominal pain; K59.00 Constipation, unspecified; I50.9 Heart failure, unspecified; I25.10 Atherosclerotic heart disease of native coronary artery without angina pectoris; E78.00 Pure hypercholesterolemia, unspecified; I11.0 Hypertensive heart disease with heart failure; Z86.73 Personal history of transient ischemic attack (TIA), and cerebral infarction without residual deficits; E11.9 Type 2 diabetes mellitus without complications; Z79.84 Long term (current) use of oral hypoglycemic drugs; Z88.6 Allergy status to analgesic agent; Z90.49 Acquired absence of other specified parts of digestive tract; Z90.710 Acquired absence of both cervix and uterus; I25.2 Old myocardial infarction
CPT/HCPCS: 74018; J3490 ×2

== ENCOUNTER 2019-03-15 21:40 | Emergency (ER) | payer MEDICARE ==
--- NOTE | 2019-03-15 22:04 | ER Document Report ---
ED GI/ - General Chief Complaint: Abdominal Pain Stated Complaint: ABDOMINAL PAIN Time Seen by Provider: 03/15/19 22:03 Primary Care Provider: DAMIAN ARREOLA MD [Primary Care Provider] - Follow up as needed Mode of Arrival: Stretcher Information source: Patient Notes: HISTORY OF PRESENT ILLNESS: Patient is a 68-year-old chronically ill female with an extensive past medical history of diabetes, acute stroke, schizophrenia, and bipolar disorder who presents with acute onset abdominal pain that radiates to the back that the patient describes as aching and stabbing. Patient reports symptoms began suddenly, have been intermittent, does not remember having similar symptoms in the past. Of note, the patient reports chronic constipation and multiple visits to the emergency department for "a lot of enemas." Location: Epigastric, mid abdomen Onset: Prior to arrival Alleviation: None Provocation: None Quality: Aching, stabbing Radiation: Mid and upper back Severity: Moderate at worst, currently mild Timing: Persistent History of abdominal surgery: Yes Associated symptoms: Denies fevers or chills, no cough or congestion, no chest pain or shortness of breath, no nausea or vomiting, no diarrhea or constipation Last bowel movement: "I have not had a normal bowel movement in 3 weeks" REVIEW OF SYSTEMS: CONSTITUTIONAL : Denies fever or chills, no sweats. Denies recent illness. EENT: Denies eye, ear, throat, or mouth pain or symptoms. Denies nasal or sinus congestion. CARDIOVASCULAR: Denies chest pain. Denies swelling of the legs. RESPIRATORY: Denies cough, cold, or chest congestion. Denies shortness of breath or difficulty breathing. Denies wheezing. GASTROINTESTINAL: Positive for abdominal pain. Denies nausea, vomiting, or diarrhea. Positive for constipation. GENITOURINARY: Denies difficulty urinating, painful urination, burning, frequency, or blood in urine. FEMALE GENITOURINARY: Denies vaginal bleeding, abnormal or irregular periods. MUSCULOSKELETAL: Denies neck or back pain or joint pain or swelling. SKIN: Denies rash or skin lesions. HEMATOLOGIC : Denies easy bruising or bleeding. LYMPHATIC: Denies swollen, enlarged glands. NEUROLOGICAL: Denies altered mental status or loss of consciousness. Denies headache. Denies weakness or paralysis or loss of use of either side. Denies problems with gait or speech. Denies sensory or motor loss. PSYCHIATRIC: Denies anxiety or stress or depression. All other systems reviewed and negative. PHYSICAL EXAMINATION: GENERAL: Frail-appearing, well-nourished and in no acute distress. HEAD: Atraumatic, normocephalic. No scalp deformity, depression, or crepitance. EYES: Pupils are 3 mm and equal/round/reactive to light, extraocular movements intact, sclera anicteric, conjunctiva are normal. ENT: Nares patent bilaterally, oropharynx. Moist mucous membranes. No tonsil hypertrophy. NECK: Normal range of motion, supple without lymphadenopathy. LUNGS: Breath sounds present, equal, and clear to auscultation bilaterally. No wheezes, rales, or rhonchi. HEART: Regular rate and rhythm without murmurs, rubs, or gallops. 2+ peripheral pulses. Normal capillary refill. ABDOMEN: Soft, mild epigastric and mid abdomen tenderness, nondistended. Normoactive bowel sounds. No guarding, no rebound. No masses appreciated. BACK: Normal contour, no midline tenderness. Rectal exam deferred. GENITAL/PELVIC: Deferred. EXTREMITIES: Normal range of motion, no pitting or edema. No cyanosis. NEUROLOGICAL: No focal neurological deficits. Moves all extremities spontaneous ly and on command. PSYCH: Normal mood, normal affect. No suicidal thoughts/ideations. No homicidal thoughts/ideations. No hallucinations. SKIN: Warm, dry, normal turgor, no rashes or lesions noted. ASSESSMENT AND PLAN: This patient is a 68-year-old female who presents with mid and upper abdominal pain that radiates to the back. Exam is overall benign appearing. 1. Will obtain labs, urine, and CT scan of the abdomen/pelvis. 2. Will treat symptoms as needed and reassess. TRAVEL OUTSIDE OF THE [place] IN LAST 30 DAYS: No - HPI Patient complains to provider of: Abdominal pain Onset: Just prior to arrival Timing/Duration: Sudden Quality of pain: Achy, Stabbing Severity at maximum: Moderate Severity in ED: Mild Pain Level: 1 Location: Epigastric Vaginal bleeding (Compared to normal period): None Associated symptoms: None Exacerbated by: Movement Relieved by: Denies Similar symptoms previously: No Recently seen / treated by doctor: No - Related Data Allergies/Adverse Reactions: codeine Allergy (Verified 11/06/18 02:25) Past Medical History - General Information source: Patient - Social History Smoking Status: Never Smoker Chew tobacco use (# tins/day): No Frequency of alcohol use: None Drug Abuse: None Lives with: Detention Family History: Reviewed & Not Pertinent, CAD Patient has suicidal ideation: No Patient has homicidal ideation: No - Past Medical History Cardiac Medical History: Reports: Hx Congestive Heart Failure, Hx Coronary Artery Disease, Hx Heart Attack - x 2, Hx Hypercholesterolemia, Hx Hypertension Pulmonary Medical History: Reports: Hx Asthma Denies: Hx Tuberculosis EENT Medical History: Reports: None Neurological Medical History: Reports: Hx Cerebrovascular Accident, Hx Migraine. Denies: Hx Seizures Endocrine Medical History: Reports: Hx Diabetes Mellitus Type 1, Hx Diabetes Mellitus Type 2 - insulin dependent, Hx Hypothyroidism Renal/ Medical History: Reports: None. Denies: Hx Peritoneal Dialysis Malignancy Medical History: Reports: None GI Medical History: Reports: Hx Gastroesophageal Reflux Disease, Hx Ulcer. Denies: Hx Hiatal Hernia Musculoskeletal Medical History: Reports Hx Arthritis Skin Medical History: Reports Hx Cellulitis Psychiatric Medical History: Reports: Hx Bipolar Disorder, Hx Depression, Hx Post Traumatic Stress Disorder, Hx Schizophrenia Traumatic Medical History: Reports: None Infectious Medical History: Reports: None Past Surgical History: Reports: Hx Appendectomy, Hx Cardiac Catheterization, Hx Cardiac Surgery - 4 stents, Hx Cholecystectomy, Hx Hysterectomy, Hx Open Heart Surgery, Hx Orthopedic Surgery - left leg hardware. Denies: Hx Pacemaker - Immunizations Hx Diphtheria, Pertussis, Tetanus Vaccination: Yes Hx Pneumococcal Vaccination: 03/18/11 Review of Systems - Review of Systems Constitutional: No symptoms reported EENT: No symptoms reported Cardiovascular: No symptoms reported Respiratory: No symptoms reported Gastrointestinal: See HPI, Abdominal pain, Constipation Genitourinary: No symptoms reported Female Genitourinary: No symptoms reported Musculoskeletal: No symptoms reported Skin: No symptoms reported Hematologic/Lymphatic: No symptoms reported Neurological/Psychological: No symptoms reported -: Yes All other systems reviewed and negative Physical Exam - Vital signs Vitals: Resp Pulse Ox 18 97 03/15/19 21:59 03/15/19 21:59 Interpretation: Normal Course - Re-evaluation Re-evalutation: 03/16/19 03:28 Blood work indicates elevated white blood cell count, hyponatremia with hypokalemia. Patient is receiving both IV fluids as well as IV/p.o. potassium. CT scan is negative for acute intra-abdominal pathology, however it does reveal possible osteomyelitis or discitis of the mid thoracic spine. Patient has no infectious etiology, however will cover with IV vancomycin and cefepime. I have spoken with neurosurgery at tertiary center who does not believe the patient requires acute surgical intervention at this time. We will attempt transfer. 03/16/19 04:38 I have attempted to contact the following transfer centers to initiate transfer: [facility], [facility], [facility], [facility], [facility], and [facility]. The only hospital to offer the patient to be placed on the waiting list was [facility] in [place]. I am currently awaiting a neurosurgeon to call me back from that facility to verify the patient does not need acute surgical intervention before they will allow me to speak with her hospitalist to place the patient on a waiting list. 03/16/19 06:00 Plan will be to await neurosurgical consult at tertiary center and arrange transport. - Vital Signs Vital signs: Temp Pulse Resp BP Pulse Ox 19 166/80 H 99 03/16/19 04:09 03/16/19 04:09 03/16/19 04:09 - Laboratory Result Diagrams: 03/15/19 22:20 03/15/19 22:20 Laboratory results interpreted by me: 03/15/19 03/15/19 22:20 22:20 WBC 14.1 H RBC 6.00 H MCV 78 L MCH 25.3 L RDW 17.8 H Lymph % (Auto) 7.4 L Absolute Neuts (auto) 12.6 H Seg Neutrophils % 89.3 H Sodium 131.7 L Potassium 2.8 L* Chloride 88 L Carbon Dioxide 20 L Anion Gap 24 H BUN 24 H Glucose 196 H Direct Bilirubin 0.6 H Alkaline Phosphatase 129 H - Diagnostic Test Radiology reviewed: Image reviewed, Reports reviewed - EKG Interpretation by Ma EKG shows normal: Sinus rhythm Rate: Normal Rhythm: NSR [place]/QRS: No: Right axis deviation, Left axis deviation, RBBB, LBBB, IVCD, LAHB/LAFB, LPHB/LPFB, Bifasicular block Voltage: No: Increased voltage, Consistant with LVH, Decreased voltage, Throughout, Limb leads P Waves: No: KULDEEP, LAE, Absent, AV Dissociation, Other Heart block present: No: 1st Degree, Mobitz 1, Mobitz 2, CHB (3rd degree block) Additional EKG results interpreted by in: 03/15/19 23:50 T wave inversions in the precordial leads are unchanged from prior comparison - Consults Dr. Bill ([facility]) Time consulted: 03:24 - no neurosurgical intervention indicated, recommends IV abx and medicine admission with MRI and ifectious disease consult along with neurosurgery consult Discharge - Discharge Clinical Impression: Hyponatremia, Hypokalemia, Discitis of thoracic region Condition: Stable Disposition: Tertiary-Other Referrals: DAMIAN ARREOLA MD [Primary Care Provider] - Follow up as needed
[2019-03-15 23:44] LABS: ALKALINE PHOSPHATASE 129 U/L (38-126); ASPARTATE AMINO TRANSFERASE 19 U/L (14-36); BILIRUBIN,DIRECT 0.6 mg/dL (0.0-0.4); BILIRUBIN,TOTAL 0.7 mg/dL (0.2-1.3); BLOOD UREA NITROGEN 24 mg/dL (7-20); CALCIUM 10.2 mg/dL (8.4-10.2); CARBON DIOXIDE 20 mmol/L (22-30); CHLORIDE 88 mmol/L (98-107); GLUCOSE 196 mg/dL (75-110); TOTAL PROTEIN 7.9 g/dL (6.3-8.2)
[2019-03-15 23:47] LABS: POTASSIUM 2.8 mmol/L (3.6-5.0)
[2019-03-15 23:49] LABS: ABSOLUTE MONOCYTES (AUTO) 0.4 10^3/uL (0.1-1.4); ABSOLUTE NEUT (AUTO) 12.6 10^3/uL (1.7-8.2); BASOPHILS % (AUTO) 0.1 % (0-2); EOSINOPHILS % (AUTO) 0.1 % (0-6); HEMATOCRIT 46.9 % (36.0-47.0); HEMOGLOBIN 15.2 g/dL (12.0-15.5); LYMPHOCYTES % (AUTO) 7.4 % (13-45); MEAN CORPUSCULAR HEMOGLOBIN 25.3 pg (27.0-33.4); MEAN CORPUSCULAR HGB CONC 32.4 g/dL (32.0-36.0); MEAN CORPUSCULAR VOLUME 78 fl (80-97); MONOCYTES % (AUTO) 3.1 % (3-13); PLATELET COUNT 420 10^3/uL (150-450); RED CELL DISTRIBUTION WIDTH 17.8 % (11.5-14.0); SEGMENTED NEUTROPHILS % (AUTO) 89.3 % (42-78); TOTAL CELLS COUNTED % (AUTO) 100 %; WHITE BLOOD COUNT 14.1 10^3/uL (4.0-10.5)
[2019-03-15 23:52] LABS: ANION GAP 24 (5-19)
--- NOTE | 2019-03-16 00:37 | RADIOLOGY REPORT (SQ) ---
EXAM DESCRIPTION: CT ABDOMEN PELVIS WITH IV CONTRAST COMPLETED DATE/TME: 03/15/2019 23:30 CLINICAL HISTORY: 68 years, Female, Abdominal pain. CREAT 0.69 COMPARISON: 09/08/2017 CT TECHNIQUE: 577 Images stored on PACS. All CT scanners at this facility use dose modulation, iterative reconstruction, and/or weight based dosing when appropriate to reduce radiation dose to as low as reasonably achievable (ALARA). [facility]: Dose Right [facility]: CareDose [facility]: Dose Right [facility]: Teradose 4D [facility]: [employer] LIMITATIONS: None. FINDINGS: Limited evaluation of the lung bases shows partial visualization of destructive changes involving the T8/T9 disc space with paraspinal soft tissue density and phlegmon. Findings are suspicious for osteomyelitis/discitis. Correlate with history. Osseous structures of the abdomen/pelvis are otherwise intact. The liver, spleen, adrenal glands, pancreas, kidneys are unremarkable. Status post cholecystectomy. Large amount of stool in the colon. No gross evidence for bowel obstruction. No free air or free fluid. Appendix not well seen. No pericecal inflammation IMPRESSION: No acute intra-abdominal/pelvic process. Abundant stool in the colon. Destructive changes with paraspinal soft tissue densities extending to the pleural surface at the T8/T9 level. Findings are highly suspicious for osteomyelitis/discitis. TECHNICAL DOCUMENTATION: Quality ID # 436: Final reports with documentation of one or more dose reduction techniques (e.g., Automated exposure control, adjustment of the mA and/or kV according to patient size, use of iterative reconstruction technique) copyright 2011 [employer]- All Rights Reserved
[2019-03-16] MEDS ORDERED: MORPHINE SULFATE 10 MG/ML INJ IV ONE ×3 (00:59→07:32)
[2019-03-16] MEDS ORDERED: POTASSIUM CHLORIDE 10 MEQ CAPSULE.ER PO ONE (01:43)
[2019-03-16] MEDS ORDERED: NORMAL SALINE 1000 ML 1,000 ML IV ONE (01:43)
[2019-03-16] MEDS: POTASSI CL 20 MEQ/50 ML RIDER 20 MEQ/50 ML RTUPB IV SCH ×2 (02:11→04:53)
[2019-03-16] MEDS ORDERED: CEFEPIME 1 GM/D5W RTU 1 GM/50 ML RTUPB IV ONE (03:23)
[2019-03-16] MEDS ORDERED: VANCOMYCIN HCL INJ 1000 MG VIAL IV ONE (03:23)
[2019-03-16 06:17] LABS: APPEARANCE,URINE CLOUDY; BILIRUBIN,URINE NEGATIVE (NEGATIVE); COLOR,URINE YELLOW; GLUCOSE, URINE >=500 mg/dL (NEGATIVE); KETONES,URINE 80 mg/dL (NEGATIVE); LEUKOCYTE ESTERASE,URINE LARGE (NEGATIVE); NITRITE,URINE NEGATIVE (NEGATIVE); PROTEIN,URINE 30 mg/dL (NEGATIVE); URINE SPECIFIC GRAVITY 1.041; UROBILINOGEN,URINE NEGATIVE mg/dL (<2.0)
--- NOTE | 2019-03-16 08:06 | EKG REPORT ---
SEVERITY:- ABNORMAL ECG - SINUS RHYTHM SHORT MA INTERVAL, ACCELERATED AV CONDUCTION PROBABLE LEFT VENTRICULAR HYPERTROPHY ABNORMAL T, CONSIDER ISCHEMIA, DIFFUSE LEADS : Confirmed by: Lucy Rivera MD 16-Mar-2019 08:05:28
--- NOTE | 2019-03-16 09:36 | RADIOLOGY REPORT (SQ) ---
EXAM DESCRIPTION: MRI THORACIC SPINE COMBO COMPLETED DATE/TIME: 03/16/2019 9:15 am REASON FOR STUDY: Tspine Diskitis or OM with phlegmon on CT COMPARISON: CT dated 03/16/2019 TECHNIQUE: Sagittal and Axial imaging includes T1, T2, STIR and gradient echo sequences. T1 post ga dolinium sequences. CONTRAST TYPE AND DOSE: 10 mL Dotarem. RENAL FUNCTION: Not indicated. ACR Type II contrast agent associated with few, if any, unconfounded cases of NSF LIMITATIONS: None. FINDINGS: LOCALIZER: No worrisome findings. ALIGNMENT: Normal. VERTEBRAE: Intact. BONE MARROW: Abnormal marrow signal at T7-T8 with evidence of marrow edema. HARDWARE: None in the spine. CORD: There is significant core compression at the level of T7-T8 secondary to enhancing mass most co nsistent with epidural abscess. SOFT TISSUES: Extensive paravertebral soft tissue enhancement surrounding the T7-T8 vertebral bodies consistent with infectious or inflammatory process. THORACIC DISCS T1-T12: Findings are consistent with discitis at T7-T8. Other levels demonstrate loss of normal height and signal consistent with desiccation. No other areas of central stenosis. LOWER CERVICAL: Incompletely imaged. No significant spinal stenosis or exit foraminal stenosis. UPPER LUMBAR: Incompletely imaged. No significant spinal stenosis or exit foraminal stenosis. ENHANCEMENT: Abnormal enhancement at T7-T8 consistent with discitis and osteomyelitis. OTHER: No other significant finding. IMPRESSION: 7.5 x 2.4 cm epidural abscess extending posteriorly along the T7-T8 vertebral bodies. T his results in significant mass effect on the cord. There is extensive paravertebral soft tissue enh ancement. There is enhancement of both the marrow and this consistent with discitis and osteomyeliti s. COMMENT: This report was called to DOMO VALENTINO MD [id number] hours on 03/16/2019. TECHNICAL DOCUMENTATION: JOB ID: [id number] [employer]- All Rights Reserved Reading location - IP/workstation name: [email or web address]
--- NOTE | 2019-03-16 10:28 | ER Document Report ---
Doctor's Note Notes: 03/16/19 10:26 Patient signed out to me by Dr. Simmons. He presented with abdominal and back pain for several days, history of baseline altered mental status and prior deficits due to left-sided CVA. Patient underwent CT imaging of the abdomen and pelvis that incidentally noted discitis versus osteomyelitis at the T8-T9 region. On signout, Dr. Simmons had spoke with neurosurgery at [facility] and was waiting to hear back. He spoken with multiple other hospitals who had extensive weights greater than 24 to 48 hours. I personally spoke with neurosurgery who had requested urgent MRI. MRI is obtained and shows a large epidural abscess with spinal cord compression. Patient is being transferred emergently via air to the emergency department at [facility]. Cultures had already been obtained, she is covered with cefepime and vancomycin. She has no neurologic deficits and otherwise remains intact. Serial exams of her abdomen are benign.
[2019-03-16 10:31] VITALS: BP 136/87
[2019-03-16] MEDS ORDERED: CEFEPIME 2 GM/D5W RTU 2 GM/50 ML RTUPB IV SCH (11:00)
[2019-03-16] MEDS ORDERED: VANCOMYCIN HCL INJ 1000 MG VIAL IV SCH (15:00)
== END 2019-03-16 10:29 | disposition short-term general hospital (02) ==
LOC: ER 21:40
DX: M46.44 Discitis, unspecified, thoracic region (principal); E87.1 Hypo-osmolality and hyponatremia; E87.6 Hypokalemia; K59.00 Constipation, unspecified; E11.9 Type 2 diabetes mellitus without complications; R10.13 Epigastric pain; R10.816 Epigastric abdominal tenderness; I25.10 Atherosclerotic heart disease of native coronary artery without angina pectoris; I10 Essential (primary) hypertension; Z87.19 Personal history of other diseases of the digestive system; Z90.49 Acquired absence of other specified parts of digestive tract; Z95.5 Presence of coronary angioplasty implant and graft; Z88.5 Allergy status to narcotic agent
CPT/HCPCS: 93005; 36415; 87040; 82962; 84132; 85025; 80053; 81001; 84484; 72157; 74177; 93010; A9576; J2270; J3480; J7030; J3370; A9270; J0692; 87077; 87086